=== PATIENT | male | born 1965 | race Caucasian/White ===

== ENCOUNTER → 2020-03-03 11:49 | Outpatient (BNVA) | payer SELFPAY | PROVIDERS: Family Provider Nurse Practitioner Family; PCP Nurse Practitioner Family; Visit Provider Registered Nurse | DX: E11.9 Type 2 diabetes mellitus without complications (principal) | CPT/HCPCS: 80053; 83036 ==

== ENCOUNTER → 2020-05-31 08:36 | Outpatient (BNVA) | payer SELFPAY | PROVIDERS: Family Provider Nurse Practitioner Family; PCP Nurse Practitioner Family; Visit Provider Registered Nurse | DX: E11.9 Type 2 diabetes mellitus without complications (principal) | CPT/HCPCS: 80061; 83036 ==

== ENCOUNTER → 2020-08-05 09:04 | Outpatient (BNVA) | payer SELFPAY | PROVIDERS: Family Provider Nurse Practitioner Family; PCP Nurse Practitioner Family; Visit Provider Registered Nurse | DX: L02.91 Cutaneous abscess, unspecified (principal); L05.91 Pilonidal cyst without abscess | CPT/HCPCS: 87070; 87077; 87186 ==

== ENCOUNTER 2020-08-09 08:01 | Outpatient (CLI) | payer SELFPAY | END 2020-08-09 08:02 | disposition home or self-care (01) | LOC: WOUND 08:06 | PROVIDERS: Family Provider Nurse Practitioner Family; PCP Nurse Practitioner Family; Visit Provider Nurse Practitioner Family | DX: I96 Gangrene, not elsewhere classified; L98.492 Non-pressure chronic ulcer of skin of other sites with fat layer exposed | CPT/HCPCS: G0463 ==

== ENCOUNTER 2020-08-13 12:45 | Outpatient (CLI) | payer SELFPAY | END 2020-08-13 12:46 | disposition home or self-care (01) | LOC: WOUND 12:46 | PROVIDERS: Family Provider Registered Nurse; PCP Registered Nurse; Visit Provider Surgery | DX: L05.91 Pilonidal cyst without abscess (principal) | CPT/HCPCS: 11042 ==

== ENCOUNTER 2020-08-19 13:43 | Outpatient (CLI) | payer OTHER, SELFPAY | END 2020-08-19 13:44 | disposition home or self-care (01) | LOC: WOUND 13:44 | PROVIDERS: Family Provider Registered Nurse; PCP Registered Nurse; Visit Provider Surgery | DX: L05.01 Pilonidal cyst with abscess (principal); Z20.828 Contact with and (suspected) exposure to other viral communicable diseases | CPT/HCPCS: 87635; G0463 ==

== ENCOUNTER 2020-08-24 10:34 | Day surgery (SDC) | payer SELFPAY ==
[2020-08-23 12:54] VITALS: BMI 28.0
[2020-08-24 10:47] VITALS: BP 119/77; PULSE 88; RESP 18; TEMP 36.4; O2SAT 98
[2020-08-24 10:58] LABS: Glucose Point of Care 128 mg/dL (70-110)
[2020-08-24] MEDS: sodium chloride 0.9% 1,000 ML 30 ML IV (11:01)
--- NOTE | 2020-08-24 11:03 | W.PM.OPSUD ---
Surgery/Procedure H&P Update DATE OF PROCEDURE: August 24, 2020 DATE H&P PERFORMED: 08/13/20 H&P UPDATE INFORMATION: I have reviewed H&P completed within last 30 days, I have examined patient prior to procedure and No changes to prior documentation PREOP DIAGNOSIS: Lower back and right gluteal wounds PRIMARY INDICATION FOR PROCEDURE: The same PLANNED PROCEDURE: Operation Date: 08/24/20 12:10 Proposed Procedures p Debridement of lower back and right thigh wound(Right) - Arnaldo Blanchard MD
--- NOTE | 2020-08-24 11:14 | ANES.PREANE2 ---
Pre-Anesthetic Assessment Pre-Anesthetic Assessment: Height/Weight: Height 1.75 m Weight 86.183 kg Temp Pulse Resp BP Pulse Ox 97.6 F 88 18 119/77 98 08/24/20 10:47 08/24/20 10:47 08/24/20 10:47 08/24/20 10:47 08/24/20 10:47 Preop Diagnosis: Lower back and right gluteal wounds Proposed Procedure: Operation Date: 08/24/20 12:10 Proposed Procedures p Debridement of lower back and right thigh wound(Right) - Arnaldo Blanchard MD Familial anesthetic complications: None Was Beta Vaibhav taken within 24 hours: N/A Last intake: Intake black coffee at 0600 Last Liquid Date 08/24/20 Last Liquid Time 06:00 Last Solid Date 08/23/20 Last Solid Time 19:00 Social: Social History: Tobacco and No alcohol Exam: Pre-Anes Outpt Exam: alert, oriented x 3, clear to auscultation bilaterally and regular rate & rhythm Airway: Cervical ROM: WNL MP: 3 Dentition: False Metabolic: Metabolic: DM Anesthetic Plan: ASA status: 2 Anesthesia: MAC Risk of > 500 ml blood loss (7ml/kg in children): No Meds/Allergies Current Medications: Current Medications Generic Name Dose Route Start Last Admin Trade Name Freq PRN Reason Stop Dose Admin Sodium Chloride 1,000 mls @ 30 ml s/hr 08/24/20 10:45 08/24/20 11:01 Sodium Chloride 0.9% IV 08/25/20 10:44 30 mls/hr .Q24H AGUS Administration PFSH Anesthesia PFSH: Medical History Type 2 diabetes mellitus Social History Smoking and tobacco status: current every day smoker Alcohol intake: never Adopted: No Caregiver/support person: No Lives independently: No Household members: spouse Current occupational status: employed Sexually active: Yes Current gender identity: Male Data Anesthesia Other Labs: Laboratory Results - last 48 hr 08/24/20 10:54 POC Glucose 128 Cardiac Studies: No Data to Display
[2020-08-24 12:13] LABS: Basophils % 0.7 %; Eosinophils # 0.2 10^3/uL (0.0-0.8); Eosinophils % 3.1 %; Hematocrit 39.3 % (42.0-52.0); Hemoglobin 12.9 g/dL (11.7-16.6); Lymphocytes # 1.4 10^3/uL (0.8-4.8); Lymphocytes % 23.6 %; Mean Corpuscular HGB Conc 32.8 g/dL (30.0-36.0); Mean Corpuscular Hemoglobin 31.8 pg (28.0-34.0); Mean Corpuscular Volume 96.8 fL (80-94); Mean Platelet Volume 10.2 fL (7.4-10.4); Monocytes # 0.4 10^3/uL (0.2-0.9); Monocytes % 6.8 %; Neutrophils # 3.96 10^3/uL (1.8-7.7); Neutrophils % 65.5 %; Nucleated Red Blood Cells % 0 %; Platelet Count 148 10^3/cmm (130-400); Red Blood Count 4.06 10^6/uL (4.1-5.3); Red Cell Distribution Width 12.9 % (12.1-15.1); White Blood Count 6.1 10^3/uL (4.0-10.0)
--- NOTE | 2020-08-24 13:09 | P.OP_ITS ---
Operative Report Date of procedure: August 24, 2020 Pre-op Diagnosis: Lower back and right gluteal wounds Post-op diagnosis: same Post-op Findings: Indurated edges of the lower back wound and cephalad tunneling of the right thigh wound Procedure Done: Sharp debridement of lower back and right thigh wounds. Implants: Pieces of Surgicel followed by packing with half-inch iodoform nugauze Specimens removed/disposition: Lower back wound tissues were sent for pathology and for cultures and sensitivities. Surgeon: Arnaldo Blanchard Financial Administrator: armored service technician Alondra Castillo/medical student Mita Anesthesia: MAC (MARIAM Viera) Estimated blood loss (mL): 10 Condition: stable Disposition: same day Brief History: This is a 54 years old gentleman known from wound care arnot with chronic wounds located on the lower back and right thigh wound. After thorough history physical examination and reviewing the chart I did intake counselor the patient for debridement in the OR. Patient agreed to proceed and informed consent per chart Procedure: After identifying the patient holding area, the lower back and right thigh wound locations were marked before the procedure by myself, patient was then taken to the operative suite, was placed in left lateral position and all pressure points were padded., IV antibiotics were given per protocol,IV propofol was infused by the anesthesia provider, prep and drape of the wound regions was done under the usual sterile technique. Time-out was done verifying the patient's name/date of /planned procedure and destination after the procedure, all were in agreement. Started by excising the unhealthy necrotic indurated tissues of the lower back wound. Incision was created at the skin level and went all the way down to the subcutaneous tissues and fascia layer, wound was excised including unhealthy ti ssues, followed by sharp curettage and debridement of the wound bed.Tissues were sent for cultures and sensitivities as well for pathology. Lower back wound measurement ; Pre Debridement measurements; 2.2 x 1 x 0.5 cm Post-debridement measurement; 3 x 2.5 x 0.7 cm Attention was now deviated towards the right thigh wound and predebridement measurements were 0.5 x 0.5 x 0.2 and post debridement measurements 3 x [address] x [address] to the subcutaneous layer, there was a tunnel appreciated cephalad was debrided. Copious irrigation of the wound was done with warm saline, followed by appropri ate hemostasis, packing of the wound was done with pieces of Surgicel followed by iodophor half-inch Nu Gauze impregnated and lidocaine 2%, followed by ABDs and pressure address Patient tolerated the procedure well, count of instruments, needles and sponges were completed at the end of the procedure. Patient was then taken to the recovery area in stable condition. I was present for the whole entire procedure
[2020-08-24] MEDS: lidocaine 2% INJ 20 mL INJECTION (13:12)
[2020-08-24 13:18] VITALS: BP 119/77; PULSE 88; RESP 18; TEMP 36.4; O2SAT 98
[2020-08-24 14:48] LABS: Anion Gap 15.2 (5-19); Blood Urea Nitrogen 8 mg/dL (6-20); Calcium 9.4 mg/dL (8.5-10.5); Carbon Dioxide 24 mmol/L (22-29); Chloride 106 mmol/L (98-107); Glomerular Filtration Rate 70.3 mL/min (90-130); Glucose 154 mg/dL (65-115); Osmolality Calculated 291 mOsm/kg (285-295); Potassium 5.2 mmol/L (3.5-5.1); Sodium 140 mmol/L (136-145)
[2020-08-24 14:49] LABS: Estmated Average Glucose 163; Hemoglobin A1C 7.3 % (4.0-6.0)
== END 2020-08-24 14:09 | disposition home or self-care (01) ==
PROVIDERS: PCP Registered Nurse; Visit Provider Surgery
PROC: (CPT 11042; principal; 2020-08-24 12:10)
DX: S31.000A Unspecified open wound of lower back and pelvis without penetration into retroperitoneum, initial encounter (principal); S71.101A Unspecified open wound, right thigh, initial encounter; X58.XXXA Exposure to other specified factors, initial encounter; F17.210 Nicotine dependence, cigarettes, uncomplicated
CPT/HCPCS: 11042; 11043; 12345; 36415; 36416; 80048; 82962; 83036; 85025; 87070; 87077; 87176; 87186; 87205; 88304; 96365; J0131; J0690; J2250; J2704; J3010; J7030

== ENCOUNTER 2020-08-27 13:14 | Outpatient (CLI) | payer SELFPAY | END 2020-08-27 13:15 | disposition home or self-care (01) | LOC: WOUND 13:14 | PROVIDERS: PCP Registered Nurse; Visit Provider Surgery | DX: B95.62 Methicillin resistant Staphylococcus aureus infection as the cause of diseases classified elsewhere (principal); L97.812 Non-pressure chronic ulcer of other part of right lower leg with fat layer exposed; L98.492 Non-pressure chronic ulcer of skin of other sites with fat layer exposed | CPT/HCPCS: 11042; 11043 ==

== ENCOUNTER 2020-08-31 15:39 | Outpatient (CLI) | payer SELFPAY ==
[2020-08-31 16:21] LABS: Alanine Aminotransferase 21 U/L (0-41); Albumin Level 5.1 g/dL (3.5-5.2); Alkaline Phosphatase 100 IU/L (40-130); Anion Gap 16.3 (5-19); Aspartate Amino Transferase 19 U/L (0-40); Blood Urea Nitrogen 18 mg/dL (6-20); Calcium 9.9 mg/dL (8.5-10.5); Carbon Dioxide 23 mmol/L (22-29); Chloride 100 mmol/L (98-107); Globulin 2.8 g/dL (1.3-4.6); Glomerular Filtration Rate 63.6 mL/min (90-130); Glucose 179 mg/dL (65-115); Osmolality Calculated 282 mOsm/kg (285-295); Potassium 6.3 mmol/L (3.5-5.1); Sodium 133 mmol/L (136-145); Total Bilirubin 0.6 mg/dL (0.15-1.2); Total Protein 7.9 g/dL (6.6-8.7)
--- NOTE | 2020-09-02 18:43 | PM.MISC ---
Miscellaneous Note Purpose of Documentation: phone call for critical labs Note: Labs reviewed from last clinic visit. Patient's potassium noted to be critical at 6.3. Denies any current symptoms. Instructed patient to stop Bactrim, which can be associated with hyperkalemia. Kidney function at baseline. Instructed to present to nearest urgent care or ER for repeat potassium check and EKG to exclude any rhythm abnormalities. Patient confirmed understanding.
== END 2020-08-31 15:40 | disposition home or self-care (01) ==
LOC: LAB 15:40
PROVIDERS: Student in an Organized Health Care Education/Training Program; PCP Registered Nurse; Visit Provider Physical Medicine & Rehabilitation
DX: E87.5 Hyperkalemia (principal)
CPT/HCPCS: 80053

== ENCOUNTER 2020-09-03 13:18 | Outpatient (CLI) | payer SELFPAY | END 2020-09-03 13:19 | disposition home or self-care (01) | LOC: WOUND 13:23 | PROVIDERS: PCP Registered Nurse; Visit Provider Surgery | DX: E11.622 Type 2 diabetes mellitus with other skin ulcer (principal); L98.492 Non-pressure chronic ulcer of skin of other sites with fat layer exposed; L97.812 Non-pressure chronic ulcer of other part of right lower leg with fat layer exposed | CPT/HCPCS: 11042 ==

== ENCOUNTER 2020-09-10 13:15 | Outpatient (CLI) | payer SELFPAY | END 2020-09-10 13:16 | disposition home or self-care (01) | LOC: WOUND 13:16 | PROVIDERS: PCP Registered Nurse; Visit Provider Surgery | DX: E11.622 Type 2 diabetes mellitus with other skin ulcer (principal); L98.412 Non-pressure chronic ulcer of buttock with fat layer exposed; L97.812 Non-pressure chronic ulcer of other part of right lower leg with fat layer exposed | CPT/HCPCS: 11042 ==

== ENCOUNTER 2020-09-17 12:58 | Outpatient (CLI) | payer SELFPAY | END 2020-09-17 12:59 | disposition home or self-care (01) | LOC: WOUND 13:03 | PROVIDERS: PCP Registered Nurse; Visit Provider Nurse Practitioner Family | DX: E11.622 Type 2 diabetes mellitus with other skin ulcer (principal); L98.492 Non-pressure chronic ulcer of skin of other sites with fat layer exposed; L97.812 Non-pressure chronic ulcer of other part of right lower leg with fat layer exposed | CPT/HCPCS: 11042 ==

== ENCOUNTER 2020-09-24 13:15 | Outpatient (CLI) | payer SELFPAY | END 2020-09-24 13:16 | disposition home or self-care (01) | LOC: WOUND 13:15 | PROVIDERS: PCP Registered Nurse; Visit Provider Surgery | DX: L98.492 Non-pressure chronic ulcer of skin of other sites with fat layer exposed (principal); L97.812 Non-pressure chronic ulcer of other part of right lower leg with fat layer exposed | CPT/HCPCS: 11042 ==

== ENCOUNTER 2020-10-01 13:15 | Outpatient (CLI) | payer SELFPAY | END 2020-10-01 13:16 | disposition home or self-care (01) | LOC: WOUND 13:15 | PROVIDERS: PCP Registered Nurse; Visit Provider Surgery | DX: E11.622 Type 2 diabetes mellitus with other skin ulcer (principal); L98.492 Non-pressure chronic ulcer of skin of other sites with fat layer exposed; I96 Gangrene, not elsewhere classified | CPT/HCPCS: 11042 ==

== ENCOUNTER 2020-10-06 14:07 | Outpatient (CLI) | payer SELFPAY | END 2020-10-06 14:08 | disposition home or self-care (01) | LOC: WOUND 14:07 | PROVIDERS: PCP Registered Nurse; Visit Provider Nurse Practitioner Family | DX: E11.622 Type 2 diabetes mellitus with other skin ulcer (principal); L98.492 Non-pressure chronic ulcer of skin of other sites with fat layer exposed | CPT/HCPCS: 11042 ==

== ENCOUNTER 2020-10-15 13:14 | Outpatient (CLI) | payer SELFPAY | END 2020-10-15 13:15 | disposition home or self-care (01) | LOC: WOUND 13:14 | PROVIDERS: PCP Registered Nurse; Visit Provider Surgery | DX: Z09 Encounter for follow-up examination after completed treatment for conditions other than malignant neoplasm (principal) ==

== ENCOUNTER → 2020-11-15 08:48 | Outpatient (BNVA) | payer SELFPAY | PROVIDERS: PCP Registered Nurse; Visit Provider Registered Nurse | DX: E11.9 Type 2 diabetes mellitus without complications (principal) | CPT/HCPCS: 80053; 80061; 83036 ==

== ENCOUNTER → 2021-02-18 09:07 | Outpatient (BNVA) | payer SELFPAY | PROVIDERS: PCP Registered Nurse; Visit Provider Registered Nurse | DX: E11.9 Type 2 diabetes mellitus without complications (principal) | CPT/HCPCS: 80053; 80061; 83036; 85025 ==

== ENCOUNTER → 2021-11-14 09:39 | Outpatient (BNVA) | payer SELFPAY | PROVIDERS: PCP Registered Nurse; Visit Provider Registered Nurse | DX: E11.9 Type 2 diabetes mellitus without complications (principal); E87.5 Hyperkalemia | CPT/HCPCS: 83036; 85025 ==

== ENCOUNTER → 2022-03-03 11:42 | Outpatient (BNVA) | payer SELFPAY | PROVIDERS: PCP Registered Nurse; Visit Provider Registered Nurse | DX: E11.9 Type 2 diabetes mellitus without complications (principal); E78.5 Hyperlipidemia, unspecified | CPT/HCPCS: 80053; 80061; 83036; 85025 ==

== ENCOUNTER → 2022-05-18 08:14 | Outpatient (BNVA) | payer SELFPAY | PROVIDERS: PCP Registered Nurse; Visit Provider Registered Nurse | DX: E11.9 Type 2 diabetes mellitus without complications (principal) | CPT/HCPCS: 80053; 83036 ==

== ENCOUNTER → 2022-08-17 08:22 | Outpatient (BNVA) | payer SELFPAY | PROVIDERS: PCP Registered Nurse; Visit Provider Registered Nurse | DX: E11.9 Type 2 diabetes mellitus without complications (principal); F17.210 Nicotine dependence, cigarettes, uncomplicated | CPT/HCPCS: 80053; 83036; 85025 ==

== ENCOUNTER → 2023-05-01 10:22 | Outpatient (BNVA) | payer SELFPAY | PROVIDERS: PCP Registered Nurse; Visit Provider Orthopaedic Surgery | DX: M54.9 Dorsalgia, unspecified (principal) | CPT/HCPCS: 72100 ==

== ENCOUNTER 2023-05-21 06:48 | Outpatient (CLI) | payer MEDICAID, SELFPAY ==
--- NOTE | 2023-05-21 07:15 | MR_ITS ---
WS: [id number] MRI LUMBAR SPINE NONCONTRAST HISTORY: M43.9 - Deforming dorsopathy, unspecified COMPARISON: Lumbar spine radiographs 05/01/2023. TECHNIQUE: Sagittal and axial multisequence imaging is submitted. Straightening of the normal lumbar lordosis with slight reversal at the L4 level. L4 severe compression fracture by 90% with retropulsion by 6 mm. Posterior vertebral body is retrolis thesed contacting and displacing the nerve roots in the thecal sac. There is a small component of mar row edema in the posterior L4 vertebral body. Additional marrow edema in the facets of L4. Edema with in the interspinous muscle at the L3-4 and L4-5 levels. No additional fracture or marrow edema. Conus terminates normally at L1-2 disc level. L1-L2: Mild annular disc bulging with facet arthritis. Mild foraminal narrowing. L2-L3: Moderate annular disc bulging encroaching upon the subarticular recesses. Small foraminal oste ophytes. There is mild central, bilateral subarticular recess and foraminal stenosis. Mild encroachme nt upon the traversing L3 nerve roots. L3-L4: Marked annular disc bulging with retrolisthesis of L4. Mild ligamentum flavum and facet arthri tis. Severe central, bilateral subarticular recess and foraminal stenosis. The stenosis becomes more significant at the level of the L4 vertebral body retrolisthesis. There is disc osteophyte causing si gnificant deformity and contact on the L3 and L4 nerve roots. L4-L5: Severe central, bilateral subarticular recess and foraminal stenosis. There is significant con tact on the L4 and L5 nerve roots. L5-S1: Mild annular disc bulging with a tiny central disc protrusion. There is mild contact on the S1 nerve roots. Mild bilateral subarticular recess and foraminal stenosis. Abnormal appearance of the LEFT kidney. There is mild dilatation of the LEFT renal pelvis possible re nal rotation or mass. LEFT kidney is incompletely imaged but needs to be further evaluated for possib le mass. MR/MR lumbar spine wo con* [id number] IMPRESSION: 1. Severe L4 compression fracture. Subacute most likely as there is incomplete marrow edema in portions of the vertebral bodies and facets. There is also int erspinous ligament edema. Ligamentous injury is likely due to mild widening and edema. 2. L4 compression fracture with retrolisthesis by 6 mm contacting the thecal s ac and displacing the nerve roots. 3. Severe central, bilateral subarticular recess and foraminal stenosis at the L3-4 and L4-5 levels. Stenosis is dominant due to the retrolisthesis of L4. 4. Mild central, bilateral subarticular recess and foraminal stenosis at L2-3 . Mild contact on the traversing L3 nerve roots. 5. Mild bilateral subarticular recess and foraminal stenosis at L5-S1. Mild co ntact on the traversing S1 nerve roots. 6. Abnormal LEFT kidney. A very small portion of the LEFT kidney is imaged but appears abnormal. Recommend additional evaluation of the abdomen and pelvis wi th IV and oral contrast to evaluate the LEFT kidney and the LEFT retroperitoneu m for possible mass.
== END 2023-05-21 06:49 | disposition home or self-care (01) ==
LOC: RAD 06:50
PROVIDERS: PCP Registered Nurse; Visit Provider Registered Nurse
DX: S32.048A Other fracture of fourth lumbar vertebra, initial encounter for closed fracture (principal); X58.XXXA Exposure to other specified factors, initial encounter; M48.07 Spinal stenosis, lumbosacral region; M43.16 Spondylolisthesis, lumbar region; M43.9 Deforming dorsopathy, unspecified
CPT/HCPCS: 72148

== ENCOUNTER → 2023-05-24 14:57 | Outpatient (BNVA) | payer MEDICAID, SELFPAY | PROVIDERS: PCP Registered Nurse; Visit Provider Orthopaedic Surgery | DX: Z01.818 Encounter for other preprocedural examination (principal); S32.040A Wedge compression fracture of fourth lumbar vertebra, initial encounter for closed fracture; X58.XXXA Exposure to other specified factors, initial encounter | CPT/HCPCS: 36415; 80053; 81003; 83036; 85025 ==

== ENCOUNTER → 2023-05-28 12:23 | Outpatient (BNVA) | payer MEDICAID, SELFPAY | PROVIDERS: PCP Registered Nurse; Visit Provider Family Medicine | DX: Z01.818 Encounter for other preprocedural examination (principal) | CPT/HCPCS: 80048 ==

== ENCOUNTER 2023-05-29 07:25 | Outpatient (CLI) | payer MEDICAID, SELFPAY ==
--- NOTE | 2023-05-29 08:00 | CTR_ITS ---
PROCEDURE INFORMATION: Exam: CT Abdomen And Pelvis With Contrast Exam date and time: 05/29/2023 8:40 AM Age: 57 years old Clinical indication: Abnormal findings; Abnormal radiologic finding of the abdomen; Radiologic exam and body structure: MR abdomen; Additional info: N28.89 - other specified disorders of kidney and ureter, recommended further eval from mri lumbar TECHNIQUE: Imaging protocol: Computed tomography of the abdomen and pelvis with contrast. Radiation optimization: All CT scans at this facility use at least one of these dose optimization techniques: automated exposure control; mA and/or kV adjustment per patient size (includes targeted exams where dose is matched to clinical indication); or iterative reconstruction. Contrast material: OMNI 350; Contrast volume: 95 ml; Contrast route: INTRAVENOUS (IV); REPORTING DATA: Count of CT and Cardiac NM exams in prior 12 months: This patient has received 0 known CTs and 0 known cardiac nuclear medicine studies in the 12 months prior to the current study. COMPARISON: 1. CR XR lumbar spine 2-3V* [id number] 05/01/2023 10:22 AM 2. MR lumbar spine wo con* [id number] 05/21/2023 7:45 AM RADIATION DOSE METRICS: Total DLP (mGy-cm): 326.46 FINDINGS: Liver: The liver is normal in size and contour. Gallbladder and bile ducts: Multiple calcified gallstones noted. No gallbladder wall thickening or pericholecystic fat stranding or fluid. Pancreas: The pancreas appears normal. Spleen: The spleen appears normal. Adrenal glands: The adrenals appear normal. Kidneys and ureters: Mass in the left kidney measuring 10 x 9 x 10 cm most likely consistent with malignancy. Mild prominence of the left-sided renal collecting system. No significant perinephric fat stranding. The right kidney appears unremarkable. Stomach and bowel: The stomach is unremarkable. The small bowel loops are not abnormally dilated. The large bowel loops are not abnormally dilated. Appendix: No signs of appendicitis. Intraperitoneal space: No ascites or significant fluid collection. Vasculature: The left renal vein appears patent. Lymph nodes: There are no enlarged lymph nodes. Urinary bladder: The bladder is distended and demonstrates no focal contour abnormality. Reproductive: Unremarkable as visualized. Bones/joints: Vertebra plana deformity at L4 with possible osseous destruction, similar to prior exam. Soft tissues: Unremarkable. CT/CT abdomen pelvis w con* [id number] IMPRESSION: 1. Mass in the left kidney measuring 10 x 9 x 10 cm most likely consistent with primary renal malignancy. 2. Vertebra plana deformity at L4 with possible osseous destruction, similar to prior exam. Findings could be related to osseous metastatic disease if no history of trauma. 3. Cholelithiasis without evidence of acute cholecystitis. COMMENTS: Consistent with the [employer]'s Incidental Findings Committee white paper (J Am Daniela Radiol 2018): Any incidental renal lesion less than 1 cm or classified as too small to characterize, or any incidental cystic renal lesion characterized as simple-appearing, is likely benign. No follow-up imaging is recommended for these lesions per consensus recommendations based on imaging criteria.
[2023-05-29] MEDS: iohexol 350 mg/mL 500 mL Btl (per mL) IV (08:45)
[2023-05-29] MEDS: iohexol 350 mg/mL 500 mL Btl (per mL) PO (08:45)
== END 2023-05-29 07:26 | disposition home or self-care (01) ==
LOC: RAD 07:28
PROVIDERS: PCP Registered Nurse; Visit Provider Registered Nurse
DX: N28.89 Other specified disorders of kidney and ureter (principal); M43.8X6 Other specified deforming dorsopathies, lumbar region; K80.20 Calculus of gallbladder without cholecystitis without obstruction; R93.5 Abnormal findings on diagnostic imaging of other abdominal regions, including retroperitoneum
CPT/HCPCS: 74177; Q9967

== ENCOUNTER → 2023-06-04 11:04 | Outpatient (BNVA) | payer MEDICAID, SELFPAY | PROVIDERS: PCP Registered Nurse; Visit Provider Registered Nurse | DX: E87.1 Hypo-osmolality and hyponatremia (principal); R60.9 Edema, unspecified | CPT/HCPCS: 80048 ==

== ENCOUNTER 2023-06-09 05:55 | Outpatient (CLI) | payer MEDICAID, SELFPAY ==
--- NOTE | 2023-06-09 | PETR_ITS ---
[facility] Final Radiology Report Call: [phone] assistance Online chat: [email or web address] Name: GARTH REESE Age: 57Years M Date: 05/29/2023 SSN: -- : 1965 Study: CT ABDOMEN/PELVIS W Requesting Physician: Neftaly Hernandez Images: 214 Provided Clinical History: N28.89 - Other specified disorders of kidney and ureter, recommended further eval from MRI Lumbar PROCEDURE INFORMATION: Exam: CT Abdomen And Pelvis With Contrast Exam date and time: 05/29/2023 8:40 AM Age: 57 years old Clinical indication: Abnormal findings; Abnormal radiologic finding of the abdomen; Radiologic exam and body structure: MR abdomen; Additional info: N28.89 - other specified disorders of kidney and ureter, recommended further eval from mri lumbar TECHNIQUE: Imaging protocol: Computed tomography of the abdomen and pelvis with contrast. Radiation optimization: All CT scans at this facility use at least one of these dose optimization techniques: automated exposure control; mA and/or kV adjustment per patient size (includes targeted exams where dose is matched to clinical indication); or iterative reconstruction. Contrast material: OMNI 350; Contrast volume: 95 ml; Contrast route: INTRAVENOUS (IV); REPORTING DATA: Count of CT and Cardiac NM exams in prior 12 months: This patient has received 0 known CTs and 0 known cardiac nuclear medicine studies in the 12 months prior to the current study. COMPARISON: 1. CR XR lumbar spine 2-3V* [id number] 05/01/2023 10:22 AM 2. MR lumbar spine wo con* [id number] 05/21/2023 7:45 AM RADIATION DOSE METRICS: Total DLP (mGy-cm): 326.46 FINDINGS: Liver: The liver is normal in size and contour. Gallbladder and bile ducts: Multiple calcified gallstones noted. No gallbladder wall thickening or pericholecystic fat stranding or fluid. Pancreas: The pancreas appears normal. Spleen: The spleen appears normal. Adrenal glands: The adrenals appear normal. Kidneys and ureters: Mass in the left kidney measuring 10 x 9 x 10 cm most likely consistent with malignancy. Mild prominence of the left-sided renal collecting system. No significant perinephric fat stranding. The right kidney appears unremarkable. Stomach and bowel: The stomach is unremarkable. The small bowel loops are not abnormally dilated. The large bowel loops are not abnormally dilated. Appendix: No signs of appendicitis. Intraperitoneal space: No ascites or significant fluid collection. Vasculature: The left renal vein appears patent. Lymph nodes: There are no enlarged lymph nodes. Urinary bladder: The bladder is distended and demonstrates no focal contour abnormality. Reproductive: Unremarkable as visualized. Bones/joints: Vertebra plana deformity at L4 with possible osseous destruction, similar to prior exam. Soft tissues: Unremarkable. IMPRESSION: 1. Mass in the left kidney measuring 10 x 9 x 10 cm most likely consistent with primary renal malignancy. 2. Vertebra plana deformity at L4 with possible osseous destruction, similar to prior exam. Findings could be related to osseous metastatic disease if no history of trauma. 3. Cholelithiasis without evidence of acute cholecystitis. COMMENTS: Consistent with the [place] [employer]'s Incidental Findings Committee white paper (J Am Daniela Radiol 2018): Any incidental renal lesion less than 1 cm or classified as too small to characterize, or any incidental cystic renal lesion characterized as simple- appearing, is likely benign. No follow-up imaging is recommended for these lesions per consensus recommendations based on imaging criteria. Thank you for allowing us to participate in the care of your patient. Dictated and Authenticated by: Nilson Justice MD 05/29/2023 11:31 AM Central Time ([place] & [place]) [facility]Henry
--- NOTE | 2023-06-09 | PETR_ITS ---
PROCEDURE INFORMATION: Exam: PET/CT Skull Base to Mid-thigh Exam date and time: 06/09/2023 1:12 PM Age: 57 years old Clinical indication: Condition or disease; Primary cancer: Malignant neoplasm of left kidney; Initial oncological staging assessment LABS AND CLINICAL REPORTS: Glucose: 127 mg/dl Treatment strategy for malignancy (PET staging): Initial Staging (PI) TECHNIQUE: Imaging protocol: Following at least four-hour fasting and following the injection of radiopharmaceutical, low dose CT images were obtained. Then, PET images were obtained. Attenuation corrected images were constructed using the CT scan. Fused images of PET and CT were reviewed. The standardized uptake values (SUV) reported below are maximum values within a region of interest, expressed in gm/ml. Exam includes orbital meatal line to mid-thigh. Radiopharmaceutical: 12.82 mCi F-18 FDG (Fluorodeoxyglucose), IV. Time of imaging post radiopharmaceutical administration: 1 hour Injection site: Left antecubital COMPARISON: CT abdomen pelvis w con* [id number] 05/29/2023 8:40 AM, MRI lumbar spine 05/21/2023 FINDINGS: Limitations: Motion artifact and streak artifact. Brain: Visualized brain has normal physiologic uptake. Pharynx: No abnormal uptake. Larynx: No abnormal uptake. Lungs, pleura and trachea: No abnormal uptake. A left lower lobe calcified granuloma is noted. Mild dependent streaky density in the right lower lung is with atelectasis. Heart: Normal physiologic uptake. Mediastinal space: No abnormal uptake. Liver: No abnormal uptake. Gallbladder and bile ducts: No abnormal uptake. Small stones in the gallbladder are noted. Pancreas: Elevated uptake in the pancreatic tail is noted without a well-defined lesion on the CT images, SUV max 4.5 on PET series 4, image 99 Spleen: No abnormal uptake. Adrenal glands: No abnormal uptake. Kidneys and ureters: Elevated uptake is identified in the periphery of a solid heterogeneous appearing mass arising from the left kidney measuring 9.8 x 11.3 cm in the axial plane on series 3, image 106, SUV max 5.0. Moderate hydronephrosis of the left kidney is noted. Stomach and bowel: There is a focus of elevated uptake in the mid sigmoid colon, SUV max 5.9 on PET series 4, image 131, without a definite correlating lesion on the CT images. Reproductive: There is marked prominence of the prostate gland without focal elevated uptake. Vasculature: No abnormal uptake. There are diffuse atherosclerotic changes. Lymph nodes: No abnormal uptake. No lymphadenopathy in the head, neck, chest, abdomen, pelvis, and extremities. Small non radiotracer avid calcified left hilar lymph nodes are present. Bones/joints: Elevated uptake is identified in a lucent lesion involving the posterior right glenoid measuring 1.3 cm in diameter on CT series 3, image 36, SUV max 4.7, and within the T4 vertebral body where there is a lucent lesion measuring 1.3 cm in diameter on series 3, image 49 with an SUV max 3.7. Elevated uptake is noted in a similar severe compression fracture of the L4 vertebral body, SUV max 4.6. Canal stenosis appears severe at the level of L4. Soft tissues: No abnormal uptake in the visualized head, neck, chest, abdomen, pelvis, and extremities. METRICS: Mediastinal blood pool: SUV max 2.4 PET/PET skulltothi SUBSEQ [id number] IMPRESSION: 1. A large left renal mass is noted with abnormal uptake in the periphery of the lesion. Assessment of renal lesions is limited by PET-CT, however the appearance on this exam and the comparison CT is highly concerning for malignancy. Left-sided hydronephrosis is also noted which may be indicative of partial obstruction of the intrarenal collecting system by the mass. Dedicated MRI with and without contrast with renal mass protocol may be useful for further characterization of the mass if this has not been performed. 2. Radiotracer avid lucent lesions are identified in the right glenoid and T4 vertebral body compatible with metastases. 3. Abnormal uptake and is severe T4 vertebral body compression fracture is noted which may be posttraumatic or related to pathologic fracture due to underlying metastasis. 4. Elevated uptake in the region of the pancreatic tail is noted, without a well-defined lesion on the current noncontrast CT images or the prior contrasted CT from 05/29/2023. This uptake may be physiologic in nature or related to mild inflammatory changes. Neoplastic involvement of the pancreatic tail is a less likely consideration. 5. A focal region of elevated uptake in the mid sigmoid colon is noted without a definite abnormality on the CT images. This may be physiologic in nature although underlying inflammatory changes or neoplastic involvement cannot be entirely excluded. Attention to this region is recommended on follow-up imaging. 6. Enlarged prostate gland. 7. Cholelithiasis. 8. Additional nonurgent findings as detailed above.
== END 2023-06-09 05:56 | disposition home or self-care (01) ==
LOC: RAD 06-11 05:55
PROVIDERS: PCP Registered Nurse; Visit Provider Registered Nurse
DX: C64.2 Malignant neoplasm of left kidney, except renal pelvis (principal)
CPT/HCPCS: 78815; A9552

== ENCOUNTER 2023-06-20 14:16 | Inpatient (IN) | payer MEDICAID, SELFPAY ==
[2023-06-19 08:23] VITALS: BMI 24.5
[2023-06-20] VITALS (19 sets, daily range): BP systolic 115–164; BP diastolic 75–92; PULSE 65–112; RESP 16–20; TEMP 36.1–36.8; O2SAT 92–100
--- NOTE | 2023-06-20 | XR_ITS ---
WS: [id number] XR lumbar spine 2-3V* [id number] REASON FOR EXAM: L2-sacrum, instrumented fusion Posterior decompression L2-S1. Pedicle screws at L2, L3, L5, and S1. Severe compression fracture of L4. Normal spinal alignment. Surgical appliances are intact and in proper position and alignment. IMPRESSION: Posterior lumbar fusion as above.
[2023-06-20] MEDS: sodium chloride 0.9% 1,000 ML 30 ML IV (08:59)
--- NOTE | 2023-06-20 09:21 | ECG_ITS ---
[facility] Test Date: 2023-06-20 Pat Name: Dudley Hutton Department: Room: Gender: Male [employer]: : 1965 Requested By: Patricia Oliveira Order Number: [id number] Rueda MD: Fermin Castro M.D. Measurements Intervals [place] Rate: 103 P: 62 AR: 168 QRS: -10 QRSD: 79 T: 29 QT: 318 QTc: 417 Interpretive Statements SINUS TACHYCARDIA ABNORMAL RHYTHM ECG No previous ECG available for comparison Electronically Signed On 06-20-2023 16:49:07 CDT by Fermin Castro M.D. [id number]
--- NOTE | 2023-06-20 09:24 | ANES.PREANE2 ---
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 Operation Date: 06/20/23 10:00 Proposed Procedures p L2-S1 fusion with pedicle subtraction osteotomy(PSO) at L4 and decompression of L3-4 L4-5: 62371, [id number] &,S32.040, M40.14(Not Applicable) - Marcos Marcus DO s L2-S1 fusion with pedicle subtraction osteotomy(PSO) at L4 and decompression of L3-4 L4-5.(Not Applicable) - Marcos Marcus DO Familial anesthetic complications: None Was Beta Vaibhav taken within 24 hours: N/A Was Clonidine taken within 24 hours: N/A Last intake: Intake Last Liquid Date 06/19/23 Last Liquid Time 23:55 Last Solid Date 06/19/23 Last Solid Time 18:00 Social Tobacco and No alcohol Exam alert, oriented x 3, clear to auscultation bilaterally and regular rate & rhythm Airway Mallampati: Class II Dentition: other (no teeth) CV/HEM Hypertension kidney cancer Metabolic Diabetes Mellitus chronic hyponatremia - no associated AMS Anesthetic Plan ASA status: 4 Anesthesia: General Risk of > 500 ml blood loss (7ml/kg in children): Yes, adequate IV access and fluids planned Medications/Allergies Home Medications Medication Instructions Recorded Confirmed Last Taken Type dapagliflozin 10 mg tablet 10 mg PO DAILY #90 tabs 08/17/22 06/19/23 Unknown Rx (Farxiga) metformin 1,000 mg tablet See Rx Instructions .Route 08/17/22 06/19/23 06/19/23 08:00 Rx .COMPLEX #180 tabs hydrocodone 5 mg-acetaminophen 325 1 tab PO TID PRN pain 20 days #60 06/04/23 06/19/23 06/20/23 03:00 Rx mg tablet tabs potassium chloride 10 mEq 10 meq PO DAILY 5 days #5 tabs 06/04/23 06/19/23 06/12/23 Rx tablet,extended release (Klor-Con) liraglutide 0.6 mg/0.1 mL (18 mg/3 1.2 mg (0.2 mL) SUBCUT DAILY #6 mL 06/11/23 06/19/23 06/18/23 Rx mL) subcutaneous pen injector (Victoza 2-Rodolfo) furosemide 20 mg tablet 20 mg PO DAILY 5 days #5 tabs 06/13/23 06/19/23 06/12/23 Rx Allergies Allergy/AdvReac Type Severity Reaction Status Date / Time No Known Allergies Allergy Verified 06/04/23 10:14 Current Medications Generic Name Dose Route Start Last Admin Trade Name Freq PRN Reason Stop Dose Admin Sodium Chloride 1,000 mls @ 30 mls/hr 06/20/23 08:15 06/20/23 08:59 Sodium Chloride 0.9% IV 06/21/23 08:14 30 mls/hr .Q24H AGUS Administration PFSH Anesthesia Medical History (Updated 06/12/23 @ 10:37 by Jagjit Lopez MD) Type 2 diabetes mellitus Social History Smoking and tobacco status: current some day smoker Alcohol intake: never Substance/Drug Use: never Adopted: No Caregiver/support person: No Lives independently: No Household members: spouse Current occupational status: employed Sexually active: Yes Do you think of yourself as: Straight/Heterosexual Current gender identity: Male Data Anesthesia Cardiac Studies: No Data to Display
[2023-06-20] MEDS: fentaNYL 50 mcg/mL INJ 2mL IVP ×2 (09:42→14:29)
--- NOTE | 2023-06-20 10:14 | W.PM.OPSUD ---
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
[2023-06-20 10:26] LABS: Anion Gap 13.8 (5-19); Blood Urea Nitrogen 14 mg/dL (6-20); Calcium 9.2 mg/dL (8.5-10.5); Carbon Dioxide 27 mmol/L (22-29); Chloride 102 mmol/L (98-107); Glomerular Filtration Rate 117.1 mL/min (90-130); Glucose 169 mg/dL (65-115); Osmolality Calculated 290 mOsm/kg (285-295); Potassium 4.8 mmol/L (3.5-5.1); Sodium 138 mmol/L (136-145)
[2023-06-20] MEDS: ceFAZolin 2,000 MG in sodium chloride 0.9% (plus) 50 ML 100 MG IV ×3 (10:41→23:23)
[2023-06-20] MEDS: lidocaine-epi 1% 20 mL INJ INJECTION (11:18)
[2023-06-20] MEDS: heparin, porcine 1,000 unit/mL INJ 10 mL 4000 UNIT INJECTION (12:20)
[2023-06-20] MEDS: vancomycin 1,000 MG SDV 1000 MG XX (13:28)
--- NOTE | 2023-06-20 13:57 | P.OP_ITS ---
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 L2-S1 posterior spine fusion 2. L2- S1 posterior instrumentation 3. L3/4 laminectomy with partial facetectomies 4. L4/5 Laminectomy with partial facetectomies 5. Biopsy of L4 vertebral body and Spinous process 6. use of computer navigation sterotactic for spine 7. bone marrow aspiration right iliac crest 8. use of allograft Surgeon: Marcos Marcus Surveyor Instrument Assistant: Luis Alvarado Surveyor Instrument Assistant: The credit control assistant, Luis Alvarado, PAC was needed for his expertise under the microscope. He was important and necessary throughout the procedure to complete in a safe and timely manner. He assisted with patient positioning prepping and draping tissue retraction suctioning of the operative field protection of the dural sac and tissue closure Estimated blood loss (mL): 400 Procedure: 1. L2-S1 posterior spine fusion 2. L2- S1 posterior instrumentation 3. L3/4 laminectomy with partial facetectomies 4. L4/5 Laminectomy with partial facetectomies 5. Biopsy of L4 vertebral body and Spinous process 6. use of computer navigation sterotactic for spine 7. bone marrow aspiration right iliac crest 8. use of allograft Patient was brought to the operative suite after undergoing anesthesia was placed in the prone position. All areas impingement well-padded. Patient was then prepped and draped in normal sterile fashion. Skin incision made from L2 down to S1. Subperiosteal dissection was made out to the transverse processes from L2-L5. And out to the sacral ala. This was done bilaterally. Attention was then brought to drawing the bone marrow aspirate from the right iliac crest. This was done using the bone marrow aspiration kit. The awl was inserted and then every millimeter the needle was pulled out bone marrow was aspirated 20 cc were used this was then mixed with the ostial amp bone graft that was used at the end of the case. She was brought to attaching the computer navigation. This was done by placing 2 pins in the right iliac crest. These pins will be later removed at the end of the case. The fiducial was attached to these 2 pins. The C-arm was then brought in and spun around the patient. The information from serum was then loaded in the computer for later use with computer navigation. She was brought to placing the screws. This was done by using the gearshift which was linked to the computer navigation followed by the pedicle feeler. Followed by placing the screw length to the computer navigation. Screws were placed at S1 bilaterally L5 bilaterally. L4 was skipped because of the level of the fracture/tumor. Screws were placed at L3 bilaterally and L2 bilaterally. Next attention was brought to doing the decompression at L4-5. This was done by using a high-speed bur to take down the lamina of L4. The curved curette and Kerrisons were then used to take down the lamina taken on the medial aspect of the facet joints bilaterally. And take down the ligamentum flavum. At this level there was significant scarring likely from the tumor. There was a small dural tear that occurred. A 4-0 Nurolon was used to repair the dura is a watertight seal. The L5 nerve roots were traced around the L5 pedicle and the L4 nerves were traced out the L4-5 foramen felt to be adequately decompressed. Was brought to the L3-4 level this again was done using the high-speed bur to take down the L3 lamina as well as takedown the medial aspect of the facets of L3-4. The Kerrison rongeur was used to take down the remaining lamina as well as take down the ligamentum flavum from L3-L4 bilaterally. The L3 nerve was traced out the L3-4 foramen and the L4 nerves were traced around the L4 pedicle. She was brought to getting the biopsy. The spinous process was already been taken prior to doing the laminectomies this was sent and then after the decompression was done the remaining vertebral body of L4 was identified. And a pituitary was used to bite out pieces of the vertebral body and these pieces as well as what appeared to be tumor was sent to pathology. Next attention was brought to placing the rods. The rods were attached from L2 -S1. the rods were locked distally and distracted in order to facilitate reducing the fracture. Rods were all locked into position with the setscrews. This was done bilaterally. Next tension was brought to decorticating the transverse processes of L2 L3-L4-L5 and sacral ala bilaterally. Then all centimeters bone graft was then packed into the gutters bilaterally. A piece of DuraGen was placed over the dural tear and DuraSeal was also used. There was no evidence of any leak after the stitches were placed DuraGen and DuraSeal were placed prophylactically. The drain was placed and wound was closed in layered fashion with 0 Vicryl closing the thoracolumbar fascia 2-0 Vicryl closing the skin and Monocryl closing the skin. Sterile dressings were applied patient was transferred to the PACU in stable condition.
--- NOTE | 2023-06-20 14:40 | ANE.PACU2 ---
Inpatient post-anesthesia follow up: Airway intact: Yes Vital signs: Temperature 97.0 F Pulse Rate 79 Respiratory Rate 16 Blood Pressure 146/84 Pulse Oximetry 92 Oxygen Delivery Me thod Nasal Cannula Oxygen Flow Rate 2 Fraction of Inspir ed Oxygen Hydration adequate: Yes Nausea and vomiting: No Pain level: 1 Mental status: Baseline
[2023-06-20] MEDS: HYDROcodone-acetaminophen 10-325 mg Tablet PO ×3 (15:19→23:22)
[2023-06-20] MEDS: lactated ringers 1,000 ML 90 ML IV ×2 (15:19→23:23)
[2023-06-20] MEDS: ketorolac 30 mg/mL INJ IVP (15:20)
[2023-06-20 16:53] LABS: Glucose Point of Care 199 mg/dL (70-110)
[2023-06-20] MEDS: metformin 500 mg Tablet 1000 MG PO (16:57)
[2023-06-20] MEDS: docusate sodium 100 mg Capsule PO (16:57)
--- NOTE | 2023-06-20 17:22 | PC.NURSE ---
Patient and instructed to remain laying flat at all times. Verbalized understanding.
[2023-06-20 20:53] LABS: Glucose Point of Care 282 mg/dL (70-110)
[2023-06-21] VITALS (8 sets, daily range): BP systolic 117–166; BP diastolic 65–89; PULSE 100–126; RESP 16–18; TEMP 36.4–37.5; O2SAT 90–98
[2023-06-21] MEDS: HYDROcodone-acetaminophen 10-325 mg Tablet PO (03:45)
[2023-06-21 05:32] LABS: Glucose Point of Care 164 mg/dL (70-110)
[2023-06-21 06:36] LABS: Glucose Point of Care 250 mg/dL (70-110)
--- NOTE | 2023-06-21 07:21 | P.PN_ITS ---
Subjective Subjective: POD 1 Resting comfortably. Patient is concerned about his high blood sugar. He denies chest pain, shortness of breath. Reports mild headache. Has not noticed any changes in his leg pain. Vitals/I&O/Wt Last Vital Signs Temp 98.6 F 06/21/23 04:57 Pulse 122 H 06/21/23 04:57 Resp 16 06/21/23 04:57 BP 145/79 06/21/23 04:57 Pulse Ox 90 06/21/23 04:57 O2 Del Method Room Air 06/20/23 20:00 O2 Flow Rate 2 06/20/23 18:07 06/20/23 06/21/23 06/21/23 22:59 06:59 14:59 Intake Total 486.5 / 1446.5 1776 / 3222.5 Output Total 80 / 1630 2050 / 3680 Balance 406.5 / -183.5 -274 / -457.5 Weight last 48 hrs Weight 166 lb Physical Exam Narrative: Patient presents alert and oriented x3 with a good general appearance normal mood and affect. Normal coordination normal stability. Mild tenderness around the incisional site with the incision appear to be clean and dry. Hemovac intact. No signs of erythema or drainage. No signs of infection. Patient denies any fevers or chills. 4/5 motor strength both lower extremities with negative straight leg raise bilaterally. Calves are supple no medial thigh tenderness. Pulses are 2+ at the dorsalis pedis and posterior tibial region. Good capillary refill throughout normal sensation light touch both lower extremities. Urinary Catheter Management: Dyson Latex: Cath Placed During This Visit: yes Reason for Continuing Indwelling Catheter: Required Immobilization for Trauma or Surgery or Anesthesia Urinary Catheter Date of Insertion: 06/20/23 Urinary Catheter Time of Insertion: 11:00 Data 06/20/23 09:28 A&P Assessment and plan (1) Compression fracture of L4 vertebra: At this point we will keep him flat due to the incidental durotomy. Hold ph ysical therapy this morning. Will plan to begin mobilizing tomorrow. Encourage incentive spirometer for pulmonary toilet. Placement insulin sliding scale. Order an H&H this morning. (2) Status post lumbar spinal fusion: (3) Incidental durotomy: Attestations Medical Necessity Statement*: Hold discharge until tomorrow. Coding Level of Care Code Acute Code for [facility] Fwd Diagnoses Compression fracture of L4 vertebra S32.040A Status post lumbar spinal fusion Z98.1 Incidental durotomy G97.41
[2023-06-21] MEDS: ondansetron 2 mg/ML SDV 2 mL 4 MG IVP ×3 (08:30→21:10)
[2023-06-21 09:22] LABS: Hematocrit 31.1 % (42.0-52.0); Hemoglobin 10.6 g/dL (11.7-16.6)
[2023-06-21] MEDS: insulin lispro 100 unit/1 mL SUBCUT ×3 (09:30→21:06)
[2023-06-21] MEDS: metformin 500 mg Tablet 1000 MG PO (09:31)
[2023-06-21] MEDS: potassium chloride ER 10 mEq Tablet PO (09:32)
[2023-06-21] MEDS: FUROsemide 20 mg Tablet PO (09:32)
[2023-06-21] MEDS: ceFAZolin 2,000 MG in sodium chloride 0.9% (plus) 50 ML 100 MG IV (09:33)
--- NOTE | 2023-06-21 10:21 | PC.CHAP ---
Pastoral Care Encounter/Spiritual Assessment Type of Contact [x] Declined career development engineer visit [] Patient/Family/Request visit [] Outpatient visit [] Follow-up visit [] Physician referral [] Code/Alert [] Routine visit [] Staff referral [] Actively dying [] Patient sleeping [] Family support [] [] Out of room [] Palliative care [] [] Receiving care in room [] Pre-surgical visit [] Trauma [] Long length of stay [] ICU visit [] Other: Relational/Emotional Strength [] Patient feels connected with others/family/visitors/staff [] Distress [] Loneliness/isolation [] Abandonment Spirituality of Patient [] Person of Delia [] Attends Confucianist of their Delia [] Believes in Prayer [] Reads Bible or Jehovah'S Witness materials [] There are Spiritual issues to be addressed Video Editor Interventions [] Prayer [] Active listening [] Non-anxious presence [] Spiritual/emotional support [] Crisis/trauma care [] Spiritual counseling [] Bereavement support [] Provided bereavement packet [] Provided Bible/devotional materials [] Provided toy/stuffed animal, coloring book to patient or family member [] Provided Communion [] Anointing/Supply [] Salvation [] Completed spiritual assessment [] Other: Impact on Illness or Injury [] Angry [] Fearful [] Anxious [] Often cries [] Exhaustion [] Unable to work [] Unable to attend congregational [] Unable to walk/stand [] Unable to read [] Unable to drive [] Unable to eat/drink [] Unable to sleep [] Unable to be with family [] Patient intubated [] Other: Summary Declined career development engineer visit Time spent with patient 5 mins
[2023-06-21 11:40] LABS: Glucose Point of Care 230 mg/dL (70-110)
--- NOTE | 2023-06-21 14:28 | P.CONIM_ITS ---
Providers/Reason For Consult Consulting Physician/Specialty*: Dr. Lea/internal medicine Reason for Consult*: Coffee-ground emesis Requesting Physician: Dr. 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 Patient has been doing well postoperatively but today started having multiple episodes of nausea and vomiting. Vomitus at start was containing of food particles but later became dark in color hence hospitalist service was consulted with concerns of hematemesis. H&H done today morning shows a hemoglobin of 10.9, hemoglobin few months ago was around 13. CMP done yesterday shows a stable creatinine and BUN. Denies any history of hematemesis or melena in the past. No history of EGD and colonoscopy in the past. Denies any alcohol use, former smoker. Denies any [id number] NSAID use at home. For now patient has been given IV Zofran. Not on IV fluids. Medical reconciliation done Review of Systems General: Reports: 10 or more systems reviewed and unremarkable except in HPI and below Const: Denies: fever(s), chills, body aches, change in appetite, change in weight, malaise, night sweats, diaphoresis, change in sleep pattern, daytime sleepiness or snoring Eyes: Denies: change in vision, blurry vision, photophobia, eye discomfort or eye discharge ENMT: Denies: throat pain, enlarged tonsils, hoarseness, mouth pain, oral sores, dry mouth, tinnitus, nasal congestion or post nasal drip Card: Denies: chest pain, palpitations, irregular heart rhythm, edema, swelling of feet/ankles, lightheadedness, syncope, pre-syncope, dyspnea on exertion, orthopnea, leg pain with exertion or acrocyanosis Resp: Denies: dyspnea, productive cough, non-productive cough, wheezing, stridor, pain on inspiration, change in phlegm color, hemoptysis or chest congestion GI: Denies: abdominal pain, nausea, vomiting, hematemesis, coffee ground emesis, dysphagia, heartburn, diarrhea, constipation, bloating, GI cramping, change in bowel habits, pain on defecation, hematochezia or melena : Denies: flank pain, difficulty urinating, dysuria, urinary frequency, urinary urgency, urinary hesitancy, urinary dribbling, difficulty starting urination, change in urine stream, nocturia or hematuria Musc: Denies: neck pain, back pain, extremity pain, joint pain, joint swelling, joint redness, joint stiffness or limited range of motion Neuro: Denies: headache(s), numbness in extremities, weakness in extremities, sensory changes, lack of coordination, difficulty walking, frequent falls, dizziness, vertigo, confusion, Slurred speech present, difficulty communicating thoughts or seizure-like activity Psych: Denies: anxiety, depression, mood swings, panic attacks, hopelessness or irritability Endo: Denies: polyuria, polydipsia, tired all the time, cold intolerance, excessive sweating, flushing or heat intolerance Luís/Lymph: Denies: easy bruising or easy bleeding All/Imm: Denies: tongue swelling, facial swelling or acute wheezing Medications/Allergies Home Medications Medication Instructions Recorded Confirmed Last Taken Type dapagliflozin 10 mg tablet 10 mg PO DAILY #90 tabs 08/17/22 06/19/23 Unknown Rx () metformin 1,000 mg tablet See Rx Instructions .Route 08/17/22 06/19/23 06/19/23 08:00 Rx .COMPLEX #180 tabs hydrocodone 5 mg-acetaminophen 325 1 tab PO TID PRN pain 20 days #60 06/04/23 06/19/23 06/20/23 03:00 Rx mg tablet tabs potassium chloride 10 mEq 10 meq PO DAILY 5 days #5 tabs 06/04/23 06/19/23 06/12/23 Rx tablet,extended release (Klor-Con) liraglutide 0.6 mg/0.1 mL (18 mg/3 1.2 mg (0.2 mL) SUBCUT DAILY #6 mL 06/11/23 06/19/23 06/18/23 Rx mL) subcutaneous pen injector (Victoza 2-Rodolfo) furosemide 20 mg tablet 20 mg PO DAILY 5 days #5 tabs 06/13/23 06/19/23 06/12/23 Rx Allergies Allergy/AdvReac Type Severity Reaction Status Date / Time No Known Allergies Allergy Verified 06/04/23 10:14 Current Medications Generic Name Dose Route Start Last Admin Trade Name Nina PRN Reason Stop Dose Admin Hydrocodone Bitart/Acetaminophen 1 - 2 tab 06/20/23 13:40 06/21/23 03:45 Hydrocodone-Acetaminophen 10-325 Mg Tablet PO 2 tab Q4H PRN Administration MODERATE TO SEVERE PAIN Docusate Sodium 100 mg 06/20/23 18:00 06/21/23 09:32 Docusate Sodium 100 Mg Capsule PO Not Given BID AGUS Furosemide 20 mg 06/21/23 09:00 06/21/23 09:32 Furosemide 20 Mg Tablet PO 20 mg DAILY AGUS Administration Lactated Ringer's 1,000 mls @ 90 mls/hr 06/20/23 13:45 06/21/23 10:35 Lactated Ringers IV Infused .Q11H7M AGUS Infusion Insulin Human Lispro 0 unit 06/21/23 08:00 06/21/23 12:18 Insulin Lispro 100 Unit/1 Ml SUBCUT 6 unit WM&BEDTIME AGUS Administration Protocol Ketorolac Tromethamine 30 mg 06/20/23 13:40 06/20/23 15:20 Ketorolac 30 Mg/Ml Inj IVP 30 mg Q6H PRN Administration BREAKTHROUGH PAIN Non-Formulary Medication 1.2 mg 06/21/23 09:00 06/21/23 10:35 Liraglutide [Victoza 2-Rodolfo] SUBCUT Not Given DAILY AGUS Ondansetron HCl 4 mg 06/20/23 13:40 06/21/23 08:30 Ondansetron 2 Mg/Ml Sdv 2 Ml IVP 4 mg Q6H PRN Administration NAUSEA AND VOMITING Potassium Chloride 10 meq 06/21/23 09:00 06/21/23 09:32 Potassium Chloride Er 10 Meq Tablet PO 10 meq DAILY AGUS Administration PFSH Acute PFSH: Medical History (Updated 06/21/23 @ 14:33 by Cisco Lea MD) Fracture of lumbar spine Lumbar foraminal stenosis Malignant neoplasm of left kidney Type 2 diabetes mellitus Social History Smoking and tobacco status: current some day smoker Alcohol intake: never Substance/Drug Use: never Adopted: No Caregiver/support person: No Lives independently: No Household members: spouse Current occupational status: employed Sexually active: Yes Do you think of yourself as: Straight/Heterosexual Current gender identity: Male Vitals/I&O/Wt Last Vital Signs Temp 98.7 F 06/21/23 11:54 Pulse 112 H 06/21/23 11:54 Resp 16 06/21/23 11:54 BP 166/87 06/21/23 11:54 Pulse Ox 94 06/21/23 11:54 O2 Del Method Room Air 06/21/23 08:00 O2 Flow Rate 2 06/20/23 18:07 06/20/23 06/21/23 06/21/23 22:59 06:59 14:59 Intake Total 486.5 / 1446.5 1776 / 3222.5 1170 / 1170 Output Total 80 / 1630 2050 / 3680 Balance 406.5 / -183.5 -274 / -457.5 1170 / 1170 Physical Exam Narrative: General: In mild distress because of epigastric pain, AOx3, nauseated HEENT: PERRLA, pupils bilaterally equal and reactive Chest: Normal vesicular breath sounds, no added sounds, equal good air entry bilaterally CVS: S1-S2 regular, no murmurs, no tachycardia, no gallops, no rubs Abdomen: Soft, nontender, no organomegaly, bowel sounds present Neuro: No focal deficits, no facial deformity, AO x3, power 5/5 in all limbs Urinary Catheter Management: Dyson Latex: Cath Placed During This Visit: yes Reason for Continuing Indwelling Catheter: Required Immobilization for Trauma or Surgery or Anesthesia Urinary Catheter Date of Insertion: 06/20/23 Urinary Catheter Time of Insertion: 11:00 Data 06/21/23 08:56 06/20/23 09:28 A&P Assessment and plan (1) Encounter for postoperative care: Postoperative day 1 for L3-L4 laminectomy with L2 S1 spinal fusion complicated by incidental durotomy. Physical therapy, pain management, perioperative antibiotics as per primary team (2) Hematemesis: Most likely Sindi-Romero in setting of excessive retching prior to hematemesis. Surgery consulted. Possible need of endoscopy NPO. Protonix IV twice daily after 80 mg stat. Will transfuse if hemoglobin falls below 8. Check hemoglobin hematocrit every 8 hourly for now. Type and screen for emergency transfusion. Check iron panel, vitamin B12, folate levels. (3) Status post lumbar spinal fusion: (4) Incidental durotomy: (5) Malignant neoplasm of left kidney: (6) Type 2 diabetes mellitus: Hold off on OHA's. Check A1c. Continue with insulin sliding scale. Qualifiers: Diabetes mellitus complication status: without complication Diabetes me llitus detention insulin use: without detention use Qualified Code(s): E11.9 - Type 2 diabetes mellitus without complications Plan Full code NPO. Protonix OPD prophylaxis SCDs for DVT prophylaxis Consult Attestations Medical Necessity Statement: Requires further hospitalization for postoperative care post laminectomy, hematemesis as patient needs endoscopy Diagnoses Encounter for postoperative care Z48.89 Hematemesis K92.0 Status post lumbar spinal fusion Z98.1 Incidental durotomy G97.41 Malignant neoplasm of left kidney C64.2 Type 2 diabetes mellitus E11.9 Diabetes mellitus complication status: without complication Diabetes mellitus remote computer terminal operator insulin use: without remote computer terminal operator use
--- NOTE | 2023-06-21 14:35 | P.CONIM_ITS ---
Providers/Reason For Consult Consulting Physician/Specialty*: Dr. 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 Postoperatively he developed nausea and vomiting which eventually became hematemesis of coffee-ground material. He does report that he has been getting heartburn prior to his procedure. Denies any hematochezia and/or melena. Denies any abdominal pain. Review of Systems General: Reports: 10 or more systems reviewed and unremarkable except in HPI and below Medications/Allergies Home Medications Medication Instructions Recorded Confirmed Last Taken Type dapagliflozin 10 mg tablet 10 mg PO DAILY #90 tabs 08/17/22 06/19/23 Unknown Rx (Farxiga) metformin 1,000 mg tablet See Rx Instructions .Route 08/17/22 06/19/23 06/19/23 08:00 Rx .COMPLEX #180 tabs hydrocodone 5 mg-acetaminophen 325 1 tab PO TID PRN pain 20 days #60 06/04/23 06/19/23 06/20/23 03:00 Rx mg tablet tabs potassium chloride 10 mEq 10 meq PO DAILY 5 days #5 tabs 06/04/23 06/19/23 06/12/23 Rx tablet,extended release (Klor-Con) liraglutide 0.6 mg/0.1 mL (18 mg/3 1.2 mg (0.2 mL) SUBCUT DAILY #6 mL 06/11/23 06/19/23 06/18/23 Rx mL) subcutaneous pen injector (Victoza 2-Rodolfo) furosemide 20 mg tablet 20 mg PO DAILY 5 days #5 tabs 06/13/23 06/19/23 06/12/23 Rx Allergies Allergy/AdvReac Type Severity Reaction Status Date / Time No Known Allergies Allergy Verified 06/04/23 10:14 Current Medications Generic Name Dose Route Start Last Admin Trade Name Freq PRN Reason Stop Dose Admin Hydrocodone Bitart/Acetaminophen 1 - 2 tab 06/20/23 13:40 06/21/23 03:45 Hydrocodone-Acetaminophen 10-325 Mg Tablet PO 2 tab Q4H PRN Administration MODERATE TO SEVERE PAIN Docusate Sodium 100 mg 06/20/23 18:00 06/21/23 09:32 Docusate Sodium 100 Mg Capsule PO Not Given BID AGUS Furosemide 20 mg 06/21/23 09:00 06/21/23 09:32 Furosemide 20 Mg Tablet PO 20 mg DAILY AGUS Administration Lactated Ringer's 1,000 mls @ 90 mls/hr 06/20/23 13:45 06/21/23 10:35 Lactated Ringers IV Infused .Q11H7M AGUS Infusion Insulin Human Lispro 0 unit 06/21/23 08:00 06/21/23 12:18 Insulin Lispro 100 Unit/1 Ml SUBCUT 6 unit WM&BEDTIME AGUS Administration Protocol Ketorolac Tromethamine 30 mg 06/20/23 13:40 06/20/23 15:20 Ketorolac 30 Mg/Ml Inj IVP 30 mg Q6H PRN Administration BREAKTHROUGH PAIN Non-Formulary Medication 1.2 mg 06/21/23 09:00 06/21/23 10:35 Liraglutide [Victoza 2-Rodolfo] SUBCUT Not Given DAILY AGUS Ondansetron HCl 4 mg 06/20/23 13:40 06/21/23 08:30 Ondansetron 2 Mg/Ml Sdv 2 Ml IVP 4 mg Q6H PRN Administration NAUSEA AND VOMITING Potassium Chloride 10 meq 06/21/23 09:00 06/21/23 09:32 Potassium Chloride Er 10 Meq Tablet PO 10 meq DAILY AGUS Administration PFSH Acute PFSH: Medical History Fracture of lumbar spine Lumbar foraminal stenosis Malignant neoplasm of left kidney Type 2 diabetes mellitus Social History Smoking and tobacco status: current some day smoker Alcohol intake: never Substance/Drug Use: never Adopted: No Caregiver/support person: No Lives independently: No Household members: spouse Current occupational status: employed Sexually active: Yes Do you think of yourself as: Straight/Heterosexual Current gender identity: Male Vitals/I&O/Wt Last Vital Signs Temp 98.7 F 06/21/23 11:54 Pulse 112 H 06/21/23 11:54 Resp 16 06/21/23 11:54 BP 166/87 06/21/23 11:54 Pulse Ox 94 06/21/23 11:54 O2 Del Method Room Air 06/21/23 08:00 O2 Flow Rate 2 06/20/23 18:07 06/20/23 06/21/23 06/21/23 22:59 06:59 14:59 Intake Total 486.5 / 1446.5 1776 / 3222.5 1170 / 1170 Output Total 80 / 1630 2050 / 3680 Balance 406.5 / -183.5 -274 / -457.5 1170 / 1170 Physical Exam Narrative: General : Patient is well developed , no acute distress, oriented x3 Head : Normal cephalic, a-traumatic. Ears : Pinnae and external canal are normal. Hearing is normal. Eyes : PERRLA, Sclera and injection are normal. No conjunctival discharge. Nose : Mucous membranes are without erythema. Throat : buccal mucosa is normal, gums are without significant recession or hy pertrophy. Lungs : Equal chest rise bilaterally, no use of accessory muscles, trachea is midline. Cor : Rate and rhythm are normal. Abdomen : Soft, ND, NT, no g/r/m Extremities : No edema, no cyanosis or clubbing, dorsalis pedis pulses are present bilaterally, non-tender to palpation of calves. Upper extremities are normal bilaterally. Urinary Catheter Management: Dyson Latex: Cath Placed During This Visit: yes Reason for Continuing Indwelling Catheter: Required Immobilization for Trauma or Surgery or Anesthesia Urinary Catheter Date of Insertion: 06/20/23 Urinary Catheter Time of Insertion: 11:00 Data 06/22/23 04:08 06/22/23 04:08 A&P Assessment and plan (1) Hematemesis: Plan EGD tomorrow The risks and benefits of the procedure, including bleeding, infection, intes tinal perforation requiring surgery, missed lesion were explained to the patient. The patient is understanding of the risks and wishes to proceed. Coding Level of Care Code 70340 Diagnoses Hematemesis K92.0
[2023-06-21] MEDS: pantoprazole 40 mg SDV 80 MG IVP (15:43)
[2023-06-21] MEDS: sodium chloride 0.9% 1,000 ML 50 ML IV (15:45)
--- NOTE | 2023-06-21 15:51 | CTR_ITS ---
PROCEDURE INFORMATION: Exam: CT Abdomen And Pelvis With Contrast Exam date and time: 06/21/2023 4:49 PM Age: 57 years old Clinical indication: Abdominal pain; Prior surgery; Surgery date: Post-operative (0-2 days); Surgery type: L spine; Additional info: S/s TECHNIQUE: Imaging protocol: Computed tomography of the abdomen and pelvis with contrast. Radiation optimization: All CT scans at this facility use at least one of these dose optimization techniques: automated exposure control; mA and/or kV adjustment per patient size (includes targeted exams where dose is matched to clinical indication); or iterative reconstruction. Contrast material: OMNI 350; Contrast volume: 100 ml; Contrast route: INTRAVENOUS (IV); REPORTING DATA: Count of CT and Cardiac NM exams in prior 12 months: This patient has received 3 known CTs and 0 known cardiac nuclear medicine studies in the 12 months prior to the current study. COMPARISON: [facility] SUBSEQ [id number] 06/09/2023 1:12 PM RADIATION DOSE METRICS: Total DLP (mGy-cm): 499.63 FINDINGS: Lungs: Mild atelectasis versus fibrosis noted at the lung bases. Mediastinal space: Mural thickening of the distal esophagus, consistent with nonspecific esophagitis. Liver: The liver is unremarkable in appearance. Gallbladder and bile ducts: Small calcified gallstones in the gallbladder. There are no secondary signs of cholecystitis. Pancreas: The pancreas is normal in appearance. No pancreatic duct dilatation. Spleen: Unremarkable. No splenomegaly. Adrenal glands: The adrenal glands appear within normal limits. Kidneys and ureters: Left kidney demonstrates heterogeneous solid mass in the lower pole measuring 9 x 10 x 10 cm. Right kidney is unremarkable. Stomach and bowel: The stomach is markedly distended with fluid and air. The appearance suggests gastric outlet obstruction versus gastroparesis. The small bowel is unremarkable as demonstrated. Excessive retained stool noted in the colon, suggesting constipation. Appendix: No evidence of appendicitis. Intraperitoneal space: No free air. No significant fluid collection. Vasculature: The aorta is atherosclerotic. No aortic aneurysm. Lymph nodes: No pathologically enlarged lymph nodes. Urinary bladder: There is a Dyson catheter in the urinary bladder. The empty urinary bladder is unremarkable. Reproductive: Unremarkable as visualized. Bones/joints: Postop change of the lumbar spine noted. Soft tissues: Unremarkable. CT/CT abdomen pelvis w con* [id number] IMPRESSION: 1. Left kidney demonstrates heterogeneous solid mass in the lower pole measuring 9 x 10 x 10 cm. This mass is highly suggestive of a primary renal neoplasm. This lesion is unchanged from PET/CT scan of 06/09/2023. 2. The stomach is markedly distended with fluid and air. The appearance suggests gastric outlet obstruction versus gastroparesis. 3. Small calcified gallstones in the gallbladder. There are no secondary signs of cholecystitis. 4. Mural thickening of the distal esophagus, consistent with nonspecific esophagitis.
[2023-06-21 16:08] LABS: Basophils % 0.2 %; Hematocrit 32.6 % (42.0-52.0); Hemoglobin 11.1 g/dL (11.7-16.6); Lymphocytes # 0.5 10^3/uL (0.8-4.8); Lymphocytes % 4.2 %; Mean Corpuscular Hemoglobin 32.7 pg (28.0-34.0); Mean Corpuscular Volume 96.2 fl (80-94); Mean Platelet Volume 8.7 fL (7.4-10.4); Monocytes # 0.8 10^3/uL (0.2-0.9); Monocytes % 7.1 %; Neutrophils # 9.87 10^3/uL (1.8-7.7); Neutrophils % 88.1 %; Nucleated Red Blood Cells % 0 %; Platelet Count 206 10^3/cmm (130-400); Red Blood Count 3.39 10^6/uL (4.1-5.3); Red Cell Distribution Width 15.3 % (12.1-15.1); White Blood Count 11.2 10^3/uL (4.0-10.0)
[2023-06-21 16:37] LABS: Thyroid Stimulating Hormone 0.51 uIU/mL (0.27-4.20)
[2023-06-21] MEDS: iohexol 350 mg/mL 500 mL Btl (per mL) IV (17:02)
[2023-06-21 17:09] LABS: Alanine Aminotransferase 10 U/L (0-41); Albumin Level 3.7 g/dL (3.5-5.2); Alkaline Phosphatase 93 U/L (40-130); Anion Gap 17.9 (5-19); Aspartate Amino Transferase 22 U/L (0-40); Blood Urea Nitrogen 17 mg/dL (6-20); Calcium 9.4 mg/dL (8.5-10.5); Carbon Dioxide 27 mmol/L (22-29); Chloride 93 mmol/L (98-107); Globulin 2.7 g/dL (1.3-4.6); Glomerular Filtration Rate 100.4 mL/min (90-130); Glucose 202 mg/dL (65-115); Iron 14 ug/dL (59-158); Osmolality Calculated 285 mOsm/kg (285-295); Potassium 3.9 mmol/L (3.5-5.1); Sodium 134 mmol/L (136-145); Total Bilirubin 0.6 mg/dL (0.15-1.2); Total Iron Binding Capacity 233 mcg/dl; Total Protein 6.4 g/dL (6.6-8.7); Unsaturated Iron Binding 219 ug/dL (112-347)
[2023-06-21 17:27] LABS: Glucose Point of Care 246 mg/dL (70-110)
[2023-06-21 17:32] LABS: Vitamin B12 490 pg/mL (232-1245)
[2023-06-21] MEDS: pantoprazole 40 mg SDV IVP (19:09)
[2023-06-21 20:52] LABS: Glucose Point of Care 315 mg/dL (70-110)
[2023-06-21 22:42] LABS: Hematocrit 32.5 % (42.0-52.0)
[2023-06-22] VITALS (12 sets, daily range): BP systolic 118–163; BP diastolic 65–86; PULSE 88–118; RESP 16–20; TEMP 36.4–37.6; O2SAT 90–100
[2023-06-22 04:59] LABS: Basophils % 0.2 %; Hematocrit 30.9 % (42.0-52.0); Hemoglobin 10.5 g/dL (11.7-16.6); Lymphocytes # 0.5 10^3/uL (0.8-4.8); Lymphocytes % 3.9 %; Mean Corpuscular Hemoglobin 32.6 pg (28.0-34.0); Monocytes # 0.8 10^3/uL (0.2-0.9); Monocytes % 6.9 %; Neutrophils # 10.48 10^3/uL (1.8-7.7); Neutrophils % 88.5 %; Nucleated Red Blood Cells % 0 %; Platelet Count 209 10^3/cmm (130-400); Red Blood Count 3.22 10^6/uL (4.1-5.3); Red Cell Distribution Width 15.6 % (12.1-15.1); White Blood Count 11.8 10^3/uL (4.0-10.0)
[2023-06-22 05:19] LABS: Alanine Aminotransferase 10 U/L (0-41); Albumin Level 3.7 g/dL (3.5-5.2); Alkaline Phosphatase 92 U/L (40-130); Anion Gap 18.4 (5-19); Aspartate Amino Transferase 17 U/L (0-40); Blood Urea Nitrogen 19 mg/dL (6-20); Calcium 9.6 mg/dL (8.5-10.5); Carbon Dioxide 28 mmol/L (22-29); Chloride 95 mmol/L (98-107); Globulin 2.9 g/dL (1.3-4.6); Glomerular Filtration Rate 87.6 mL/min (90-130); Glucose 285 mg/dL (65-115); Osmolality Calculated 297 mOsm/kg (285-295); Potassium 4.4 mmol/L (3.5-5.1); Sodium 137 mmol/L (136-145); Total Bilirubin 0.6 mg/dL (0.15-1.2); Total Protein 6.6 g/dL (6.6-8.7)
[2023-06-22 05:21] LABS: Chol HDL Ratio 1.81 mg/dL (1.0-5.00); Cholesterol 94 mg/dL (0-200); HDL Cholesterol 52 mg/dL (60-100); LDL Cholesterol Calculated 29 mg/dL (50-129); Triglycerides 67 mg/dL (0-150); VLDL Cholestrol Calculation 13 mg/dL (0-30)
[2023-06-22 05:36] LABS: Folate Level 6.3 ng/mL (4.5-32.2)
[2023-06-22 06:48] LABS: Glucose Point of Care 310 mg/dL (70-110)
--- NOTE | 2023-06-22 07:06 | PM.PN ---
Subjective Subjective: resting comfortably in bed. At this point patient is going to get a EGD today at 11. Will await results of this. Vitals/I&O/Wt Last Vital Signs Temp 99.1 F 06/22/23 03:44 Pulse 118 H 06/22/23 03:44 Resp 16 06/22/23 03:44 BP 156/86 06/22/23 03:44 Pulse Ox 90 06/22/23 03:44 O2 Del Method Room Air 06/22/23 03:44 O2 Flow Rate 2 06/20/23 18:07 06/21/23 06/22/23 06/22/23 22:59 06:59 14:59 Output Total 950 / 950 532 / 1482 Balance -950 / 220 -532 / -312 Physical Exam Narrative: Resting comfortably in bed drain only had 34 I will plan on going out today. Urinary Catheter Management: Dyson Latex: Cath Placed During This Visit: yes Reason for Continuing Indwelling Catheter: Required Immobilization for Trauma or Surgery or Anesthesia Urinary Catheter Date of Insertion: 06/20/23 Urinary Catheter Time of Insertion: 11:00 Data 06/22/23 04:08 06/22/23 04:08 A&P Assessment and plan (1) Status post lumbar spinal fusion: Patient is postop day #2 from an L2-S1 posterior spinal fusion for pathologic fracture at L4. Biopsies were sent during surgery awaiting pathology results. Awaiting results of EGD as well. Attestations Medical Necessity Statement*: Awaiting EGD. Coding Level of Care Code Acute Code for Chg Fwd Diagnoses Status post lumbar spinal fusion Z98.1
[2023-06-22] MEDS: pantoprazole 40 mg SDV IVP ×2 (09:33→20:10)
[2023-06-22] MEDS: insulin lispro 100 unit/1 mL SUBCUT ×4 (09:35→21:19)
[2023-06-22 11:19] LABS: Glucose Point of Care 217 mg/dL (70-110)
[2023-06-22] MEDS: sodium chloride 0.9% 1,000 ML 50 ML IV (11:26)
[2023-06-22] MEDS: sodium chloride 0.9% 1,000 ML 30 ML IV (13:00)
--- NOTE | 2023-06-22 13:35 | P.PN_ITS ---
Vitals/I&O/Wt Last Vital Signs Temp 99.7 F H 06/22/23 11:31 Pulse 115 H 06/22/23 11:31 Resp 18 06/22/23 11:31 BP 144/79 06/22/23 11:31 Pulse Ox 93 06/22/23 11:31 O2 Del Method Room Air 06/22/23 11:31 O2 Flow Rate 2 06/20/23 18:07 06/21/23 06/22/23 06/22/23 22:59 06:59 14:59 Intake Total 984.167 / 984.167 Output Total 950 / 950 532 / 1482 Balance -950 / 220 -532 / -312 984.167 / 984.167 Physical Exam 2 Urinary Catheter Management: Dyson Latex: Cath Placed During This Visit: yes Reason for Continuing Indwelling Catheter: Required Immobilization for Trauma or Surgery or Anesthesia Urinary Catheter Date of Insertion: 06/20/23 Urinary Catheter Time of Insertion: 11:00 Data 06/22/23 04:08 06/22/23 04:08 A&P Assessment and plan (1) Hematemesis: Plan EGD The risks and benefits of the procedure, including bleeding, infection, intestinal perforation requiring surgery, missed lesion were explained to the patient. The patient is understanding of the risks and wishes to proceed. Attestations Medical Necessity Statement*: Per primary Coding Level of Care Code Acute Code for g Fwd Diagnoses Hematemesis K92.0
--- NOTE | 2023-06-22 14:11 | ANES.PREANE2 ---
Pre-Anesthetic Assessment Height/Weight: Height 1.75 m Weight 75.296 kg Temp Pulse Resp BP Pulse Ox O2 Del Method O2 Flow Rate 99.7 F H 115 H 18 144/79 93 Room Air 2 06/22/23 11:31 06/22/23 11:31 06/22/23 11:31 06/22/23 11:31 06/22/23 11:31 06/22/23 11:31 06/20/23 18:07 Preop Diagnosis: L4 burst fracture lumbar stenosis due to retropulsion of bone Operation Date: 06/20/23 10:00 Proposed Procedures p L2-S1 fusion with pedicle subtraction osteotomy(PSO) at L4 and decompression of L3-4 L4-5: [id number], [id number],14560,12703,[id number],30088,98214 &,S32.040, M40.14(Not Applicable) - Marcos Marcus DO s L2-S1 fusion with pedicle subtraction osteotomy(PSO) at L4 and decompression of L3-4 L4-5.(Not Applicable) - Marcos Marcus DO Operation Date: 06/22/23 13:00 Proposed Procedures p EGD(Not Applicable) - Jabari Moffett DO Last intake: Intake Last Liquid Date 06/19/23 Last Liquid Time 23:55 Last Solid Date 06/19/23 Last Solid Time 18:00 Social Alcohol and Tobacco Exam alert, oriented x 3, clear to auscultation bilaterally and regular rate & rhythm Airway Submandibular: within normal limits Cervical ROM: within normal limits Mallampati: Class II Dentition: false History/ROS No significant history except as noted and No significant complaints Pulmonary Chronic Obstructive Pulmonary Disease CV/HEM Hypertension None reported Hepatic None reported GI Gastroesophageal Reflux Disease Metabolic Diabetes Mellitus [facility] [place] Lower Back Pain and Osteoarthritis/DJD Recent back surgery Anesthetic Plan ASA status: 3 Anesthesia: Anesthesia Evaluation and MAC Risk of > 500 ml blood loss (7ml/kg in children): No Medications/Allergies Home Medications Medication Instructions Recorded Confirmed Last Taken Type dapagliflozin 10 mg tablet 10 mg PO DAILY #90 tabs 08/17/22 06/19/23 Unknown Rx (Farxiga) metformin 1,000 mg tablet See Rx Instructions .Route 08/17/22 06/19/23 06/19/23 08:00 Rx .COMPLEX #180 tabs hydrocodone 5 mg-acetaminophen 325 1 tab PO TID PRN pain 20 days #60 06/04/23 06/19/23 06/20/23 03:00 Rx mg tablet tabs potassium chloride 10 mEq 10 meq PO DAILY 5 days #5 tabs 06/04/23 06/19/23 06/12/23 Rx tablet,extended release (Klor-Con) liraglutide 0.6 mg/0.1 mL (18 mg/3 1.2 mg (0.2 mL) SUBCUT DAILY #6 mL 06/11/23 06/19/23 06/18/23 Rx mL) subcutaneous pen injector (Victoza 2-Rodolof) furosemide 20 mg tablet 20 mg PO DAILY 5 days #5 tabs 06/13/23 06/19/23 06/12/23 Rx Allergies Allergy/AdvReac Type Severity Reaction Status Date / Time No Known Allergies Allergy Verified 06/04/23 10:14 Current Medications Generic Name Dose Route Start Last Admin Trade Name Freq PRN Reason Stop Dose Admin Hydrocodone Bitart/Acetaminophen 1 - 2 tab 06/20/23 13:40 06/21/23 03:45 Hydrocodone-Acetaminophen 10-325 Mg Tablet PO 2 tab Q4H PRN Administration MODERATE TO SEVERE PAIN Docusate Sodium 100 mg 06/20/23 18:00 06/22/23 09:36 Docusate Sodium 100 Mg Capsule PO Not Given BID AGUS Furosemide 20 mg 06/21/23 09:00 06/21/23 09:32 Furosemide 20 Mg Tablet PO 20 mg DAILY AGUS Administration Sodium Chloride 1,000 mls @ 50 mls/hr 06/21/23 14:30 06/22/23 11:26 Sodium Chloride 0.9% IV 50 mls/hr .Q20H AGUS Administration Insulin Human Lispro 0 unit 06/21/23 08:00 06/22/23 11:24 Insulin Lispro 100 Unit/1 Ml SUBCUT 6 unit WM&BEDTIME AGUS Administration Protocol Ketorolac Tromethamine 30 mg 06/20/23 13:40 06/20/23 15:20 Ketorolac 30 Mg/Ml Inj IVP 30 mg Q6H PRN Administration BREAKTHROUGH PAIN Non-Formulary Medication 1.2 mg 06/21/23 09:00 06/22/23 09:36 Liraglutide [Victoza 2-Rodolfo] SUBCUT Not Given DAILY AGUS Ondansetron HCl 4 mg 06/20/23 13:40 06/21/23 21:10 Ondansetron 2 Mg/Ml Sdv 2 Ml IVP 4 mg Q6H PRN Administration NAUSEA AND VOMITING Pantoprazole Sodium 40 mg 06/21/23 20:00 06/22/23 09:33 Pantoprazole 40 Mg Sdv IVP 40 mg Q12H AGUS Administration Potassium Chloride 10 meq 06/21/23 09:00 06/21/23 09:32 Potassium Chloride Er 10 Meq Tablet PO 10 meq DAILY AGUS Administration PFSH Anesthesia Medical History Fracture of lumbar spine Lumbar foraminal stenosis Malignant neoplasm of left kidney Type 2 diabetes mellitus Social History Smoking and tobacco status: current some day smoker Alcohol intake: never Substance/Drug Use: never Adopted: No Caregiver/support person: No Lives independently: No Household members: spouse Current occupational status: employed Sexually active: Yes Do you think of yourself as: Straight/Heterosexual Current gender identity: Male Data Anesthesia 06/22/23 04:08 06/22/23 04:08 Short CBC 06/21/23 06/21/23 06/21/23 Range/Units 08:56 15:55 22:18 WBC 11.2 H (4.0-10.0) 10^3/uL Hgb 10.6 L 11.1 L 11.0 L (11.7-16.6) g/dL Hct 31.1 L 32.6 L 32.5 L (42.0-52.0) % MCV 96.2 H (80-94) fl Plt Count 206 (130-400) 10^3/cmm Neut % (Auto) 88.1 % Neut # (Auto) 9.87 H (1.8-7.7) 10^3/uL 06/22/23 Range/Units 04:08 WBC 11.8 H (4.0-10.0) 10^3/uL Hgb 10.5 L (11.7-16.6) g/dL Hct 30.9 L (42.0-52.0) % MCV 96.0 H (80-94) fl Plt Count 209 (130-400) 10^3/cmm Neut % (Auto) 88.5 % Neut # (Auto) 10.48 H (1.8-7.7) 10^3/uL BMP 06/21/23 06/22/23 15:55 04:08 Sodium 134 L 137 Potassium 3.9 4.4 Chloride 93 L 95 L Carbon Dioxide 27 28 BUN 17 19 Creatinine 0.8 0.9 Glucose 202 H 285 H Calcium 9.4 9.6 Liver Function 06/21/23 06/22/23 Range/Units 15:55 04:08 Total Bilirubin 0.6 0.6 (0.15-1.2) mg/dL AST 22 17 (0-40) U/L ALT 10 10 (0-41) U/L Alkaline Phosphatase 93 92 (40-130) U/L Albumin 3.7 3.7 (3.5-5.2) g/dL Cardiac Studies: No Data to Display
--- NOTE | 2023-06-22 14:12 | P.PN_ITS ---
Subjective Subjective: No acute events overnight. Has remained hemodynamically stable and afebrile. No further episodes of hematemesis/coffee-ground emesis. Hemoglobin has remained stable around 10.5-11. Today morning n.p.o. for EGD. States he is hungry. Denies any new complaints. No dizziness. Vitals/I&O/Wt Last Vital Signs Temp 99.7 F H 06/22/23 11:31 Pulse 115 H 06/22/23 11:31 Resp 18 06/22/23 11:31 BP 144/79 06/22/23 11:31 Pulse Ox 93 06/22/23 11:31 O2 Del Method Room Air 06/22/23 11:31 O2 Flow Rate 2 06/20/23 18:07 06/21/23 06/22/23 06/22/23 22:59 06:59 14:59 Intake Total 984.167 / 984.167 Output Total 950 / 950 532 / 1482 Balance -950 / 220 -532 / -312 984.167 / 984.167 Physical Exam Narrative: General: In mild distress because of epigastric pain, AOx3, nauseated HEENT: PERRLA, pupils bilaterally equal and reactive Chest: Normal vesicular breath sounds, no added sounds, equal good air entry bilaterally CVS: S1-S2 regular, no murmurs, no tachycardia, no gallops, no rubs Abdomen: Soft, nontender, no organomegaly, bowel sounds present Neuro: No focal deficits, no facial deformity, AO x3, power 5/5 in all limbs Urinary Catheter Management: Dyson Latex: Cath Placed During This Visit: yes Reason for Continuing Indwelling Catheter: Required Immobilization for Trauma or Surgery or Anesthesia Urinary Catheter Date of Insertion: 06/20/23 Urinary Catheter Time of Insertion: 11:00 Data 06/22/23 04:08 06/22/23 04:08 CT Abd/Pel: Radiologist's impression: Radiology Impressions Abdomen/Pelvis CT 06/21/23 15:51 IMPRESSION: 1. Left kidney demonstrates heterogeneous solid mass in the lower pole measuring 9 x 10 x 10 cm. This mass is highly suggestive of a primary renal neoplasm. This lesion is unchanged from PET/CT scan of 06/09/2023. 2. The stomach is markedly distended with fluid and air. The appearance suggests gastric outlet obstruction versus gastroparesis. 3. Small calcified gallstones in the gallbladder. There are no secondary signs of cholecystitis. 4. Mural thickening of the distal esophagus, consistent with nonspecific esophagitis. Laboratory Results A&P Assessment and plan (1) Encounter for postoperative care: Postoperative day 2 for L3-L4 laminectomy with L2 S1 spinal fusion complicated by incidental durotomy. Physical therapy, pain management, perioperative antibiotics as per primary team (2) Hematemesis: Most likely Sindi-Romero in setting of excessive retching prior to hematemesis. CT abdomen pelvis done as per surgical recommendations yesterday shows a markedly distended stomach with fluid and air with possibility of gastric outlet obstruction versus gastroparesis. Plan for endoscopy today. Continue n.p.o. Will plan further as per endoscopy results. Protonix IV twice daily after 80 mg stat. Will transfuse if hemoglobin falls below 8. Check hemoglobin hematocrit every 8 hourly for now. Type and screen for emergency transfusion. Appreciate iron panel, vitamin B12, folate levels. Consistent with anemia of chronic disease. (3) Status post lumbar spinal fusion: (4) Incidental durotomy: (5) Malignant neoplasm of left kidney: (6) Type 2 diabetes mellitus: Hold off on OHA's. Check A1c. Continue with insulin sliding scale. Qualifiers: Diabetes mellitus assisted insulin use: without assisted use Diabetes mellitus complication status: without complication Qualified Code(s): E11.9 - Type 2 diabetes mellitus without complications Plan Full code NPO. Protonix OPD prophylaxis SCDs for DVT prophylaxis Attestations Medical Necessity Statement*: As per primary team and the patient was admitted for lumbar fusion complicated by episodes of hematemesis and coffee-ground emesis Diagnoses Encounter for postoperative care Z48.89 Hematemesis K92.0 Status post lumbar spinal fusion Z98.1 Incidental durotomy G97.41 Malignant neoplasm of left kidney C64.2 Type 2 diabetes mellitus E11.9 Diabetes mellitus assisted insulin use: without watermelon harvesting supervisor use Diabetes mellitus complication status: without complication
--- NOTE | 2023-06-22 16:30 | ANE.PACU2 ---
Inpatient post-anesthesia follow up: Airway intact: Yes Vital signs: Temperature 97.9 F Pulse Rate 87 Respiratory Rate 18 Blood Pressure 153/84 Pulse Oximetry 94 Oxygen Delivery Me thod Room Air Oxygen Flow Rate 2 Fraction of Inspir ed Oxygen Hydration adequate: Yes Nausea and vomiting: No Pain level: 1 Mental status: Baseline
[2023-06-22 16:50] LABS: Glucose Point of Care 204 mg/dL (70-110)
[2023-06-22] MEDS: metoclopramide 5 mg/mL SDV 2 mL IVP ×2 (17:00→21:45)
[2023-06-22] MEDS: sucralfate 1 gm/10 mL Oral Liq UDC PO ×2 (17:01→20:10)
[2023-06-22 20:47] LABS: Glucose Point of Care 185 mg/dL (70-110)
[2023-06-23 00:45] VITALS: BP 155/89; PULSE 99; RESP 17; TEMP 36.8; O2SAT 93
[2023-06-23] MEDS: metoclopramide 5 mg/mL SDV 2 mL IVP ×2 (03:18→10:23)
[2023-06-23 04:00] VITALS: BP 148/50; PULSE 107; RESP 16; TEMP 37; O2SAT 93
[2023-06-23] MEDS: sucralfate 1 gm/10 mL Oral Liq UDC PO ×2 (06:31→10:23)
[2023-06-23 06:45] LABS: Glucose Point of Care 211 mg/dL (70-110)
[2023-06-23 07:08] VITALS: BP 153/84; PULSE 87; RESP 18; TEMP 36.6; O2SAT 94
[2023-06-23] MEDS: insulin lispro 100 unit/1 mL SUBCUT ×2 (07:58→12:07)
[2023-06-23] MEDS: pantoprazole 40 mg SDV IVP (07:59)
[2023-06-23] MEDS: potassium chloride ER 10 mEq Tablet PO (07:59)
[2023-06-23] MEDS: FUROsemide 20 mg Tablet PO (07:59)
[2023-06-23] MEDS: docusate sodium 100 mg Capsule PO (07:59)
[2023-06-23] MEDS: HYDROcodone-acetaminophen 10-325 mg Tablet PO (08:51)
--- NOTE | 2023-06-23 09:37 | PM.PN ---
Subjective Subjective: Patient is doing well this morning no more emesis. At this point patient pain is controlled. He has not been up with physical therapy but hopefully get him up with physical therapy this morning and then see how he does and possibly discharge this afternoon if okay with other services. Vitals/I&O/Wt Last Vital Signs Temp 97.9 F 06/23/23 07:08 Pulse 87 06/23/23 07:08 Resp 18 06/23/23 07:08 BP 153/84 06/23/23 07:08 Pulse Ox 94 06/23/23 07:08 O2 Del Method Room Air 06/23/23 07:08 O2 Flow Rate 2 06/22/23 14:19 06/22/23 06/23/23 06/23/23 22:59 06:59 14:59 Intake Total 720 / 2154.167 360 / 360 Output Total 1325 / 1325 500 / 1825 Balance -605 / 829.167 -500 / 329.167 360 / 360 Physical Exam Narrative: 5 5 strength bilateral lower extremities. Urinary Catheter Management: Dyson Latex: Cath Placed During This Visit: yes Reason for Continuing Indwelling Catheter: Other Urinary Catheter Date of Insertion: 06/20/23 Urinary Catheter Time of Insertion: 11:00 Data 06/22/23 04:08 06/22/23 04:08 A&P Assessment and plan (1) Status post lumbar spinal fusion: At this point patient is okay to discharge from my standpoint. We will wait to hear from other services to determine if he can be discharged today I will put in discharge information so if he does discharge can go this afternoon. Attestations Medical Necessity Statement*: Pending surgical medical evaluation. Coding Level of Care Code Acute Code for Chg Fwd Diagnoses Status post lumbar spinal fusion Z98.1
--- NOTE | 2023-06-23 09:41 | PM.DCS ---
Discharge Providers Date of Admission: 06/20/23 14:16 Date of Discharge: June 23, 2023 Attending Provider at Admission: Marcos Marcus DO Attending Provider at Discharge: Marcos Marcus DO Primary Care Provider: Deb Hernandez Diagnoses at Discharge Discharge Diagnosis (1) Status post lumbar spinal fusion: Status: Acute Reason for Visit Reason for Visit: S32.040, M40.14 Physical Exam Urinary Catheter Management: Dyson Latex: Cath Placed During This Visit: yes Reason for Continuing Indwelling Catheter: Other Urinary Catheter Date of Insertion: 06/20/23 Urinary Catheter Time of Insertion: 11:00 Discharge Data Studies Completed and Pending Completed Studies During Hospitalization Category Date Time Status CT abdomen pelvis w con* [id number] Routine Cat Scan 06/21/23 15:51 Completed XR lumbar spine 2-3V* [id number] Routine Exams 06/20/23 Completed Pending at discharge Category Date Time Status Pathology: Surgical [PTH] Routine Pth 06/20/23 13:19 Received Pathology: Surgical [PTH] Routine Pth 06/22/23 14:27 Received Radiology Impressions Abdomen/Pelvis CT 06/21/23 15:51 IMPRESSION: 1. Left kidney demonstrates heterogeneous solid mass in the lower pole measuring 9 x 10 x 10 cm. This mass is highly suggestive of a primary renal neoplasm. This lesion is unchanged from PET/CT scan of 06/09/2023. 2. The stomach is markedly distended with fluid and air. The appearance suggests gastric outlet obstruction versus gastroparesis. 3. Small calcified gallstones in the gallbladder. There are no secondary signs of cholecystitis. 4. Mural thickening of the distal esophagus, consistent with nonspecific esophagitis. Laboratory Results WBC 11.8 10^3/uL (4.0-10.0) H 06/22/23 04:08 RBC 3.22 10^6/uL (4.1-5.3) L 06/22/23 04:08 Hgb 10.5 g/dL (11.7-16.6) L 06/22/23 04:08 Hct 30.9 % (42.0-52.0) L 06/22/23 04:08 MCV 96.0 fl (80-94) H 06/22/23 04:08 MCH 32.6 pg (28.0-34.0) 06/22/23 04:08 MCHC 34.0 g/dL (30.0-36.0) 06/22/23 04:08 RDW 15.6 % (12.1-15.1) H 06/22/23 04:08 Plt Count 209 10^3/cmm (130-400) 06/22/23 04:08 MPV 9.0 fL (7.4-10.4) 06/22/23 04:08 Neut % (Auto) 88.5 % 06/22/23 04:08 Lymph % (Auto) 3.9 % 06/22/23 04:08 [place] % (Auto) 6.9 % 06/22/23 04:08 Eos % (Auto) 0.0 % 06/22/23 04:08 Baso % (Auto) 0.2 % 06/22/23 04:08 Neut # (Auto) 10.48 10^3/uL (1.8-7.7) H 06/22/23 04:08 Lymph # (Auto) 0.5 10^3/uL (0.8-4.8) L 06/22/23 04:08 [place] # (Auto) 0.8 10^3/uL (0.2-0.9) 06/22/23 04:08 Eos # (Auto) 0.0 10^3/uL (0.0-0.8) 06/22/23 04:08 Baso # (Auto) 0.0 10^3/uL (0.0-0.1) 06/22/23 04:08 Nucleated RBC % (auto) 0 % 06/22/23 04:08 Nucleated RBCs # 0.0 /100WBC 06/22/23 04:08 Sodium 137 mmol/L (136-145) 06/22/23 04:08 Potassium 4.4 mmol/L (3.5-5.1) 06/22/23 04:08 Chloride 95 mmol/L (98-107) L 06/22/23 04:08 Carbon Dioxide 28 mmol/L (22-29) 06/22/23 04:08 Anion Gap 18.4 (5-19) 06/22/23 04:08 BUN 19 mg/dL (6-20) 06/22/23 04:08 Creatinine 0.9 mg/dL (0.7-1.2) 06/22/23 04:08 GFR Calculation 87.6 mL/min (90-130) L 06/22/23 04:08 Glucose 285 mg/dL (65-115) H 06/22/23 04:08 POC Glucose 211 mg/dL (70-110) H 06/23/23 06:38 Calculated Osmolality 297 mOsm/kg (285-295) H 06/22/23 04:08 Calcium 9.6 mg/dL (8.5-10.5) 06/22/23 04:08 Iron 14 ug/dL (59-158) L 06/21/23 15:55 TIBC 233 mcg/dl 06/21/23 15:55 % Saturation 6.0 % (20-50) L 06/21/23 15:55 Unsat Iron Binding 219 ug/dL (112-347) 06/21/23 15:55 Total Bilirubin 0.6 mg/dL (0.15-1.2) 06/22/23 04:08 AST 17 U/L (0-40) 06/22/23 04:08 ALT 10 U/L (0-41) 06/22/23 04:08 Alkaline Phosphatase 92 U/L (40-130) 06/22/23 04:08 Total Protein 6.6 g/dL (6.6-8.7) 06/22/23 04:08 Albumin 3.7 g/dL (3.5-5.2) 06/22/23 04:08 Globulin 2.9 g/dL (1.3-4.6) 06/22/23 04:08 Triglycerides 67 mg/dL (0-150) 06/22/23 04:08 Cholesterol 94 mg/dL (0-200) 06/22/23 04:08 LDL Cholesterol, Calc 29 mg/dL (50-129) L 06/22/23 04:08 Total VLDL Cholesterol 13 mg/dL (0-30) 06/22/23 04:08 HDL Cholesterol 52 mg/dL (60-100) L 06/22/23 04:08 Cholesterol/HDL Ratio 1.81 mg/dL (1.0-5.00) 06/22/23 04:08 Vitamin B12 490 pg/mL (232-1245) 06/21/23 15:55 Folate 6.3 ng/mL (4.5-32.2) 06/22/23 04:08 TSH 0.51 uIU/mL (0.27-4.20) 06/21/23 15:55 Blood Type O Positive 06/20/23 09:28 Rho(D) Type Positive 06/20/23 09:28 Antibody Screen Negative 06/20/23 09:28 Vitals Last Vital Signs Temp 97.9 F 06/23/23 07:08 Pulse 87 06/23/23 07:08 Resp 18 06/23/23 07:08 BP 153/84 06/23/23 07:08 Pulse Ox 94 06/23/23 07:08 O2 Del Method Room Air 06/23/23 07:08 O2 Flow Rate 2 06/22/23 14:19 Discharge Plan Discharge Patient Disposition: Home Condition: Stable Prescriptions: New hydrocodone-acetaminophen 5-325 mg tablet 1 - 2 tab PO .Q4-6H Qty: 40 0RF Continued metformin 1,000 mg tablet See Rx Instructions .ROUTE .COMPLEX Qty: 180 4RF Dose Instruction: Take 1 tablet by mouth twice daily for 90 days Rx Instructions: Take 1 tablet by mouth twice daily for 90 days Farxiga 10 mg tablet 10 mg PO DAILY Qty: 90 1RF potassium chloride [Klor-Con 10] 10 mEq tablet extended release 10 meq PO DAILY 5 Days Qty: 5 0RF hydrocodone-acetaminophen 5-325 mg tablet 1 tab PO TID PRN (Reason: pain) 20 Days Qty: 60 0RF Victoza 2-Rodolfo 0.6 mg/0.1 mL (18 mg/3 mL) pen injector 1.2 mg SUBCUT DAILY Qty: 6 0RF furosemide 20 mg tablet 20 mg PO DAILY 5 Days Qty: 5 0RF Discharge Orders: Discharge Order (Routine); Ordered 06/23/23 Ordered By: Marcos Marcus Discharge Diet: Advance as tolerated Discharge Activity: Limit activity as instructed Patient Instructions: GI Discharge Instructions, Opioid Safety Activity Restrictions/Additional Instructions: Thank you for [facility] for your care! The following is a list of instructions, from your provider, to follow upon your discharge to ensure you have the optimal recovery from your recent injury orsurgery. Follow-up care is a sapp part of your treatment and safety. Be sure to make and go to all appointments, and call your doctor if you are having problems. If you do not already have a follow-up appointment made, call Dr. Marcus office in the next 1-3 days to make follow up appointment for 1 weeks at [phone]. It is also a good idea to know your test results and keep a list of the medicines you take. Medications will be prescribed for you at your provider's discretion. These medications are to be used as instructed; if they are taken more often that prescribed they will not be refilled early and in most cases will not be refilled at all. > When a refill is needed,you should contact [facility] 2-3 business days before your prescription runs out. Medications will NOT be refilled by manager operations and procurement providers after hours! > Many pain medications contain Tylenol (Acetaminophen). Do not consume more than 4,000 mg of Tylenol per day in total with any combination ofmedications. > Pain medications can cause constipation. Please use an over the counter stool softener as directed, while taking pain medications. Consulty our local pharmacist with questions or recommendations on stool softeners. If constipation persists, contact our office or your primary care provider. > While under our care,you are not to receive pain medications or other controlled substances from any other provider unless our office is notified and approves. Any attempts to do so will result in refusal to prescribe any further pain medications and possible dismissal from our practice. ? Your wound and/or dressing should remain clean and dry for 2 days after surgery. On postoperative day 2 (48 hours after your surgery) the dressing (if present) should be removed and it is okay to shower and get the incision wet. Pad dry afterwards. No further dressing should be required from that point on. Do not put any creams or ointments on theincision > It is normal for there to be a small amount of discharge (bloody or blood tinged) present from a surgical wound for the first 1-3days. > The wound should be examined twice a day for signs of infection. Mild redness or bruising is to be expected but indications that an infection maybe starting would include; An increase in redness, swelling, or discharge, a foul odor present around the incision, and/or a fever greater than 101 ?F ? Showering is permitted, however we ask that you do not take a bath, sit in a whirlpool / Jacuzzi, or go swimming for 1 month. For only the first 2 days after surgery, lt wilt be necessary for you to cover your wound/dressing with plastic and tape to keep it dry. ? Walking is essential for the healing process after surgery. We would like you to slowly advance your walking. This should be done on relatively flat clear ground (inside or out) or can be done on a treadmill. Remember this goal does not have to happen all at once, slowly increase your distance and duration. This can be broken into more more than one walk per day as tolerated. Patients who walk as directed after surgery rarely require Physical Therapy. In the unlikely event this issue arises your provider will direct hospital staff to make the appropriate arrangements. ? No lifting over 5 pounds {a gallon of milk) or bending/twisting until further notice. Each of these activities places an unnecessary amount of stress onto the body and can impede the delicate healing process. > Instead of bending at the waist, keep your back straight and bend at the knees. > Instead of twisting your torso, keep your back straight and turn your entire body with your feet. ? You may sleep in any position which makes you comfortable. Many patients find comfort sleeping in a reclining chair. It is not abnormal to have difficulty sleeping for the first several weeks following your surgery. We recommend trying Benadry! or Tylenol PM as directed to help with your sleeping difficulties. Both medications are over the counter and available withoutprescription. ? NO SMOKING!!! Smoking dramatically increases the probability of developing postoperative wound infections. ? Common complaints after lumbar and/or thoracic spine surgery include, but are not limited to: numbness and/or tingling in the legs, pain around the incision and surrounding tissues, muscle spasms, or stiffness of the middle to low back. Contact our office if these symptoms persist or if an acute change occurs. ? No driving for the first 3-5days, and not while taking narcotics until seen at your follow-up appointment and cleared. There are no restrictions for riding on short trips, however if you take a longer trip, arrangements should be made to make regular stops to get out of the vehicle and stretch . ? Swelling is an unfortunate event that will take place with any surgery and is the primary source of your postoperative discomfort. While walking and regular approved activities helps control inflammation, there are additional steps you can take to minimizeswelling. > Place ice over the surgical site and surrounding tissue for twenty minutes, followed by applying a low/medium heat (heating pad) for an additional twenty minutes every 1-2 hours as needed for painrelief. > You may use of over the counter anti-inflammatory medications (Ibuprofen, Motrin, Aleve, Advil, etc) as directed on the package label. These types of medicines wm significantly reduce the amount of discomfort you experience after surgery from swelling. It should be noted that if you have and allergy to any of these medications, or a history of ulcers or kidney disease you should consult you primary care provider prior to starting these medications. Discharge Attestations Time Spent in Discharge Care*: less than 30 min Quality Metrics Clinical Quality Measures [ No reported AMI, CVA or VTE this stay] Coding Level of Care Code Acute Code for Chg Fwd Diagnoses Status post lumbar spinal fusion Z98.1
--- NOTE | 2023-06-23 10:08 | PM.PN ---
Subjective Subjective: No acute events overnight. Seen with multiple family at bedside. Plan for discharge for primary team. EGD yesterday which showed severe gastric esophagitis and ulcerative duodenitis along with liquid duodenal and gastric contents of around 1 L which were aspirated. Patient has not had any further episodes of nausea and vomiting. Hemodynamically has remained stable. Hemoglobin stable. Vitals/I&O/Wt Last Vital Signs Temp 97.9 F 06/23/23 07:08 Pulse 87 06/23/23 07:08 Resp 18 06/23/23 07:08 BP 153/84 06/23/23 07:08 Pulse Ox 94 06/23/23 07:08 O2 Del Method Room Air 06/23/23 07:08 O2 Flow Rate 2 06/22/23 14:19 06/22/23 06/23/23 06/23/23 22:59 06:59 14:59 Intake Total 720 / 2154.167 360 / 360 Output Total 1325 / 1325 500 / 1825 Balance -605 / 829.167 -500 / 329.167 360 / 360 Physical Exam Narrative: General: In mild distress because of epigastric pain, AOx3, nauseated HEENT: PERRLA, pupils bilaterally equal and reactive Chest: Normal vesicular breath sounds, no added sounds, equal good air entry bilaterally CVS: S1-S2 regular, no murmurs, no tachycardia, no gallops, no rubs Abdomen: Soft, nontender, no organomegaly, bowel sounds present Neuro: No focal deficits, no facial deformity, AO x3, power 5/5 in all limbs Urinary Catheter Management: Dyson Latex: Cath Placed During This Visit: yes Reason for Continuing Indwelling Catheter: Other Urinary Catheter Date of Insertion: 06/20/23 Urinary Catheter Time of Insertion: 11:00 Data 06/22/23 04:08 06/22/23 04:08 A&P Assessment and plan (1) Encounter for postoperative care: Postoperative day 2 for L3-L4 laminectomy with L2 S1 spinal fusion complicated by incidental durotomy. Physical therapy, pain management, perioperative antibiotics as per primary team (2) Hematemesis: Most likely Sindi-Romero in setting of excessive retching prior to hematemesis. CT abdomen pelvis done as per surgical recommendations yesterday shows a markedly distended stomach with fluid and air with possibility of gastric outlet obstruction versus gastroparesis. Plan for endoscopy today. Continue n.p.o. Will plan further as per endoscopy results. Protonix IV twice daily after 80 mg stat. Will transfuse if hemoglobin falls below 8. Check hemoglobin hematocrit every 8 hourly for now. Type and screen for emergency transfusion. Appreciate iron panel, vitamin B12, folate levels. Consistent with anemia of chronic disease. (3) Status post lumbar spinal fusion: (4) Incidental durotomy: (5) Malignant neoplasm of left kidney: (6) Type 2 diabetes mellitus: Hold off on OHA's. Check A1c. Continue with insulin sliding scale. Qualifiers: Diabetes mellitus complication status: without complication Diabetes mellitus radiation protection specialist insulin use: without radiation protection specialist use Qualified Code(s): E11.9 - Type 2 diabetes mellitus without complications Plan Full code NPO. Protonix OPD prophylaxis SCDs for DVT prophylaxis Plan for discharge per primary team. Hemoglobin stable. She will be discharged on Protonix 40 mg twice daily along with Carafate before meals and at bedtime for next 1 month. He should avoid [id number] NSAIDs including Aleve and naproxen. Should follow-up with primary care provider within next 1 week. Amlodipine 5 mg is added for high blood pressure. Should go home on full liquid diet for 2 to 3 days followed by mechanical soft diet to be advanced to regular diet within next 1 week to 10 days. EGD results discussed in detail with patient and patient family at bedside. Medical plan of discharge discussed in detail with patient and patient's spouse at bedside. All the recommendations were discussed in detail. He verbalized understanding. Attestations Medical Necessity Statement*: As per primary team. Diagnoses Encounter for postoperative care Z48.89 Hematemesis K92.0 Status post lumbar spinal fusion Z98.1 Incidental durotomy G97.41 Malignant neoplasm of left kidney C64.2 Type 2 diabetes mellitus E11.9 Diabetes mellitus complication status: without complication Diabetes mellitus radiation protection specialist insulin use: without radiation protection specialist use
[2023-06-23 10:27] VITALS: RESP 16
[2023-06-23] MEDS: morphine 4 mg/mL SDV 1 mL 2 MG IVP (10:27)
[2023-06-23 11:26] VITALS: BP 98/64; PULSE 119; RESP 16; TEMP 36.8; O2SAT 96
[2023-06-23 11:55] LABS: Glucose Point of Care 268 mg/dL (70-110)
--- NOTE | 2023-06-23 12:05 | PC.NURSE ---
Pt educated to continue on full liquid diet x 2 days then soft mechanical diet x 7days after that. Pt states he wont eat that,this nurse educated that the diet should be followed.
[2023-06-23 13:00] VITALS: BP 98/64; PULSE 119; RESP 16; TEMP 36.8; O2SAT 96
== END 2023-06-23 12:45 | disposition home or self-care (01) | DRG 453 ==
LOC: MEDSURG 14:16
PROVIDERS: Anesthesiology; Physician Assistant; Student in an Organized Health Care Education/Training Program; Surgery; Admitting Provider Orthopaedic Surgery; PCP Registered Nurse; Visit Provider Orthopaedic Surgery
PROC: 0SG007J Fusion of Lumbar Vertebral Joint with Autologous Tissue Substitute, Posterior Approach, Anterior Column, Open Approach (ICD-10-PCS; principal; 2023-06-20 09:30)
PROC: 0SG007J Fusion of Lumbar Vertebral Joint with Autologous Tissue Substitute, Posterior Approach, Anterior Column, Open Approach (ICD-10-PCS; CPT 63005; 2023-06-20 09:30)
PROC: 0DJ08ZZ Inspection of Upper Intestinal Tract, Via Natural or Artificial Opening Endoscopic (ICD-10-PCS; CPT 43235; principal; 2023-06-22 13:00)
DX: S32.041A Stable burst fracture of fourth lumbar vertebra, initial encounter for closed fracture (principal); K20.91 Esophagitis, unspecified with bleeding; C64.2 Malignant neoplasm of left kidney, except renal pelvis; G97.41 Accidental puncture or laceration of dura during a procedure; K92.0 Hematemesis; X58.XXXA Exposure to other specified factors, initial encounter; M48.061 Spinal stenosis, lumbar region without neurogenic claudication; K29.80 Duodenitis without bleeding; Y83.8 Other surgical procedures as the cause of abnormal reaction of the patient, or of later complication, without mention of misadventure at the time of the procedure; E11.9 Type 2 diabetes mellitus without complications; Z79.84 Long term (current) use of oral hypoglycemic drugs; Z79.85 Long-term (current) use of injectable non-insulin antidiabetic drugs; Z79.891 Long term (current) use of opiate analgesic; F17.200 Nicotine dependence, unspecified, uncomplicated
CPT/HCPCS: 36415; 36416; 43239; 51702; 72100; 74177; 76000; 80048; 80053; 80061; 82607; 82746; 82962; 83540; 83550; 84443; 85014; 85018; 85025; 86850; 86900; 88305; 88307; 88311; 88342; 93005; 96372; 97110; 97116; 97161; C1713; C9113; J0330; J0690; J1100; J1170; J1644; J1815; J1885; J2250; J2270; J2405; J2704; J2710; J2765; J3010; J3370; J3490; J7030; J7120; P9045; Q9967

== ENCOUNTER 2023-06-24 14:55 | Emergency (ER) | payer MEDICAID, SELFPAY ==
[2023-06-24 15:04] VITALS: BP 121/73; PULSE 110; RESP 15; O2SAT 97
--- NOTE | 2023-06-24 15:32 | W.ED.WOUNDLC ---
HPI - Wound/Laceration General: Chief Complaint: Wound/Laceration Stated Complaint: low back surgery bandge needing changed Time Seen by Provider: 06/24/23 15:20 Source: patient Mode of arrival: ambulatory Limitations: no limitations History of Present Illness: 57-year-old male with a lumbar fusion done last week he has a dressing he states he is and to bleeding into it and came in to have a dressing change. Denies any fever he has had some pain but no increase of pain. No weakness Associated symptoms: Denies fever(s) Review of Systems Const: Denies: fever(s) Card: Denies: chest pain GI: Denies: abdominal pain : Denies: difficulty urinating Musc: Reports: back pain Skin/Breast: Denies: rash Neuro: Denies: headache(s) PFSH ED PFSH: Medical History Fracture of lumbar spine Lumbar foraminal stenosis Malignant neoplasm of left kidney Type 2 diabetes mellitus Social History Smoking and tobacco status: current some day smoker Alcohol intake: never Substance/Drug Use: never Adopted: No Caregiver/support person: No Lives independently: No Household members: spouse Current occupational status: employed Sexually active: Yes Do you think of yourself as: Straight/Heterosexual Current gender identity: Male Physical Exam Const: COMMON NORMALS: no acute distress and patient oriented x3 HENMT: COMMON NORMALS: atraumatic HEAD & SCALP: atraumatic Chest: COMMONS NORMALS: normal inspection of the chest Resp: COMMON NORMALS: normal respiratory effort GI: INSPECTION: Yes normal to inspection Back/Pelvis: OTHER: Did remove his dressing his dressing does have some blood on it incisions clean dry and intact at this time no redness he has no active bleeding at this time Extremity: COMMON NORMALS: normal to inspection Neuro: COMMON NORMALS: patient oriented x3 Psych: COMMON NORMALS: mental status grossly normal Course Vital Signs: Vital signs: Vital Signs Pulse Rate 110 H 06/24/23 15:04 Respiratory Rate 15 06/24/23 15:04 Blood Pressure 121/73 06/24/23 15:04 Pulse Oximetry 97 06/24/23 15:04 Oxygen Delivery Me thod Room Air 06/24/23 15:04 MDM - Wound/Laceration Medical Decision Making Patient presents here for dressing change he has had some bleeding he has no active bleeding at this time his incisions well-appearing did change dressing he is to follow-up with a spine surgeon next week return if worsening he understands agrees to plan. Discharge Plan Discharge Patient Disposition: Home Clinical Impression: Change of dressing Condition: Stable Prescriptions: No Action metformin 1,000 mg tablet See Rx Instructions .ROUTE .COMPLEX Qty: 180 4RF Dose Instruction: Take 1 tablet by mouth twice daily for 90 days Rx Instructions: Take 1 tablet by mouth twice daily for 90 days Farxiga 10 mg tablet 10 mg PO DAILY Qty: 90 1RF potassium chloride [Klor-Con 10] 10 mEq tablet extended release 10 meq PO DAILY 5 Days Qty: 5 0RF Victoza 2-Rodolfo 0.6 mg/0.1 mL (18 mg/3 mL) pen injector 1.2 mg SUBCUT DAILY Qty: 6 0RF furosemide 20 mg tablet 20 mg PO DAILY 5 Days Qty: 5 0RF Hold Instructions: Resume on 06/30/23. hydrocodone-acetaminophen 5-325 mg tablet 1 tab PO TID PRN (Reason: pain) 20 Days Qty: 60 0RF hydrocodone-acetaminophen 5-325 mg tablet 1 - 2 tab PO .Q4-6H Qty: 40 0RF Protonix 40 mg tablet,delayed release (DR/EC) 40 mg PO BID Qty: 60 0RF Carafate 1 gram tablet 1 g PO TID Qty: 90 0RF amlodipine 5 mg tablet 5 mg PO DAILY Qty: 30 0RF Discharge Orders: Discharge ED (Routine); Ordered 06/24/23 Ordered By: Gabriela Phan Referrals: Marcos Marcus DO [Physician] - 1-3 days Deb Hernandez [Primary Care Provider] - Discharge Diet: Advance as tolerated Discharge Activity: Resume usual activity Patient Instructions: Acute Wound Care (ED) Coding Level of Care Code ED Dredge Master for Giacomo Myles
== END 2023-06-24 15:46 | disposition home or self-care (01) ==
PROVIDERS: Emergency Provider Emergency Medicine; PCP Registered Nurse
DX: Z48.01 Encounter for change or removal of surgical wound dressing (principal); Z79.84 Long term (current) use of oral hypoglycemic drugs; E11.9 Type 2 diabetes mellitus without complications; F17.210 Nicotine dependence, cigarettes, uncomplicated; Z85.528 Personal history of other malignant neoplasm of kidney
CPT/HCPCS: 99282

== ENCOUNTER → 2023-06-28 10:26 | Outpatient (BNVA) | payer MEDICAID, SELFPAY | PROVIDERS: PCP Registered Nurse; Visit Provider Orthopaedic Surgery | DX: Z98.1 Arthrodesis status (principal); Z47.89 Encounter for other orthopedic aftercare | CPT/HCPCS: 72100 ==

== ENCOUNTER 2023-07-04 11:07 | Oncology outpatient (recurring) (ONCR) | payer MEDICAID, SELFPAY | END 2023-07-12 23:59 | disposition home or self-care (01) | PROVIDERS: PCP Registered Nurse; Visit Provider Internal Medicine Medical Oncology | DX: Z53.9 Procedure and treatment not carried out, unspecified reason (principal) ==

== ENCOUNTER 2023-07-11 07:03 | Day surgery (SDC) | payer MEDICAID, SELFPAY ==
[2023-07-10 09:47] VITALS: BMI 24.5
--- NOTE | 2023-07-11 06:13 | P.HPUD_ITS ---
Surgery/Procedure H&P Update DATE OF PROCEDURE: July 11, 2023 DATE H&P PERFORMED: 05/24/23 H&P UPDATE INFORMATION: I have reviewed H&P completed within last 30 days, I have examined patient prior to procedure, No changes to prior documentation and [place] in [facility] [place] on [place] indicated PLANNED PROCEDURE: Operation Date: 07/11/23 08:25 Proposed Procedures p [id number] port placement C79.51(Not Applicable) - Nilson Tomlin MD
--- NOTE | 2023-07-11 06:13 | W.PM.OPSUD ---
Surgery/Procedure H&P Update DATE OF PROCEDURE: July 11, 2023 DATE H&P PERFORMED: 05/24/23 H&P UPDATE INFORMATION: I have reviewed H&P completed within last 30 days, I have examined patient prior to procedure, No changes to prior documentation and H&P is in [facility] [place] EMR on date indicated PLANNED PROCEDURE: Operation Date: 07/11/23 08:25 Proposed Procedures p [id number] port placement C79.51(Not Applicable) - Nilson Tomlin MD
[2023-07-11 07:14] VITALS: BP 127/79; PULSE 112; RESP 18; TEMP 37; O2SAT 98
[2023-07-11] MEDS: sodium chloride 0.9% 1,000 ML 30 ML IV (07:15)
[2023-07-11 08:06] LABS: Glucose Point of Care 239 mg/dL (70-110)
--- NOTE | 2023-07-11 08:22 | P.ANESASSM_ITS ---
Pre-Anesthetic Assessment Height/Weight: Height 1.75 m Weight 75.296 kg Temp Pulse Resp BP Pulse Ox O2 Del Method 98.6 F 112 H 18 127/79 98 Room Air 07/11/23 07:14 07/11/23 07:14 07/11/23 07:14 07/11/23 07:14 07/11/23 07:14 07/11/23 07:37 Operation Date: 07/11/23 08:25 Proposed Procedures p [id number] port placement C79.51(Not Applicable) - Nilson Tomlin MD Familial anesthetic complications: None Was Beta Vaibhav taken within 24 hours: N/A Was Clonidine taken within 24 hours: N/A Last intake: Intake Last Liquid Date 07/10/23 Last Liquid Time 22:30 Last Solid Date 07/10/23 Last Solid Time 17:30 Social Tobacco and No alcohol Exam alert, oriented x 3, clear to auscultation bilaterally and regular rate & rhythm Airway Mallampati: Class II Dentition: other (no teeth) CV/HEM Hypertension GI Gastroesophageal Reflux Disease Metabolic Diabetes Mellitus Anesthetic Plan ASA status: 2 Risk of > 500 ml blood loss (7ml/kg in children): No Medications/Allergies Home Medications Medication Instructions Recorded Confirmed Last Taken Type dapagliflozin propanediol 10 mg 10 mg PO DAILY #90 tabs 08/17/22 07/10/23 07/10/23 Rx tablet (Farxiga) metformin 1,000 mg tablet See Rx Instructions .Route 08/17/22 07/10/23 1 Day Ago Rx .COMPLEX #180 tabs ~07/09/23 liraglutide 0.6 mg/0.1 mL (18 mg/3 1.2 mg (0.2 mL) SUBCUT DAILY #6 mL 06/11/23 07/10/23 1 Day Ago Rx mL) subcutaneous pen injector ~07/09/23 (Victoza 2-Rodolfo) amlodipine 5 mg tablet 5 mg PO DAILY #30 tabs 06/23/23 07/10/23 07/10/23 Rx hydrocodone 5 mg-acetaminophen 325 1 tab PO TID PRN pain 20 days #60 06/23/23 07/11/23 07/11/23 05:50 Rx mg tablet tabs pantoprazole 40 mg tablet,delayed 40 mg PO BID #60 tabs 06/23/23 07/10/23 1 Day Ago Rx release (Protonix) ~07/09/23 sucralfate 1 gram tablet (Carafate) 1 g PO TID #90 tabs 06/23/23 07/11/23 07/10/23 Rx intraoperative neurophysiological #1 ea 06/28/23 07/10/23 Unknown Rx monitoring axitinib 5 mg tablet (Inlyta) 5 mg PO BID #60 tabs 07/04/23 07/10/23 07/10/23 Rx Allergies Allergy/AdvReac Type Severity Reaction Status Date / Time No Known Allergies Allergy Verified 07/11/23 07:12 [facility] Anesthesia Medical History Fracture of lumbar spine Lumbar foraminal stenosis Malignant neoplasm of left kidney Type 2 diabetes mellitus Social History Smoking and tobacco status: current some day smoker Alcohol intake: never Substance/Drug Use: never Adopted: No Caregiver/support person: No Lives independently: No Household members: spouse Current occupational status: employed Sexually active: Yes Do you think of yourself as: Straight/Heterosexual Current gender identity: Male Data Anesthesia Cardiac Studies: No Data to Display
[2023-07-11] MEDS: ceFAZolin 2,000 MG in sodium chloride 0.9% (plus) 50 ML 100 MG IV (09:25)
--- NOTE | 2023-07-11 09:34 | SC_ITS ---
WS: [id number] C-ARM RADIOGRAPHS CHEST; 2 IMAGES HISTORY: SURGERY COMPARISON: None available. Intraoperative imaging during RIGHT subclavian Mediport placement. IMPRESSION: Intraoperative imaging during Mediport placement.
[2023-07-11] MEDS: lidocaine-epi 1% 20 mL INJ 18 ML INJECTION (10:09)
[2023-07-11] MEDS: heparin, porcine 1,000 unit/mL INJ 10 mL 6000 UNIT IRRIGATION (10:10)
--- NOTE | 2023-07-11 10:21 | PM.OP ---
Operative Report Date of procedure: July 11, 2023 Pre-op diagnosis: Malignant neoplasm of the kidney Post-op diagnosis: Same Procedure done: Right internal jugular Port-A-Cath placement Implants: Part Port-A-Cath Surgeon: Nilson Tomlin MD Complications: None Findings: Normal vascular anatomy Brief History: Is a 57-year-old male who requires a Port-A-Cath for chemotherapy after being diagnosed of metastatic renal cell carcinoma. Procedure: Patient was brought into the OR, placed in the supine position, moderate anesthesia sedation was given. The right neck was prepped and draped in the usual sterile fashion. Timeout was conducted. Ultrasound was used to localize the right IJ, local anesthesia was infiltrated. The right IJ was cannulated under direct ultrasound guidance, needle tip was seen entering the vein and immediate return of blood was noted. Guidewire was advanced, guidewire position was verified by ultrasound and fluoroscopy. Local anesthesia was infiltrated in the right upper chest and in the area where the toenail will be made from the chest to the neck incision. 2 cm wound was made on the right upper chest, the wound was deep and to the subcutaneous tissue and a pocket was created for the port. Hemostasis was obtained. The port was then placed in the pocket and the catheter was tunneled from the chest to the neck 0.5 cm incision was made on the neck to be able to tunneled the catheter. I then advanced the sheath over the wire under direct fluoroscopic guidance. At the same time I measured the catheter to the correct lenght and cut it. The catheter was then flushed with weak heparin saline mixed. The wire and the introducer cannula were removed leaving just a peel-off sheath. The catheter was then advanced inside of the peel-away sheath and the peel-away sheath was removed leaving the catheter in place. Good blood return and flushing was noted from the catheter, the catheter was Locked with heparin. Fluoroscopy was done and show correct position of the catheter in the superior vena cava. The port was fixed to the pectoral fascia with #3-0 Vicryl. The wound was closed in layers using 3-0 Vicryl for the subcutaneous tissue and 4 Monocryl for the skin, the wound in the neck was closed with 4 Monocryl. Dermabond was applied. The patient tolerated well the procedure and was transferred to the postanesthesia care unit in stable condition.
[2023-07-11 10:25] VITALS: BP 122/60; PULSE 103; RESP 14; TEMP 36.8; O2SAT 99
[2023-07-11 10:30] VITALS: BP 133/81; PULSE 107; RESP 16; O2SAT 97
[2023-07-11 10:39] VITALS: BP 130/79; PULSE 105; RESP 18; TEMP 36.8; O2SAT 98
[2023-07-11 10:52] VITALS: BP 133/76; PULSE 103; RESP 18; O2SAT 98
[2023-07-11] MEDS: meloxicam 7.5 mg tablet PO (10:54)
--- NOTE | 2023-07-11 11:10 | ANE.PACU2 ---
Inpatient post-anesthesia follow up: Airway intact: Yes Vital signs: Temperature 98.2 F Pulse Rate 103 Respiratory Rate 18 Blood Pressure 133/76 Pulse Oximetry 98 Oxygen Delivery Me thod Room Air Oxygen Flow Rate Fraction of Inspir ed Oxygen Hydration adequate: Yes Nausea and vomiting: No Pain level: 1 Mental status: Baseline
== END 2023-07-11 11:09 | disposition home or self-care (01) ==
PROVIDERS: PCP Registered Nurse; Visit Provider Surgery
DX: C64.9 Malignant neoplasm of unspecified kidney, except renal pelvis (principal); I10 Essential (primary) hypertension; E11.9 Type 2 diabetes mellitus without complications
CPT/HCPCS: 36561; 36416; 71045; 76000; 77001; 82962; C1788; J0690; J1644; J2704; J3010; J7030

== ENCOUNTER → 2023-08-02 14:09 | Outpatient (BNVA) | payer MEDICAID, SELFPAY | PROVIDERS: PCP Registered Nurse; Visit Provider Orthopaedic Surgery | DX: Z98.1 Arthrodesis status (principal); Z47.89 Encounter for other orthopedic aftercare | CPT/HCPCS: 72100; 99024; 99213 ==

== ENCOUNTER 2023-08-09 08:17 | Oncology outpatient (recurring) (ONCR) | payer MEDICAID, SELFPAY ==
[2023-08-09 08:50] VITALS: BP 110/70; PULSE 118; RESP 16; TEMP 37.3; O2SAT 96
[2023-08-09 08:54] LABS: Basophils % 0.5 %; Eosinophils # 0.1 10^3/uL (0.0-0.8); Eosinophils % 1.6 %; Hematocrit 35.8 % (37-53); Lymphocytes # 1.3 10^3/uL (0.8-4.8); Lymphocytes % 20.7 %; Mean Corpuscular HGB Conc 34.1 g/dL (30-55); Mean Corpuscular Hemoglobin 32.3 pg (27-33); Mean Corpuscular Volume 94.7 fl (82-101); Mean Platelet Volume 8.6 fL (7.4-10.4); Monocytes # 0.5 10^3/uL (0.2-0.9); Monocytes % 7.5 %; Neutrophils # 4.32 10^3/uL (1.8-7.7); Neutrophils % 69.4 %; Nucleated Red Blood Cells % 0 %; Platelet Count 213 10^3/cmm (157-399); Red Blood Count 3.78 10^6/uL (3.85-5.65); Red Cell Distribution Width 13.2 % (12.1-15.1); White Blood Count 6.23 10^3/uL (3.29-11.43)
[2023-08-09 09:11] LABS: Alanine Aminotransferase 6 U/L (0-41); Albumin Level 4.4 g/dL (3.5-5.2); Alkaline Phosphatase 153 U/L (40-130); Anion Gap 16.1 (5-19); Aspartate Amino Transferase 9 U/L (0-40); Blood Urea Nitrogen 15 mg/dL (6-20); Calcium 9.2 mg/dL (8.5-10.5); Carbon Dioxide 26 mmol/L (22-29); Chloride 100 mmol/L (98-107); Globulin 2.8 g/dL (1.3-4.6); Glomerular Filtration Rate 100.4 mL/min (90-130); Glucose 131 mg/dL (65-115); Osmolality Calculated 287 mOsm/kg (285-295); Potassium 5.1 mmol/L (3.5-5.1); Sodium 137 mmol/L (136-145); Total Bilirubin 0.6 mg/dL (0.15-1.2); Total Protein 7.2 g/dL (6.6-8.7)
[2023-08-09] MEDS: sodium chloride 0.9% 250 ML 75 ML IV (11:22)
[2023-08-09] MEDS: pembrolizumab 200 MG in sodium chloride 0.9% 250 ML 516 MG IV (11:45)
[2023-08-09 12:32] VITALS: BP 130/86; PULSE 109
== END 2023-08-09 23:59 | disposition home or self-care (01) ==
PROVIDERS: Internal Medicine Medical Oncology; PCP Registered Nurse; Visit Provider Internal Medicine Medical Oncology
DX: C64.2 Malignant neoplasm of left kidney, except renal pelvis (principal); C79.51 Secondary malignant neoplasm of bone; Z71.89 Other specified counseling; Z79.899 Other long term (current) drug therapy; Z76.89 Persons encountering health services in other specified circumstances
CPT/HCPCS: 80053; 85025; 96413; 99215; J1642; J7050; J9271

== ENCOUNTER 2023-08-30 08:15 | Oncology outpatient (recurring) (ONCR) | payer MEDICAID, SELFPAY ==
[2023-08-16 10:30] VITALS: BP 132/78; PULSE 107; RESP 16; TEMP 37.1; O2SAT 91
[2023-08-16 10:43] LABS: Basophils # 0.1 10^3/uL (0.0-0.1); Basophils % 0.8 %; Eosinophils # 0.1 10^3/uL (0.0-0.8); Eosinophils % 1.7 %; Hematocrit 35.8 % (37-53); Lymphocytes # 1.3 10^3/uL (0.8-4.8); Mean Corpuscular HGB Conc 33.5 g/dL (30-55); Mean Corpuscular Hemoglobin 31.8 pg (27-33); Mean Platelet Volume 8.5 fL (7.4-10.4); Monocytes # 0.5 10^3/uL (0.2-0.9); Monocytes % 6.6 %; Neutrophils # 5.58 10^3/uL (1.8-7.7); Neutrophils % 73.6 %; Nucleated Red Blood Cells % 0 %; Platelet Count 201 10^3/cmm (157-399); Red Blood Count 3.77 10^6/uL (3.85-5.65); Red Cell Distribution Width 12.9 % (12.1-15.1); White Blood Count 7.58 10^3/uL (3.29-11.43)
[2023-08-16 10:57] LABS: Alanine Aminotransferase 6 U/L (0-41); Albumin Level 4.3 g/dL (3.5-5.2); Alkaline Phosphatase 144 U/L (40-130); Anion Gap 15.5 (5-19); Aspartate Amino Transferase 10 U/L (0-40); Blood Urea Nitrogen 15 mg/dL (6-20); Calcium 9.7 mg/dL (8.5-10.5); Carbon Dioxide 26 mmol/L (22-29); Chloride 97 mmol/L (98-107); Globulin 2.7 g/dL (1.3-4.6); Glomerular Filtration Rate 117.1 mL/min (90-130); Glucose 118 mg/dL (65-115); Osmolality Calculated 280 mOsm/kg (285-295); Potassium 4.5 mmol/L (3.5-5.1); Sodium 134 mmol/L (136-145); Total Bilirubin 0.3 mg/dL (0.15-1.2)
[2023-08-30 08:30] VITALS: BP 142/80; PULSE 87; RESP 18; TEMP 37.2; O2SAT 96
[2023-08-30 08:37] LABS: Basophils % 0.6 %; Eosinophils # 0.1 10^3/uL (0.0-0.8); Eosinophils % 1.4 %; Hematocrit 36.5 % (37-53); Lymphocytes # 1.1 10^3/uL (0.8-4.8); Lymphocytes % 17.3 %; Mean Corpuscular HGB Conc 32.9 g/dL (30-55); Mean Corpuscular Hemoglobin 31.5 pg (27-33); Mean Corpuscular Volume 95.8 fl (82-101); Mean Platelet Volume 8.6 fL (7.4-10.4); Monocytes # 0.5 10^3/uL (0.2-0.9); Monocytes % 7.7 %; Neutrophils # 4.53 10^3/uL (1.8-7.7); Neutrophils % 72.8 %; Nucleated Red Blood Cells % 0 %; Platelet Count 167 10^3/cmm (157-399); Red Blood Count 3.81 10^6/uL (3.85-5.65); Red Cell Distribution Width 12.5 % (12.1-15.1); White Blood Count 6.23 10^3/uL (3.29-11.43)
[2023-08-30 09:09] LABS: Alanine Aminotransferase 9 U/L (0-41); Albumin Level 4.1 g/dL (3.5-5.2); Alkaline Phosphatase 149 U/L (40-130); Anion Gap 15.7 (5-19); Aspartate Amino Transferase 10 U/L (0-40); Blood Urea Nitrogen 20 mg/dL (6-20); Calcium 9.6 mg/dL (8.5-10.5); Carbon Dioxide 25 mmol/L (22-29); Chloride 99 mmol/L (98-107); Globulin 2.7 g/dL (1.3-4.6); Glomerular Filtration Rate 117.1 mL/min (90-130); Glucose 244 mg/dL (65-115); Osmolality Calculated 291 mOsm/kg (285-295); Potassium 4.7 mmol/L (3.5-5.1); Sodium 135 mmol/L (136-145); Thyroid Stimulating Hormone 0.62 uIU/mL (0.27-4.20); Total Bilirubin 0.4 mg/dL (0.15-1.2); Total Protein 6.8 g/dL (6.6-8.7)
[2023-08-30] MEDS: pembrolizumab 200 MG in sodium chloride 0.9% 250 ML 516 MG IV (10:33)
[2023-08-30 11:22] VITALS: BP 100/64; PULSE 101; RESP 18; TEMP 36.7; O2SAT 96
== END 2023-09-11 23:59 | disposition home or self-care (01) ==
PROVIDERS: Nurse Practitioner Family; PCP Registered Nurse; Visit Provider Internal Medicine Medical Oncology
DX: C64.2 Malignant neoplasm of left kidney, except renal pelvis (principal); Z51.11 Encounter for antineoplastic chemotherapy; C79.51 Secondary malignant neoplasm of bone; Z98.1 Arthrodesis status; R53.83 Other fatigue
CPT/HCPCS: 36591; 80053; 84443; 85025; 96413; 99213; 99214; J1642; J7050; J9271

== ENCOUNTER → 2023-09-13 14:36 | Outpatient (BNVA) | payer MEDICAID, SELFPAY ==
--- NOTE | 2023-09-19 15:18 | PM.MISC ---
Miscellaneous Note Purpose of Documentation: Patient is now complaining of left leg pain and weakness his leg is giving out twice today. Note: Patient has new symptoms he has a tumor hardware looks like it was starting to pull out on last x-ray now he is complaining of left leg weakness and pain and giving out at this time I would like to get a stat MRI to evaluate his lumbar spine. I am concerned for collapse of his tumor and failure of hardware.
== END ==
PROVIDERS: PCP Registered Nurse; Visit Provider Orthopaedic Surgery
DX: Z98.1 Arthrodesis status (principal)
CPT/HCPCS: 12345; 72100; 99024

== ENCOUNTER 2023-09-20 08:00 | Oncology outpatient (recurring) (ONCR) | payer MEDICAID, SELFPAY ==
[2023-09-20 08:13] VITALS: BMI 23.3
[2023-09-20 08:14] VITALS: BP 144/83; PULSE 112; RESP 16; TEMP 36.8; O2SAT 99
[2023-09-20 08:34] LABS: Basophils % 0.6 %; Eosinophils # 0.2 10^3/uL (0.0-0.8); Eosinophils % 2.8 %; Hematocrit 38.2 % (37-53); Lymphocytes # 0.9 10^3/uL (0.8-4.8); Lymphocytes % 14.4 %; Mean Corpuscular HGB Conc 32.7 g/dL (30-55); Mean Corpuscular Hemoglobin 30.6 pg (27-33); Mean Corpuscular Volume 93.6 fl (82-101); Mean Platelet Volume 8.6 fL (7.4-10.4); Monocytes # 0.6 10^3/uL (0.2-0.9); Monocytes % 8.7 %; Neutrophils # 4.64 10^3/uL (1.8-7.7); Neutrophils % 73.2 %; Nucleated Red Blood Cells % 0 %; Platelet Count 190 10^3/cmm (157-399); Red Blood Count 4.08 10^6/uL (3.85-5.65); Red Cell Distribution Width 12.5 % (12.1-15.1); White Blood Count 6.34 10^3/uL (3.29-11.43)
[2023-09-20 08:59] LABS: Alanine Aminotransferase 10 U/L (0-41); Alkaline Phosphatase 169 U/L (40-130); Anion Gap 16.5 (5-19); Aspartate Amino Transferase 16 U/L (0-40); Blood Urea Nitrogen 12 mg/dL (6-20); Calcium 9.6 mg/dL (8.5-10.5); Carbon Dioxide 24 mmol/L (22-29); Chloride 99 mmol/L (98-107); Glomerular Filtration Rate 116.7 mL/min (90-130); Glucose 149 mg/dL (65-115); Lactate Dehydrogenase 154 U/L (135-225); Osmolality Calculated 283 mOsm/kg (285-295); Potassium 4.5 mmol/L (3.5-5.1); Sodium 135 mmol/L (136-145); Thyroid Stimulating Hormone 0.89 uIU/mL (0.27-4.20); Total Bilirubin 0.4 mg/dL (0.15-1.2)
[2023-09-20] MEDS: pembrolizumab 200 MG in sodium chloride 0.9% 250 ML 516 MG IV (11:12)
[2023-09-20 11:55] VITALS: BP 117/74; PULSE 105; TEMP 36.1; O2SAT 97
== END 2023-09-20 23:59 | disposition home or self-care (01) ==
PROVIDERS: PCP Registered Nurse; Visit Provider Internal Medicine Medical Oncology
DX: Z51.11 Encounter for antineoplastic chemotherapy (principal); C64.2 Malignant neoplasm of left kidney, except renal pelvis; Z53.9 Procedure and treatment not carried out, unspecified reason; C79.51 Secondary malignant neoplasm of bone; Z98.1 Arthrodesis status; R53.83 Other fatigue; Z79.899 Other long term (current) drug therapy
CPT/HCPCS: 80053; 83615; 84443; 85025; 96413; 99215; J1642; J7050; J9271

== ENCOUNTER 2023-09-21 13:02 | Outpatient (CLI) | payer MEDICAID, SELFPAY ==
--- NOTE | 2023-09-21 13:45 | MR_ITS ---
WS: [id number] MRI LUMBAR SPINE NONCONTRAST TECHNIQUE: Sagittal T1, T2 and STIR imaging. Axial T1 and T2 imaging. CLINICAL INFORMATION: lumbar pain COMPARISON: MRI 05/21/2023 FINDINGS: Stable severe compression fracture L4 vertebral body with vertebral plana centrally. Retropulsion of the posterior cortex with laminectomy defects at this level. Spinal canal has been decompressed with mild to moderate residual narrowing of the thecal sac. No new compression fractures. Pedicle screw fi xation L2-S1. Wide decompressive laminectomy L3-L4. L1-L2: No significant disc bulging. Spinal canal and foramen are patent. Mild facet arthropathy. L2-L3: Mild annular bulging. Slight effacement of the ventral thecal sac. Mild facet arthropathy. Mil d LEFT and no significant RIGHT foraminal narrowing. L3-L4: Chronic L4 compression fracture with retropulsion stable compared to previous. Mild to moderat e residual narrowing of the thecal sac. Some images degraded due to susceptibility artifact at this l evel. Mild RIGHT foraminal narrowing. LEFT foramen is patent. L4-L5: Mild annular bulging. Narrowing of the subarticular recess bilaterally. Severe bilateral mitchell inal narrowing unchanged. Moderate facet arthropathy. L5-S1: Mild annular bulging. Slight effacement of ventral thecal sac. Mild RIGHT and no significant L EFT foraminal narrowing. Visualized pelvic bony structures: Normal. Paravertebral soft tissues: Normal. Partially visualized heterogeneous mass lower pole LEFT kidney suspicious for neoplasm better visuali zed on the prior CT abdomen pelvis. Lesion in T4 vertebral body visualized on the aircraft systems repairer imaging demonstrates increased FDG activity on th e prior PET/CT consistent with metastatic disease. Signal abnormality extends into the LEFT greater t daigle RIGHT pedicles with mild compression of the superior endplate. No retropulsion. Signal abnormalit y appears progressed compared to 06/09/2023 PET/CT IMPRESSION: 1. Lesion in T4 vertebral body visualized on the aircraft systems repairer imaging demonstrates increased FDG activity o n the prior PET/CT consistent with metastatic disease. Signal abnormality extends into the LEFT great er than RIGHT pedicles with mild compression of the superior endplate. Signal abnormality appears pro gressed compared to 06/09/2023 PET/CT 2. Stable L4 compression fracture with new pedicle screw fixation L2-S1. Decompressive laminectomy d efects L3-4. 3. Mild to moderate residual narrowing of the thecal sac at L4 with L4 retropulsion although improve d from previous. 4. Mild RIGHT L3-4 and severe bilateral L4-5 foraminal narrowing. 5. Partially visualized heterogeneous mass lower pole LEFT kidney suspicious for renal cell neoplasm . This is better assessed on the prior CT abdomen pelvis.
== END 2023-09-21 13:03 | disposition home or self-care (01) ==
LOC: RAD 13:02
PROVIDERS: PCP Registered Nurse; Visit Provider Orthopaedic Surgery
DX: Z98.1 Arthrodesis status (principal); M54.50 Low back pain, unspecified; M89.9 Disorder of bone, unspecified; M48.061 Spinal stenosis, lumbar region without neurogenic claudication; N28.89 Other specified disorders of kidney and ureter
CPT/HCPCS: 72148

== ENCOUNTER → 2023-09-25 14:40 | Outpatient (BNVA) | payer MEDICAID, SELFPAY | PROVIDERS: PCP Registered Nurse; Visit Provider Orthopaedic Surgery | DX: Z98.1 Arthrodesis status (principal); Z47.89 Encounter for other orthopedic aftercare; Z79.891 Long term (current) use of opiate analgesic | CPT/HCPCS: 99214 ==

== ENCOUNTER 2023-10-11 08:15 | Oncology outpatient (recurring) (ONCR) | payer MEDICAID, SELFPAY ==
[2023-10-11 08:30] VITALS: BP 136/79; PULSE 64; RESP 16; TEMP 37.1; O2SAT 99
[2023-10-11 08:39] LABS: Basophils % 0.7 %; Eosinophils # 0.1 10^3/uL (0.0-0.8); Eosinophils % 2.3 %; Hematocrit 38.2 % (37-53); Lymphocytes % 17.8 %; Mean Corpuscular HGB Conc 32.7 g/dL (30-55); Mean Corpuscular Hemoglobin 29.7 pg (27-33); Mean Corpuscular Volume 90.7 fl (82-101); Mean Platelet Volume 8.9 fL (7.4-10.4); Monocytes # 0.4 10^3/uL (0.2-0.9); Monocytes % 6.7 %; Neutrophils # 4.01 10^3/uL (1.8-7.7); Neutrophils % 72.3 %; Nucleated Red Blood Cells % 0 %; Platelet Count 197 10^3/cmm (157-399); Red Blood Count 4.21 10^6/uL (3.85-5.65); Red Cell Distribution Width 12.8 % (12.1-15.1); White Blood Count 5.55 10^3/uL (3.29-11.43)
[2023-10-11 09:07] LABS: Alanine Aminotransferase 8 U/L (0-41); Alkaline Phosphatase 148 U/L (40-130); Anion Gap 14.6 (5-19); Aspartate Amino Transferase 10 U/L (0-40); Blood Urea Nitrogen 13 mg/dL (6-20); Calcium 9.4 mg/dL (8.5-10.5); Carbon Dioxide 25 mmol/L (22-29); Chloride 97 mmol/L (98-107); Globulin 3.2 g/dL (1.3-4.6); Glomerular Filtration Rate 116.7 mL/min (90-130); Glucose 174 mg/dL (65-115); Osmolality Calculated 278 mOsm/kg (285-295); Potassium 4.6 mmol/L (3.5-5.1); Sodium 132 mmol/L (136-145); Total Bilirubin 0.5 mg/dL (0.15-1.2); Total Protein 7.2 g/dL (6.6-8.7)
[2023-10-11 09:38] LABS: Estmated Average Glucose 157; Hemoglobin A1C 7.1 % (4.0-6.0)
[2023-10-11 09:58] LABS: Lactate Dehydrogenase 134 U/L (135-225)
[2023-10-11] MEDS: pembrolizumab 200 MG in sodium chloride 0.9% 250 ML 516 MG IV (10:25)
[2023-10-11 11:20] VITALS: BP 123/83; PULSE 92; RESP 18; TEMP 36.2; O2SAT 93
[2023-10-11] MEDS: denosumab 120 mg SDV SUBCUT (15:15)
== END 2023-10-11 23:59 | disposition home or self-care (01) ==
PROVIDERS: Internal Medicine; PCP Registered Nurse; Visit Provider Internal Medicine Medical Oncology
DX: Z51.11 Encounter for antineoplastic chemotherapy (principal); C64.2 Malignant neoplasm of left kidney, except renal pelvis; C79.51 Secondary malignant neoplasm of bone; Z98.1 Arthrodesis status; R53.83 Other fatigue; Z79.899 Other long term (current) drug therapy
CPT/HCPCS: 80053; 83036; 83615; 85025; 96372; 96413; 99214; J0897; J1642; J7050; J9271

== ENCOUNTER → 2023-10-12 08:20 | Outpatient (BNVA) | payer MEDICAID, SELFPAY | PROVIDERS: PCP Registered Nurse; Referring Provider Registered Nurse; Visit Provider Surgery | DX: Z12.11 Encounter for screening for malignant neoplasm of colon (principal); C64.2 Malignant neoplasm of left kidney, except renal pelvis | CPT/HCPCS: 99214 ==

== ENCOUNTER → 2023-10-24 09:50 | Outpatient (BNVA) | payer MEDICAID, SELFPAY | PROVIDERS: PCP Registered Nurse; Visit Provider Physician Assistant | DX: M84.58XA Pathological fracture in neoplastic disease, other specified site, initial encounter for fracture (principal); C79.51 Secondary malignant neoplasm of bone; Z98.1 Arthrodesis status | CPT/HCPCS: 99213 ==

== ENCOUNTER 2023-10-31 14:03 | Observation (INO) | payer MEDICAID, SELFPAY ==
[2023-10-31] VITALS (24 sets, daily range): BP systolic 112–146; BP diastolic 66–91; PULSE 77–115; RESP 14–18; TEMP 36.4–37.2; O2SAT 94–99; BMI 23.8
--- NOTE | 2023-10-31 | XR_ITS ---
WS: [id number] C-ARM RADIOGRAPHS LUMBAR SPINE; 4 IMAGES HISTORY: L1 to pelvis fusion, OR pic COMPARISON: None available. Intraoperative imaging during lumbosacral fusion. IMPRESSION: Intraoperative imaging during fusion.
[2023-10-31] MEDS: sodium chloride 0.9% 1,000 ML 30 ML IV (07:26)
[2023-10-31 07:35] LABS: Add Urine Microscopic? NO; Charge for UA Resulting for Rev
[2023-10-31 07:41] LABS: Specific Gravity, Urine 1.015 (1.005-1.030); Urine Appearance Clear (CLEAR); Urine Color Yellow (Yellow); pH Urine 6 (5-7)
[2023-10-31 07:42] LABS: Bilirubin Urine Neg (Negative); Blood Urine Neg (Negative); Glucose Urine UA Norm (Normal); Ketones Urine Negative (Negative); Leukocyte Esterase Urine Negative (Negative); Nitrate Urine Negative (Negative); Protein Urine Neg (Negative); Urobilinogen Urine Neg (Negative)
[2023-10-31 07:43] LABS: Glucose Point of Care 126 mg/dL (70-110)
--- NOTE | 2023-10-31 07:49 | P.ANESASSM_ITS ---
Pre-Anesthetic Assessment Height/Weight: Height 1.75 m Weight 73.028 kg Temp Pulse Resp BP Pulse Ox O2 Del Method 98.2 F 107 H 16 117/80 96 Room Air 10/31/23 06:57 10/31/23 06:57 10/31/23 06:57 10/31/23 06:57 10/31/23 06:57 10/31/23 07:29 Preop Diagnosis: Failed lumbar fusion Operation Date: 10/31/23 08:30 Proposed Procedures p Lumbar Fusion: L1 to pelvis fusion with Osteocool(Not Applicable) - Marcos Marcus, Familial anesthetic complications: none Was Beta Vaibhav taken within 24 hours: N/A Was Clonidine taken within 24 hours: N/A Last intake: Intake Last Liquid Date 10/30/23 Last Liquid Time 23:50 Last Solid Date 10/30/23 Last Solid Time 22:00 Social Tobacco and No alcohol 1 pack(s) per day 30 pack years Exam alert and oriented x 3 Airway Submandibular: within normal limits Mallampati: Class II Dentition: false History/ROS No significant history except as noted Pulmonary None reported CV/HEM Hypertension renal cancer Hepatic None reported GI None reported Metabolic Diabetes Mellitus [facility] [place] Lower Back Pain Neuropsych None reported Anesthetic Plan ASA status: 3 Anesthesia: Anesthesia Evaluation and General Risk of > 500 ml blood loss (7ml/kg in children): Yes, adequate IV access and fluids planned Medications/Allergies Home Medications Medication Instructions Recorded Confirmed Last Taken Type metformin 1,000 mg tablet See Rx Instructions .Route 08/17/22 10/31/23 10/30/23 Rx .COMPLEX #180 tabs intraoperative neurophysiological #1 ea 06/28/23 10/30/23 Unknown Rx monitoring lorazepam 1 mg tablet 0.5 - 1 mg (0.5 - 1 x 1 mg) PO Q8H 08/09/23 10/24/23 Unknown Rx PRN anxiety #90 tabs prochlorperazine maleate 10 mg 10 mg PO Q6H PRN nausea and 08/09/23 10/24/23 Unknown Rx tablet (Compazine) vomiting #120 tabs TLSO Brace #1 ea 09/25/23 10/30/23 Unknown Rx oxycodone 20 mg tablet 10 mg (1/2 x 20 mg) PO QID PRN 10/24/23 10/31/23 10/31/23 Rx pain 30 days #60 tabs liraglutide 0.6 mg/0.1 mL (18 mg/3 1.2 mg (0.2 mL) SUBCUT DAILY #6 mL 10/29/23 10/30/23 10/29/23 18:00 Rx mL) subcutaneous pen injector (Victoza 2-Rodolfo) axitinib 5 mg tablet 7 mg PO BID 10/31/23 10/31/23 10/31/23 History Allergies Allergy/AdvReac Type Severity Reaction Status Date / Time No Known Allergies Allergy Verified 10/30/23 13:22 Current Medications Generic Name Dose Route Start Last Admin Trade Name Freq PRN Reason Stop Dose Admin Sodium Chloride 1,000 mls @ 30 mls/hr 10/31/23 07:00 10/31/23 07:26 Sodium Chloride 0.9% IV 11/01/23 06:59 30 mls/hr .Q24H AGUS Administration PFSH Anesthesia Medical History Fracture of lumbar spine Malignant neoplasm of left kidney Lumbar foraminal stenosis Type 2 diabetes mellitus Surgical History Port-A-Cath in place History of back surgery (06/20/23) L3/4 and L4/5 laminectomies with L2-S1 posterior spine fusion and with biopsy of L4 vertebral body Social History Smoking and tobacco/nicotine status: current every day tobacco/nicotine user cigarettes Packs smoked per day: 0.5 Years cigarettes smoked: 30 Alcohol intake: never Substance/Drug Use: never Adopted: No Caregiver/support person: No Lives independently: No Household members: spouse Current occupational status: employed Sexually active: Yes Do you think of yourself as: Straight/Heterosexual Current gender identity: Male Data Anesthesia 10/31/23 07:48 Urine 10/31/23 Range/Units 07:17 Urine Color Yellow (Yellow) Urine Appearance Clear (CLEAR) Urine pH 6 (5-7) Ur Specific [place] 1.015 (1.005-1.030) Urine Protein Neg (Negative) Urine Glucose (UA) Norm (Normal) Urine Ketones Negative (Negative) Urine Nitrate Negative (Negative) Urine Bilirubin Neg (Negative) Ur Leukocyte Esterase Negative (Negative) Cardiac Studies: 2 No Data to Display
[2023-10-31 08:04] LABS: Basophils % 0.4 %; Eosinophils # 0.1 10^3/uL (0.0-0.8); Eosinophils % 1.1 %; Lymphocytes % 13.7 %; Mean Corpuscular HGB Conc 32.8 g/dL (30-55); Mean Corpuscular Hemoglobin 30.2 pg (27-33); Mean Corpuscular Volume 92.2 fl (82-101); Mean Platelet Volume 8.5 fL (7.4-10.4); Monocytes # 0.4 10^3/uL (0.2-0.9); Monocytes % 5.6 %; Neutrophils # 5.76 10^3/uL (1.8-7.7); Neutrophils % 79.1 %; Nucleated Red Blood Cells % 0 %; Platelet Count 155 10^3/cmm (157-399); Red Blood Count 4.34 10^6/uL (3.85-5.65); Red Cell Distribution Width 13.7 % (12.1-15.1); White Blood Count 7.29 10^3/uL (3.29-11.43)
--- NOTE | 2023-10-31 08:16 | W.PM.OPSUD ---
Surgery/Procedure H&P Update DATE OF PROCEDURE: October 31, 2023 DATE H&P PERFORMED: 10/16/23 H&P UPDATE INFORMATION: I have reviewed H&P completed within last 30 days, I have examined patient prior to procedure and No changes to prior documentation PREOP DIAGNOSIS: Failed lumbar fusion PLANNED PROCEDURE: Operation Date: 10/31/23 08:30 Proposed Procedures p Lumbar Fusion: L1 to pelvis fusion with Osteocool(Not Applicable) - Marcos Marcus DO
[2023-10-31] MEDS: HYDROmorphone 1 mg/mL INJ 1 mL 0.5 MG IVP (08:17)
[2023-10-31] MEDS: ceFAZolin 2,000 MG in sodium chloride 0.9% (plus) 50 ML 100 MG IV ×2 (08:55→16:19)
[2023-10-31] MEDS: thrombin 5,000 unit SDV 5000 UNIT XX (09:43)
[2023-10-31] MEDS: lidocaine-epi 2% 20 mL INJ INJECTION (09:43)
[2023-10-31] MEDS: vancomycin 1,000 MG SDV 1000 MG XX (09:44)
[2023-10-31] MEDS: heparin, porcine 1,000 unit/mL INJ 10 mL 6000 UNIT IRRIGATION (09:44)
--- NOTE | 2023-10-31 11:36 | P.OP_ITS ---
Operative Report Date of procedure: October 31, 2023 Pre-op diagnosis: L4 tumor Post-op diagnosis: same Procedure done: 1. L1- pelvis posterior spine fusion 2. L1-S1 instrumentation 3. Lumbopelvic fixation 4. Computer navigation stereotactic for spine 5. Use of allograft 6. Removal of deep hardware from spine Surgeon: Marcos Marcus DO Counterintelligence Analyst: Luis Alvarado Counterintelligence Analyst: The surgical processor, Luis Alvarado, NACHO was needed for his expertise under the microscope. He was important and necessary throughout the procedure to complete in a safe and timely manner. He assisted with patient positioning prepping and draping tissue retraction suctioning of the operative field prote ction of the dural sac and tissue closure Estimated blood loss (mL): 250 Procedure: 1. L1- pelvis posterior spine fusion 2. L1-S1 instrumentation 3. Lumbopelvic fixation 4. Computer navigation stereotactic for spine 5. Use of allograft 6. Removal of deep hardware from spine Patient is brought to the operative suite. After undergoing anesthesia patient was placed into the prone position all areas impingement well-padded. Neuromonitoring was used. Skin incision made using the previous skin incision and extending it proximally distally. Subperiosteal dissection was made out from the transverse processes of L1 over the screws and transverse processes of L2-3-4 and 5 out to the sacral ala. Then the sacrum was dissected more in order to facilitate placing the iliac screws. Next tension was brought to removing the screw caps and rods. This was done bilaterally. The S1 screws were also loose the screws were removed. As well as the area L2 screw on the left. Next tension was brought to placing the fiducial on the right iliac crest. This was done by placing 2 pins that were later removed at the end of the case. And then the fiducial was attached and then the C-arm was brought in and spun around the patient information from this was then loaded the computer in order to facilitate using the computer navigation for the spine. Next attention was brought to placing the iliac screws. This was done using the gearshift probe. Linked to the computer navigation this was done by going through the sacrum the ala across the SI joint and into the iliac crest. This was done bilaterally. These were 9.5 x 90 mm screws. Next attention was brought to placing the L2 screw on the left. This was done by redirecting the previous hole and then placing a 7.5 mm 40 mm screw at L2 on the left. And then L1 screws were placed bilaterally using the gearshift probe. This was done by using the gearshift probe followed by pedicle feeler followed by placement of the screw. Rods were then attached to the L2-S1 screws and linking to the iliac screw. Screw caps were placed from L2 all the way down to the iliac screw. Next wound was irrigated and the transverse processes were decorticated and bone graft was placed lateral gutters from L1 down to the sacral ala. And at the SI joint. Vancomycin powder was placed. And wound was closed in layered fashion over a drain with Vicryl and Monocryl suture. Sterile dressings were applied patient was transferred to the PACU in stable condition.
[2023-10-31] MEDS: fentaNYL 50 mcg/mL INJ 2mL IVP (11:50)
[2023-10-31] MEDS: oxyCODONE-APAP 10-325 mg Tablet PO ×3 (12:17→21:08)
[2023-10-31] MEDS: ketorolac 30 mg/mL INJ IVP (12:18)
[2023-10-31] MEDS: morphine 4 mg/mL SDV 1 mL 2 MG IVP (12:18)
[2023-10-31] MEDS: ondansetron 2 mg/ML SDV 2 mL 4 MG IVP (12:18)
[2023-10-31] MEDS: diazePAM 5 mg Tablet PO (12:54)
--- NOTE | 2023-10-31 13:27 | ANE.PACU2 ---
Inpatient post-anesthesia follow up: Airway intact: Yes Vital signs: Temperature 98.3 F Pulse Rate 104 Respiratory Rate 16 Blood Pressure 135/80 Pulse Oximetry 94 Oxygen Delivery Me thod Room Air Oxygen Flow Rate 2 Fraction of Inspir ed Oxygen Hydration adequate: Yes Nausea and vomiting: No Pain level: 3 Mental status: Baseline
[2023-10-31] MEDS: sodium chloride 0.9% 1,000 ML 100 ML IV (15:59)
[2023-10-31 16:53] LABS: Glucose Point of Care 230 mg/dL (70-110)
[2023-10-31] MEDS: metformin 500 mg Tablet 1000 MG PO (18:32)
[2023-10-31] MEDS: docusate sodium 100 mg Capsule PO (18:33)
[2023-10-31] MEDS: oxyCODONE 20 mg ER (12 HR) Tablet PO (18:33)
[2023-10-31] MEDS: lactated ringers 1,000 ML 90 ML IV (23:57)
[2023-11-01] VITALS (7 sets, daily range): BP systolic 126–134; BP diastolic 77–80; PULSE 89–110; RESP 16–19; TEMP 36.4–37.1; O2SAT 96–99; BMI 23.8
[2023-11-01] MEDS: ceFAZolin 2,000 MG in sodium chloride 0.9% (plus) 50 ML 100 MG IV ×2 (00:04→09:57)
--- NOTE | 2023-11-01 07:43 | P.PN_ITS ---
Subjective 2 Subjective: POD 1 Patient resting comfortably. Reports mild back pain. Denies any chest pain, shortness of breath, headaches. Vitals/I&O/Wt Last Vital Signs Temp 97.5 F L 11/01/23 07:32 Pulse 104 H 11/01/23 07:32 Resp 19 H 11/01/23 07:32 BP 134/80 11/01/23 07:32 Pulse Ox 99 11/01/23 07:32 O2 Del Method Room Air 11/01/23 07:32 O2 Flow Rate 2 10/31/23 12:10 10/31/23 11/01/23 11/01/23 22:59 06:59 14:59 Intake Total 530 / 1680 838.333 / 2518.333 Output Total 750 / 1150 1150 / 2300 Balance -220 / 530 -311.667 / 218.333 Weight last 48 hrs Weight 161 lb Weight 161 lb Weight 161 lb Physical Exam 2 Narrative: Patient presents alert and oriented x3 with a good general appearance normal mood and affect. Normal coordination normal stability. Mild tenderness around the incisional site with the incision appear to be clean and dry with Hemovac drain intact. No signs of erythema or drainage. No signs of infection. Patient denies any fevers or chills. 5/5 motor strength both lower extremities with negative straight leg raise bilaterally. Calves are supple no medial thigh tenderness. Pulses are 2+ at the dorsalis pedis and posterior tibial region. Good capillary refill throughout normal sensation light touch both lower extremities. Urinary Catheter Management: Dyson: Cath Placed During This Visit: yes, but has since been removed by the nurse Reason for Continuing Indwelling Catheter: Decision to DC Catheter Urinary Catheter Date of Insertion: 10/31/23 Urinary Catheter Time of Insertion: 09:08 Date Urinary Catheter Removed: 11/01/23 Time Urinary Catheter Discontinued: 06:15 Data 10/31/23 07:48 A&P Assessment and plan (1) Status post lumbar spinal fusion: Will discontinue Hemovac drain. Physical therapy to work with mobilization. Discharge home later today. Continue incentive spirometer for pulmonary toilet. High risk of bleeding so continue SCDs while in the hospital for DVT prophylaxis. Will see him back in the office in 2 weeks time for wound check. Continue walking program with no bending lifting or twisting. (2) Secondary cancer of bone: Attestations 2 Medical Necessity Statement*: Discharge home later today after the Hemovac drain is discontinued Coding Level of Care Code Acute Code for Chg Fwd Diagnoses Status post lumbar spinal fusion Z98.1 Secondary cancer of bone C79.51
[2023-11-01] MEDS: oxyCODONE 20 mg ER (12 HR) Tablet PO (09:55)
[2023-11-01] MEDS: docusate sodium 100 mg Capsule PO (09:56)
[2023-11-01] MEDS: metformin 500 mg Tablet 1000 MG PO (09:56)
--- NOTE | 2023-11-01 10:34 | PC.CHAP ---
Pastoral Care Encounter/Spiritual Assessment Type of Contact [] Declined production line technician visit [] Patient/Family/Request visit [] Outpatient visit [] Follow-up visit [] Physician referral [] Code/Alert [x] Routine visit [] Staff referral [] Actively dying [] Patient sleeping [] Family support [] [] Out of room [] Palliative care [] [x] Receiving care in room [] Pre-surgical visit [] Trauma [] Long length of stay [] ICU visit [] Other: Relational/Emotional Strength [x] Patient feels connected with others/family/visitors/staff [] Distress [] Loneliness/isolation [] Abandonment Spirituality of Patient [x] Person of Delia [] Attends Judaism of their Delia [x] Believes in Prayer [] Reads Bible or Spiritism materials [] There are Spiritual issues to be addressed Shank Stitcher Interventions [x] Prayer [x] Active listening [x] Non-anxious presence [x] Spiritual/emotional support [] Crisis/trauma care [x] Spiritual counseling [] Bereavement support [] Provided bereavement packet [] Provided Bible/devotional materials [] Provided toy/stuffed animal, coloring book to patient or family member [] Provided Communion [] Anointing/Morning Sun [] Salvation [x] Completed spiritual assessment [] Other: Impact on Illness or Injury [] Angry [] Fearful [] Anxious [] Often cries [] Exhaustion [] Unable to work [] Unable to attend quaker [] Unable to walk/stand [] Unable to read [] Unable to drive [] Unable to eat/drink [] Unable to sleep [] Unable to be with family [] Patient intubated [] Other: Summary back surgery in pain well go home for rehab has a good attitude Time spent with patient 10 mins
--- NOTE | 2023-11-01 11:17 | PC.NURSE ---
Hemovac drain removed. Output 40cc noted. Pt tolerated removal well.
[2023-11-01] MEDS: oxyCODONE-APAP 10-325 mg Tablet PO (12:16)
== END 2023-11-01 12:49 | disposition home or self-care (01) ==
LOC: MEDSURG 14:05
PROVIDERS: Admitting Provider Orthopaedic Surgery; PCP Registered Nurse; Visit Provider Orthopaedic Surgery
PROC: (CPT 20930; principal; 2023-10-31 08:30)
DX: C79.51 Secondary malignant neoplasm of bone (principal); I10 Essential (primary) hypertension; Z85.528 Personal history of other malignant neoplasm of kidney; E11.9 Type 2 diabetes mellitus without complications; Z79.84 Long term (current) use of oral hypoglycemic drugs; F17.210 Nicotine dependence, cigarettes, uncomplicated
CPT/HCPCS: 20930; 22612; 22614; 22842; 22848; 61783; 36416; 51702; 72100; 76000; 81003; 82962; 85025; 86850; 86900; 97116; 97163; C1713; G0378; J0330; J0690; J1100; J1170; J1644; J1885; J2270; J2371; J2405; J2704; J3010; J3370; J7030; J7120

== ENCOUNTER 2023-11-08 07:53 | Oncology outpatient (recurring) (ONCR) | payer MEDICAID, SELFPAY ==
[2023-11-08 08:15] VITALS: BP 136/79; PULSE 102; RESP 16; TEMP 37.2; O2SAT 95
[2023-11-08 08:32] LABS: Basophils % 0.5 %; Eosinophils # 0.2 10^3/uL (0.0-0.8); Eosinophils % 3.5 %; Hematocrit 34.2 % (37-53); Lymphocytes # 1.1 10^3/uL (0.8-4.8); Mean Corpuscular HGB Conc 32.5 g/dL (30-55); Mean Corpuscular Hemoglobin 29.7 pg (27-33); Mean Corpuscular Volume 91.4 fl (82-101); Monocytes # 0.5 10^3/uL (0.2-0.9); Monocytes % 7.3 %; Neutrophils # 4.78 10^3/uL (1.8-7.7); Neutrophils % 72.5 %; Nucleated Red Blood Cells % 0 %; Platelet Count 186 10^3/cmm (157-399); Red Blood Count 3.74 10^6/uL (3.85-5.65); White Blood Count 6.58 10^3/uL (3.29-11.43)
[2023-11-08 08:56] LABS: Alanine Aminotransferase 9 U/L (0-41); Albumin Level 3.8 g/dL (3.5-5.2); Alkaline Phosphatase 126 U/L (40-130); Anion Gap 15.6 (5-19); Aspartate Amino Transferase 12 U/L (0-40); Blood Urea Nitrogen 12 mg/dL (6-20); Calcium 8.6 mg/dL (8.5-10.5); Carbon Dioxide 24 mmol/L (22-29); Chloride 101 mmol/L (98-107); Globulin 2.6 g/dL (1.3-4.6); Glomerular Filtration Rate 116.7 mL/min (90-130); Glucose 184 mg/dL (65-115); Lactate Dehydrogenase 153 U/L (135-225); Osmolality Calculated 287 mOsm/kg (285-295); Potassium 4.6 mmol/L (3.5-5.1); Sodium 136 mmol/L (136-145); Thyroid Stimulating Hormone 1.54 uIU/mL (0.27-4.20); Total Bilirubin 0.2 mg/dL (0.15-1.2); Total Protein 6.4 g/dL (6.6-8.7)
[2023-11-08] MEDS: sodium chloride 0.9% 250 ML 75 ML IV (10:04)
[2023-11-08] MEDS: denosumab 120 mg SDV SUBCUT (10:16)
[2023-11-08] MEDS: pembrolizumab 200 MG in sodium chloride 0.9% 250 ML 516 MG IV (10:27)
[2023-11-08 11:34] VITALS: BP 100/65; PULSE 99; RESP 16; TEMP 36.8; O2SAT 97
== END 2023-11-11 23:59 | disposition home or self-care (01) ==
PROVIDERS: PCP Registered Nurse; Visit Provider Internal Medicine Medical Oncology
DX: C64.2 Malignant neoplasm of left kidney, except renal pelvis; Z98.1 Arthrodesis status; R53.83 Other fatigue; Z79.899 Other long term (current) drug therapy; Z51.11 Encounter for antineoplastic chemotherapy
CPT/HCPCS: 80053; 83615; 84443; 85025; 96372; 96413; 99214; J0897; J1642; J7050; J9271

== ENCOUNTER → 2023-11-14 08:50 | Outpatient (BNVA) | payer MEDICAID, SELFPAY | PROVIDERS: PCP Registered Nurse; Visit Provider Physician Assistant | DX: Z98.1 Arthrodesis status (principal) | CPT/HCPCS: 72100; 99024 ==

== ENCOUNTER 2023-11-26 15:38 | Outpatient (CLI) | payer MEDICAID, SELFPAY ==
[2023-11-26] MEDS: iohexol 350 mg/mL 500 mL Btl (per mL) PO (16:00)
[2023-11-26] MEDS: iohexol 350 mg/mL 500 mL Btl (per mL) IV (16:47)
--- NOTE | 2023-11-26 17:00 | CT_ITS ---
WS: [id number] CT CHEST, ABDOMEN AND PELVIS WITH CONTRAST HISTORY: kidney cancer; bone cancer TECHNIQUE: Contiguous 5 mm axial imaging performed through the chest, abdomen and pelvis with IV cont rast, oral contrast has been provided. Coronal and sagittal reformats chest. Coronal and sagittal ref ormats through the abdomen and pelvis. All CT scans at [facility] use at least one of these d ose optimization techniques: automated exposure control; mA and/or kV adjustment per patient size (in cludes targeted exams where dose is matched to clinical indication); or iterative reconstruction. CONTRAST: Omnipaque 350; 100 mL IV. DLP: 642.51 mGy.cm COMPARISON: MRI lumbar spine 09/21/[address] 06/21/[address]: Lungs are clear. No pulmonary mass or nodules. RIGHT central line with tip in the distal SV C. Normal size aorta and pulmonary artery. No mediastinal or hilar adenopathy. Heart size is normal. Sclerotic changes in the T4 vertebral body were recently described by MRI. There is mild loss of heig ht without retropulsion. No additional spine lesions or rib lesions identified. Abdomen CT: Normal liver and spleen. No metastatic disease or enlargement. Normal portal vein. Gallbl adder is contracted and contains stones. Mild pancreatic atrophy. Pancreas and central abdominal stru ctures are being partially obscured by artifact from spine hardware. It would be difficult to exclude a pancreatic tumor. Adrenal glands are negative. As visualized RIGHT kidney is negative. LEFT kidney: Abnormal LEFT kidney. Patient has a known previously described complex cystic and solid mass involving the mid to lower pole. Renal mass transversely measures 8.5 cm, 7.9 cm anterior revenue officer ior and 8.0 cm superior-inferior. Mass is measuring slightly smaller in size as compared to the prior study. Mild atherosclerosis aorta. No aneurysm. Mesenteric arteries are limited. No ascites. No adenopathy i dentified. Small nodes would be difficult to visualize due to the artifact and lack of fat. Stomach is markedly distended with oral contrast, air and fluid, slightly improved since the prior st ud. This may be due to gastroparesis or partial outlet obstruction. No small bowel obstruction. Ther e is mild diffuse constipation. Pelvic CT: No free fluid. Urinary bladder is well distended. Mild prostate gland enlargement. No eva opathy. Prior posterior fusion and decompression surgery extending from L2-S2. Severe compression fracture at L4. IMPRESSION: 1. Patient has a known neoplasm LEFT kidney centered in the mid to lower kidney. Renal neoplasm paul ures 8.5 x 7.9 x 8.0 cm today. Renal mass has slightly decreased in size since the prior study. 2. No retroperitoneal or mesenteric lymph nodes are identified. Portions of the mesentery and retrop eritoneum are obscured by artifact from the hardware and also lack of fat limits evaluation for small lymph nodes. 3. No ascites. 4. No pulmonary mass or nodule. No adenopathy. 5. Stable sclerotic changes in the T4 vertebral body described on 09/21/2023 suspicious for metastat ic disease. 6. Extensive posterior lumbar fusion and decompression surgery. Surgery extends from L2-S2. Severe L 4 compression fracture.
== END 2023-11-26 15:39 | disposition home or self-care (01) ==
LOC: RAD 15:39
PROVIDERS: PCP Registered Nurse; Visit Provider Internal Medicine Medical Oncology
DX: C64.2 Malignant neoplasm of left kidney, except renal pelvis (principal); C79.51 Secondary malignant neoplasm of bone; Z98.1 Arthrodesis status
CPT/HCPCS: 71260; 74177; Q9967

== ENCOUNTER 2023-11-28 09:51 | Oncology outpatient (recurring) (ONCR) | payer MEDICAID, SELFPAY ==
[2023-11-28 10:05] VITALS: BP 159/96; PULSE 71; RESP 16; TEMP 36.6
[2023-11-28 10:13] LABS: Basophils % 0.7 %; Eosinophils # 0.3 10^3/uL (0.0-0.8); Eosinophils % 4.6 %; Hematocrit 41.6 % (37-53); Lymphocytes # 1.5 10^3/uL (0.8-4.8); Lymphocytes % 23.7 %; Mean Corpuscular HGB Conc 32.5 g/dL (30-55); Mean Corpuscular Hemoglobin 29.4 pg (27-33); Mean Corpuscular Volume 90.6 fl (82-101); Mean Platelet Volume 9.1 fL (7.4-10.4); Monocytes # 0.5 10^3/uL (0.2-0.9); Monocytes % 7.8 %; Neutrophils # 3.88 10^3/uL (1.8-7.7); Nucleated Red Blood Cells % 0 %; Platelet Count 160 10^3/cmm (157-399); Red Blood Count 4.59 10^6/uL (3.85-5.65); Red Cell Distribution Width 14.7 % (12.1-15.1); White Blood Count 6.15 10^3/uL (3.29-11.43)
[2023-11-28 10:50] LABS: Alanine Aminotransferase 15 U/L (0-41); Albumin Level 4.3 g/dL (3.5-5.2); Alkaline Phosphatase 147 U/L (40-130); Anion Gap 15.7 (5-19); Aspartate Amino Transferase 12 U/L (0-40); Blood Urea Nitrogen 16 mg/dL (6-20); Calcium 9.5 mg/dL (8.5-10.5); Carbon Dioxide 23 mmol/L (22-29); Chloride 101 mmol/L (98-107); Glomerular Filtration Rate 116.7 mL/min (90-130); Glucose 117 mg/dL (65-115); Lactate Dehydrogenase 140 U/L (135-225); Osmolality Calculated 282 mOsm/kg (285-295); Potassium 4.7 mmol/L (3.5-5.1); Sodium 135 mmol/L (136-145); Thyroid Stimulating Hormone 0.82 uIU/mL (0.27-4.20); Total Bilirubin 0.5 mg/dL (0.15-1.2); Total Protein 7.3 g/dL (6.6-8.7)
[2023-11-28] MEDS: pembrolizumab 200 MG in sodium chloride 0.9% 250 ML 516 MG IV (11:58)
[2023-11-28 12:49] VITALS: BP 130/87; PULSE 107; O2SAT 92
== END 2023-11-28 23:59 | disposition home or self-care (01) ==
LOC: ONCMED 09:52
PROVIDERS: PCP Registered Nurse; Visit Provider Internal Medicine Medical Oncology
DX: Z51.12 Encounter for antineoplastic immunotherapy (principal); C64.2 Malignant neoplasm of left kidney, except renal pelvis
CPT/HCPCS: 80053; 83615; 84443; 85025; 96413; J1642; J7050; J9271

== ENCOUNTER → 2023-12-11 10:24 | Outpatient (BNVA) | payer MEDICAID, SELFPAY | PROVIDERS: PCP Registered Nurse; Visit Provider Orthopaedic Surgery | DX: Z98.1 Arthrodesis status (principal); Z47.89 Encounter for other orthopedic aftercare | CPT/HCPCS: 72100; 99024; 99213 ==

== ENCOUNTER 2023-12-19 09:50 | Oncology outpatient (recurring) (ONCR) | payer MEDICAID, SELFPAY ==
[2023-12-19 10:11] LABS: Basophils % 0.8 %; Eosinophils # 0.2 10^3/uL (0.0-0.8); Eosinophils % 3.4 %; Lymphocytes # 1.2 10^3/uL (0.8-4.8); Lymphocytes % 22.9 %; Mean Corpuscular HGB Conc 33.6 g/dL (30-55); Mean Corpuscular Hemoglobin 30.5 pg (27-33); Mean Corpuscular Volume 90.7 fl (82-101); Monocytes # 0.4 10^3/uL (0.2-0.9); Monocytes % 7.1 %; Neutrophils # 3.49 10^3/uL (1.8-7.7); Neutrophils % 65.6 %; Nucleated Red Blood Cells % 0 %; Platelet Count 163 10^3/cmm (157-399); Red Cell Distribution Width 14.8 % (12.1-15.1); White Blood Count 5.32 10^3/uL (3.29-11.43)
[2023-12-19 10:46] LABS: Alanine Aminotransferase 37 U/L (0-41); Albumin Level 4.1 g/dL (3.5-5.2); Alkaline Phosphatase 116 U/L (40-130); Anion Gap 13.9 (5-19); Aspartate Amino Transferase 23 U/L (0-40); Blood Urea Nitrogen 16 mg/dL (6-20); Calcium 9.3 mg/dL (8.5-10.5); Carbon Dioxide 25 mmol/L (22-29); Chloride 99 mmol/L (98-107); Globulin 2.9 g/dL (1.3-4.6); Glomerular Filtration Rate 116.7 mL/min (90-130); Glucose 146 mg/dL (65-115); Lactate Dehydrogenase 172 U/L (135-225); Osmolality Calculated 280 mOsm/kg (285-295); Potassium 4.9 mmol/L (3.5-5.1); Sodium 133 mmol/L (136-145); Thyroid Stimulating Hormone 0.56 uIU/mL (0.27-4.20); Total Bilirubin 0.4 mg/dL (0.15-1.2)
[2023-12-19] MEDS: denosumab 120 mg SDV SUBCUT (12:08)
[2023-12-19] MEDS: sodium chloride 0.9% 250 ML 75 ML IV (12:08)
[2023-12-19] MEDS: pembrolizumab 200 MG in sodium chloride 0.9% 250 ML 516 MG IV (12:17)
[2023-12-19 13:07] VITALS: BP 122/77; PULSE 66; RESP 18; TEMP -13.1; TEMP 8.4; O2SAT 98
== END 2023-12-19 23:59 | disposition home or self-care (01) ==
PROVIDERS: Internal Medicine; PCP Registered Nurse; Visit Provider Internal Medicine Medical Oncology
DX: Z51.12 Encounter for antineoplastic immunotherapy (principal); C64.2 Malignant neoplasm of left kidney, except renal pelvis; Z79.69 Long term (current) use of other immunomodulators and immunosuppressants; Z79.899 Other long term (current) drug therapy
CPT/HCPCS: 80053; 83615; 84443; 85025; 96372; 96413; 99214; A4222; J0897; J1642; J7050; J9271

== ENCOUNTER 2024-01-09 10:05 | Oncology outpatient (recurring) (ONCR) | payer MEDICAID, SELFPAY ==
[2024-01-09 10:26] LABS: Basophils % 0.7 %; Eosinophils # 0.2 10^3/uL (0.0-0.8); Eosinophils % 2.6 %; Hematocrit 41.5 % (37-53); Lymphocytes # 1.3 10^3/uL (0.8-4.8); Lymphocytes % 20.6 %; Mean Corpuscular HGB Conc 32.8 g/dL (30-55); Mean Corpuscular Hemoglobin 30.3 pg (27-33); Mean Corpuscular Volume 92.4 fl (82-101); Mean Platelet Volume 8.6 fL (7.4-10.4); Monocytes # 0.5 10^3/uL (0.2-0.9); Monocytes % 7.6 %; Neutrophils # 4.15 10^3/uL (1.8-7.7); Neutrophils % 68.3 %; Nucleated Red Blood Cells % 0 %; Platelet Count 136 10^3/cmm (157-399); Red Blood Count 4.49 10^6/uL (3.85-5.65); Red Cell Distribution Width 14.6 % (12.1-15.1); White Blood Count 6.07 10^3/uL (3.29-11.43)
[2024-01-09 10:46] LABS: Alanine Aminotransferase 38 U/L (0-41); Alkaline Phosphatase 121 U/L (40-130); Anion Gap 13.5 (5-19); Aspartate Amino Transferase 28 U/L (0-40); Blood Urea Nitrogen 16 mg/dL (6-20); Calcium 9.1 mg/dL (8.5-10.5); Carbon Dioxide 22 mmol/L (22-29); Chloride 106 mmol/L (98-107); Globulin 2.7 g/dL (1.3-4.6); Glomerular Filtration Rate 116.7 mL/min (90-130); Glucose 164 mg/dL (65-115); Osmolality Calculated 289 mOsm/kg (285-295); Potassium 4.5 mmol/L (3.5-5.1); Sodium 137 mmol/L (136-145); Total Bilirubin 0.4 mg/dL (0.15-1.2); Total Protein 6.7 g/dL (6.6-8.7)
[2024-01-09] MEDS: pembrolizumab 200 MG in sodium chloride 0.9% 250 ML 516 MG IV (12:20)
== END 2024-01-09 23:59 | disposition home or self-care (01) ==
PROVIDERS: Nurse Practitioner Family; PCP Registered Nurse; Visit Provider Internal Medicine Medical Oncology
DX: Z51.12 Encounter for antineoplastic immunotherapy (principal); C64.2 Malignant neoplasm of left kidney, except renal pelvis
CPT/HCPCS: 80053; 85025; 96413; J1642; J7050; J9271

== ENCOUNTER → 2024-01-22 14:40 | Outpatient (BNVA) | payer MEDICAID, SELFPAY | PROVIDERS: PCP Registered Nurse; Visit Provider Orthopaedic Surgery | DX: Z98.1 Arthrodesis status (principal) | CPT/HCPCS: 72100; 99024 ==

== ENCOUNTER 2024-01-31 06:05 | Day surgery (SDC) | payer MEDICAID, SELFPAY ==
[2024-01-31 06:19] VITALS: BP 132/89; PULSE 110; RESP 18; TEMP 36.7; O2SAT 98
[2024-01-31 06:23] VITALS: BMI 25.8
[2024-01-31] MEDS: sodium chloride 0.9% 1,000 ML 30 ML IV (06:31)
--- NOTE | 2024-01-31 06:33 | P.HP_ITS ---
Same Day Surgery H&P Indication for Procedure/HPI DATE OF PROCEDURE: January 31, 2024 CHIEF COMPLAINT/INDICATIONFOR SURGICAL PROCEDURE: need for screening colonoscopy PREOP DIAGNOSIS: need for screening colonoscopy PLANNED PROCEDURE: Operation Date: 01/31/24 07:15 Proposed Procedures p [id number] colon G0121 screen colon a risk Z12.11(Not Applicable) - Nilson Tomlin MD Medications/Allergies* Allergies/Adverse Reactions Allergy/AdvReac Type Severity Reaction Status Date / Time No Known Allergies Allergy Verified 01/23/24 10:38 Current Medications: Generic Name Dose Route Start Last Admin Trade Name Freq PRN Reason Stop Dose Admin Sodium Chloride 1,000 mls @ 30 mls/hr 01/31/24 06:15 01/31/24 06:31 Sodium Chloride 0.9% IV 30 mls/hr .Q24H AGUS Administration Pertinent History/Comorbid Conditions* Medical History (Updated 11/02/23 @ 00:00 by SeeFutureArely Happy Daysjim) Fracture of lumbar spine Malignant neoplasm of left kidney Lumbar foraminal stenosis Type 2 diabetes mellitus Surgical History (Updated 11/02/23 @ 00:00 by OBMedicaljim) Port-A-Cath in place History of back surgery (06/20/23) L3/4 and L4/5 laminectomies with L2-S1 posterior spine fusion and with biopsy of L4 vertebral body Social History Smoking and tobacco/nicotine status: current every day tobacco/nicotine user cigarettes Packs smoked per day: 0.5 Years cigarettes smoked: 30 Alcohol intake: never Substance/Drug Use: never Adopted: No Caregiver/support person: No Lives independently: No Household members: spouse Current occupational status: employed Sexually active: Yes Do you think of yourself as: Straight/Heterosexual Current gender identity: Male Pertinent Exam Findings alert, oriented x 3 and clear to auscultation bilaterally Recommendations Surgery/Procedure today Coding Level of Care Code Acute Code for Chg Fwd
[2024-01-31 06:36] LABS: Glucose Point of Care 193 mg/dL (70-110)
--- NOTE | 2024-01-31 06:49 | P.ANESASSM_ITS ---
Pre-Anesthetic Assessment Height/Weight: Height 1.75 m Weight 79.379 kg Temp Pulse Resp BP Pulse Ox O2 Del Method 98.0 F 110 H 18 132/89 98 Room Air 01/31/24 06:19 01/31/24 06:19 01/31/24 06:19 01/31/24 06:19 01/31/24 06:19 01/31/24 06:19 Preop Diagnosis: need for screening colonoscopy Operation Date: 01/31/24 07:15 Proposed Procedures p 10454 colon G0121 screen colon a risk Z12.11(Not Applicable) - Nilson Tomlin MD Familial anesthetic complications: None Was Beta Vaibhav taken within 24 hours: N/A Was Clonidine taken within 24 hours: N/A Last intake: Intake Last Liquid Date 01/30/24 Last Liquid Time 23:30 Last Solid Date 01/30/24 Last Solid Time 08:30 Social Tobacco and No alcohol 1 pack(s) per day Exam alert, oriented x 3, clear to auscultation bilaterally and regular rate & rhythm Airway Submandibular: within normal limits Cervical ROM: within normal limits Mallampati: Class III Dentition: false Comments: Comments: Large tongue History/ROS No significant history except as noted and No significant complaints Pulmonary Chronic Obstructive Pulmonary Disease CV/HEM Arrythmia and Coronary Artery Disease Left kidney cancer Hepatic None reported GI None reported Metabolic Diabetes Mellitus Musc/skel Lower Back Pain and Osteoarthritis/DJD Neuropsych Neuropathy Anesthetic Plan ASA status: 3 Anesthesia: Anesthesia Evaluation, General and MAC Risk of > 500 ml blood loss (7ml/kg in children): No Medications/Allergies Home Medications Medication Instructions Recorded Confirmed Last Taken Type intraoperative neurophysiological #1 ea 06/28/23 01/29/24 Unknown Rx monitoring lorazepam 1 mg tablet 0.5 - 1 mg (0.5 - 1 x 1 mg) PO Q8H 08/09/23 01/29/24 Unknown Rx PRN anxiety #90 tabs TLSO Brace #1 ea 09/25/23 01/29/24 Unknown Rx oxycodone 20 mg tablet 10 mg (1/2 x 20 mg) PO QID PRN 12/06/23 01/31/24 2 Weeks Ago Rx pain 7 days #60 tabs ~01/17/24 axitinib 5 mg tablet (Inlyta) 10 mg (2 x 5 mg) PO BID #120 tabs 12/19/23 01/29/24 01/30/24 Rx liraglutide 0.6 mg/0.1 mL (18 mg/3 1.2 mg (0.2 mL) SUBCUT DAILY #6 mL 01/02/24 01/29/24 01/23/24 Rx mL) subcutaneous pen injector (Victoza 2-Rodolfo) metformin 1,000 mg tablet See Rx Instructions .Route 01/02/24 01/29/24 01/30/24 08:00 Rx .COMPLEX #180 tabs blood-glucose meter,continuous #1 ea 01/23/24 01/29/24 Unknown Rx (Dexcom G6 Medical Registrar) blood-glucose sensor (Dexcom G6 #3 ea 01/23/24 01/29/24 Unknown Rx Sensor device) Allergies Allergy/AdvReac Type Severity Reaction Status Date / Time No Known Allergies Allergy Verified 01/23/24 10:38 Current Medications Generic Name Dose Route Start Last Admin Trade Name Freq PRN Reason Stop Dose Admin Sodium Chloride 1,000 mls @ 30 mls/hr 01/31/24 06:15 01/31/24 06:31 Sodium Chloride 0.9% IV 30 mls/hr .Q24H AGUS Administration PFSH Anesthesia Medical History Fracture of lumbar spine Malignant neoplasm of left kidney Lumbar foraminal stenosis Type 2 diabetes mellitus Surgical History Port-A-Cath in place History of back surgery (06/20/23) L3/4 and L4/5 laminectomies with L2-S1 posterior spine fusion and with biopsy of L4 vertebral body Social History Smoking and tobacco/nicotine status: current every day tobacco/nicotine user cigarettes Packs smoked per day: 0.5 Years cigarettes smoked: 30 Alcohol intake: never Substance/Drug Use: never Adopted: No Caregiver/support person: No Lives independently: No Household members: spouse Current occupational status: employed Sexually active: Yes Do you think of yourself as: Straight/Heterosexual Current gender identity: Male Data Anesthesia Cardiac Studies: No Data to Display
[2024-01-31 07:53] VITALS: BP 98/63; PULSE 92; RESP 18; TEMP 36.1; O2SAT 99
[2024-01-31 08:00] VITALS: BP 112/72; PULSE 95; RESP 18; O2SAT 95
[2024-01-31 08:12] VITALS: BP 108/74; PULSE 99; RESP 18; O2SAT 98
--- NOTE | 2024-01-31 08:25 | ANE.PACU2 ---
Inpatient post-anesthesia follow up: Airway intact: Yes Vital signs: Temperature 97 F Pulse Rate 99 Respiratory Rate 18 Blood Pressure 108/74 Pulse Oximetry 98 Oxygen Delivery Me thod Room Air Oxygen Flow Rate Fraction of Inspir ed Oxygen Hydration adequate: Yes Nausea and vomiting: No Pain level: 1 Mental status: Baseline
== END 2024-01-31 08:25 | disposition home or self-care (01) ==
PROVIDERS: PCP Registered Nurse; Visit Provider Surgery
PROC: 0DJD8ZZ Inspection of Lower Intestinal Tract, Via Natural or Artificial Opening Endoscopic (ICD-10-PCS; CPT 45378; principal; 2024-01-31 07:15)
DX: Z12.11 Encounter for screening for malignant neoplasm of colon (principal); D12.5 Benign neoplasm of sigmoid colon; D12.8 Benign neoplasm of rectum; F17.210 Nicotine dependence, cigarettes, uncomplicated; Z98.1 Arthrodesis status; J44.9 Chronic obstructive pulmonary disease, unspecified; I25.10 Atherosclerotic heart disease of native coronary artery without angina pectoris; Z85.528 Personal history of other malignant neoplasm of kidney; E11.40 Type 2 diabetes mellitus with diabetic neuropathy, unspecified
CPT/HCPCS: 36416; 45385; 82962; 88305; J2704; J7030

== ENCOUNTER 2024-02-04 08:08 | Oncology outpatient (recurring) (ONCR) | payer MEDICAID, SELFPAY ==
[2024-02-04 08:38] LABS: Basophils % 0.7 %; Eosinophils # 0.2 10^3/uL (0.0-0.8); Eosinophils % 3.5 %; Hematocrit 42.9 % (37-53); Lymphocytes # 1.2 10^3/uL (0.8-4.8); Lymphocytes % 19.8 %; Mean Corpuscular HGB Conc 33.6 g/dL (30-55); Mean Corpuscular Hemoglobin 30.6 pg (27-33); Mean Corpuscular Volume 91.3 fl (82-101); Mean Platelet Volume 8.8 fL (7.4-10.4); Monocytes # 0.5 10^3/uL (0.2-0.9); Monocytes % 8.4 %; Neutrophils # 4.03 10^3/uL (1.8-7.7); Neutrophils % 67.4 %; Nucleated Red Blood Cells % 0 %; Platelet Count 151 10^3/cmm (157-399); White Blood Count 5.97 10^3/uL (3.29-11.43)
[2024-02-04 09:09] LABS: Alanine Aminotransferase 19 U/L (0-41); Albumin Level 4.1 g/dL (3.5-5.2); Alkaline Phosphatase 117 U/L (40-130); Anion Gap 14.4 (5-19); Aspartate Amino Transferase 21 U/L (0-40); Blood Urea Nitrogen 11 mg/dL (6-20); Calcium 9.1 mg/dL (8.5-10.5); Carbon Dioxide 24 mmol/L (22-29); Chloride 99 mmol/L (98-107); Creatinine Clr Calc Pharmacy 108.9603; Globulin 3.1 g/dL (1.3-4.6); Glucose 174 mg/dL (65-115); Osmolality Calculated 280 mOsm/kg (285-295); Potassium 4.4 mmol/L (3.5-5.1); Sodium 133 mmol/L (136-145); Total Bilirubin 0.4 mg/dL (0.15-1.2); Total Protein 7.2 g/dL (6.6-8.7)
[2024-02-04] MEDS: pembrolizumab 200 MG in sodium chloride 0.9% 250 ML 516 MG IV (11:25)
[2024-02-04] MEDS: denosumab 120 mg SDV SUBCUT (11:31)
[2024-02-04 12:09] VITALS: BP 132/80; PULSE 113; O2SAT 97
== END 2024-02-04 23:59 | disposition home or self-care (01) ==
PROVIDERS: Nurse Practitioner Family; PCP Registered Nurse; Visit Provider Internal Medicine Medical Oncology
DX: C64.2 Malignant neoplasm of left kidney, except renal pelvis (principal); Z79.899 Other long term (current) drug therapy
CPT/HCPCS: 80053; 84443; 85025; 96372; 96413; 99213; A4222; J0897; J1642; J7050; J9271

== ENCOUNTER → 2024-02-13 12:48 | Outpatient (BNVA) | payer MEDICAID, SELFPAY | PROVIDERS: PCP Registered Nurse; Visit Provider Surgery | DX: Z09 Encounter for follow-up examination after completed treatment for conditions other than malignant neoplasm (principal) | CPT/HCPCS: 99213 ==

== ENCOUNTER 2024-02-25 11:46 | Oncology outpatient (recurring) (ONCR) | payer MEDICAID, SELFPAY ==
[2024-02-25 12:36] LABS: Basophils % 0.5 %; Eosinophils # 0.1 10^3/uL (0.0-0.8); Eosinophils % 1.8 %; Hematocrit 40.9 % (37-53); Lymphocytes # 1.3 10^3/uL (0.8-4.8); Lymphocytes % 22.5 %; Mean Corpuscular HGB Conc 34.5 g/dL (30-55); Mean Corpuscular Hemoglobin 31.5 pg (27-33); Mean Corpuscular Volume 91.3 fl (82-101); Monocytes # 0.4 10^3/uL (0.2-0.9); Monocytes % 6.7 %; Neutrophils # 4.06 10^3/uL (1.8-7.7); Neutrophils % 68.3 %; Nucleated Red Blood Cells % 0 %; Platelet Count 142 10^3/cmm (157-399); Red Blood Count 4.48 10^6/uL (3.85-5.65); Red Cell Distribution Width 13.6 % (12.1-15.1); White Blood Count 5.95 10^3/uL (3.29-11.43)
[2024-02-25 13:06] LABS: Alanine Aminotransferase 28 U/L (0-41); Albumin Level 4.1 g/dL (3.5-5.2); Alkaline Phosphatase 108 U/L (40-130); Anion Gap 16.2 (5-19); Aspartate Amino Transferase 21 U/L (0-40); Blood Urea Nitrogen 18 mg/dL (6-20); Calcium 9.3 mg/dL (8.5-10.5); Carbon Dioxide 24 mmol/L (22-29); Chloride 99 mmol/L (98-107); Globulin 2.7 g/dL (1.3-4.6); Glucose 117 mg/dL (65-115); Osmolality Calculated 283 mOsm/kg (285-295); Potassium 4.2 mmol/L (3.5-5.1); Sodium 135 mmol/L (136-145); Total Bilirubin 0.6 mg/dL (0.15-1.2); Total Protein 6.8 g/dL (6.6-8.7)
[2024-02-25] MEDS: pembrolizumab 200 MG in sodium chloride 0.9% 250 ML 516 MG IV (14:08)
[2024-02-25 14:59] VITALS: BP 123/72; PULSE 112; RESP 16; O2SAT 98
== END 2024-02-25 23:59 | disposition home or self-care (01) ==
LOC: ONCMED 11:47
PROVIDERS: Nurse Practitioner Family; PCP Registered Nurse; Visit Provider Internal Medicine Medical Oncology
DX: Z51.12 Encounter for antineoplastic immunotherapy (principal); C64.2 Malignant neoplasm of left kidney, except renal pelvis; Z79.899 Other long term (current) drug therapy
CPT/HCPCS: 80053; 84443; 85025; 96413; J7050; J9271

== ENCOUNTER 2024-04-10 12:30 | Oncology outpatient (recurring) (ONCR) | payer MEDICAID, SELFPAY ==
[2024-03-20 09:03] LABS: Basophils % 0.8 %; Eosinophils # 0.1 10^3/uL (0.0-0.8); Eosinophils % 2.7 %; Hematocrit 40.9 % (37-53); Lymphocytes # 1.1 10^3/uL (0.8-4.8); Lymphocytes % 21.9 %; Mean Corpuscular HGB Conc 34.2 g/dL (30-55); Mean Corpuscular Volume 93.4 fl (82-101); Mean Platelet Volume 8.9 fL (7.4-10.4); Monocytes # 0.4 10^3/uL (0.2-0.9); Neutrophils # 3.44 10^3/uL (1.8-7.7); Neutrophils % 67.4 %; Nucleated Red Blood Cells % 0 %; Platelet Count 141 10^3/cmm (157-399); Red Blood Count 4.38 10^6/uL (3.85-5.65); Red Cell Distribution Width 13.3 % (12.1-15.1); White Blood Count 5.11 10^3/uL (3.29-11.43)
[2024-03-20 09:34] LABS: Alanine Aminotransferase 31 U/L (0-41); Alkaline Phosphatase 96 U/L (40-130); Anion Gap 13.4 (5-19); Aspartate Amino Transferase 21 U/L (0-40); Blood Urea Nitrogen 13 mg/dL (6-20); Carbon Dioxide 22 mmol/L (22-29); Chloride 101 mmol/L (98-107); Globulin 2.8 g/dL (1.3-4.6); Glucose 186 mg/dL (65-115); Osmolality Calculated 279 mOsm/kg (285-295); Potassium 4.4 mmol/L (3.5-5.1); Sodium 132 mmol/L (136-145); Thyroid Stimulating Hormone 0.85 uIU/mL (0.27-4.20); Total Bilirubin 0.4 mg/dL (0.15-1.2); Total Protein 6.8 g/dL (6.6-8.7)
[2024-03-20] MEDS: pembrolizumab 200 MG in sodium chloride 0.9% 250 ML 516 MG IV (11:34)
[2024-03-20] MEDS: denosumab 120 mg SDV SUBCUT (11:47)
[2024-03-20 12:11] VITALS: BP 122/73; PULSE 97; RESP 16; TEMP 36.3; O2SAT 97
[2024-04-10] MEDS: pembrolizumab 200 MG in sodium chloride 0.9% 250 ML 516 MG IV (13:41)
[2024-04-10 15:40] VITALS: BP 109/73; PULSE 113; RESP 16; TEMP 36.6; O2SAT 96
== END 2024-04-10 23:59 | disposition home or self-care (01) ==
PROVIDERS: Nurse Practitioner Family; PCP Registered Nurse; Visit Provider Internal Medicine Medical Oncology
DX: Z53.9 Procedure and treatment not carried out, unspecified reason (principal); Z51.12 Encounter for antineoplastic immunotherapy; C64.2 Malignant neoplasm of left kidney, except renal pelvis
CPT/HCPCS: 80053; 84443; 85025; 96365; 96372; 96413; 99213; A4222; J0897; J7050; J9271

== ENCOUNTER → 2024-04-15 08:14 | Outpatient (BNVA) | payer SELFPAY | PROVIDERS: PCP Registered Nurse; Visit Provider Orthopaedic Surgery | DX: Z98.1 Arthrodesis status (principal) | CPT/HCPCS: 72100 ==

== ENCOUNTER 2024-04-29 10:30 | Outpatient (RCR) | payer MEDICAID, SELFPAY | END 2024-05-11 23:59 | disposition home or self-care (01) | LOC: SPT 10:30 | PROVIDERS: Visit Provider Orthopaedic Surgery | DX: M54.9 Dorsalgia, unspecified (principal); G89.29 Other chronic pain | CPT/HCPCS: 97110; 97161; 97530 ==

== ENCOUNTER 2024-05-01 08:25 | Oncology outpatient (recurring) (ONCR) | payer MEDICAID, SELFPAY ==
[2024-05-01] MEDS: denosumab 120 mg SDV SUBCUT (10:22)
[2024-05-01] MEDS: pembrolizumab 200 MG in sodium chloride 0.9% 250 ML 516 MG IV (10:23)
[2024-05-01 11:04] VITALS: BP 131/84; PULSE 98; RESP 18; TEMP 36.7; O2SAT 96
== END 2024-05-01 23:59 | disposition home or self-care (01) ==
PROVIDERS: Visit Provider Internal Medicine Medical Oncology
DX: Z51.12 Encounter for antineoplastic immunotherapy (principal); C64.2 Malignant neoplasm of left kidney, except renal pelvis; C79.51 Secondary malignant neoplasm of bone; Z79.69 Long term (current) use of other immunomodulators and immunosuppressants; Z79.899 Other long term (current) drug therapy; Z53.9 Procedure and treatment not carried out, unspecified reason
CPT/HCPCS: 96401; 96413; 99213; J0897; J7050; J9271

== ENCOUNTER → 2024-05-08 15:52 | Outpatient (BNVA) | payer MEDICAID, SELFPAY | PROVIDERS: PCP Registered Nurse; Visit Provider Orthopaedic Surgery | DX: Z98.1 Arthrodesis status (principal) | CPT/HCPCS: 72100; 99213 ==

== ENCOUNTER 2024-05-12 06:00 | Outpatient (RCR) | payer SELFPAY | END 2024-06-11 23:59 | disposition home or self-care (01) | LOC: SPT 06:00 | PROVIDERS: PCP Registered Nurse; Visit Provider Orthopaedic Surgery | DX: M54.9 Dorsalgia, unspecified (principal); G89.29 Other chronic pain | CPT/HCPCS: 97110 ==

== ENCOUNTER 2024-05-22 08:20 | Oncology outpatient (recurring) (ONCR) | payer SELFPAY ==
[2024-05-22] MEDS: pembrolizumab 200 MG in sodium chloride 0.9% 250 ML 516 MG IV (10:54)
[2024-05-22 11:32] VITALS: BP 127/79; PULSE 87; O2SAT 92
== END 2024-05-22 23:59 | disposition home or self-care (01) ==
PROVIDERS: PCP Registered Nurse; Visit Provider Internal Medicine Medical Oncology
DX: Z51.12 Encounter for antineoplastic immunotherapy (principal); C64.2 Malignant neoplasm of left kidney, except renal pelvis; C79.51 Secondary malignant neoplasm of bone; Z79.69 Long term (current) use of other immunomodulators and immunosuppressants; Z79.899 Other long term (current) drug therapy
CPT/HCPCS: 96413; 99214; J7050; J9271

== ENCOUNTER → 2024-05-28 09:51 | Outpatient (BNVA) | payer SELFPAY | PROVIDERS: PCP Registered Nurse; Visit Provider Registered Nurse | DX: E11.9 Type 2 diabetes mellitus without complications (principal) | CPT/HCPCS: 80053; 83036 ==

== ENCOUNTER 2024-05-29 10:10 | Oncology outpatient (recurring) (ONCR) | payer SELFPAY ==
[2024-05-29 10:13] VITALS: BP 136/77; PULSE 106; RESP 18; TEMP 36.4
[2024-05-29] MEDS: denosumab 120 mg SDV SUBCUT (10:18)
== END 2024-06-11 23:59 | disposition home or self-care (01) ==
PROVIDERS: PCP Registered Nurse; Visit Provider Internal Medicine Medical Oncology
DX: C64.2 Malignant neoplasm of left kidney, except renal pelvis; Z79.899 Other long term (current) drug therapy; Z53.9 Procedure and treatment not carried out, unspecified reason
CPT/HCPCS: 96372; J0897

== ENCOUNTER 2024-06-12 08:27 | Outpatient (RCR) | payer SELFPAY | END 2024-06-17 23:59 | disposition home or self-care (01) | LOC: SPT 08:27 | PROVIDERS: PCP Registered Nurse; Visit Provider Orthopaedic Surgery | DX: M54.9 Dorsalgia, unspecified (principal); G89.29 Other chronic pain | CPT/HCPCS: 97110 ==

== ENCOUNTER 2024-06-12 10:08 | Oncology outpatient (recurring) (ONCR) | payer SELFPAY ==
[2024-06-12] MEDS: pembrolizumab 200 MG in sodium chloride 0.9% 250 ML 516 MG IV (11:07)
[2024-06-12 11:55] VITALS: BP 114/65; PULSE 91; RESP 16; O2SAT 97
== END 2024-06-12 23:59 | disposition home or self-care (01) ==
PROVIDERS: PCP Registered Nurse; Visit Provider Internal Medicine Medical Oncology
DX: Z51.12 Encounter for antineoplastic immunotherapy (principal); C64.2 Malignant neoplasm of left kidney, except renal pelvis; C79.51 Secondary malignant neoplasm of bone; Z79.69 Long term (current) use of other immunomodulators and immunosuppressants; Z79.899 Other long term (current) drug therapy; Z53.9 Procedure and treatment not carried out, unspecified reason
CPT/HCPCS: 96413; 99214; A4222; J7050; J9271

== ENCOUNTER → 2024-06-20 11:28 | Outpatient (BNVA) | payer SELFPAY | PROVIDERS: PCP Registered Nurse; Visit Provider Registered Nurse | DX: E11.9 Type 2 diabetes mellitus without complications (principal) | CPT/HCPCS: 80053 ==

== ENCOUNTER 2024-07-03 08:15 | Oncology outpatient (recurring) (ONCR) | payer SELFPAY ==
[2024-06-26 08:51] VITALS: BP 168/89; PULSE 102; RESP 18; TEMP 36.6; O2SAT 96
[2024-06-26] MEDS: denosumab 120 mg SDV SUBCUT (08:54)
[2024-07-03 08:34] VITALS: BP 182/102; PULSE 83; RESP 18; TEMP 35.7; O2SAT 96
--- NOTE | 2024-07-03 08:36 | PC.NURSE ---
patient states he took his blood pressure medication this morning will continue to monitor.
[2024-07-03 08:49] VITALS: BP 172/94
[2024-07-03] MEDS: pembrolizumab 200 MG in sodium chloride 0.9% 250 ML 516 MG IV (09:04)
[2024-07-03 09:43] VITALS: BP 157/87; PULSE 74; RESP 18; TEMP 36.2; O2SAT 97
== END 2024-07-12 23:55 | disposition home or self-care (01) ==
PROVIDERS: PCP Registered Nurse; Visit Provider Internal Medicine Medical Oncology
DX: Z53.9 Procedure and treatment not carried out, unspecified reason (principal); C64.2 Malignant neoplasm of left kidney, except renal pelvis; Z51.12 Encounter for antineoplastic immunotherapy
CPT/HCPCS: 96372; 96413; J0897; J7050; J9271

== ENCOUNTER 2024-07-28 11:13 | Oncology outpatient (recurring) (ONCR) | payer SELFPAY ==
[2024-07-28] MEDS: pembrolizumab 200 MG in sodium chloride 0.9% 250 ML 516 MG IV (12:07)
[2024-07-28] MEDS: denosumab 120 mg SDV SUBCUT (12:14)
[2024-07-28 12:43] VITALS: BP 116/74; PULSE 100; RESP 16; TEMP 36.4; O2SAT 96
== END 2024-07-28 23:59 | disposition home or self-care (01) ==
PROVIDERS: PCP Registered Nurse; Visit Provider Internal Medicine Medical Oncology
DX: Z51.12 Encounter for antineoplastic immunotherapy; Z79.899 Other long term (current) drug therapy; C64.2 Malignant neoplasm of left kidney, except renal pelvis
CPT/HCPCS: 96402; 96413; J0897; J7050; J9271

== ENCOUNTER → 2024-08-05 07:53 | Outpatient (BNVA) | payer SELFPAY | PROVIDERS: PCP Registered Nurse; Visit Provider Orthopaedic Surgery | DX: Z98.1 Arthrodesis status (principal) | CPT/HCPCS: 72100 ==

== ENCOUNTER 2024-08-18 13:33 | Oncology outpatient (recurring) (ONCR) | payer MEDICAID, SELFPAY ==
[2024-08-18 13:51] VITALS: BP 127/81; PULSE 98; TEMP 36.7; O2SAT 97
[2024-08-18] MEDS: pembrolizumab 200 MG in sodium chloride 0.9% 250 ML 516 MG IV (14:14)
[2024-08-18 14:47] VITALS: BP 131/73; PULSE 100; RESP 16; TEMP 36.8; O2SAT 95
== END 2024-08-18 23:59 | disposition home or self-care (01) ==
PROVIDERS: PCP Registered Nurse; Visit Provider Internal Medicine Hematology & Oncology
DX: Z51.12 Encounter for antineoplastic immunotherapy; C64.2 Malignant neoplasm of left kidney, except renal pelvis; Z79.899 Other long term (current) drug therapy
CPT/HCPCS: 96413; A4222; J7050; J9271

== ENCOUNTER 2024-08-26 11:36 | Oncology outpatient (recurring) (ONCR) | payer MEDICAID, SELFPAY ==
[2024-08-26] MEDS: denosumab 120 mg SDV SUBCUT (14:25)
== END 2024-09-11 23:59 | disposition home or self-care (01) ==
PROVIDERS: PCP Registered Nurse; Visit Provider Internal Medicine Hematology & Oncology
DX: C64.2 Malignant neoplasm of left kidney, except renal pelvis; C79.51 Secondary malignant neoplasm of bone; Z79.899 Other long term (current) drug therapy; Z95.828 Presence of other vascular implants and grafts
CPT/HCPCS: 96372; 99214; J0897

== ENCOUNTER 2024-10-07 11:14 | Oncology outpatient (recurring) (ONCR) | payer SELFPAY ==
[2024-10-07 11:52] LABS: Basophils % 0.6 %; Eosinophils # 0.3 10^3/uL (0.0-0.8); Eosinophils % 5.5 %; Hematocrit 39.7 % (37-53); Lymphocytes # 1.2 10^3/uL (0.8-4.8); Mean Corpuscular HGB Conc 34.3 g/dL (30-55); Mean Corpuscular Hemoglobin 32.1 pg (27-33); Mean Corpuscular Volume 93.6 fl (82-101); Mean Platelet Volume 9.1 fL (7.4-10.4); Monocytes # 0.4 10^3/uL (0.2-0.9); Monocytes % 7.8 %; Neutrophils # 3.02 10^3/uL (1.8-7.7); Neutrophils % 61.9 %; Nucleated Red Blood Cells % 0 %; Platelet Count 149 10^3/cmm (157-399); Red Blood Count 4.24 10^6/uL (3.85-5.65); Red Cell Distribution Width 12.5 % (12.1-15.1); White Blood Count 4.88 10^3/uL (3.29-11.43)
[2024-10-07 12:09] LABS: Alanine Aminotransferase 17 U/L (0-41); Albumin Level 4.3 g/dL (3.5-5.2); Alkaline Phosphatase 122 U/L (40-130); Anion Gap 15.6 (5-19); Aspartate Amino Transferase 17 U/L (0-40); Blood Urea Nitrogen 15 mg/dL (6-20); Calcium 9.9 mg/dL (8.5-10.5); Carbon Dioxide 26 mmol/L (22-29); Chloride 97 mmol/L (98-107); Creatinine Clr Calc Pharmacy 71.9499; Free T4 Free Thyroxine 1.29 ng/dL (0.82-1.77); Globulin 2.7 g/dL (1.3-4.6); Glomerular Filtration Rate 62.4 mL/min (90-130); Glucose 316 mg/dL (65-115); Osmolality Calculated 291 mOsm/kg (285-295); Potassium 4.6 mmol/L (3.5-5.1); Sodium 134 mmol/L (136-145); Thyroid Stimulating Hormone 0.63 uIU/mL (0.27-4.20); Total Bilirubin 0.6 mg/dL (0.15-1.2)
[2024-10-07] MEDS: pembrolizumab 200 MG in sodium chloride 0.9% 250 ML 516 MG IV (14:26)
[2024-10-07 14:58] VITALS: BP 126/76; PULSE 106; RESP 16; TEMP 36.1; O2SAT 99
[2024-10-07] MEDS: denosumab 120 mg SDV SUBCUT (15:02)
--- NOTE | 2024-10-08 13:19 | N.ONRAD NP_ITS ---
Radiation Oncology New Patient Visit Patient: Dudley Hutton MR#: [id number] : 1965 Age: 59 Sex: Male Dictated by: Dr. Caitlyn Lin Date of Service: 10/07/2024 Referring Physician(s) : Neil Diagnosis: Stage IV kidney cancer Radiotherapy to date: Summary > No prior radiation therapy. Chief Complaint / History of Present Illness: Patient is a 58-year-old gentleman who initially presented in May 2023 with back pain that had been present for quite some time. He was found at that time to have a severe compression fracture of the L4 vertebral body. Mid May he had an MRI of the spine and this showed the L4 compression fracture with severe central and bilateral subarticular recess and foraminal stenosis at the level of L3-L5. He also was noted to have a huge mass in the left kidney the CT scan a week later did show a 10 x 9 x 10 cm mass consistent with a renal primary. On June 20, 2023 he underwent a laminectomy and partial facetectomies, L2-S1 posterior spine fusion and biopsy of the vertebral body. 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 He had additional surgery in October 2023 because some of the apparatus had come loose from the area where he had the surgery. He was never referred for postop radiation. He recently was seen at [facility] in a nephrectomy was offered. He did have this done on September 05. He is seen today in consultation for radiation to the area of his surgery as well as the mid thoracic region. Subjectively continues to have excruciating and severe pain in the lumbar area. He will continue on with his immune therapy. Current Medications: Farxiga Allergies: No Known Allergies Medical History: No history of collagen vascular disease. No previous radiation therapy. Fracture of lumbar spine Malignant neoplasm of left kidney Lumbar foraminal stenosis Type 2 diabetes mellitus Surgical History: History of left nephrectomy 09/05/24 Port-A-Cath in place History of back surgery (06/20/23) L3/4 and L4/5 laminectomies with L2-S1 posterior spine fusion and with biopsy of L4 vertebral body History of back surgery October 2023 due to loosening of the apparatus that was placed in June. Family History: Social History: Smoking and tobacco/nicotine status: never used tobacco/nicotine Quit status (tobacco/nicotine): considering quitting Alcohol intake: never Substance/Drug Use: never Adopted: No Caregiver/support person: No Lives independently: No Household members: spouse Current occupational status: employed Sexually active: Yes Do you think of yourself as: Straight/Heterosexual Current gender identity: Male Current Complaints / Review of Systems: . Vital Signs: BMI - 26.434 kg/m2 (high), Height - 69 in, Weight - 179 lbs, Temperature - 98.7 f, Pulse - 108 /min (high), Respiration - 17 /min, O2 Sat - 97 %, Pain - 1, Fatigue - 0 and BP - 138/ 72 mm(hg). Physical Exam: General Patient is in no apparent distress. He is sitting comfortably in his chair. HEENT: Normocephalic atraumatic. Pupils are equal, sclera clear, extraocular muscles intact Pulmonary: Respiratory rate is regular nonlabored Cardiovascular: Regular rate and rhythm Abdomen: Patient is fairly thin with minimal adipose tissue Extremities: Without obvious upper extremity edema Neurological: Alert and orient x 3. Gait and speech within normal limits Psych: Affect is appropriate for current situation, he is somewhat irritated and not having been sent for the radiation initially. Performance Status: 90 Pathology: Renal cell carcinoma, large cell Lab: Imaging: See HPI Impression: Stage IV renal cell carcinoma Plan: I reviewed with him the surgery that he had. We talked about the additional surgery had as the apparatus came loose. We talked about most cases will receive postop radiation after the surgery has been debulked because the cancer is still there and has not been removed. I suspect that his pain is mostly caused by the continued growth of the malignancy. He did have a mild response to the immune therapy from the primary lesion. At this point he will be getting immunotherapy every 3 weeks. I reviewed with him the goal of proceeding with radiation. He verbalized understanding of this. Will get him back next week to undergo simulation and meet with him again to discuss the risks and side effects of the radiation as well as the simulation process. Signed by: 10/08/2024 1:17:44 PM <<Signature on File>> Time spent with patient: 25 CPT Code: CPT Code:
== END 2024-10-11 23:59 | disposition home or self-care (01) ==
PROVIDERS: Nurse Practitioner; PCP Registered Nurse; Visit Provider Internal Medicine Medical Oncology
DX: Z51.12 Encounter for antineoplastic immunotherapy (principal); C64.2 Malignant neoplasm of left kidney, except renal pelvis; C79.51 Secondary malignant neoplasm of bone; Z79.899 Other long term (current) drug therapy
CPT/HCPCS: 36591; 80053; 84439; 84443; 85025; 96372; 96413; A4222; J0897; J7050; J9271

== ENCOUNTER → 2024-10-30 07:07 | Outpatient (BNVA) | payer SELFPAY | PROVIDERS: PCP Registered Nurse; Visit Provider Orthopaedic Surgery | DX: Z98.1 Arthrodesis status (principal) | CPT/HCPCS: 72100 ==

== ENCOUNTER 2024-11-06 09:30 | Oncology outpatient (recurring) (ONCR) | payer SELFPAY ==
--- NOTE | 2024-10-15 13:33 | ONCRAD EPV_ITS ---
Radiation Oncology Established Patient Visit Patient: Brennen Buckner [id number] : 1965> Age: 59> Sex: Male> Dictated by: Dr. Caitlyn Lin Date of Service: 10/15/2024 Referring Physician(s) : Diagnosis: C64.9 - Malignant neoplasm of unspecified kidney, except renal pelvis, Diagnosed 10/14/2024 (Active) C79.51 - Secondary malignant neoplasm of bone, Diagnosed 10/14/2024 (Active) Radiotherapy to Date: Current History: Patient returns today to undergo simulation. I met with him earlier to discuss postop radiation to the spinal area where he did had his spine stabilized and debulked but never treated. This was about a year and a half ago. He then had additional surgery about a year ago because the device had become loose. At that time he still was not referred for postop treatment. He continues to have pain in that lumbar area. He does have some tenderness across his ribs on the left side today but he thinks that is from laying across a piece of lumber when he was fixing a plugged sink. Current Medications: Allergies: Current Complaints / Review of Systems: . Vital Signs: Performed on 10/15/2024 9:22 AM BMI - 26.286 kg/m2 (high), Height - 69 in, Weight - 178 lbs, Temperature - 98.7 f, Pulse - 88 /min, Respiration - 18 /min, O2 Sat - 99 %, Pain - 5, Fatigue - 0 and BP - 163/ 110 mm(hg)(high). Physical Exam: General: Alert and oriented x 3. No acute distress. HEENT: Normocephalic, atraumatic. Extraocular Movements Intact: Pupils Equal, Round, Reactive to Light .LUNGS: Respiratory rate is regular nonlabored. ABDOMEN: Abdomen is flat with minimal adipose tissue EXTREMITIES: No peripheral edema is identified. NEUROLOGIC: Alert and orient x 3. Gait and speech within normal limits. Performance Status: 100 Lab: None pending. Pathology: Primary, c64.9 - malignant neoplasm of unspecified kidney, except renal pelvis, Diagnosed 10/14/2024 (active) and Primary, c79.51 - secondary malignant neoplasm of bone, Diagnosed 10/14/2024 (active) . Imaging: See HPI Impression: Stage IV renal cancer Plan: At this point we discussed the simulation process. We reviewed the daily treatment regiment. We reviewed the risks and side effects both acute and long-term. He had no additional questions. He will undergo simulation today and will begin his treatment shortly thereafter with a plan for 2-week course in between his immune therapy Signed by: 10/15/2024 1:32:23 PM <<Signature on File>> Time spent with patient:20 CPT Code: CPT Code:
--- NOTE | 2024-10-21 13:45 | ONCRAD TMN_ITS ---
Radiation Oncology Weekly Treatment Management Patient: Brennen Boston MR#: [id number] : 1965> Attending Physician: Dr. Caitlyn Lin Date of Service: 10/21/2024 Fractions: 2 out of 10 Referring Physician(s) : Diagnosis: C64.9 - Malignant neoplasm of unspecified kidney, except renal pelvis, Diagnosed 10/14/2024 (Active) C79.51 - Secondary malignant neoplasm of bone, Diagnosed 10/14/2024 (Active) Radiotherapy to date: Course: L/S spine, Treatment Site: SPINE 30Gy, Ref. ID: [id number], Energy: 6X, Dose/Fx (cGy): 300, #Fx: 2 / 10, Dose Correction (cGy): 0, Total Dose Delivered (cGy): 600, Start Date: 10/20/2024, Elapsed Days: 1 Reason for visit: The patient is being seen today as part of their regularly scheduled weekly on treatment visits to assess for acute toxicities from radiotherapy. Review of Systems: Patient has noticed no ill effects Vital Signs: Performed on 10/21/2024 1:13 PM BMI - 25.961 kg/m2 (high), Height - 69 in, Weight - 175.8 lbs, Temperature - 96.7 f, Pulse - 106 /min (high), Respiration - 18 /min, O2 Sat - 94 % (low), Pain - 4, Fatigue - 0 and BP - 140/ 88 mm(hg). Physical Exam: No changes on exam Imaging: Radiation therapy imaging related to accurate target localization (i.e. KV, MV and CBCT) was reviewed. Appropriate changes, if any, were made to ensure treatment accuracy. Plan: Continue with treatments as planned Signed by: Dr. Caitlyn Lin 10/21/2024 1:44:08 PM
--- NOTE | 2024-10-28 13:28 | ONCRAD TMN_ITS ---
Radiation Oncology Weekly Treatment Management Patient: Dudley Hutton MR#: [id number] : 1965 Attending Physician: Dr. Caitlyn Lin Date of Service: 10/28/2024 Fractions: 7 out of 10 Referring Physician(s) : Diagnosis: C64.9 - Malignant neoplasm of unspecified kidney, except renal pelvis, Diagnosed 10/14/2024 (Active) C79.51 - Secondary malignant neoplasm of bone, Diagnosed 10/14/2024 (Active) Radiotherapy to date: Course: L/S spine, Treatment Site: SPINE 30Gy, Ref. ID: [id number], Energy: 6X, Dose/Fx (cGy): 300, #Fx: 7 / 10, Dose Correction (cGy): 0, Total Dose Delivered (cGy): 2,100, Start Date: 10/20/2024, Elapsed Days: 8 Reason for visit: The patient is being seen today as part of their regularly scheduled weekly on treatment visits to assess for acute toxicities from radiotherapy. Review of Systems: Today he says that his pain is at about a 2. He is having some frequent stools and loose stools. He is using Imodium as needed Vital Signs: Performed on 10/28/2024 1:01 PM BMI - 26.463 kg/m2 (high), Height - 69 in, Weight - 179.2 lbs, Temperature - 97.1 f, Pulse - 109 /min (high), Respiration - 17 /min, O2 Sat - 97 %, Pain - 0, Fatigue - 0 and BP - 150/ 89 mm(hg)(high/). Physical Exam: No change on exam imaging: Radiation therapy imaging related to accurate target localization (i.e. KV, MV and CBCT) was reviewed. Appropriate changes, if any, were made to ensure treatment accuracy. Plan: Will continue with treatments as planned Signed by: Dr. Caitlyn Lin 10/28/2024 1:26:41 PM
--- NOTE | 2024-11-03 09:04 | N.ONRD TS_ITS ---
Radiation Oncology Treatment Summary Patient: Brennen>Darvin MR#: [id number] : 1965> Age: 59> Sex: Male Dictated by: Dr. Caitlyn Lin Date of Service: 10/31/2024 Referring Physician(s) : Diagnosis: C64.9 - Malignant neoplasm of unspecified kidney, except renal pelvis, Diagnosed 10/14/2024 (Active) C79.51 - Secondary malignant neoplasm of bone, Diagnosed 10/14/2024 (Active) Radiotherapy to Date: Course: L/S spine, Treatment Site: SPINE 30Gy, Ref. ID: [id number], Energy: 6X, Dose/Fx (cGy): 300, #Fx: 10 / 10, Dose Correction (cGy): 0, Total Dose Delivered (cGy): 3,000, Start Date: 10/20/2024, End Date: 10/31/2024, Elapsed Days: 11 Clinical Summary: The patient tolerated RT well. Essentially had no ill effects from the treatment. He did notice some mild improvement in his pain. Plan: End of treatment today. Continue on the above medication until the skin reaction resolves. Follow up in one month. Signed by: Dr. Caitlyn Lin>11/03/2024 9:02:54 AM <<Signature on File>>
[2024-11-06 09:49] LABS: Basophils % 0.9 %; Eosinophils # 0.2 10^3/uL (0.0-0.8); Eosinophils % 7.7 %; Hematocrit 40.4 % (37-53); Lymphocytes # 0.2 10^3/uL (0.8-4.8); Lymphocytes % 9.5 %; Mean Corpuscular HGB Conc 34.7 g/dL (30-55); Mean Corpuscular Hemoglobin 32.2 pg (27-33); Mean Corpuscular Volume 92.9 fl (82-101); Mean Platelet Volume 9.4 fL (7.4-10.4); Monocytes # 0.5 10^3/uL (0.2-0.9); Monocytes % 20.9 %; Neutrophils # 1.34 10^3/uL (1.8-7.7); Nucleated Red Blood Cells % 0 %; Platelet Count 78 10^3/cmm (157-399); Red Blood Count 4.35 10^6/uL (3.85-5.65); Red Cell Distribution Width 12.6 % (12.1-15.1)
[2024-11-06 10:20] LABS: Alanine Aminotransferase 18 U/L (0-41); Albumin Level 4.2 g/dL (3.5-5.2); Alkaline Phosphatase 105 U/L (40-130); Anion Gap 15.8 (5-19); Aspartate Amino Transferase 18 U/L (0-40); Blood Urea Nitrogen 12 mg/dL (6-20); Calcium 8.8 mg/dL (8.5-10.5); Carbon Dioxide 17 mmol/L (22-29); Chloride 107 mmol/L (98-107); Globulin 2.9 g/dL (1.3-4.6); Glucose 141 mg/dL (65-115); Osmolality Calculated 284 mOsm/kg (285-295); Potassium 3.8 mmol/L (3.5-5.1); Sodium 136 mmol/L (136-145); Thyroid Stimulating Hormone 0.01 uIU/mL (0.27-4.20); Total Bilirubin 0.7 mg/dL (0.15-1.2); Total Protein 7.1 g/dL (6.6-8.7)
[2024-11-06] MEDS: pembrolizumab 200 MG in sodium chloride 0.9% 250 ML 516 MG IV (12:56)
[2024-11-06] MEDS: denosumab 120 mg SDV SUBCUT (12:57)
[2024-11-06 13:48] VITALS: BP 151/90; PULSE 86; RESP 15; TEMP 36.1; O2SAT 98
== END 2024-11-06 23:59 | disposition home or self-care (01) ==
PROVIDERS: Internal Medicine Medical Oncology; PCP Registered Nurse; Visit Provider Radiology Radiation Oncology
DX: Z53.9 Procedure and treatment not carried out, unspecified reason; Z51.12 Encounter for antineoplastic immunotherapy; Z51.0 Encounter for antineoplastic radiation therapy; C64.2 Malignant neoplasm of left kidney, except renal pelvis; Z79.899 Other long term (current) drug therapy
CPT/HCPCS: 77295; 77300; 77332; 77334; 77336; 77387; 77412; 80053; 84443; 85025; 96372; 96413; J0897; J7050; J9271

== ENCOUNTER 2024-11-10 07:57 | Oncology outpatient (recurring) (ONCR) | payer SELFPAY ==
[2024-11-10 08:46] LABS: Basophils % 1.3 %; Eosinophils # 0.2 10^3/uL (0.0-0.8); Eosinophils % 7.9 %; Hematocrit 41.3 % (37-53); Lymphocytes # 0.3 10^3/uL (0.8-4.8); Lymphocytes % 12.3 %; Mean Corpuscular HGB Conc 34.6 g/dL (30-55); Mean Corpuscular Hemoglobin 31.6 pg (27-33); Mean Corpuscular Volume 91.4 fl (82-101); Mean Platelet Volume 9.7 fL (7.4-10.4); Monocytes # 0.5 10^3/uL (0.2-0.9); Monocytes % 22.8 %; Neutrophils # 1.26 10^3/uL (1.8-7.7); Neutrophils % 55.3 %; Nucleated Red Blood Cells % 0 %; Platelet Count 88 10^3/cmm (157-399); Red Blood Count 4.52 10^6/uL (3.85-5.65); Red Cell Distribution Width 12.7 % (12.1-15.1); White Blood Count 2.28 10^3/uL (3.29-11.43)
[2024-11-10 09:04] LABS: Alanine Aminotransferase 21 U/L (0-41); Albumin Level 4.1 g/dL (3.5-5.2); Alkaline Phosphatase 106 U/L (40-130); Anion Gap 15.1 (5-19); Aspartate Amino Transferase 20 U/L (0-40); Blood Urea Nitrogen 15 mg/dL (6-20); Calcium 9.4 mg/dL (8.5-10.5); Carbon Dioxide 24 mmol/L (22-29); Chloride 104 mmol/L (98-107); Creatinine Clr Calc Pharmacy 84.6665; Globulin 2.8 g/dL (1.3-4.6); Glucose 137 mg/dL (65-115); Lactate Dehydrogenase 170 U/L (135-225); Osmolality Calculated 291 mOsm/kg (285-295); Potassium 4.1 mmol/L (3.5-5.1); Sodium 139 mmol/L (136-145); Total Bilirubin 0.8 mg/dL (0.15-1.2); Total Protein 6.9 g/dL (6.6-8.7)
== END 2024-11-11 23:59 | disposition home or self-care (01) ==
LOC: ONCMED 07:57
PROVIDERS: Nurse Practitioner Family; PCP Registered Nurse; Visit Provider Radiology Radiation Oncology
DX: Z51.0 Encounter for antineoplastic radiation therapy (principal); C64.2 Malignant neoplasm of left kidney, except renal pelvis; C79.51 Secondary malignant neoplasm of bone
CPT/HCPCS: 36415; 80053; 83615; 85025

== ENCOUNTER → 2024-11-28 11:18 | Outpatient (BNVA) | payer SELFPAY | PROVIDERS: PCP Registered Nurse; Visit Provider Nurse Practitioner Family | DX: M62.81 Muscle weakness (generalized) (principal); Z79.899 Other long term (current) drug therapy | CPT/HCPCS: 81000; 82550; 83735 ==

== ENCOUNTER 2024-12-04 08:00 | Oncology outpatient (recurring) (ONCR) | payer SELFPAY ==
[2024-11-13 12:48] LABS: Basophils % 0.6 %; Eosinophils # 0.2 10^3/uL (0.0-0.8); Eosinophils % 5.1 %; Hematocrit 39.6 % (37-53); Lymphocytes # 0.3 10^3/uL (0.8-4.8); Mean Corpuscular HGB Conc 34.1 g/dL (30-55); Mean Corpuscular Hemoglobin 31.8 pg (27-33); Mean Corpuscular Volume 93.2 fl (82-101); Mean Platelet Volume 9.2 fL (7.4-10.4); Monocytes # 0.3 10^3/uL (0.2-0.9); Monocytes % 10.2 %; Neutrophils # 2.37 10^3/uL (1.8-7.7); Neutrophils % 75.8 %; Nucleated Red Blood Cells % 0 %; Platelet Count 89 10^3/cmm (157-399); Red Blood Count 4.25 10^6/uL (3.85-5.65); Red Cell Distribution Width 12.8 % (12.1-15.1); White Blood Count 3.13 10^3/uL (3.29-11.43)
[2024-11-13 13:06] LABS: Alanine Aminotransferase 24 U/L (0-41); Albumin Level 3.9 g/dL (3.5-5.2); Alkaline Phosphatase 106 U/L (40-130); Anion Gap 12.2 (5-19); Aspartate Amino Transferase 21 U/L (0-40); Blood Urea Nitrogen 9 mg/dL (6-20); Calcium 9.3 mg/dL (8.5-10.5); Carbon Dioxide 27 mmol/L (22-29); Chloride 103 mmol/L (98-107); Creatinine Clr Calc Pharmacy 95.0037; Globulin 2.9 g/dL (1.3-4.6); Glucose 256 mg/dL (65-115); Lactate Dehydrogenase 164 U/L (135-225); Osmolality Calculated 293 mOsm/kg (285-295); Potassium 4.2 mmol/L (3.5-5.1); Sodium 138 mmol/L (136-145); Total Bilirubin 0.7 mg/dL (0.15-1.2); Total Protein 6.8 g/dL (6.6-8.7)
[2024-11-20 09:33] LABS: Eosinophils # 0.2 10^3/uL (0.0-0.8); Eosinophils % 4.3 %; Hematocrit 45.2 % (37-53); Lymphocytes # 0.4 10^3/uL (0.8-4.8); Lymphocytes % 9.7 %; Mean Corpuscular HGB Conc 33.8 g/dL (30-55); Mean Corpuscular Hemoglobin 31.4 pg (27-33); Mean Corpuscular Volume 92.8 fl (82-101); Mean Platelet Volume 9.4 fL (7.4-10.4); Monocytes # 0.3 10^3/uL (0.2-0.9); Neutrophils # 3.18 10^3/uL (1.8-7.7); Neutrophils % 76.8 %; Nucleated Red Blood Cells % 0 %; Platelet Count 113 10^3/cmm (157-399); Red Blood Count 4.87 10^6/uL (3.85-5.65); Red Cell Distribution Width 12.9 % (12.1-15.1); White Blood Count 4.14 10^3/uL (3.29-11.43)
[2024-11-20 09:48] LABS: Alanine Aminotransferase 33 U/L (0-41); Albumin Level 4.4 g/dL (3.5-5.2); Alkaline Phosphatase 103 U/L (40-130); Anion Gap 16.6 (5-19); Aspartate Amino Transferase 24 U/L (0-40); Blood Urea Nitrogen 19 mg/dL (6-20); Calcium 9.1 mg/dL (8.5-10.5); Carbon Dioxide 22 mmol/L (22-29); Chloride 102 mmol/L (98-107); Creatinine Clr Calc Pharmacy 76.7796; Globulin 2.9 g/dL (1.3-4.6); Glucose 124 mg/dL (65-115); Lactate Dehydrogenase 161 U/L (135-225); Osmolality Calculated 286 mOsm/kg (285-295); Potassium 4.6 mmol/L (3.5-5.1); Sodium 136 mmol/L (136-145); Total Bilirubin 0.8 mg/dL (0.15-1.2); Total Protein 7.3 g/dL (6.6-8.7)
[2024-11-27 07:43] LABS: Basophils % 0.4 %; Eosinophils # 0.1 10^3/uL (0.0-0.8); Eosinophils % 1.8 %; Lymphocytes # 0.3 10^3/uL (0.8-4.8); Lymphocytes % 6.4 %; Mean Corpuscular HGB Conc 34.6 g/dL (30-55); Mean Corpuscular Hemoglobin 31.5 pg (27-33); Mean Corpuscular Volume 90.9 fl (82-101); Mean Platelet Volume 9.4 fL (7.4-10.4); Monocytes # 0.3 10^3/uL (0.2-0.9); Monocytes % 6.8 %; Neutrophils # 4.22 10^3/uL (1.8-7.7); Neutrophils % 84.4 %; Nucleated Red Blood Cells % 0 %; Platelet Count 116 10^3/cmm (157-399); Red Blood Count 4.29 10^6/uL (3.85-5.65); Red Cell Distribution Width 13.2 % (12.1-15.1)
[2024-11-27 07:57] LABS: Alanine Aminotransferase 25 U/L (0-41); Alkaline Phosphatase 91 U/L (40-130); Aspartate Amino Transferase 20 U/L (0-40); Blood Urea Nitrogen 14 mg/dL (6-20); Calcium 8.8 mg/dL (8.5-10.5); Carbon Dioxide 19 mmol/L (22-29); Chloride 103 mmol/L (98-107); Creatinine Clr Calc Pharmacy 84.6665; Globulin 2.8 g/dL (1.3-4.6); Glucose 127 mg/dL (65-115); Lactate Dehydrogenase 165 U/L (135-225); Osmolality Calculated 280 mOsm/kg (285-295); Sodium 134 mmol/L (136-145); Total Bilirubin 0.8 mg/dL (0.15-1.2); Total Protein 6.8 g/dL (6.6-8.7)
[2024-11-27] MEDS: pembrolizumab 200 MG in sodium chloride 0.9% 250 ML 516 MG IV (09:12)
[2024-11-27 09:49] VITALS: BP 122/64; PULSE 78; RESP 18; TEMP 36.6; O2SAT 96
[2024-11-27 13:03] LABS: Thyroid Stimulating Hormone 0.01 uIU/mL (0.27-4.20)
[2024-12-04 08:32] LABS: Basophils % 0.4 %; Eosinophils # 0.1 10^3/uL (0.0-0.8); Eosinophils % 4.5 %; Hematocrit 41.5 % (37-53); Lymphocytes # 0.3 10^3/uL (0.8-4.8); Lymphocytes % 11.9 %; Mean Corpuscular HGB Conc 33.5 g/dL (30-55); Mean Corpuscular Hemoglobin 31.4 pg (27-33); Mean Corpuscular Volume 93.9 fl (82-101); Mean Platelet Volume 9.3 fL (7.4-10.4); Monocytes # 0.4 10^3/uL (0.2-0.9); Monocytes % 13.4 %; Neutrophils # 1.87 10^3/uL (1.8-7.7); Neutrophils % 69.4 %; Nucleated Red Blood Cells % 0 %; Platelet Count 103 10^3/cmm (157-399); Red Blood Count 4.42 10^6/uL (3.85-5.65); Red Cell Distribution Width 13.3 % (12.1-15.1); White Blood Count 2.69 10^3/uL (3.29-11.43)
[2024-12-04 08:49] LABS: Estmated Average Glucose 177; Hemoglobin A1C 7.8 % (4.0-6.0)
[2024-12-04 09:01] LABS: Alanine Aminotransferase 27 U/L (0-41); Albumin Level 4.1 g/dL (3.5-5.2); Alkaline Phosphatase 102 U/L (40-130); Aspartate Amino Transferase 25 U/L (0-40); Blood Urea Nitrogen 11 mg/dL (6-20); Calcium 9.1 mg/dL (8.5-10.5); Carbon Dioxide 25 mmol/L (22-29); Chloride 104 mmol/L (98-107); Creatinine Clr Calc Pharmacy 76.9695; Free T4 Free Thyroxine 1.53 ng/dL (0.82-1.77); Globulin 2.8 g/dL (1.3-4.6); Glucose 166 mg/dL (65-115); Osmolality Calculated 293 mOsm/kg (285-295); Sodium 140 mmol/L (136-145); T3 Free 4.2 PG/ML (2.0-4.4); Thyroid Stimulating Hormone 0.01 uIU/mL (0.27-4.20); Total Bilirubin 0.7 mg/dL (0.15-1.2); Total Protein 6.9 g/dL (6.6-8.7)
[2024-12-04] MEDS: denosumab 120 mg SDV SUBCUT (09:02)
[2024-12-04 09:03] LABS: Anion Gap 15.2 (5-19); Potassium 4.2 mmol/L (3.5-5.1)
== END 2024-12-12 23:59 | disposition home or self-care (01) ==
PROVIDERS: Internal Medicine; Nurse Practitioner Family; PCP Registered Nurse; Visit Provider Radiology Radiation Oncology
DX: Z53.9 Procedure and treatment not carried out, unspecified reason (principal); C64.2 Malignant neoplasm of left kidney, except renal pelvis; M62.81 Muscle weakness (generalized); E11.9 Type 2 diabetes mellitus without complications; R79.89 Other specified abnormal findings of blood chemistry; Z79.899 Other long term (current) drug therapy
CPT/HCPCS: 36415; 80053; 83036; 83615; 84439; 84443; 84481; 85025; 96372; 96413; A4222; J0897; J7050; J9271

== ENCOUNTER 2024-12-18 12:12 | Emergency (ER) | payer OTHER, MEDICAID, SELFPAY ==
[2024-12-18] VITALS (10 sets, daily range): BP systolic 180–199; BP diastolic 112–124; PULSE 84–94; RESP 13–18; TEMP 36.4; O2SAT 94–99; BMI 25.5
--- NOTE | 2024-12-18 12:19 | XR_ITS ---
WS: [id number] Portable AP upright chest, 12/18/2024 Clinical Data: cp Comparison: Portable chest, 03/15/2018 Findings: No nodules, masses or effusions are seen. The heart is normal. The pulmonary vascularity is not increased. No pneumonia or pneumothorax is seen. The aortic arch and descending thoracic aorta show tortuosity. There is an infusion catheter entering the right internal jugular vein and ending at the caval atrial junction. There is osteoarthritis of the inferior right glenoid rim. There is a large amount of air in the colon. XR/XR chest 1V portable [id number] Impression: Atherosclerosis.
--- NOTE | 2024-12-18 12:19 | ECG_ITS ---
[facility]24[facility]18 Pat Name: Dudley Hutton Department: Room: Gender: Male Talent Assistant: : 1965 Requested By: Gabriela Phan Order Number: [id number] Mohit MD: Juan A Sinclair M.D. Measurements Intervals Accident Rate: 89 P: 64 NH: 156 QRS: -1 QRSD: 98 T: 41 QT: 337 QTc: 412 Interpretive Statements SINUS RHYTHM Compared to ECG 06/20/2023 09:46:07 Sinus tachycardia no longer present Electronically Signed On 12-18-2024 21:49:55 [employer]OWERHOUSE [employer] by Juan A Sinclair M.D. [email or web address]
--- NOTE | 2024-12-18 13:01 | ED_ITS ---
HPI - Chest Pain 2 General: Chief Complaint: Chest Pain Stated Complaint: SOB CP and uncontrolled hypertension Time Seen by Provider: 12/18/24 12:51 Source: patient Mode of arrival: ambulatory Limitations: no limitations History of Present Illness: 59-year-old male sent here from the [facility] for hypertension he states he is on chemo is getting chemo infusions for kidney cancer states that his blood pressures in the 200s over there he does not have known hypertension and is not on any meds he states he has had some burning in his chest denies any severe chest pain rates that pain a 1 out of 10 denies any shortness of breath or fever. Associated symptoms: Deny abdominal pain, dyspnea, fever(s), nausea or vomiting Related Data Home Medications ?Medication ?Instructions ?Recorded ?Confirmed dapagliflozin propanediol 5 mg 5 mg PO DAILY 12/18/24 12/18/24 tablet (Farxiga) insulin glargine 100 unit/mL (3 10 unit SUBCUT BEDTIME 12/18/24 12/18/24 mL) subcutaneous pen (Lantus Solostar U-100 Insulin) Previous Rx's ?Medication ?Instructions ?Recorded intraoperative neurophysiological #1 ea 06/28/23 monitoring TLSO Brace #1 ea 09/25/23 blood-glucose meter,continuous #1 ea 01/23/24 (Dexcom G6 Twisting Press Operator) blood-glucose sensor (Dexcom G6 #3 ea 01/23/24 Sensor device) hydrocodone 5 mg-acetaminophen 325 1 tab PO TID PRN pa in 30 days #90 11/17/24 mg tablet tabs axitinib 5 mg tablet (Inlyta) 10 mg (2 x 5 mg) PO BID #120 tabs 11/20/24 amlodipine 10 mg tablet (Norvasc) 10 mg PO DAILY #30 t abs 12/18/24 Allergies Allergy/AdvReac Type Severity Reaction Status Date / Time No Known Allergies Allergy Verified 12/18/24 08:30 Review of Systems 2 Const: Denies: fever(s), chills, body aches or change in appetite ENMT: Denies: throat pain or dental pain Card: Denies: chest pain Resp: Denies: dyspnea GI: Denies: abdominal pain, nausea, vomiting or diarrhea : Denies: dysuria Musc: Denies: neck pain or back pain Skin/Breast: Denies: rash Neuro: Denies: headache(s) PFSH ED 2 PFSH: Medical History Fracture of lumbar spine Malignant neoplasm of left kidney Lumbar foraminal stenosis Type 2 diabetes mellitus Surgical History History of left nephrectomy 09/05/24 Port-A-Cath in place History of back surgery (06/20/23) L3/4 and L4/5 laminectomies with L2-S1 posterior spine fusion and with biopsy of L4 vertebral body Social History Smoking and tobacco/nicotine status: former use of tobacco/nicotine Quit status (tobacco/nicotine): considering quitting Alcohol intake: never Substance/Drug Use: never Adopted: No Caregiver/support person: No Lives independently: No Household members: spouse Current occupational status: employed Sexually active: Yes Do you think of yourself as: Straight/Heterosexual Current gender identity: Male Physical Exam 2 Const: COMMON NORMALS: no acute distress, patient oriented x3 and healthy appearing HENMT: COMMON NORMALS: normocephalic and atraumatic HEAD & SCALP: n ormocephalic and atraumatic Neck/C-Spine: COMMON NORMALS: full ROM and supple Chest: COMMONS NORMALS: normal inspection of the chest Resp: COMMON NORMALS: normal respiratory effort Cardio: COMMON NORMALS: regular rate, regular rhythm and No murmurs present (Cardio) RATE: regular rate RHYTHM: regular rhythm Extremity: COMMON NORMALS: normal to inspection and full ROM Neuro: COMMON NORMALS: patient oriented x3, moves all extremities and no focal motor deficits Psych: COMMON NORMALS: mental status grossly normal, Normal thought process present and cooperative THOUGHT PROCESS: Normal thought process present Skin: COMMON NORMALS: no rashes or lesions noted and no wounds GENERAL SKIN EXAM: no rashes or lesions noted Course 2 Vital Signs: Vital signs: Vital Signs Temperature 97.6 F 12/18/24 12:15 Pulse Rate 89 12/18/24 15:50 Respiratory Rate 17 12/18/24 15:50 Blood Pressure 181/117 12/18/24 15:50 Pulse Oximetry 97 12/18/24 15:50 Oxygen Delivery Me thod Room Air 12/18/24 15:50 MDM - Chest Pain Medical Decision Making Patient presents here with hypertension from infusion center he had some slight pain no severe pain here troponins are negative we will start him on Norvasc he is to follow with PCP and return if worsening. Medical Records I reviewed the patient's medical records. Lab Data I reviewed the patient's lab results. 12/18/24 12:55 12/18/24 12:55 Radiology Impressions Chest X-Ray 12/18/24 12:19 Impression: Atherosclerosis. Laboratory Results WBC 3.26 10^3/uL (3.29-11.43) L 12/18/24 12:55 RBC 4.34 10^6/uL (3.85-5.65) 12/18/24 12:55 Hgb 13.60 g/dL (11.27-16.99) 12/18/24 12:55 Hct 39.8 % (37-53) 12/18/24 12:55 MCV 91.7 fl (82-101) 12/18/24 12:55 MCH 31.3 pg (27-33) 12/18/24 12:55 MCHC 34.2 g/dL (30-55) 12/18/24 12:55 RDW 14.2 % (12.1-15.1) 12/18/24 12:55 Plt Count 91 10^3/cmm (157-399) L 12/18/24 12:55 MPV 8.9 fL (7.4-10.4) 12/18/24 12:55 Neut % (Auto) 76.7 % 12/18/24 12:55 Lymph % (Auto) 9.8 % 12/18/24 12:55 [place] % (Auto) 10.4 % 12/18/24 12:55 Eos % (Auto) 2.8 % 12/18/24 12:55 Baso % (Auto) 0.3 % 12/18/24 12:55 Neut # (Auto) 2.50 10^3/uL (1.8-7.7) 12/18/24 12:55 Lymph # (Auto) 0.3 10^3/uL (0.8-4.8) L 12/18/24 12:55 [place] # (Auto) 0.3 10^3/uL (0.2-0.9) 12/18/24 12:55 Eos # (Auto) 0.1 10^3/uL (0.0-0.8) 12/18/24 12:55 Baso # (Auto) 0.0 10^3/uL (0.0-0.1) 12/18/24 12:55 Nucleated RBC % (auto) 0 % 12/18/24 12:55 Nucleated RBCs # 0.0 /100WBC 12/18/24 12:55 Sodium 139 mmol/L (136-145) 12/18/24 12:55 Potassium 3.3 mmol/L (3.5-5.1) L 12/18/24 12:55 Chloride 103 mmol/L (98-107) 12/18/24 12:55 Carbon Dioxide 22 mmol/L (22-29) 12/18/24 12:55 Anion Gap 17.3 (5-19) 12/18/24 12:55 BUN 9 mg/dL (6-20) 12/18/24 12:55 Creatinine 0.9 mg/dL (0.7-1.2) 12/18/24 12:55 GFR Calculation 87.0 mL/min (90-130) L 12/18/24 12:55 Glucose 123 mg/dL (65-115) H 12/18/24 12:55 Calculated Osmolality 288 mOsm/kg (285-295) 12/18/24 12:55 Calcium 8.8 mg/dL (8.5-10.5) 12/18/24 12:55 Total Bilirubin 1.4 mg/dL (0.15-1.2) H 12/18/24 12:55 AST 24 U/L (0-40) 12/18/24 12:55 ALT 26 U/L (0-41) 12/18/24 12:55 Alkaline Phosphatase 83 U/L (40-130) 12/18/24 12:55 Troponin T Baseline 7 ng/L (0-15) 12/18/24 12:55 Troponin T 120 Minute 7.93 ng/L (0-15) 12/18/24 15:10 Delta Troponin T 0.93 ABS# (0-10) 12/18/24 15:10 Total Protein 7.0 g/dL (6.6-8.7) 12/18/24 12:55 Albumin 4.1 g/dL (3.5-5.2) 12/18/24 12:55 Globulin 2.9 g/dL (1.3-4.6) 12/18/24 12:55 Lipase 25 U/L (13-60) 12/18/24 12:55 All radiology interpretation(s) finalized by discharge Discharge Plan Discharge Patient Disposition: Home Clinical Impression: Hypertension Condition: Stable Prescriptions: New amlodipine [Norvasc] 10 mg tablet 10 mg PO DAILY Qty: 30 0RF No Action (DME) TLSO Brace See Rx Instructions .Route .MEDSUPPLY Qty: 1 0RF Rx Instructions: As directed (DME) Dexcom G6 Sensor Device See Rx Instructions .MEDSUPPLY Qty: 3 12RF Rx Instructions: Change every 10 days; Use as directed to check blood sugar (DME) Dexcom G6 Twisting Press Operator Misc See Rx Instructions .MEDSUPPLY Qty: 1 0RF Rx Instructions: Use as directed for checking blood sugar (DME) intraoperative neurophysiological monitoring See Rx Instructions .Route .MEDSUPPLY Qty: 1 0RF Rx Instructions: As directed hydrocodone-acetaminophen 5-325 mg tablet 1 tab PO TID PRN (Reason: pain) 30 Days Qty: 90 0RF Inlyta 5 mg tablet 10 mg PO BID Qty: 120 3RF insulin glargine [Lantus Solostar U-100 Insulin] 100 unit/mL (3 mL) insulin pen 10 unit SUBCUT BEDTIME dapagliflozin propanediol [Farxiga] 5 mg tablet 5 mg PO DAILY Discharge Orders: Discharge ED (Routine); Ordered 12/18/24 Ordered By: Gabriela Phan Referrals: Neftaly Hernandez, FILING OR REGISTRY CLERK [Primary Care Provider] - Discharge Diet: Advance as tolerated Discharge Activity: Resume usual activity Patient Instructions: Hypertension (ED) Print Language: Cymraes Coding Level of Care Code ED Early Childhood Services Coordinator for Giacomo Myles
[2024-12-18 13:05] LABS: Basophils % 0.3 %; Eosinophils # 0.1 10^3/uL (0.0-0.8); Eosinophils % 2.8 %; Hematocrit 39.8 % (37-53); Lymphocytes # 0.3 10^3/uL (0.8-4.8); Lymphocytes % 9.8 %; Mean Corpuscular HGB Conc 34.2 g/dL (30-55); Mean Corpuscular Hemoglobin 31.3 pg (27-33); Mean Corpuscular Volume 91.7 fl (82-101); Mean Platelet Volume 8.9 fL (7.4-10.4); Monocytes # 0.3 10^3/uL (0.2-0.9); Monocytes % 10.4 %; Neutrophils % 76.7 %; Nucleated Red Blood Cells % 0 %; Platelet Count 91 10^3/cmm (157-399); Red Blood Count 4.34 10^6/uL (3.85-5.65); Red Cell Distribution Width 14.2 % (12.1-15.1); White Blood Count 3.26 10^3/uL (3.29-11.43)
[2024-12-18] MEDS: labetalol 5 mg/mL SDV 20mL 10 MG IVP ×2 (13:24→14:31)
[2024-12-18 13:26] LABS: Alanine Aminotransferase 26 U/L (0-41); Albumin Level 4.1 g/dL (3.5-5.2); Alkaline Phosphatase 83 U/L (40-130); Anion Gap 17.3 (5-19); Aspartate Amino Transferase 24 U/L (0-40); Blood Urea Nitrogen 9 mg/dL (6-20); Calcium 8.8 mg/dL (8.5-10.5); Carbon Dioxide 22 mmol/L (22-29); Chloride 103 mmol/L (98-107); Creatinine Clr Calc Pharmacy 94.5385; Globulin 2.9 g/dL (1.3-4.6); Glucose 123 mg/dL (65-115); Lipase 25 U/L (13-60); Osmolality Calculated 288 mOsm/kg (285-295); Potassium 3.3 mmol/L (3.5-5.1); Sodium 139 mmol/L (136-145); Total Bilirubin 1.4 mg/dL (0.15-1.2)
[2024-12-18 13:29] LABS: Troponin(5th) Baseline 7 ng/L (0-15)
--- NOTE | 2024-12-18 14:19 | ECG_ITS ---
[facility] Test Date: 2024-12-18 Pat Name: Dudley Hutton Department: Room: Gender: Male [employer]: : 1965 Requested By: Gabriela Phan Order Number: [id number] Mohit MD: Juan A Sinclair M.D. Measurements Intervals [place] Rate: 88 P: 63 NM: 175 QRS: -6 QRSD: 97 T: 35 QT: 358 QTc: 434 Interpretive Statements SINUS RHYTHM Compared to ECG 12/18/2024 12:12:04 No significant changes Electronically Signed On 12-18-2024 22:14:52 DIRECTOR OF RESEARCH AND DEVELOPMENT by Juan A Sinclair M.D. [email or web address]
--- NOTE | 2024-12-18 14:26 | PC.NURSE ---
PT CAME TO ER WITH PORT ACCESSED FROM [facility]. FLUSHES AND IS PATENT.
[2024-12-18] MEDS: hyDRALAzine 20 mg/mL INJ 1 mL 10 MG IVP (15:26)
[2024-12-18] MEDS: morphine 4 mg/mL SDV 1 mL IVP (15:26)
[2024-12-18 15:49] LABS: Troponin 5 2HR 7.93 ng/L (0-15); Troponin 5 2HR Delta 0.93 ABS# (0-10)
--- NOTE | 2024-12-18 16:42 | PC.NURSE ---
PROVIDER AWARE OF ELEVATED BP. PT SENT IN A BP MEDICATION TO PHARMACY. PT VERBALIZED HE DIDNT WANT TO STAY.
== END 2024-12-18 16:36 | disposition home or self-care (01) ==
PROVIDERS: Emergency Provider Emergency Medicine; PCP Registered Nurse
DX: I10 Essential (primary) hypertension (principal); Z79.4 Long term (current) use of insulin; Z87.891 Personal history of nicotine dependence; E11.9 Type 2 diabetes mellitus without complications; C64.2 Malignant neoplasm of left kidney, except renal pelvis
CPT/HCPCS: 36415; 71045; 80053; 83690; 84484; 85025; 93005; 96374; 96375; 96376; 99285; J0360; J2270; J3490

== ENCOUNTER 2025-01-08 08:45 | Oncology outpatient (recurring) (ONCR) | payer OTHER, MEDICAID, SELFPAY ==
[2024-12-18 08:22] LABS: Basophils % 0.5 %; Eosinophils # 0.1 10^3/uL (0.0-0.8); Eosinophils % 2.7 %; Hematocrit 39.3 % (37-53); Lymphocytes # 0.3 10^3/uL (0.8-4.8); Lymphocytes % 8.5 %; Mean Corpuscular HGB Conc 34.6 g/dL (30-55); Mean Corpuscular Hemoglobin 31.4 pg (27-33); Mean Corpuscular Volume 90.8 fl (82-101); Mean Platelet Volume 9.3 fL (7.4-10.4); Monocytes # 0.4 10^3/uL (0.2-0.9); Monocytes % 10.9 %; Neutrophils # 2.91 10^3/uL (1.8-7.7); Neutrophils % 77.1 %; Nucleated Red Blood Cells % 0 %; Platelet Count 108 10^3/cmm (157-399); Red Blood Count 4.33 10^6/uL (3.85-5.65); Red Cell Distribution Width 14.5 % (12.1-15.1); White Blood Count 3.77 10^3/uL (3.29-11.43)
[2024-12-18 08:58] LABS: Alanine Aminotransferase 26 U/L (0-41); Albumin Level 4.2 g/dL (3.5-5.2); Alkaline Phosphatase 77 U/L (40-130); Anion Gap 13.7 (5-19); Aspartate Amino Transferase 26 U/L (0-40); Blood Urea Nitrogen 8 mg/dL (6-20); Calcium 9.3 mg/dL (8.5-10.5); Carbon Dioxide 25 mmol/L (22-29); Chloride 107 mmol/L (98-107); Creatinine Clr Calc Pharmacy 94.5385; Globulin 2.8 g/dL (1.3-4.6); Glucose 136 mg/dL (65-115); Osmolality Calculated 294 mOsm/kg (285-295); Potassium 3.7 mmol/L (3.5-5.1); Sodium 142 mmol/L (136-145); Thyroid Stimulating Hormone 0.02 uIU/mL (0.27-4.20); Total Bilirubin 1.5 mg/dL (0.15-1.2)
[2024-12-18] MEDS: pembrolizumab 200 MG in sodium chloride 0.9% 250 ML 516 MG IV (09:58)
[2024-12-18 10:31] VITALS: BP 197/127; PULSE 92; RESP 17; TEMP 37.1; O2SAT 94
[2024-12-18 11:58] VITALS: BP 198/118
--- NOTE | 2024-12-18 12:29 | PC.NURSE ---
Patient was resting comfortably and completed infusion at 10:28. Vitals were taken and assessed at completion of infusion for judgement of discharge. Blood pressure was excessively high at 197/127. Patient remained accessed to his power port and Dr. Son was immediately notified and gave verbal instructions to hold patient for an hour under observation and to reassess. After an hour, patient was reassessed with no drop in blood pressure at 198/118 manually. Patient had been asleep/resting comfortably the entirety of the required hour. Dr. Son was notified where he recommended the patient to be taken to the emergency department for uncontrolled blood pressure. Patient did admit to feeling like hell this week and having heartburn and chest pain and denied being on any blood pressure medication or having a enrichment teacher.
[2025-01-05] MEDS: iohexol 350 mg/mL 500 mL Btl (per mL) PO (09:41)
[2025-01-05] MEDS: iohexol 350 mg/mL 500 mL Btl (per mL) IV (09:41)
--- NOTE | 2025-01-05 13:30 | CTR_ITS ---
PROCEDURE INFORMATION: Exam: CT Chest With Contrast; Diagnostic Exam date and time: 01/05/2025 9:33 AM Age: 59 years old Clinical indication: Condition or disease; Cancer; Kidney, left; Other: Malignant neoplasm of left kidney; Prior surgery; Surgery date: 6+ months; Surgery type: Port, back, left kidney TECHNIQUE: Imaging protocol: Diagnostic computed tomography of the chest with contrast. Sagittal and coronal reformatted images were also reviewed. Radiation optimization: All CT scans at this facility use at least one of these dose optimization techniques: automated exposure control; mA and/or kV adjustment per patient size (includes targeted exams where dose is matched to clinical indication); or iterative reconstruction. Contrast material: OMNI 350; Contrast volume: 100 ml; Contrast route: INTRAVENOUS (IV); COMPARISON: CT chest abdpel w/*[id number] 11/26/2023 4:43 PM RADIATION DOSE METRICS: Total DLP (mGy-cm): 779.1 FINDINGS: Tubes, catheters and devices: The right internal jugular Port-A-Cath is stable in position with the tip at the cavoatrial junction. Trachea: Tracheobronchial structures are patent. Lungs: Lungs are clear bilaterally. No noncalcified pulmonary parenchymal nodules or masses. There is linear scarring in the left lingula and left lower lobe. Calcified granuloma in the left lower lobe. Pleural spaces: No pneumothorax. No pleural effusion. Heart: No cardiomegaly. No pericardial effusion. Esophagus: The esophagus is unremarkable. Mediastinal space: No mediastinal hematoma. No pneumomediastinum. Lymph nodes: Calcified lymph nodes in the left hilum. Vasculature: No evidence for aortic aneurysm or aortic dissection. Incidental note of a separate origin of the left vertebral artery from the aortic arch. Pulmonary arteries are unremarkable. Pulmonary veins are unremarkable. Bones/joints: Mild degenerative changes in the visualized spine. Stable mixed lytic and sclerotic lesion in the posterior T4 vertebral body/left T4 pedicle with associated mild loss of height of T4. No retropulsed bone. Stable sclerotic lesion in the posterior right glenoid. No additional suspicious bony lesions. Soft tissues: No acute abnormality in the extrathoracic soft tissues. PROCEDURE INFORMATION: Exam: CT Abdomen And Pelvis With Contrast Exam date and time: 01/05/2025 9:33 AM Age: 59 years old Clinical indication: Condition or disease; Cancer; Kidney, left; Other: Malignant neoplasm of left kidney; Prior surgery; Surgery date: 6+ months; Surgery type: Port, back, left kidney TECHNIQUE: Imaging protocol: Computed tomography of the abdomen and pelvis with contrast. Sagittal and coronal reformatted images were also reviewed. The patient was administered oral contrast. Radiation optimization: All CT scans at this facility use at least one of these dose optimization techniques: automated exposure control; mA and/or kV adjustment per patient size (includes targeted exams where dose is matched to clinical indication); or iterative reconstruction. Contrast material: OMNI 350; Contrast volume: 100 ml; Contrast route: INTRAVENOUS (IV); COMPARISON: CT chest abdpel w/*[id number] 11/26/2023 4:43 PM RADIATION DOSE METRICS: Total DLP (mGy-cm): 779.1 FINDINGS: Liver: The liver is unremarkable. Gallbladder and biliary ducts: Few small stones in the gallbladder. Findings are stable. No gallbladder wall thickening. No biliary ductal dilatation. Pancreas: The pancreas is unremarkable. No pancreatic ductal dilatation. Spleen: Stable calcified granuloma in the spleen. Adrenal glands: The right and left adrenal glands are unremarkable. Kidneys and ureters: Stable subcentimeter hypodense focus in the right kidney that is too small to characterize, however likely represents a small cyst. Patient has had an interval left nephrectomy. The right ureter is unremarkable. Stomach and bowel: No acute abnormality in the stomach, small bowel, or colon. Appendix: Appendix not definitely visualized. No inflammatory changes in the pericecal region however. Intraperitoneal space: No free intraperitoneal air. No ascites. No loculated fluid collections to suggest an abscess. Vasculature: Stable mild atherosclerotic calcifications in the visualized arteries. No evidence for aortic aneurysm or aortic dissection. Hepatic veins, portal veins, splenic vein, and SMV are patent. Lymph nodes: No lymphadenopathy. Urinary bladder: The bladder is unremarkable. Reproductive: The right testis and visualized left testis are unremarkable. Stable moderate enlargement of the prostate gland. Stable nonspecific parenchymal calcifications in the prostate gland. Bones/joints: Straightening of the lumbar spine. Stable vertebra plana at L4. Stable changes consistent with previous spinal fusion at L1 through the sacrum and bilateral sacroiliac joints. Transpedicular screws excluded at L4. No evidence for loosening of the surgical hardware. No lytic or sclerotic bony lesions. Soft tissues: No acute abnormality in the extra-abdominal soft tissues. CT/CT chest abdpel w/*[id number] IMPRESSION: 1. No acute cardiopulmonary process. 2. Stable mixed lytic and sclerotic lesion in the posterior T4 vertebral body/left T4 pedicle with associated mild loss of height of T4. No retropulsed bone. 3. Stable sclerotic lesion in the posterior right glenoid. 4. Incidental/nonacute findings are listed in the report. IMPRESSION: 1. Patient has had an interval left nephrectomy. 2. No acute abnormality in the abdomen or pelvis. 3. Stable cholelithiasis. 4. Stable vertebra plana at L4. 5. No evidence for metastatic disease in the abdomen or pelvis. 6. Incidental/nonacute findings are listed in the report.
--- NOTE | 2025-01-06 08:00 | NM_ITS ---
WS: [id number] NUCLEAR MEDICINE BONE SCAN Radiopharmaceutical: 25.1 Tc-99m MDP mCi IV Injection site: Antecubital Postinjection imaging delay: 1 hr CLINICAL INFORMATION: high risk medication COMPARISON: CT 01/05/2025 FINDINGS: Bone lesions: There are no osseous lesions suspicious for metastatic disease. Treated bony lesions seen on CT do not demonstrate radiotracer uptake. Soft tissue contours: Normal. Kidneys: Prior LEFT nephrectomy Other findings: Degenerative type uptake both knees. Degenerative type uptake LEFT sternoclavicular joint.. NM/NM bone scan whole body* [id number] IMPRESSION: No evidence of osseous metastatic disease.
[2025-01-08 09:28] LABS: Basophils % 0.8 %; Eosinophils # 0.1 10^3/uL (0.0-0.8); Eosinophils % 4.2 %; Lymphocytes # 0.3 10^3/uL (0.8-4.8); Lymphocytes % 13.1 %; Mean Corpuscular HGB Conc 35.3 g/dL (30-55); Mean Corpuscular Hemoglobin 32.5 pg (27-33); Mean Corpuscular Volume 92.1 fl (82-101); Mean Platelet Volume 9.1 fL (7.4-10.4); Monocytes # 0.3 10^3/uL (0.2-0.9); Monocytes % 11.2 %; Neutrophils # 1.83 10^3/uL (1.8-7.7); Neutrophils % 70.3 %; Nucleated Red Blood Cells % 0 %; Platelet Count 93 10^3/cmm (157-399); Red Blood Count 3.91 10^6/uL (3.85-5.65); Red Cell Distribution Width 14.6 % (12.1-15.1)
[2025-01-08 09:47] LABS: Alanine Aminotransferase 19 U/L (0-41); Albumin Level 4.3 g/dL (3.5-5.2); Alkaline Phosphatase 72 U/L (40-130); Anion Gap 12.2 (5-19); Aspartate Amino Transferase 18 U/L (0-40); Blood Urea Nitrogen 6 mg/dL (6-20); Calcium 8.3 mg/dL (8.5-10.5); Carbon Dioxide 25 mmol/L (22-29); Chloride 107 mmol/L (98-107); Creatinine Clr Calc Pharmacy 94.1466; Globulin 2.2 g/dL (1.3-4.6); Glucose 111 mg/dL (65-115); Lactate Dehydrogenase 175 U/L (135-225); Osmolality Calculated 290 mOsm/kg (285-295); Potassium 3.2 mmol/L (3.5-5.1); Sodium 141 mmol/L (136-145); Total Protein 6.5 g/dL (6.6-8.7)
[2025-01-08] MEDS: pembrolizumab 200 MG in sodium chloride 0.9% 250 ML 516 MG IV (11:34)
== END 2025-01-09 23:59 | disposition home or self-care (01) ==
PROVIDERS: Nurse Practitioner Family; PCP Registered Nurse; Visit Provider Internal Medicine
DX: Z53.9 Procedure and treatment not carried out, unspecified reason; Z51.12 Encounter for antineoplastic immunotherapy; C64.2 Malignant neoplasm of left kidney, except renal pelvis; Z79.899 Other long term (current) drug therapy
CPT/HCPCS: 71260; 74177; 78306; 80053; 83615; 84443; 85025; 96413; A4222; A9561; J7050; J9271

== ENCOUNTER 2025-01-17 09:20 | Emergency (ER) | payer SELFPAY ==
[2025-01-17 09:42] VITALS: BP 167/99; PULSE 108; RESP 20; TEMP 36.4; O2SAT 99; BMI 25.2
--- NOTE | 2025-01-17 10:48 | XRR_ITS ---
PROCEDURE INFORMATION: Exam: XR Left Foot Exam date and time: 01/17/2025 10:51 AM Age: 59 years old Clinical indication: Other: Diabetic foot wound TECHNIQUE: Imaging protocol: Radiologic exam of the left foot. Views: 3 or more views. COMPARISON: VT bone scan whole body* [id number] 01/06/2025 9:22 AM FINDINGS: Bones/joints: No acute fracture. No dislocation. Soft tissues: Normal. XR/XR foot LT min 3V* [id number] IMPRESSION: No acute fracture or dislocation. No significant radiographically apparent soft tissue swelling.
--- NOTE | 2025-01-17 11:32 | ED_ITS ---
HPI - Wound/Laceration 2 General: Chief Complaint: Wound/Laceration Stated Complaint: left foot wound Time Seen by Provider: 01/17/25 10:47 History of Present Illness: 59-year-old male presents emergency room with complaints of wound on his left great toe. He has been seeing Dr. Leonard for this at podiatry clinic there is some loose skin and began to peel it off this morning and now the foot is bleeding. He was seen earlier in the week by Dr. Leonard and given clotrimazole betamethasone when he was applying twice daily. He has desquamation superficial skin on both feet no open wounds at this time. Denies fever sweats or chills Associated symptoms: Denies chills or fever(s) Related Data Home Medications ?Medication ?Instructions ?Recorded ?Confirmed insulin glargine 100 unit/mL (3 10 unit SUBCUT BEDTIME 12/18/24 01/17/25 mL) subcutaneous pen (Lantus Solostar U-100 Insulin) hydrocodone 5 mg-acetaminophen 325 1 tab PO TID PRN Pa in 01/17/25 01/17/25 mg tablet Previous Rx's ?Medication ?Instructions ?Recorded intraoperative neurophysiological #1 ea 06/28/23 monitoring TLSO Brace #1 ea 09/25/23 blood-glucose meter,continuous #1 ea 01/23/24 (Dexcom G6 Garment Supervisor) blood-glucose sensor (Dexcom G6 #3 ea 01/23/24 Sensor device) axitinib 5 mg tablet (Inlyta) 10 mg (2 x 5 mg) PO BID #120 tabs 11/20/24 amlodipine 10 mg tablet (Norvasc) 10 mg PO DAILY #30 t abs 12/18/24 dapagliflozin propanediol 5 mg 5 mg PO DAILY #30 tabs 12/22/24 tablet (Farxiga) losartan 25 mg tablet 25 mg PO DAILY 30 days #30 t abs 12/30/24 potassium chloride 10 mEq 10 meq PO BID #60 caps 01/08 capsule,extended release Diabetic Shoes #1 ea 01/13/25 clotrimazole-betamethasone 1 1 applic topical BID 4 we eks #45 01/13/25 %-0.05 % topical cream grams mupirocin 2 % topical ointment 1 applic topical BID #1 5 grams 01/17/25 (Centany) Allergies Allergy/AdvReac Type Severity Reaction Status Date / Time No Known Allergies Allergy Verified 01/17/25 09:50 Review of Systems 2 Const: Denies: fever(s) or chills Card: Denies: chest pain Resp: Denies: dyspnea GI: Denies: abdominal pain : Denies: dysuria, urinary frequency or urinary urgency Musc: Denies: neck pain or back pain Skin/Breast: Denies: rash PFSH ED 2 PFSH: Medical History Fracture of lumbar spine Malignant neoplasm of left kidney Lumbar foraminal stenosis Type 2 diabetes mellitus Surgical History History of left nephrectomy 09/05/24 Port-A-Cath in place History of back surgery (06/20/23) L3/4 and L4/5 laminectomies with L2-S1 posterior spine fusion and with biopsy of L4 vertebral body Social History Smoking and tobacco/nicotine status: former use of tobacco/nicotine Quit status (tobacco/nicotine): considering quitting Alcohol intake: never Substance/Drug Use: never Adopted: No Caregiver/support person: No Lives independently: No Household members: spouse Current occupational status: employed Sexually active: Yes Do you think of yourself as: Straight/Heterosexual Current gender identity: Male Physical Exam 2 Const: COMMON NORMALS: no acute distress GENERAL APPEARANCE: cooperative and comfortable ORIENTATION/CONSCIOUSNESS: Yes awake, Yes oriented to person, Yes oriented to place and Yes oriented to time HENMT: COMMON NORMALS: normocephalic, atraumatic and hearing grossly normal bilaterally HEAD & SCALP: normocephalic and atraumatic Resp: COMMON NORMALS: normal respiratory effort, No retractions, No use of accessory muscles and clear to auscultation bilaterally AUSCULTATION: clear to auscultation bilaterally Cardio: COMMON NORMALS: regular rate, regular rhythm and No murmurs present (Cardio) RATE: regular rate RHYTHM: regular rhythm GI: COMMON NORMALS: Soft to palpation and No hepatosplenomegaly present A USCULTATION: Yes normoactive bowel sounds PALPATION: Yes Soft to palpation, No Tenderness to palpation present (GI), No Guarding due to palpation present (GI) and Yes No hepatosplenomegaly present Extremity: COMMON NORMALS: normal to inspection, capillary refill normal, no clubbing, cyanosis or edema, no calf tenderness and no pedal edema OTHER: Examination of the left foot there is a skin tear where he had been pulling off skin no active bleeding bits of dried blood about the toes. No open draining wounds mildly tender at the base of the first MTP joint. No swelling no effusion Neuro: SENSORIUM/ORIENTATION: Yes oriented to person, Yes oriented to place and Yes oriented to time Skin: COMMON NORMALS: no rashes or lesions noted GENERAL SKIN EXAM: no rashes or lesions noted Course 2 Vital Signs: Vital signs: Vital Signs Temperature 97.6 F 01/17/25 09:42 Pulse Rate 108 H 01/17/25 09:42 Respiratory Rate 20 H 01/17/25 09:42 Blood Pressure 167/99 01/17/25 09:42 Pulse Oximetry 99 01/17/25 09:42 Oxygen Delivery Me thod Room Air 01/17/25 09:42 MDM - Wound/Laceration Medical Decision Making Patient basically has a skin tear where he was peeling off some of the callus and got through the full-thickness skin there is no sign of infection no active bleeding he does have a lot of desquamation from the issues he was following with Dr. Leonard. Will have him hold off on the clotrimazole betamethasone apply topical antibiotic ointment wound where the created the skin tear encourage him to avoid peeling skin off follow-up with Dr. Leonard next week for further treatment options or adjustments. Medical Records I reviewed the patient's medical records. Lab Data I reviewed the patient's lab results. 01/17/25 11:36 01/17/25 11:36 Radiology Impressions Foot X-Ray 01/17/25 10:48 IMPRESSION: No acute fracture or dislocation. No significant radiographically apparent soft tissue swelling. Laboratory Results WBC 3.56 10^3/uL (3.29-11.43) 01/17/25 11:36 RBC 4.03 10^6/uL (3.85-5.65) 01/17/25 11:36 Hgb 12.80 g/dL (11.27-16.99) 01/17/25 11:36 Hct 38.1 % (37-53) 01/17/25 11:36 MCV 94.5 fl (82-101) 01/17/25 11:36 MCH 31.8 pg (27-33) 01/17/25 11:36 MCHC 33.6 g/dL (30-55) 01/17/25 11:36 RDW 15.1 % (12.1-15.1) 01/17/25 11:36 Plt Count 61 10^3/cmm (157-399) L 01/17/25 11:36 MPV 10.0 fL (7.4-10.4) 01/17/25 11:36 Neut % (Auto) 77.3 % 01/17/25 11:36 Lymph % (Auto) 9.8 % 01/17/25 11:36 Weld % (Auto) 7.3 % 01/17/25 11:36 Eos % (Auto) 4.5 % 01/17/25 11:36 Baso % (Auto) 0.8 % 01/17/25 11:36 Neut # (Auto) 2.75 10^3/uL (1.8-7.7) 01/17/25 11:36 Lymph # (Auto) 0.4 10^3/uL (0.8-4.8) L 01/17/25 11:36 Weld # (Auto) 0.3 10^3/uL (0.2-0.9) 01/17/25 11:36 Eos # (Auto) 0.2 10^3/uL (0.0-0.8) 01/17/25 11:36 Baso # (Auto) 0.0 10^3/uL (0.0-0.1) 01/17/25 11:36 Nucleated RBC % (auto) 0 % 01/17/25 11:36 Nucleated RBCs # 0.0 /100WBC 01/17/25 11:36 Sodium 137 mmol/L (136-145) 01/17/25 11:36 Potassium 3.8 mmol/L (3.5-5.1) 01/17/25 11:36 Chloride 102 mmol/L (98-107) 01/17/25 11:36 Carbon Dioxide 23 mmol/L (22-29) 01/17/25 11:36 Anion Gap 15.8 (5-19) 01/17/25 11:36 BUN 12 mg/dL (6-20) 01/17/25 11:36 Creatinine 1.0 mg/dL (0.7-1.2) 01/17/25 11:36 GFR Calculation 77.0 mL/min (90-130) L 01/17/25 11:36 Glucose 102 mg/dL (65-115) 01/17/25 11:36 Calculated Osmolality 284 mOsm/kg (285-295) L 01/17/25 11:36 Calcium 9.7 mg/dL (8.5-10.5) 01/17/25 11:36 Total Bilirubin 2.0 mg/dL (0.15-1.2) H 01/17/25 11:36 AST 22 U/L (0-40) 01/17/25 11:36 ALT 18 U/L (0-41) 01/17/25 11:36 Alkaline Phosphatase 72 U/L (40-130) 01/17/25 11:36 C-Reactive Protein 3.0 mg/L (0.0-4.9) 01/17/25 11:36 Total Protein 7.2 g/dL (6.6-8.7) 01/17/25 11:36 Albumin 4.3 g/dL (3.5-5.2) 01/17/25 11:36 Globulin 2.9 g/dL (1.3-4.6) 01/17/25 11:36 All radiology interpretation(s) finalized by discharge Discharge Plan Discharge Patient Disposition: Home Clinical Impression: Skin tear Condition: Stable Prescriptions: New mupirocin [Centany] 2 % ointment 1 applic topical BID Qty: 15 0RF No Action (DME) TLSO Brace See Rx Instructions .Route .MEDSUPPLY Qty: 1 0RF Rx Instructions: As directed losartan 25 mg tablet 25 mg PO DAILY 30 Days Qty: 30 2RF (DME) Dexcom G6 Sensor Device See Rx Instructions .MEDSUPPLY Qty: 3 12RF Rx Instructions: Change every 10 days; Use as directed to check blood sugar (DME) Dexcom G6 Garment Supervisor Misc See Rx Instructions .MEDSUPPLY Qty: 1 0RF Rx Instructions: Use as directed for checking blood sugar potassium chloride 10 mEq capsule, extended release 10 meq PO BID MDD Hypokalemia Qty: 60 0RF (DME) Diabetic Shoes See Rx Instructions .Route .MEDSUPPLY Qty: 1 0RF Rx Instructions: as directed by [employer] clotrimazole-betamethasone 1-0.05 % cream 1 applic topical BID 28 Days Qty: 45 0RF (DME) intraoperative neurophysiological monitoring See Rx Instructions .Route .MEDSUPPLY Qty: 1 0RF Rx Instructions: As directed Inlyta 5 mg tablet 10 mg PO BID Qty: 120 3RF dapagliflozin propanediol [Farxiga] 5 mg tablet 5 mg PO DAILY Qty: 30 0RF insulin glargine [Lantus Solostar U-100 Insulin] 100 unit/mL (3 mL) insulin pen 10 unit SUBCUT BEDTIME amlodipine [Norvasc] 10 mg tablet 10 mg PO DAILY Qty: 30 0RF hydrocodone-acetaminophen 5-325 mg tablet 1 tab PO TID PRN (Reason: Pain) Discharge Orders: Discharge ED (Routine); Ordered 01/17/25 Ordered By: Andre Monge Referrals: Neftaly Hernandez, RUBBER CALENDER HELPER [Primary Care Provider] - Discharge Diet: Usual diet Discharge Activity: Resume usual activity Patient Instructions: Opioid Safety, Pain Management Activity Restrictions/Additional Instructions: Thank you for choosing [facility] for your healthcare needs today. It is very important that you follow up as instructed or that you return to the Emergency Department should you have concerns or if your condition changes or worsens in any way. You are seen today with concern about an open wound on your foot. Recommend avoid peeling the skin as that can open up full-thickness skin tears. For now stop the clotrimazole betamethasone the doctor if list should given you use the topical antibiotic ointment you were given over the open wound from the skin tear. Follow-up with Dr. Leonard as soon as you are able of this coming week. Print Language: Albanian Coding Level of Care Code ED Wool Presser for Giacomo Myles
[2025-01-17 11:42] LABS: Basophils % 0.8 %; Eosinophils # 0.2 10^3/uL (0.0-0.8); Eosinophils % 4.5 %; Hematocrit 38.1 % (37-53); Lymphocytes # 0.4 10^3/uL (0.8-4.8); Lymphocytes % 9.8 %; Mean Corpuscular HGB Conc 33.6 g/dL (30-55); Mean Corpuscular Hemoglobin 31.8 pg (27-33); Mean Corpuscular Volume 94.5 fl (82-101); Monocytes # 0.3 10^3/uL (0.2-0.9); Monocytes % 7.3 %; Neutrophils # 2.75 10^3/uL (1.8-7.7); Neutrophils % 77.3 %; Nucleated Red Blood Cells % 0 %; Platelet Count 61 10^3/cmm (157-399); Red Blood Count 4.03 10^6/uL (3.85-5.65); Red Cell Distribution Width 15.1 % (12.1-15.1); White Blood Count 3.56 10^3/uL (3.29-11.43)
[2025-01-17 12:00] LABS: Alanine Aminotransferase 18 U/L (0-41); Albumin Level 4.3 g/dL (3.5-5.2); Alkaline Phosphatase 72 U/L (40-130); Anion Gap 15.8 (5-19); Aspartate Amino Transferase 22 U/L (0-40); Blood Urea Nitrogen 12 mg/dL (6-20); Calcium 9.7 mg/dL (8.5-10.5); Carbon Dioxide 23 mmol/L (22-29); Chloride 102 mmol/L (98-107); Creatinine Clr Calc Pharmacy 84.6665; Globulin 2.9 g/dL (1.3-4.6); Glucose 102 mg/dL (65-115); Osmolality Calculated 284 mOsm/kg (285-295); Potassium 3.8 mmol/L (3.5-5.1); Sodium 137 mmol/L (136-145); Total Protein 7.2 g/dL (6.6-8.7)
== END 2025-01-17 12:38 | disposition home or self-care (01) ==
PROVIDERS: Emergency Provider Family Medicine; PCP Registered Nurse
DX: S90.415A Abrasion, left lesser toe(s), initial encounter (principal); X58.XXXA Exposure to other specified factors, initial encounter; Z79.4 Long term (current) use of insulin; Z87.891 Personal history of nicotine dependence; E11.9 Type 2 diabetes mellitus without complications; Z85.528 Personal history of other malignant neoplasm of kidney
CPT/HCPCS: 36415; 73630; 80053; 85025; 86140; 99283

== ENCOUNTER 2025-01-29 08:31 | Oncology outpatient (recurring) (ONCR) | payer OTHER, MEDICAID, SELFPAY ==
[2025-01-29 09:28] LABS: Basophils % 0.6 %; Eosinophils # 0.1 10^3/uL (0.0-0.8); Eosinophils % 3.1 %; Hematocrit 37.8 % (37-53); Lymphocytes # 0.4 10^3/uL (0.8-4.8); Lymphocytes % 10.1 %; Mean Corpuscular HGB Conc 33.3 g/dL (30-55); Mean Corpuscular Hemoglobin 32.1 pg (27-33); Mean Corpuscular Volume 96.4 fl (82-101); Mean Platelet Volume 10.3 fL (7.4-10.4); Monocytes # 0.3 10^3/uL (0.2-0.9); Monocytes % 9.5 %; Neutrophils # 2.74 10^3/uL (1.8-7.7); Neutrophils % 76.7 %; Nucleated Red Blood Cells % 0 %; Platelet Count 89 10^3/cmm (157-399); Red Blood Count 3.92 10^6/uL (3.85-5.65); White Blood Count 3.57 10^3/uL (3.29-11.43)
[2025-01-29 09:49] LABS: Alanine Aminotransferase 17 U/L (0-41); Albumin Level 4.4 g/dL (3.5-5.2); Alkaline Phosphatase 77 U/L (40-130); Aspartate Amino Transferase 20 U/L (0-40); Blood Urea Nitrogen 13 mg/dL (6-20); Carbon Dioxide 21 mmol/L (22-29); Chloride 111 mmol/L (98-107); Globulin 2.5 g/dL (1.3-4.6); Glucose 119 mg/dL (65-115); Osmolality Calculated 297 mOsm/kg (285-295); Sodium 143 mmol/L (136-145); Total Bilirubin 1.2 mg/dL (0.15-1.2); Total Protein 6.9 g/dL (6.6-8.7)
[2025-01-29 09:51] LABS: Anion Gap 14.7 (5-19); Lactate Dehydrogenase 259 U/L (135-225); Potassium 3.7 mmol/L (3.5-5.1)
[2025-01-29 10:12] LABS: Free T4 Free Thyroxine 0.95 ng/dL (0.82-1.77)
[2025-01-29] MEDS: pembrolizumab 200 MG in sodium chloride 0.9% 250 ML 516 MG IV (11:29)
[2025-01-29 12:05] VITALS: BP 165/102; PULSE 93; RESP 18; TEMP 36.6; O2SAT 99
== END 2025-02-09 23:59 | disposition home or self-care (01) ==
PROVIDERS: Nurse Practitioner Family; PCP Registered Nurse; Visit Provider Internal Medicine
DX: Z51.12 Encounter for antineoplastic immunotherapy (principal); C64.2 Malignant neoplasm of left kidney, except renal pelvis; Z79.899 Other long term (current) drug therapy
CPT/HCPCS: 80053; 83615; 84439; 85025; 96413; J7050; J9271

== ENCOUNTER 2025-02-19 08:11 | Oncology outpatient (recurring) (ONCR) | payer OTHER, SELFPAY ==
[2025-02-19 08:50] LABS: Basophils % 0.6 %; Eosinophils # 0.3 10^3/uL (0.0-0.8); Hematocrit 38.6 % (37-53); Lymphocytes # 0.3 10^3/uL (0.8-4.8); Lymphocytes % 8.7 %; Mean Corpuscular HGB Conc 33.4 g/dL (30-55); Mean Corpuscular Hemoglobin 32.3 pg (27-33); Mean Corpuscular Volume 96.7 fl (82-101); Mean Platelet Volume 8.9 fL (7.4-10.4); Monocytes # 0.2 10^3/uL (0.2-0.9); Monocytes % 6.4 %; Neutrophils # 2.76 10^3/uL (1.8-7.7); Nucleated Red Blood Cells % 0 %; Platelet Count 78 10^3/cmm (157-399); Red Blood Count 3.99 10^6/uL (3.85-5.65); Red Cell Distribution Width 14.6 % (12.1-15.1); White Blood Count 3.58 10^3/uL (3.29-11.43)
[2025-02-19 09:03] LABS: Erythrocyte Sedimentation Rate 11 mm/hr (0-10)
[2025-02-19 09:08] LABS: Alanine Aminotransferase 20 U/L (0-41); Albumin Level 4.4 g/dL (3.5-5.2); Alkaline Phosphatase 84 U/L (40-130); Anion Gap 15.6 (5-19); Aspartate Amino Transferase 21 U/L (0-40); Blood Urea Nitrogen 11 mg/dL (6-20); Calcium 8.9 mg/dL (8.5-10.5); Carbon Dioxide 23 mmol/L (22-29); Chloride 105 mmol/L (98-107); Creatinine Clr Calc Pharmacy 84.2482; Globulin 2.9 g/dL (1.3-4.6); Glucose 120 mg/dL (65-115); Lactate Dehydrogenase 215 U/L (135-225); Osmolality Calculated 291 mOsm/kg (285-295); Potassium 3.6 mmol/L (3.5-5.1); Sodium 140 mmol/L (136-145); Total Bilirubin 1.2 mg/dL (0.15-1.2); Total Protein 7.3 g/dL (6.6-8.7)
[2025-02-19] MEDS: pembrolizumab 200 MG in sodium chloride 0.9% 250 ML 516 MG IV (10:53)
[2025-02-19 11:35] VITALS: BP 142/89; PULSE 94; RESP 16; TEMP 36.2; O2SAT 96
== END 2025-03-11 23:59 | disposition home or self-care (01) ==
PROVIDERS: PCP Registered Nurse; Visit Provider Internal Medicine
DX: Z51.12 Encounter for antineoplastic immunotherapy (principal); C64.2 Malignant neoplasm of left kidney, except renal pelvis; Z79.899 Other long term (current) drug therapy
CPT/HCPCS: 80053; 83615; 85025; 85651; 86140; 96413; A4222; J7050; J9271

== ENCOUNTER → 2025-03-31 10:26 | Outpatient (BNVA) | payer OTHER, SELFPAY | PROVIDERS: PCP Registered Nurse; Visit Provider Podiatrist Foot & Ankle Surgery | DX: G62.9 Polyneuropathy, unspecified (principal); M79.671 Pain in right foot; M79.672 Pain in left foot; E11.42 Type 2 diabetes mellitus with diabetic polyneuropathy; M19.071 Primary osteoarthritis, right ankle and foot; M19.072 Primary osteoarthritis, left ankle and foot; I73.9 Peripheral vascular disease, unspecified; L85.3 Xerosis cutis; L60.3 Nail dystrophy; B35.3 Tinea pedis | CPT/HCPCS: 73630 ==

== ENCOUNTER 2025-04-02 14:30 | Oncology outpatient (recurring) (ONCR) | payer OTHER, SELFPAY ==
[2025-03-12 10:40] LABS: Basophils % 0.6 %; Eosinophils # 0.2 10^3/uL (0.0-0.8); Eosinophils % 7.1 %; Hematocrit 37.2 % (37-53); Lymphocytes # 0.3 10^3/uL (0.8-4.8); Mean Corpuscular HGB Conc 33.6 g/dL (30-55); Mean Corpuscular Hemoglobin 33.1 pg (27-33); Mean Corpuscular Volume 98.4 fl (82-101); Mean Platelet Volume 9.5 fL (7.4-10.4); Monocytes # 0.2 10^3/uL (0.2-0.9); Monocytes % 7.1 %; Neutrophils # 2.29 10^3/uL (1.8-7.7); Neutrophils % 73.9 %; Nucleated Red Blood Cells % 0 %; Platelet Count 79 10^3/cmm (157-399); Red Blood Count 3.78 10^6/uL (3.85-5.65); Red Cell Distribution Width 14.3 % (12.1-15.1)
[2025-03-12 10:57] LABS: Alanine Aminotransferase 21 U/L (0-41); Albumin Level 4.3 g/dL (3.5-5.2); Alkaline Phosphatase 74 U/L (40-130); Anion Gap 16.8 (5-19); Aspartate Amino Transferase 25 U/L (0-40); Blood Urea Nitrogen 14 mg/dL (6-20); Calcium 8.7 mg/dL (8.5-10.5); Carbon Dioxide 21 mmol/L (22-29); Chloride 105 mmol/L (98-107); Creatinine Clr Calc Pharmacy 83.8955; Globulin 2.6 g/dL (1.3-4.6); Glucose 161 mg/dL (65-115); Osmolality Calculated 292 mOsm/kg (285-295); Potassium 3.8 mmol/L (3.5-5.1); Sodium 139 mmol/L (136-145); Total Protein 6.9 g/dL (6.6-8.7)
[2025-03-12] MEDS: pembrolizumab 200 MG in sodium chloride 0.9% 250 ML 516 MG IV (11:52)
[2025-03-12 12:34] VITALS: BP 149/99; PULSE 88; TEMP 36.8
[2025-04-02 15:02] LABS: Basophils % 0.6 %; Eosinophils # 0.2 10^3/uL (0.0-0.8); Eosinophils % 4.4 %; Hematocrit 38.6 % (37-53); Lymphocytes # 0.4 10^3/uL (0.8-4.8); Lymphocytes % 11.9 %; Mean Corpuscular HGB Conc 33.9 g/dL (30-55); Mean Corpuscular Hemoglobin 32.8 pg (27-33); Mean Corpuscular Volume 96.7 fl (82-101); Mean Platelet Volume 10.4 fL (7.4-10.4); Monocytes # 0.3 10^3/uL (0.2-0.9); Monocytes % 7.6 %; Neutrophils # 2.59 10^3/uL (1.8-7.7); Neutrophils % 75.2 %; Nucleated Red Blood Cells % 0 %; Platelet Count 79 10^3/cmm (157-399); Red Blood Count 3.99 10^6/uL (3.85-5.65); White Blood Count 3.44 10^3/uL (3.29-11.43)
[2025-04-02 15:19] LABS: Alanine Aminotransferase 17 U/L (0-41); Albumin Level 4.2 g/dL (3.5-5.2); Alkaline Phosphatase 71 U/L (40-130); Anion Gap 14.4 (5-19); Aspartate Amino Transferase 19 U/L (0-40); Blood Urea Nitrogen 19 mg/dL (6-20); Calcium 8.7 mg/dL (8.5-10.5); Carbon Dioxide 22 mmol/L (22-29); Chloride 105 mmol/L (98-107); Creatinine Clr Calc Pharmacy 76.0188; Globulin 2.8 g/dL (1.3-4.6); Glucose 181 mg/dL (65-115); Lactate Dehydrogenase 206 U/L (135-225); Magnesium 1.6 mg/dL (1.7-2.3); Osmolality Calculated 293 mOsm/kg (285-295); Potassium 3.4 mmol/L (3.5-5.1); Sodium 138 mmol/L (136-145); Total Bilirubin 0.9 mg/dL (0.15-1.2)
[2025-04-02] MEDS: pembrolizumab 200 MG in sodium chloride 0.9% 250 ML 516 MG IV (16:03)
[2025-04-02 16:35] VITALS: BP 147/100; PULSE 102; RESP 16; TEMP 523.8; TEMP 975; O2SAT 96
--- NOTE | 2025-04-02 16:46 | PC.NURSE ---
Pt's BP 147/100 upon discharge. Chanel Cerna SUPERVISOR BOILER REPAIR notified. Informed pt to cont. to monitor at home and follow up with PCP arnie. Pt voiced understanding/lc
== END 2025-04-11 23:59 | disposition home or self-care (01) ==
PROVIDERS: Nurse Practitioner Family; PCP Registered Nurse; Visit Provider Internal Medicine
DX: Z53.9 Procedure and treatment not carried out, unspecified reason (principal); Z51.12 Encounter for antineoplastic immunotherapy; C64.2 Malignant neoplasm of left kidney, except renal pelvis
CPT/HCPCS: 36415; 80053; 83615; 83735; 85025; 96413; A4222; J7050; J9271

== ENCOUNTER → 2025-04-14 09:52 | Outpatient (BNVA) | payer OTHER, SELFPAY | PROVIDERS: PCP Registered Nurse; Visit Provider Registered Nurse | DX: E11.9 Type 2 diabetes mellitus without complications (principal); I10 Essential (primary) hypertension | CPT/HCPCS: 83036 ==

== ENCOUNTER 2025-04-23 13:18 | Oncology outpatient (recurring) (ONCR) | payer OTHER, SELFPAY ==
[2025-04-23 11:24] LABS: Basophils % 0.9 %; Eosinophils # 0.2 10^3/uL (0.0-0.8); Eosinophils % 4.4 %; Hematocrit 41.4 % (37-53); Lymphocytes # 0.5 10^3/uL (0.8-4.8); Lymphocytes % 11.8 %; Mean Corpuscular HGB Conc 32.4 g/dL (30-55); Mean Corpuscular Hemoglobin 32.4 pg (27-33); Mean Corpuscular Volume 100.2 fl (82-101); Mean Platelet Volume 9.6 fL (7.4-10.4); Monocytes # 0.3 10^3/uL (0.2-0.9); Monocytes % 7.4 %; Neutrophils # 3.46 10^3/uL (1.8-7.7); Neutrophils % 75.5 %; Nucleated Red Blood Cells % 0 %; Platelet Count 140 10^3/cmm (157-399); Red Blood Count 4.13 10^6/uL (3.85-5.65); Red Cell Distribution Width 13.6 % (12.1-15.1); White Blood Count 4.58 10^3/uL (3.29-11.43)
[2025-04-23 11:35] LABS: Alanine Aminotransferase 16 U/L (0-41); Albumin Level 4.4 g/dL (3.5-5.2); Alkaline Phosphatase 84 U/L (40-130); Aspartate Amino Transferase 17 U/L (0-40); Blood Urea Nitrogen 12 mg/dL (6-20); Calcium 8.6 mg/dL (8.5-10.5); Carbon Dioxide 17 mmol/L (22-29); Chloride 107 mmol/L (98-107); Glucose 122 mg/dL (65-115); Osmolality Calculated 289 mOsm/kg (285-295); Sodium 139 mmol/L (136-145); Total Bilirubin 0.5 mg/dL (0.15-1.2); Total Protein 7.4 g/dL (6.6-8.7)
[2025-04-23 12:21] LABS: Free T4 Free Thyroxine 1.19 ng/dL (0.82-1.77); Magnesium 1.8 mg/dL (1.7-2.3); T3 Free 2.5 PG/ML (2.0-4.4)
[2025-04-23] MEDS: pembrolizumab 200 MG in sodium chloride 0.9% 250 ML 516 MG IV (12:36)
--- NOTE | 2025-04-23 13:30 | USR_ITS ---
PROCEDURE INFORMATION: Exam: US Duplex Bilateral Lower Extremity Arteries Exam date and time: 04/23/2025 1:56 PM Age: 59 years old Clinical indication: Condition or disease; Other: Pad TECHNIQUE: Imaging protocol: Real-time ultrasound scan of the arteries of the bilateral lower extremities with 2-D humphrey scale, color Doppler flow and spectral waveform analysis. Images documented and saved. COMPARISON: [place] [id number] ORTH 03/31/2025 10:35 AM FINDINGS: Right common femoral artery: No occlusion or significant stenosis. Normal waveform. Right superficial femoral artery: No occlusion or significant stenosis. Normal waveform. Right popliteal artery: No occlusion or significant stenosis. Normal waveform. Right calf/foot arteries: No occlusion or significant stenosis in the visualized arteries. Normal waveforms. Dorsalis pedis artery is patent. Left common femoral artery: No occlusion or significant stenosis. Normal waveform. Left superficial femoral artery: No occlusion or significant stenosis. Normal waveform. Left popliteal artery: No occlusion or significant stenosis. Normal waveform. Left calf/foot arteries: No occlusion or significant stenosis in the visualized arteries. Normal waveforms. Dorsalis pedis artery is patent. US/[place] [id number] IMPRESSION: No stenosis or occlusion.
== END 2025-05-11 23:59 | disposition home or self-care (01) ==
PROVIDERS: Nurse Practitioner Family; PCP Registered Nurse; Visit Provider Podiatrist Foot & Ankle Surgery
DX: Z53.9 Procedure and treatment not carried out, unspecified reason
CPT/HCPCS: 80053; 83735; 84439; 84481; 85025; 93925; 96413; A4222; J7050; J9271

== ENCOUNTER → 2025-04-30 07:58 | Outpatient (BNVA) | payer OTHER, SELFPAY | PROVIDERS: PCP Registered Nurse; Visit Provider Orthopaedic Surgery | DX: Z98.1 Arthrodesis status (principal); M54.9 Dorsalgia, unspecified | CPT/HCPCS: 72110 ==

== ENCOUNTER 2025-06-02 09:32 | Outpatient (RCR) | payer OTHER, SELFPAY | END 2025-06-11 23:59 | disposition home or self-care (01) | LOC: SPT 09:32 | PROVIDERS: Visit Provider Orthopaedic Surgery | DX: M54.9 Dorsalgia, unspecified (principal); G89.29 Other chronic pain | CPT/HCPCS: 97110; 97140; 97161 ==

== ENCOUNTER 2025-06-11 10:02 | Oncology outpatient (recurring) (ONCR) | payer OTHER, SELFPAY ==
[2025-05-21 07:54] LABS: Hematocrit 40.8 % (37-53); Hemoglobin 13.10 g/dL (11.27-16.99); Mean Corpuscular HGB Conc 32.1 g/dL (30-55); Mean Corpuscular Hemoglobin 31.7 pg (27-33); Mean Corpuscular Volume 98.8 fl (82-101); Nucleated Red Blood Cells % 0 %; Platelet Count 160 10^3/cmm (157-399); Red Blood Count 4.13 10^6/uL (3.85-5.65); White Blood Count 4.70 10^3/uL (3.29-11.43)
[2025-05-21 08:07] LABS: Alanine Aminotransferase 11 U/L (0-41); Albumin Level 4.1 g/dL (3.5-5.2); Alkaline Phosphatase 84 U/L (40-130); Anion Gap 16.1 (5-19); Aspartate Amino Transferase 15 U/L (0-40); Blood Urea Nitrogen 14 mg/dL (6-20); Calcium 9.0 mg/dL (8.5-10.5); Carbon Dioxide 20 mmol/L (22-29); Chloride 105 mmol/L (98-107); Globulin 2.9 g/dL (1.3-4.6); Glucose 137 mg/dL (65-115); Osmolality Calculated 287 mOsm/kg (285-295); Potassium 4.1 mmol/L (3.5-5.1); Sodium 137 mmol/L (136-145); Total Protein 7.0 g/dL (6.6-8.7)
[2025-05-21] MEDS: pembrolizumab 200 MG in sodium chloride 0.9% 250 ML 516 MG IV (10:01)
[2025-06-11 10:23] LABS: Hematocrit 41.6 % (37-53); Hemoglobin 13.50 g/dL (11.27-16.99); Mean Corpuscular HGB Conc 32.5 g/dL (30-55); Mean Corpuscular Hemoglobin 32.1 pg (27-33); Mean Corpuscular Volume 98.8 fl (82-101); Nucleated Red Blood Cells % 0 %; Platelet Count 154 10^3/cmm (157-399); Red Blood Count 4.21 10^6/uL (3.85-5.65); White Blood Count 5.60 10^3/uL (3.29-11.43)
[2025-06-11 10:52] LABS: Alanine Aminotransferase 19 U/L (0-41); Albumin Level 4.5 g/dL (3.5-5.2); Alkaline Phosphatase 74 U/L (40-130); Anion Gap 18.2 (5-19); Aspartate Amino Transferase 21 U/L (0-40); Blood Urea Nitrogen 14 mg/dL (6-20); Calcium 9.1 mg/dL (8.5-10.5); Carbon Dioxide 15 mmol/L (22-29); Chloride 107 mmol/L (98-107); Creatinine Clr Calc Pharmacy 69.5098; Globulin 3.0 g/dL (1.3-4.6); Glucose 84 mg/dL (65-115); Osmolality Calculated 282 mOsm/kg (285-295); Potassium 4.2 mmol/L (3.5-5.1); Sodium 136 mmol/L (136-145); Thyroid Stimulating Hormone 6.17 uIU/mL (0.27-4.20); Total Protein 7.5 g/dL (6.6-8.7)
[2025-06-11] MEDS: pembrolizumab 200 MG in sodium chloride 0.9% 250 ML 516 MG IV (11:54)
[2025-06-11 13:21] LABS: Free T4 Free Thyroxine 1.26 ng/dL (0.82-1.77)
== END 2025-06-11 23:59 | disposition home or self-care (01) ==
PROVIDERS: Internal Medicine; Nurse Practitioner Family; Visit Provider Podiatrist Foot & Ankle Surgery
DX: Z53.9 Procedure and treatment not carried out, unspecified reason; Z51.12 Encounter for antineoplastic immunotherapy; C64.2 Malignant neoplasm of left kidney, except renal pelvis; Z79.899 Other long term (current) drug therapy; R79.89 Other specified abnormal findings of blood chemistry
CPT/HCPCS: 80053; 83615; 84439; 84443; 84481; 85025; 96413; A4222; J7050; J9271

== ENCOUNTER 2025-06-12 06:00 | Outpatient (RCR) | payer OTHER, SELFPAY | END 2025-07-12 23:59 | disposition home or self-care (01) | LOC: SPT 06:00 | PROVIDERS: Visit Provider Orthopaedic Surgery | DX: M54.9 Dorsalgia, unspecified (principal); G89.29 Other chronic pain | CPT/HCPCS: 97110; 97140 ==

== ENCOUNTER 2025-07-02 08:34 | Oncology outpatient (recurring) (ONCR) | payer OTHER, SELFPAY ==
[2025-07-02 08:58] LABS: Hematocrit 36.8 % (37-53); Hemoglobin 12.30 g/dL (11.27-16.99); Mean Corpuscular HGB Conc 33.4 g/dL (30-55); Mean Corpuscular Hemoglobin 32.8 pg (27-33); Mean Corpuscular Volume 98.1 fl (82-101); Nucleated Red Blood Cells % 0 %; Platelet Count 156 10^3/cmm (157-399); Red Blood Count 3.75 10^6/uL (3.85-5.65); White Blood Count 5.83 10^3/uL (3.29-11.43)
[2025-07-02 09:24] LABS: Alanine Aminotransferase 16 U/L (0-41); Albumin Level 4.2 g/dL (3.5-5.2); Alkaline Phosphatase 70 U/L (40-130); Anion Gap 15.9 (5-19); Aspartate Amino Transferase 14 U/L (0-40); Blood Urea Nitrogen 15 mg/dL (6-20); Calcium 8.5 mg/dL (8.5-10.5); Carbon Dioxide 17 mmol/L (22-29); Chloride 109 mmol/L (98-107); Creatinine Clr Calc Pharmacy 82.1566; Globulin 2.5 g/dL (1.3-4.6); Glucose 170 mg/dL (65-115); Osmolality Calculated 291 mOsm/kg (285-295); Potassium 3.9 mmol/L (3.5-5.1); Sodium 138 mmol/L (136-145); Thyroid Stimulating Hormone 5.54 uIU/mL (0.27-4.20); Total Protein 6.7 g/dL (6.6-8.7)
[2025-07-02] MEDS: pembrolizumab 200 MG in sodium chloride 0.9% 250 ML 516 MG IV (11:37)
[2025-07-02 12:10] VITALS: BP 121/78; PULSE 94; RESP 17; TEMP 36.6; O2SAT 97
== END 2025-07-12 23:59 | disposition home or self-care (01) ==
PROVIDERS: Nurse Practitioner Family; Visit Provider Podiatrist Foot & Ankle Surgery
DX: Z51.12 Encounter for antineoplastic immunotherapy (principal); C64.2 Malignant neoplasm of left kidney, except renal pelvis; Z79.899 Other long term (current) drug therapy
CPT/HCPCS: 80053; 84443; 85025; 96413; A4222; J7050; J9271

== ENCOUNTER 2025-07-18 19:46 | Emergency (ER) | payer OTHER, SELFPAY ==
--- OUTSIDE RECORDS SUMMARY | 2025-07-15 10:46 | XMS_ITS | Encounter Summary ---
Author Organization [employer] Address [address] [place] [address] Care Team Providers Care Video Producer Name Role Phone Dhruv Grace, DEMI, Krzysztof Smith Primary Care Pro vider Encounter Details Date Type Department Care Team (Latest Contact Info) Description 07/15/2025 10:46 AM CDT - 07/15/2025 11:59 PM CDT Hospital Encounter [facility] [place] [address] [place] [phone] Neftaly Hernandez, DEMI [address] [place] [phone] Arrived Discharge Disposition: Home or Self Care Social History Tobacco Use Types Packs/Day Years Used Date Smoking Tobacco: Some Days Cigarettes Alcohol Use Standard Drinks/Week Comments No 0 (1 standard drink = 0.6 oz pur e alcohol) Feeling Safe Answer Date Recorded Are you in a relationship wi th someone who hurts you emotionally and/or physically? 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 10/31/2023 LORazepam (ATIVAN) 0.5 mg tablet 1 mg every 8 hours as needed. 08/09/2023 acetaminophen (TYLENOL) 500 mg tablet Take 500 mg by mouth every 6 hours as needed. liraglutide (Victoza 2-Rodolfo) 0.6 mg/0.1 mL (18 mg/3 mL) Inject 1.2 mg by subcutaneous injection daily. metFORMIN (GLUCOPHAGE) 1,000 mg tablet Take 1,000 mg by mouth 2 times daily with meals. 09/02/2020 documented as of this encounter Plan of Treatment Not on file documented as of this encounter Procedures Procedure Name Priority Date/Time Associated Diagnosis Comments XR THORACIC SPINE 3 VW Routine 07/15/2025 11:00 AM CDT Pleurisy Pain in thoracic spine documented in this encounter Results * XR THORACIC SPINE 3 VW (07/15/2025 11:00 AM CDT) Anatomical Region Laterality Modality Spine Computed Radiogr aphy 07/15/2025 11:0 4 AM CDT Impressions 07/15/2025 1:47 PM CDT IMPRESSION: No acute thoracic spine findings. Narrative 07/15/2025 1:47 PM CDT Exam: XR THORACIC SPINE 3 VW Date/Time of Exam: 07/15/2025 11:00 AM Reason For Exam: See Diagnosis. Diagnosis: Pleurisy; Pain in thoracic spine. Findings: A right IJ chest port is present with catheter tip in the mid SVC. The cardiomediastinal silhouette is normal in size and contour. Right hemidiaphragm is elevated. The thoracic alignment is normal. The vertebral body heights and disc spaces are preserved without acute fracture. Surgical changes are partially imaged in the lumbar spine. Procedure Note Nitish Leonard MD - 07/15/2025 Exam: XR THORACIC SPINE 3 VW Date/Time of Exam: 07/15/2025 11:00 AM Reason For Exam: See Diagnosis. Diagnosis: Pleurisy; Pain in thoracic spine. Findings: A right IJ chest port is present with catheter tip in the mid SVC. The cardiomediastinal silhouette is normal in size and contour. Right hemidiaphragm is elevated. The thoracic alignment is normal. The vertebral body heights and disc spaces are preserved without acute fracture. Surgical changes are partially imaged in the lumbar spine. IMPRESSION: No acute thoracic spine findings. Neftaly Hernandez PACKAGE COLLECTOR DIAGNOSTIC IMAGING ORDERABL ES Final Result documented in this encounter Visit Diagnoses Diagnosis Pleurisy Pleurisy without mention of effusion or current tuberculosis Pain in thoracic spine documented in this encounter Care Teams Video Producer Relationship Specialty Start Date End Date Dhruv Grace, DEMI Talavera [address] [place] [address] PCP - General 01/19/21 documented as of this encounter
--- OUTSIDE RECORDS SUMMARY | 2025-07-15 10:47 | XMS_ITS | Encounter Summary ---
Author Organization [employer] Address 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 Narrative 07/15/2025 1:46 PM CDT Exam: XR CHEST PA AND LATERAL 2 VW Date/Time of Exam: 07/15/2025 11:00 AM Reason For Exam: See Diagnosis. Diagnosis: Pleurisy; Pain in thoracic spine. Findings: A right IJ chest port is present with catheter tip terminating in the lower SVC. The cardiomediastinal silhouette is normal in size and contour. Calcified granulomatous changes are present. The right hemidiaphragm is elevated. No confluent airspace disease, pleural effusion, or pneumothorax. Degenerative changes are present in the thoracic spine and right glenohumeral joint. Procedure Note Nitish Leonard MD - 07/15/2025 Exam: XR CHEST PA AND LATERAL 2 VW Date/Time of Exam: 07/15/2025 11:00 AM Reason For Exam: See Diagnosis. Diagnosis: Pleurisy; Pain in thoracic spine. Findings: A right IJ chest port is present with catheter tip terminating in the lower SVC. The cardiomediastinal silhouette is normal in size and contour. Calcified granulomatous changes are present. The right hemidiaphragm is elevated. No confluent airspace disease, pleural effusion, or pneumothorax. Degenerative changes are present in the thoracic spine and right glenohumeral joint. IMPRESSION: No acute cardiopulmonary findings. Neftaly RICKETTSP DIAGNOSTIC IMAGING ORDERABL ES Final Result documented in this encounter Visit Diagnoses Diagnosis Pleurisy Pleurisy without mention of effusion or current tuberculosis Pain in thoracic spine documented in this encounter Care Teams Community Health Nurse Relationship Specialty Start Date End Date Dhruv Grace, DEMI Talavera [address] [place] [address] PCP - General 01/19/21 documented as of this encounter
[2025-07-18 19:49] VITALS: BP 196/114; PULSE 102; RESP 18; TEMP 36.6; O2SAT 99; BMI 23.4
--- NOTE | 2025-07-18 19:52 | ECG_ITS ---
[facility]25[facility]18 Pat Name: Dudley Hutton Department: Room: Gender: Male Seo Professional: : 1965 Requested By: Brayden Correa Order Number: [id number] Mohit MD: NASREEN GOSS Measurements Intervals [place] Rate: 101 P: 63 LA: 160 QRS: 5 QRSD: 89 T: 66 QT: 313 QTc: 407 Interpretive Statements SINUS TACHYCARDIA ABNORMAL RHYTHM ECG Compared to ECG 12/18/2024 14:09:08 Sinus rhythm no longer present Electronically Signed On 07-20-2025 10:49:29 CDT by NASREEN GOSS [email or web address]
--- OUTSIDE RECORDS SUMMARY | 2025-07-18 19:53 | XMS_ITS | Encounter Summary ---
Author Organization [facility] Address [address] [place] [address] Care Team Providers Care Sole Molding Machine Operator Name Role Phone Dhruv Grace, DEMI, Krzysztof Smith Primary Care Pro vider Encounter Details Date Type Department Care Team (Late st Contact Info) Description 04/14/2019 Lab Requisition [facility] General Laboratory Services [place] [address] [place] [address] Miles Veliz, DO NO ADDRESS ON FILE Social History Tobacco Use Types Packs/Day Years Used Date Smoking Tobacco: Some Days Cigarettes Alcohol Use Standard Drinks/Week Comments No 0 (1 standard drink = 0.6 oz pur e alcohol) Sex and Gender Information Value Date Recorded Sex Assigned at Not on file 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 AVG GLUCOSE, A1C 137 mg/dL 04/14/2019 11:59 PM CDT [facility] Blood 04/14/2019 9:00 PM CDT 04/14/2019 10:49 PM CDT [facility] - 04/14/2019 11:59 PM CDT HGB A1C INTERPRETATION NORMAL: <5.7% PRE-DIABETES: 5.7 - 6.4% DIABETES: 6.5% OR GREATER us Miles Veliz DO CHEMISTRY ORDERABLES Final Resu lt [facility] CLIA # [id number] [address] [place] [id number] * (ABNORMAL) CBC WITH DIFFERENTIAL (04/14/2019 9:00 PM CDT) WBC 6.7 4.2 - 9.1 K/uL 04/14/2019 11:35 PM [facility] RBC 4.16(L) 4.63 - 6.08 M/uL 04/14/2019 11:35 PM [facility] HEMOGLOBIN 13.2(L) 13.7 - 17.5 g/dL 04/14/2019 11:35 PM [facility] HEMATOCRIT 39.6(L) 40.1 - 51.0 % 04/14/2019 11:35 PM [facility] MCV 95.2(H) 79.0 - 92.2 fL 04/14/2019 11:35 PM [facility] MCH 31.7 25.7 - 32.2 pg 04/14/2019 11:35 PM [facility] MCHC 33.3 32.3 - 36.5 g/dL 04/14/2019 11:35 PM [facility] RDW 12.9 11.0 - 14.5 % 04/14/2019 11:35 PM [facility] RDW-STDEV 43.0 36.9 - 56.9 fL 04/14/2019 11:35 PM [facility] PLATELETS 152 130 - 400 K/uL 04/14/2019 11:35 PM [facility] MPV 9.9(L) 10.0 - 14.8 fL 04/14/2019 11:35 PM CDT [facility] NEUTROPHILS 57 34 - 68 % 04/14/2019 11:35 PM CDT [facility] LYMPHOCYTES 31 22 - 53 % 04/14/2019 11:35 PM CDT [facility] MONOCYTES 8 5 - 12 % 04/14/2019 11:35 PM CDT [facility] EOSINOPHILS 3 1 - 7 % 04/14/2019 11:35 PM CDT [facility] BASOPHILS 1 0 - 1 % 04/14/2019 11:35 PM CDT [facility] IMMATURE GRANULOCYTES 0 % 04/14/2019 11:35 PM CDT [facility] NEUTROPHIL ABSOLUTE 3.80 1.78 - 5.38 K/uL 04/14/2019 11:35 PM CDT [facility] LYMPHOCYTE ABSOLUTE 2.09 1.20 - 3.40 K/uL 04/14/2019 11:35 PM T [facility] MONOCYTE ABSOLUTE 0.53 0.30 - 0.82 K/uL 04/14/2019 11:35 PM CDT [facility] EOSINOPHIL ABSOLUTE 0.21 0.04 - 0.54 K/uL 04/14/2019 11:35 PM [facility] BASOPHILS ABSOLUTE 0.04 0.01 - 0.08 K/uL 04/14/2019 11:35 PM CDT [facility] IMMATURE GRANULOCYTES ABSOLUTE 0.01 K/uL 04/14/2019 11:35 PM [facility] Blood 04/14/2019 9:00 PM CDT 04/14/2019 10:49 PM CDT us Miles Veliz DO HEMATOLOGY ORDERABLES Final Res ult [facility] [id number] [address] [place] [address] [address] [place] [address] documented in this encounter Visit Diagnoses Not on filedocumented in this encounter Care Teams Sole Molding Machine Operator Relationship Specialty Start Date End Date Dhruv Grace, DEMI Talavera [address] [place] [address] PCP - General NURSE PRACTITIONER 10/27/16 documented as of this encounter
--- OUTSIDE RECORDS SUMMARY | 2025-07-18 19:53 | XMS_ITS | Clinical Summary ---
Author Organization [facility] pital Address [address] beds at the [facility] [address] [place] [address] Phone Care Team Providers Care Brand Development Manager Name Role Phone DEMI Bartlett Sr., Krzysztof Smith Primary Care Pro vider Allergies No known active allergies Medications metFORMIN (GLUCOPHAGE) 1,000 mg tablet Take 1,000 mg by mouth 2 times daily with meals. 0 Active acetaminophen (TYLENOL) 500 mg tablet Take 500 mg by mouth every 6 hours as needed. Active liraglutide (Victoza 2-Rodolfo) 0.6 mg/0.1 mL (18 mg/3 mL) Inject 1.2 mg by subcutaneous injection daily. Active axitinib 1 mg tablet 7 mg. 3 Active LORazepam (ATIVAN) 0.5 mg tablet 1 mg every 8 hours as needed. 3 Active Active Problems Problem Noted Date Diagnosed Date Spasm of lumbar paraspinous muscle 04/07/2023 Pyriformis syndrome, right 04/07/2023 Finger infection 10/27/2016 Encounters Date Type Department Care Team Description 07/15/2025 10:47 AM CDT - 07/15/2025 11:59 PM CDT Hospital Encounter [facility] [address] [facility] [address] [place] [phone] Neftaly Hernandez FNP Arrived Discharge Disposition: Home or Self Care 07/15/2025 10:46 AM CDT - 07/15/2025 11:59 PM CDT [facility] [address] [facility] [address] [place] [phone] Neftaly Hernandez FNP Arrived Discharge Disposition: Home or Self Care 07/15/2025 Orders Only [facility] Admitting [address] [place] [address] Neftaly Hernandez FNP Pleurisy (Primary Dx); Pain in thoracic spine 06/23/2025 External Device Data STL ABSTRACTION Provider, Abstract 05/27/2025 External Device Data STL ABSTRACTION Provider, Abstract 05/27/2025 External Device Data STL ABSTRACTION Provider, Abstract 05/27/2025 External Device Data STL ABSTRACTION Provider, Abstract 05/26/2025 External Device Data STL ABSTRACTION Provider, Abstract from Last 3 Months Immunizations Immunization Administration Dates Next Due (BookFresh)(12 YR UP) COVID-19 VACCINE - EMERGENCY USE AUTHORIZATION, MRNA, [id number](PF) 30 MCG/0.3 ML IM SUSP 02/10/2021,01/18/2021 Social History Tobacco Use Types Packs/Day Years Used Date Smoking Tobacco: Some Days Cigarettes Tobacco Cessation:Ready to Q uit: Not Asked; Counseling Given: Not Answered Alcohol Use Standard Drinks/Week Comments No 0 (1 standard drink = 0.6 oz pur e alcohol) Feeling Safe Answer Date Recorded Are you in a relationship wi th someone who hurts you emotionally and/or physically? 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 [employer] Gender Identity Not on file Sexual Orientation Not on file Last Filed Vital Signs Vital Sign Reading Time Taken Comments Blood Pressure 153/86 04/07/2023 7:52 PM CDT Pulse 104 04/29/2018 5:42 AM CDT Temperature 37 C (98.6 F) 04/07/2023 7:52 PM CDT Respiratory Rate 14 04/07/2023 7:52 PM CDT Oxygen Saturation 98% 04/07/2023 7:52 PM CDT Inhaled Oxygen Concentration - - Weight 72.6 kg (160 lb) 04/07/2023 6:51 PM CDT Height 175.3 cm (5' 9 ) 04/07/2023 6:51 PM CDT Body Mass Index 23.63 04/07/2023 6:51 PM CDT Plan of Treatment Health Maintenance Due Date Last Done Comments DIABETES ANNUAL FOOT EXAM 1985 DIABETES ANNUAL RETINAL EXAM 1985 DIABETES MICROALBUMIN ANNUAL SCREEN 1985 DTAP/TDAP/TD VACCINES (1 - Tdap) 1986 HEPATITIS B VACCINES (1 of 3 - 19+ 3-dose series) 1986 Preventative Visit-Managed Medicaid 1986 COLORECTAL SCREENING 2012 Colorectal Cancer Screening 2012 FIT-DNA Q 3 years 2012 FIT/FOBT Q 1 year 2012 Flex Sig/CT Colonography Q 5 years 2012 ZOSTER VACCINE (1 of 2) 2017 LDL CHOLESTEROL ANNUAL 09/08/2020 09/08/2019 DIABETES HBA1C Q 6 MONTHS 03/07/20252023, 09/08/2019, 09/08/2019, Additional history exists INFLUENZA VACCINE (#1) 2025 COVID-19 Vaccine ( - 2024-2 6 season) 2025 02/10/2021, 01/18/2021 Procedures Procedure Name Priority Date/Time Associated Diagnosis Comments XR CHEST PA AND LATERAL 2 VW Routine 07/15/2025 11:00 AM CDT Pleurisy Pain in thoracic spine XR THORACIC SPINE 3 VW Routine 07/15/2025 11:00 AM CDT Pleurisy Pain in thoracic spine LIPID PANEL Routine 09/08/2019 9:45 PM CDT HEMOGLOBIN A1C Routine 09/08/2019 9:45 PM CDT from Last 3 Months or Most Recently Relevant to Health Maintenance Results * XR THORACIC SPINE 3 VW [...] No acute thoracic spine findings. Neftaly Hernandez COUNTER INTELLIGENCE TECHNICIAN DIAGNOSTIC IMAGING ORDERABL ES Final Result * XR CHEST PA AND LATERAL 2 [...] joint. IMPRESSION: No acute cardiopulmonary findings. Neftaly Hernandez COUNTER INTELLIGENCE TECHNICIAN DIAGNOSTIC IMAGING ORDERABL ES Final Result * (ABNORMAL) HEMOGLOBIN A1C (09/08/2019 9:45 PM CDT) HEMOGLOBIN A1C 7.1(H) <=5.6 % 09/09/2019 3:09 AM CDT [facility] EST. AVG GLUCOSE, A1C 157 mg/dL 09/09/2019 3:09 AM CDT [facility] Blood Collection / Unknown 09/08/2019 9:45 PM CDT 09/09/2019 2:11 AM CDT Narrative [facility] - 09/09/2019 3:09 AM CDT HGB A1C INTERPRETATION NORMAL: <5.7% PRE-DIABETES: 5.7 - 6.4% DIABETES: 6.5% OR GREATER Miles Veliz DO CHEMISTRY ORDERABLES Final Resu lt [facility] CLIA # [id number] [address] [place] [address] [facility] CLIA # [id number] [address] [place] [id number] * LIPID PANEL (09/08/2019 9:45 PM CDT) CHOLESTEROL 130 <200 mg/dL 09/09/2019 3:03 AM CDT [facility] TRIGLYCERIDE 111 <150 mg/dL 09/09/2019 3:03 AM CDT [facility] HDL 42 40 - 59 mg/dL 09/09/2019 3:03 AM CDT [facility] LDL CALCULATED 66 <100 mg/dL 09/09/2019 3:03 AM T [facility] NON-HDL CHOLESTEROL 88 <130 mg/dL 09/09/2019 3:03 AM T [facility] Blood Collection / Unknown 09/08/2019 9:45 PM CDT 09/09/2019 2:11 AM CDT [facility] - 09/09/2019 3:03 AM CDT TOTAL CHOLESTEROL mg/dL Desirable<200 Borderline [id number] High>=240 TRIGLYCERIDES mg/dL Normal<150 Borderline [id number] Very high>=500 HDL CHOLESTEROL mg/dL Low<40 [id number] Desirable>=60 NON HDL CHOLESTEROL mg/dL Optimal<130 Near [id number] Borderline [id number] Very High>=190 Calculated LDL mg/dL Optimal<100 Near [id number] Borderline [id number] Very High>=190 ATPIII Guidelines Reference Ranges for Lipid Panels (NCEP/AMA) us Miles Veliz DO CHEMISTRY ORDERABLES Final Resu lt Performing Organization Address City/State/[facility] Co de Phone Number [id number] [address] [place] [address] [facility] CLIA # [id number] [address] [place] [id number] from Last 3 Months or Most Recently Relevant to Health Maintenance Insurance MEDICAID [place] Care Teams Brand Development Manager Relationship Specialty Start Date End Date Dhruv Grace, DEMI Talavera [address] [place] [address] PCP - General 01/19/21
--- OUTSIDE RECORDS SUMMARY | 2025-07-18 19:53 | XMS_ITS | Clinical Summary ---
Author Organization [facility] Address [address] [facility] [address] [place] [address] Phone Care Team Providers Care Oil Pipeline Operator Name Role Phone DEMI Bartlett Sr., Krzysztof Smith Primary Care Pro vider Allergies No known active allergies Medications ibuprofen (MOTRIN) 400 mg tablet Take 400 mg by mouth every 6 hours as needed for Pain, Mild. Active metFORMIN (GLUCOPHAGE) 1,000 mg tablet Take 1,000 mg by mouth 2 times daily with meals. 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 Gender Identity Not on file Sexual Orientation Not on file Last Filed Vital Signs Vital Sign Reading Time Taken Comments Blood Pressure 124/77 09/02/2020 9:00 PM CDT Pulse 104 04/29/2018 5:42 AM CDT Temperature 37 C (98.6 F) 09/02/2020 7:04 PM CDT Respiratory Rate 18 09/02/2020 8:13 PM CDT Oxygen Saturation 98% 09/02/2020 9:00 PM CDT Inhaled Oxygen Concentration - - Weight 82.6 kg (182 lb) 09/02/2020 7:04 PM CDT Height 175.3 cm (5' 9 ) 09/02/2020 7:04 PM CDT Body Mass Index 26.88 09/02/2020 7:04 PM CDT Plan of Treatment Health Maintenance Due Date Last Done Comments DIABETES ANNUAL FOOT EXAM 1985 DIABETES ANNUAL RETINAL EXAM 1985 DIABETES MICROALBUMIN ANNUAL SCREEN 1985 DTAP/TDAP/TD VACCINES (1 - Tdap) 1986 HEPATITIS B VACCINES (1 of 3 - 19+ 3-dose series) 1986 COLORECTAL SCREENING 2012 Colorectal Cancer Screening 2012 FIT-DNA Q 3 years 2012 FIT/FOBT Q 1 year 2012 Flex Sig/CT Colonography Q 5 years 2012 ZOSTER VACCINE (1 of 2) 2017 DIABETES HBA1C Q 6 MONTHS 03/09/2020 09/08/2019, 01/2019 LDL CHOLESTEROL ANNUAL 09/08/2020 09/08/2019 COVID-19 Vaccine ( season) 07/13/202411/2020, 01/18/2021 INFLUENZA VACCINE (#1) 2025 Procedures Procedure Name Priority Date/Time Associated Diagnosis Comments LIPID PANEL Routine 09/08/2019 9:45 PM CDT HEMOGLOBIN A1C Routine 09/08/2019 9:45 PM CDT from Last 3 Months or Most Recently Relevant to Health Maintenance Results * (ABNORMAL) HEMOGLOBIN A1C (09/08/2019 9:45 PM CDT) HEMOGLOBIN A1C 7.1(H) <=5.6 % 09/09/2019 3:09 AM CDT [facility] EST. AVG GLUCOSE, A1C 157 mg/dL 09/09/2019 3:09 AM CDT [facility] Blood Collection / Unknown 09/08/2019 9:45 PM CDT 09/09/2019 2:[address] [facility] - 09/09/2019 3:09 AM CDT HGB A1C INTERPRETATION NORMAL: <5.7% PRE-DIABETES: 5.7 - 6.4% DIABETES: 6.5% OR GREATER us Miles Veliz DO CHEMISTRY ORDERABLES Final Resu lt Performing Organization Address City/[facility]/ZIP Co de Phone Number [facility] CLIA # [id number] [address] [place] [phone] * LIPID PANEL (09/08/2019 9:45 PM CDT) CHOLESTEROL 130 <200 mg/dL 09/09/2019 3:03 AM CDT [facility] TRIGLYCERIDE 111 <150 mg/dL 09/09/2019 3:03 AM CDT [facility] HDL 42 40 - 59 mg/dL 09/09/2019 3:03 AM CDT [facility] LDL CALCULATED 66 <100 mg/dL 09/09/2019 3:03 AM T [facility] NON-HDL CHOLESTEROL 88 <130 mg/dL 09/09/2019 3:03 AM T [facility] Blood Collection / Unknown 09/08/2019 9:45 PM CDT 09/09/2019 2:[address] [facility] - 09/09/2019 3:03 AM CDT TOTAL CHOLESTEROL mg/dL Desirable <200 Borderline high 200-239 High >=240 TRIGLYCERIDES mg/dL Normal <150 Borderline high 150-199 High 200-499 Very high >=500 HDL CHOLESTEROL mg/dL Low <40 Normal 40-59 Desirable >=60 NON HDL CHOLESTEROL mg/dL Optimal <130 Near Optimal 130-159 Borderline High 160-189 Very High >=190 Calculated LDL mg/dL Optimal <100 Near Optimal 100-129 Borderline High 130-159 High 160-189 Very High >=190 ATPIII Guidelines Reference Ranges for Lipid Panels (NCEP/AMA) us Miles Veliz DO CHEMISTRY ORDERABLES Final Resu lt Performing Organization Address City/[facility]/ZIP Co de Phone Number [facility] CLIA # [id number] [address] [place] [address] [address] [place] [address] from Last 3 Months or Most Recently Relevant to Health Maintenance Insurance [employer] [phone] [place] [address] Care Teams Oil Pipeline Operator Relationship Specialty Start Date End Date Dhruv Grace, DEMI Talavera [facility] [address] [place] [address] PCP - General NURSE PRACTITIONER 10/27/16
--- OUTSIDE RECORDS SUMMARY | 2025-07-18 19:53 | XMS_ITS | Clinical Summary ---
Author Organization [facility] Address [address] [place] [address] Care Team Providers Care Mat Machine Tender Name Role Phone DavidNeftaly NACHO Primary Care Provider [phone] Franki Hough MD Unavailable [phone] Yossi Vicente MD Unavailable [phone] Allergies No known active allergies Medications metFORMIN (GLUCOPHAGE) 1,000 mg tablet Take 1 tablet (1,000 mg total) by mouth 2 (two) times a day with meals 2 Active Byetta 5 mcg/dose (250 mcg/mL) 1.2 mL injection Inject 0.02 mL (5 mcg total) under the skin 2 (two) times a day before breakfast and lunch 4 Active lisinopriL (PRINIVIL,ZESTR IL) 20 mg tablet Take 1 tablet (20 mg total) by mouth daily 4 Active aXITinib (INLYTA) 5 mg tablet Take 2 tablets (10 mg) by mouth every 12 (twelve) hours. Take at evenly spaced intervals. Take with or without food. Take with a full glass of water. Active acetaminophen (TYLENOL) 500 mg tablet Take 2 tablets (1,000 mg total) by mouth daily Active ibuprofen (ADVIL,MOTRIN) 600 mg tablet Take 1 tablet (600 mg total) by mouth daily Active oxyCODONE (ROXICODONE) 5 mg immediate release tabletIndicatio ns:Pain Take 1 tablet (5 mg total) by mouth every 6 (six) hours as needed for pain 12 tablet 4 Active Active Problems Problem Noted Date Diagnosed Date History of kidney cancer 01/01/2025 Hyponatremia 09/06/2024 Hyperkalemia 09/06/2024 ALLIE (acute kidney injury) 09/06/2024 Renal mass 09/05/2024 Type 2 diabetes mellitus, wi thout long-term current use of insulin 09/05/2024 HTN (hypertension) 09/05/2024 Sinus tachycardia 09/05/2024 Abnormal EKG 09/05/2024 Left renal mass 08/25/2024 Malignant neoplasm of left kidney 07/08/2024 Cancer Staging:Clinical stage from 07/08/2024:Stage IV(cT2a, cN0, cM1) - Signed by Yossi Vicente MD on 07/08/2024 Surgical History Surgery Date Site/Laterality Comments BACK SURGERY 06/20/2023 BACK SURGERY 10/31/2023 Medical History Medical History Date Comments Diabetes mellitus (HCC) Hypertension Cancer of kidney (HCC) Family History Medical History Relation Name Comments Colon cancer Father Breast cancer Mother Relation Name Status Comments Father Mother Social History Tobacco Use Types Packs/Day Years Used Date Smoking Tobacco: Every Day Cigarettes 1 38.7 Started: 1984 Smokeless Tobacco: Never Tobacco Cessation:Ready to Q uit: No [facility] Utilities Answer Date Recorded In the past 12 months has th e electric, gas, oil, or water [place] threatened to shut off services in your home? No 09/08/2024 Social Connection and Isolation Panel Answer Date Recorded In a typical week, how many times do you talk on the phone with family, friends, or neighbors? More than three times a week 09/08/2024 How often do you get togethe r with friends or relatives? Twice a week 09/08/2024 How often do you attend up health system or judaism services? More than 4 times per year 09/08/2024 Do you belong to any clubs o r organizations such as latter-day groups, unions, fraternal or athletic groups, or school groups? No 09/08/2024 How often do you attend meet ings of the clubs or organizations you belong to? Never 09/08/2024 Are you , , di vorced, , never , or living with a partner? 09/08/2024 AUDIT-C Answer Date Recorded Q1: How often do you have a drink containing alcohol? Never 09/04/2024 Q2: How many drinks containi ng alcohol do you have on a typical day when you are drinking? Patient does not drink Q3: How often do you have si x or more drinks on one occasion? Never 09/04/2024 Overall Financial Resource Strain (CARDIA) Answe r Date Recorded How hard is it for you to pa y for the very basics like food, housing, medical care, and heating? Not hard at all 09/08/2024 Hunger Vital Sign Answer Date Recorded Within the past 12 months, y ou worried that your food would run out before you got the money to buy more. Never true 09/08/20 24 Within the past 12 months, t he food you bought just didn't last and you didn't have money to get more. Never true 09/08/2024 PRAPARE - Transportation Answer Date Re corded In the past 12 months, has l ack of transportation kept you from medical appointments or from getting medications? No 08/13 In the past 12 months, has l ack of transportation kept you from meetings, work, or from getting things needed for daily living? No 09/08/2024 Housing Stability Vital Sign Answer [place] e Recorded In the last 12 months, was t here a time when you were not able to pay the mortgage or rent on time? No 09/08/2024 In the past 12 months, how m any times have you moved where you were living? 0 09/08/2024 At any time in the past 12 m [facility], were you homeless or living in a chcf (including now)? No 09/08/2024 Personal Safety Answer Date Recorded Have you ever been in or are you currently in a harmful physical or emotional relationship or is someone making you feel afraid or unsafe? Denies 09/05/2024 Sex and Gender Information Value Date Recorded Sex Assigned at Not on file Legal Sex Male 3:15 PM CDT Gender Identity Not on file Sexual Orientation Not on file Obstetrics History Last Filed Vital Signs Vital Sign Reading Time Taken Comments Blood Pressure 140/82 09/11/2024 7:55 AM CDT Pulse 81 09/11/2024 7:55 AM CDT Temperature 37.4 C (99.3 F) 09/11/2024 7:55 AM CDT Respiratory Rate 16 09/11/2024 7:55 AM CDT Oxygen Saturation 99% 09/11/2024 7:55 AM CDT Inhaled Oxygen Concentration - - Weight 78.9 kg (174 lb) 09/05/2024 11:30 PM CDT Height 175.3 cm (5' 9 ) 09/05/2024 11:30 PM CDT Body Mass Index 25.7 09/05/2024 11:30 PM CDT Plan of Treatment Health Maintenance Due Date Last Done Comments Albumin Creatinine Ratio, Urine 1967 Colon Cancer Screening-Colonoscopy 1967 Depression Screening 1967 Hepatitis C Screening 1967 Prostate Cancer Screening-PSA 1967 Dilated Eye Exam 1967 Foot Exam 1967 DTaP/Tdap/Td Vaccine (1 - Tdap) 1978 Hepatitis B Screening 1985 Regular Well Visit/Exam 18-64 1985 Pneumococcal vaccine <65 (1 of 2 - PCV) 1986 Zoster Vaccine (1 of 2) 1986 Lung Cancer Screening 2017 Lipid Panel 09/08/2020 09/08/2019 Covid-19 Vaccine (3 - Pfizer risk series) 03/10/2021 02/10/2021, 01/18/2021 Hemoglobin A1C 03/07/2025 09/06/2024 Influenza Vaccine (#1) 2025 eGFR 09/11/2025 09/11/2024, 08/14, 09/09/2024, Additional history exists Procedures Procedure Name Priority Date/Time Associated Diagnosis Comments EGFR Routine 09/11/2024 12:37 AM CDT HEMOGLOBIN A1C Routine 09/06/2024 5:38 AM CDT from Last 3 Months or Most Recently Relevant to Health Maintenance Results * eGFR (09/11/2024 12:37 AM CDT) eGFR 77 >=60 mL/min/1. 73 m2 Comment: Interpretive Data Reference Interval Normal >/= 90 mL/min/1.73m2 Mildly decreased* 60 - 89 mL/min/1.73m2 Mildly to moderately decreased 45 - 59 mL/min/1.73m2 Moderately to severely decreased 30 - 44 mL/min/1.73m2 Severely decreased 15 - 29 mL/min/1.73m2 Kidney Failure < 15 mL/min/1.73m2 *Relative to young adult level Estimated glomerular filtration rate is determined by the 2020 CKD-EPI equation recommended by the National Kidney Foundation (A Unifying Approach to GFR Estimation: Recommendations of the NKF-ASK Task Force on Reassessing the Inclusion of Race in Diagnosing Kidney Disease, JASN 202). The CKD-EPI equation should not be used for patients with unstable renal function and has not been validated in children and those over 70. Current interpretive data was last reviewed 2021. Blood 09/11/2024 12:3 7 AM CDT 09/11/2024 1:31 AM CDT us Pablo Sandra DO LAB BLOOD ORDERABLES Final Res ult Performing Organization Address City/[facility]/ZIP Co de Phone Number [facility] [address] [place] [address] * (ABNORMAL) Hemoglobin A1c (09/06/2024 5:38 AM CDT) Hgb A1C 7.1(H) 4.0 - 5.6 % Estimated Average Glucose 157 mg/dL [facility] Comment: The ADA recommends reporting an estimated Average Glucose (eAG) with all Hemoglobin A1c results using the equation derived from a study of 507 normal and diabetic adults. Minority populations were underrepresented and children were not included. (Diabetes Care 31:5936-1940, 2008). The eAG is not equivalent to a fasting glucose. Blood 09/06/2024 5:38 AM CDT 09/06/2024 6:02 AM CDT us Gal Guillen MD LAB BLOOD ORDERABLES Final Re sult [facility] [address] [place] [address] from Last 3 Months or Most Recently Relevant to Health Maintenance Insurance [place] Advance Directives For more information, please contact: [phone] * Full Code (Latest Code Status on File) Date Activated Date Inactivated Comments 09/05/2024 1:29 PM 09/11/2024 3:20 PM Care Teams Mat Machine Tender Relationship Specialty Start Date End Date Neftaly Hernandez NP [address] [facility] [address] [place] [address] PCP - General Nurse Practitioner 06/16/24 Franki Hough MD [address] [place] [address] Referring Physician Medical Oncology 06/16/24 Yossi Vicente MD [address] [place] [address] MEDICAL ONCOLOGY, [facility] [address] [place] [address] Medical Oncology 06/17/24
--- OUTSIDE RECORDS SUMMARY | 2025-07-18 19:53 | XMS_ITS | Encounter Summary ---
Author Organization [facility] Address 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 Neftaly Hernandez ESTATE PLANNING PARALEGAL DIAGNOSTIC IMAGING ORDERABL ES Final Result * XR THORACIC SPINE 3 VW (07/15/2025 [...] IMPRESSION: No acute thoracic spine findings. Neftaly SIMMS DIAGNOSTIC IMAGING ORDERABL ES Final Result documented in this encounter Visit Diagnoses Diagnosis Pleurisy- Primary Pleurisy without mention of effusion or current tuberculosis Pain in thoracic spine Pleurisy Pleurisy without mention of effusion or current tuberculosis Pain in thoracic spine Pleurisy Pleurisy without mention of effusion or current tuberculosis Pain in thoracic spine documented in this encounter Care Teams Keeler Polygraph Operator Relationship Specialty Start Date End Date Dhruv Grace, DEMI Talavera [address] [place] [address] PCP - General 01/19/21 documented as of this encounter
--- OUTSIDE RECORDS SUMMARY | 2025-07-18 19:53 | XMS_ITS | Encounter Summary ---
Author Organization [facility] Address [address] [place] [address] Care Team Providers Care Strip Cleaner Name Role Phone Dhruv Grace, DEMI, Krzysztof Smith Primary Care Pro vider Encounter Details Date Type Department Care Team (Late st Contact Info) Description 10/23/2016 Lab Requisition [facility] [place] [address] [place] [address] Miles Veliz, DO NO ADDRESS ON FILE Social History Tobacco Use Types Packs/Day Years Used Date Smoking Tobacco: Some Days Cigarettes Alcohol Use Standard Drinks/Week Comments No 0 (1 standard drink = 0.6 oz pur e alcohol) Sex and Gender Information Value Date Recorded Sex Assigned at Not on file Legal Sex Male 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 Gender Identity Not on file Sexual Orientation Not on file documented as of this encounter Plan of Treatment Not on file documented as of this encounter Procedures Procedure Name Priority Date/Time Associated Diagnosis Comments WOUND CULTURE WITH GRAM STAIN Routine 10/23/2016 8:03 PM PATCHING MACHINE OPERATOR documented in this encounter Results * (ABNORMAL) WOUND (AEROBIC) CULTURE WITH GRAM STAIN (10/23/2016 8:03 PM PATCHING MACHINE OPERATOR) CULTURE 3 to 4+ or numerous Streptococcus group B(A) LUZ MCG/ML 10/27/2016 10:14 AM PATCHING MACHINE OPERATOR [facility] [employer] [facility] Comment: Beta Streptococcus groups A, B, C, and G are predictably susceptible to ampicillin, penicillin, and cefazolin, but may be resistant to erythromycin and/or clindamycin. Susceptibility not routinely performed CULTURE 3 to 4+ or numerous Staphylococcus aureus(A) LUZ MCG/ML 10/27/2016 10:14 AM PATCHING MACHINE OPERATOR [facility] GRAM STAIN 1+ (Rare or Occasional) WBC 10/27/2016 10:14 AM PATCHING MACHINE OPERATOR [facility] GRAM STAIN 3+ (Moderate) Gram positive cocci 10/27/2016 10:14 AM PATCHING MACHINE OPERATOR [facility] Wound (Finger Little, left) 10/23/2016 8:03 PM PATCHING MACHINE OPERATOR 10/23/2016 9:25 PM PATCHING MACHINE OPERATOR Narrative Organism Antibiotic Method Susceptibility Staphylococcus aureus CLINDAMYCIN LUZ MCG/ML 0.25: Susceptible Staphylococcus aureus ERYTHROMYCIN LUZ MCG/ML 0.5: Susceptible Staphylococcus aureus OXACILLIN (Nafcillin) LUZ MCG/ML 0.5: Susceptible Staphylococcus aureus TRIMETHOPRIM/ SULFAMETHOXAZOLE M IC MCG/ML <=10.0: Susceptible Staphylococcus aureus VANCOMYCIN LUZ MCG/ML <=0.5: Susceptible Staphylococcus aureus DOXYCYCLINE LUZ MCG/ML <=0.5: Susceptible Miles Veliz DO MICROBIOLOGY - GENERAL ORDERABL ES Final Result [facility] CLIA# [id number] [address] [place] [address] documented in this encounter Visit Diagnoses Not on filedocumented in this encounter Care Teams Strip Cleaner Relationship Specialty Start Date End Date Dhruv Grace, DEMI [address] [place] [address] PCP - General NURSE PRACTITIONER 10/27/16 documented as of this encounter
--- OUTSIDE RECORDS SUMMARY | 2025-07-18 19:53 | XMS_ITS | Encounter Summary ---
Author Organization [facility] Address [address] [place] [address] Care Team Providers Care Top Screw Name Role Phone Dhruv Grace, DEMI, Krzysztof Smith Primary Care Pro vider Encounter Details Date Type Department Care Team (Late st Contact Info) Description 09/08/2019 Lab Requisition [facility] Services [place] [address] [place] [address] Miles Veliz, DO NO ADDRESS ON FILE Social History Tobacco Use Types Packs/Day Years Used Date Smoking Tobacco: Some Days Cigarettes Alcohol Use Standard Drinks/Week Comments No 0 (1 standard drink = 0.6 oz pur e alcohol) Sex and Gender Information Value Date Recorded Sex Assigned at Not on file 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 Gender Identity Not on file Sexual Orientation Not on file documented as of this encounter Plan of Treatment Not on file documented as of this encounter Procedures Procedure Name Priority Date/Time Associated Diagnosis Comments CBC WITH DIFFERENTIAL Routine 09/08/2019 9:45 PM CDT MAGNESIUM LEVEL Routine 09/08/2019 9:45 PM CDT HEMOGLOBIN A1C Routine 09/08/2019 9:45 PM CDT LIPID PANEL Routine 09/08/2019 9:45 PM CDT COMPREHENSIVE METABOLIC PANEL Routine 09/08/2019 9:45 PM CDT documented in this encounter Results * (ABNORMAL) HEMOGLOBIN A1C (09/08/2019 9:45 PM CDT) HEMOGLOBIN A1C 7.1(H) <=5.6 % 09/09/2019 3:09 AM CDT [facility] EST. AVG GLUCOSE, A1C 157 mg/dL 09/09/2019 3:09 AM CDT [facility] Blood Collection / Unknown 09/08/2019 9:45 PM CDT 09/09/2019 2:11 AM CDT Narrative [facility] - 09/09/2019 3:09 AM CDT HGB A1C INTERPRETATION NORMAL: <5.7% PRE-DIABETES: 5.7 - 6.4% DIABETES: 6.5% OR GREATER us Miles Veliz DO CHEMISTRY ORDERABLES Final Resu lt Performing Organization Address City/[facility]/ZIP Co de Phone Number [facility] CLIA # [id number] [address] [place] [id number] * MAGNESIUM LEVEL (09/08/2019 9:45 PM CDT) MAGNESIUM 2.1 1.6 - 2.6 mg/dL 09/09/2019 3:03 AM CDT [facility] Blood Collection / Unknown 09/08/2019 9:45 PM CDT 09/09/2019 2:11 AM CDT us Miles Veliz DO CHEMISTRY ORDERABLES Final Resu lt [facility] CLIA # [id number] [address] [place] [id number] * LIPID PANEL (09/08/2019 9:45 PM CDT) CHOLESTEROL 130 <200 mg/dL 09/09/2019 3:03 AM CDT [facility] TRIGLYCERIDE 111 <150 mg/dL 09/09/2019 3:03 AM CDT [facility] HDL 42 40 - 59 mg/dL 09/09/2019 3:03 AM CDT [facility] LDL CALCULATED 66 <100 mg/dL 09/09/2019 3:03 AM [facility] NON-HDL CHOLESTEROL 88 <130 mg/dL 09/09/2019 3:03 AM [facility] Blood Collection / Unknown 09/08/2019 9:45 PM CDT 09/09/2019 2:11 AM CDT [facility] - 09/09/2019 3:03 AM CDT TOTAL CHOLESTEROL [...] Guidelines Reference Ranges for Lipid Panels (NCEP/AMA) Miles Veliz DO CHEMISTRY ORDERABLES Final Resu lt [facility] CLIA # [id number] [address] [place] [id number] * (ABNORMAL) COMPREHENSIVE METABOLIC PANEL (09/08/2019 9:45 PM CDT) SODIUM 142 136 - 145 mmol/L 09/09/2019 3:03 AM [facility] POTASSIUM 5.2(H) 3.5 - 5.1 mmol/L 09/09/2019 3:03 AM [facility] CHLORIDE 105 98 - 107 mmol/L 09/09/2019 3:03 AM [facility] CO2 24 22 - 29 mmol/L 09/09/2019 3:03 AM [facility] CALCIUM 9.6 8.6 - 10.0 mg/dL 09/09/2019 3:03 AM [facility] BUN 21(H) 6 - 20 mg/dL 09/09/2019 3:03 AM [facility] CREATININE 1.05 0.67 - 1.17 mg/dL 09/09/2019 3:03 AM [facility] GLUCOSE 138(H) 74 - 99 mg/dL 09/09/2019 3:03 AM [facility] TOTAL PROTEIN 7.2 6.6 - 8.7 g/dL 09/09/2019 3:03 AM [facility] ALBUMIN 4.6 3.5 - 5.2 g/dL 09/09/2019 3:03 AM [facility] BILIRUBIN TOTAL 0.3 <=1.2 mg/dL 09/09/2019 3:03 AM [facility] ALKALINE PHOSPHATASE 110 40 - 129 U/L 09/09/2019 3:03 AM [facility] AST 17 10 - 50 U/L 09/09/2019 3:03 AM [facility] ALT 17 10 - 50 U/L 09/09/2019 3:03 AM [facility] GFR >60 >=60 mL/min/1.7 3 sq meter 09/09/2019 3:03 AM [facility] Comment: eGFR has not been validated for use in the elderly (> 70 years of age), women, patients with serious co-morbid conditions, or persons with extremes of body size or muscle mass and should also be interpreted with caution in patients with acute kidney failure, dialysis dependent patients, patients reporting exceptional dietary intake (e.g. vegetarian diet, high protein diets, creatine supplementation), and patients with severe liver disease. Based on National Kidney Disease Education Program If patient is , please refer to the GFR result. GFR, >60 >=60 mL/min/1.7 3 sq meter 09/09/2019 3:03 AM [facility] ANION GAP 13 12 - 20 mmol/L 09/09/2019 3:03 AM [facility] Blood Collection / Unknown 09/08/2019 9:45 PM CDT 09/09/2019 2:11 AM CDT us Miles Veliz DO CHEMISTRY ORDERABLES Final Resu lt [facility] CLIA # [id number] [address] [place] [address] * (ABNORMAL) CBC WITH DIFFERENTIAL (09/08/2019 9:45 PM CDT) WBC 6.8 4.2 - 9.1 K/uL 09/09/2019 1:44 AM [facility] RBC 4.17(L) 4.63 - 6.08 M/uL 09/09/2019 1:44 AM [facility] HEMOGLOBIN 13.5(L) 13.7 - 17.5 g/dL 09/09/2019 1:44 AM [facility] HEMATOCRIT 40.4 40.1 - 51.0 % 09/09/2019 1:44 AM [facility] MCV 96.9(H) 79.0 - 92.2 fL 09/09/2019 1:44 AM [facility] MCH 32.4(H) 25.7 - 32.2 pg 09/09/2019 1:44 AM [facility] MCHC 33.4 32.3 - 36.5 g/dL 09/09/2019 1:44 AM [facility] RDW 12.9 11.0 - 14.5 % 09/09/2019 1:44 AM [facility] RDW-STDEV 44.1 36.9 - 56.9 fL 09/09/2019 1:44 AM [facility] PLATELETS 172 130 - 400 K/uL 09/09/2019 1:44 AM [facility] MPV 9.8(L) 10.0 - 14.8 fL 09/09/2019 1:44 AM [facility] NEUTROPHILS 56 34 - 68 % 09/09/2019 1:44 AM [facility] LYMPHOCYTES 32 22 - 53 % 09/09/2019 1:44 AM [facility] MONOCYTES 9 5 - 12 % 09/09/2019 1:44 AM [facility] EOSINOPHILS 2 1 - 7 % 09/09/2019 1:44 AM CDT [facility] BASOPHILS 0 0 - 1 % 09/09/2019 1:44 AM CDT [facility] IMMATURE GRANULOCYTES 0 % 09/09/2019 1:44 AM T [facility] NEUTROPHIL ABSOLUTE 3.81 1.78 - 5.38 K/uL 09/09/2019 1:44 AM CDT [facility] LYMPHOCYTE ABSOLUTE 2.21 1.20 - 3.40 K/uL 09/09/2019 1:44 AM CDT [facility] MONOCYTE ABSOLUTE 0.62 0.30 - 0.82 K/uL 09/09/2019 1:44 AM CDT [facility] EOSINOPHIL ABSOLUTE 0.16 0.04 - 0.54 K/uL 09/09/2019 1:44 AM T [facility] BASOPHILS ABSOLUTE 0.02 0.01 - 0.08 K/uL 09/09/2019 1:44 AM T [facility] IMMATURE GRANULOCYTES ABSOLUTE 0.02 K/uL 09/09/2019 1:44 AM T [facility] Blood Collection / Unknown 09/08/2019 9:45 PM CDT 09/09/2019 1:25 AM CDT Miles Veliz DO HEMATOLOGY ORDERABLES Final Res ult [facility] CLIA # [id number] [address] [place] [address] [address] [place] [address] documented in this encounter Visit Diagnoses Not on filedocumented in this encounter Care Teams Top Screw Relationship Specialty Start Date End Date Dhruv Grace, DEMI [address] [place] [address] PCP - General NURSE PRACTITIONER 10/27/16 documented as of this encounter
--- NOTE | 2025-07-18 20:36 | XRR_ITS ---
PROCEDURE INFORMATION: Exam: XR Chest Exam date and time: 07/18/2025 9:08 PM Age: 59 years old Clinical indication: Pain; Chest pressure; Prior surgery; Surgery date: 6+ months; Surgery type: Port-a-cath; Additional info: Cp TECHNIQUE: Imaging protocol: Radiologic exam of the chest. Views: 1 view. COMPARISON: CR XR chest 1V portable [id number] 12/18/2024 12:35 PM FINDINGS: Lungs: Mild atelectasis in the right lung base. The left lung is clear. No consolidation. Pleural spaces: Unremarkable. No pleural effusion. No pneumothorax. Heart/Mediastinum: Unremarkable. No cardiomegaly. Diaphragm: Chronic elevation of the right diaphragm. Bones/joints: Unremarkable. Gastrointestinal tract: Gas distended colon with interposition beneath the right diaphragm. Other findings: Stable right Infusaport. XR/XR chest 1V portable [id number] IMPRESSION: 1. No acute pulmonary findings. 2. Gaseous distension of the colon is most likely ileus.
[2025-07-18 21:09] LABS: Hematocrit 37.3 % (37-53); Hemoglobin 12.30 g/dL (11.27-16.99); Mean Corpuscular HGB Conc 33.0 g/dL (30-55); Mean Corpuscular Hemoglobin 32.5 pg (27-33); Mean Corpuscular Volume 98.7 fl (82-101); Nucleated Red Blood Cells % 0 %; Platelet Count 139 10^3/cmm (157-399); Red Blood Count 3.78 10^6/uL (3.85-5.65); White Blood Count 5.63 10^3/uL (3.29-11.43)
[2025-07-18 21:27] LABS: Troponin(5th) Baseline 10 ng/L (0-15)
[2025-07-18 21:35] LABS: Alanine Aminotransferase 19 U/L (0-41); Albumin Level 4.4 g/dL (3.5-5.2); Alkaline Phosphatase 74 U/L (40-130); Anion Gap 17.4 (5-19); Aspartate Amino Transferase 15 U/L (0-40); Blood Urea Nitrogen 19 mg/dL (6-20); Calcium 9.4 mg/dL (8.5-10.5); Carbon Dioxide 18 mmol/L (22-29); Chloride 105 mmol/L (98-107); Globulin 2.4 g/dL (1.3-4.6); Glucose 157 mg/dL (65-115); Osmolality Calculated 288 mOsm/kg (285-295); Potassium 4.4 mmol/L (3.5-5.1); Sodium 136 mmol/L (136-145); Total Protein 6.8 g/dL (6.6-8.7)
[2025-07-18 21:37] VITALS: BP 158/98; PULSE 92; RESP 16; O2SAT 95
[2025-07-18 21:39] LABS: Creatinine Clr Calc Pharmacy 63.1974
--- NOTE | 2025-07-18 21:50 | CTR_ITS ---
PROCEDURE INFORMATION: Exam: CTA Chest With Contrast CTA Abdomen and Pelvis With Contrast Exam date and time: 07/18/2025 10:24 PM Age: 59 years old Clinical indication: Pain and injury or trauma; Numbness; Lower extremity; Blunt trauma; Pelvic area; Abdominal pain; Generalized; Prior surgery; Surgery date: 6+ months; Surgery type: Port a cath. Left nephrectomy. Lumbar/pelvic fusion; Patient sustained a fall while moving to sit in a chair. C/O chest pain that radiates into back. C/O diffuse abd pain with distention. C/O bilateral lower ext parasthesia. History of renal cancer. ; Additional info: Chest abd pain, bloating, paresthesia abd and inferiorly TECHNIQUE: Imaging protocol: Computed tomographic angiography of the chest with contrast. Exam focused on the arteries. Computed tomographic angiography of the abdomen and pelvis with contrast. Exam focused on the arteries. 3D rendering (Not supervised by radiologist): MIP and/or 3D reconstructed images were created by the technologist. Radiation optimization: All CT scans at this facility use at least one of these dose optimization techniques: automated exposure control; mA and/or kV adjustment per patient size (includes targeted exams where dose is matched to clinical indication); or iterative reconstruction. Contrast material: OMNI 350; Contrast volume: 100 ml; Contrast route: INTRAVENOUS (IV); COMPARISON: CT abdomen pelvis w con* [id number] 06/21/2023 4:[address] chest abdpel w/*[id number] 01/05/2025 9:33 AM RADIATION DOSE METRICS: Total DLP (mGy-cm): 1260.57 FINDINGS: VASCULATURE: Pulmonary arteries: Normal. No pulmonary emboli. Aorta: Mild calcified plaque in the abdominal aorta. No thoracic or abdominal aortic aneurysm or dissection. Celiac trunk and mesenteric arteries: No occlusion or significant stenosis. Renal arteries: No occlusion or significant stenosis. Right iliac arteries: No occlusion or significant stenosis. Left iliac arteries: No occlusion or significant stenosis. CHEST: Lungs: Mild dependent atelectasis in both lungs. Changes of emphysema in the lung apices. No consolidation. Pleural spaces: Unremarkable. No pneumothorax. No pleural effusion. Heart: Unremarkable. No cardiomegaly. No pericardial effusion. Diaphragm: Elevation of the right diaphragm. ABDOMEN AND PELVIS: Liver: No mass. Gallbladder and biliary ducts: Small calcified stones in the dependent gallbladder. No wall thickening. The bile ducts are normal. Pancreas: Unremarkable. No mass. No ductal dilation. Spleen: Calcified granulomas in the spleen. Adrenal glands: Unremarkable. No mass. Kidneys and ureters: Left nephrectomy. Mild right hydronephrosis and columning of the right ureter. No ureteral calculus. Stomach and bowel: Interposed colon beneath the right and left diaphragm. Radiopaque medication capsule in the proximal duodenum. Severe distension of the ascending and transverse colon with small fluid levels. The descending and sigmoid colon are normal in caliber. The stomach and small bowel are unremarkable. No obstruction. Appendix: No evidence of appendicitis. Intraperitoneal space: Unremarkable. No free air. No significant fluid collection. Urinary bladder: Severely distended urinary bladder measuring 18.5 cm in length. No wall thickening. Reproductive: Prostatomegaly with previous TURP. Lymph nodes: Calcified left hilar lymph nodes. No lymphadenopathy. Bones/joints: Mixed lytic and sclerotic lesion in the T4 vertebral body with extension into the left pedicle and transverse process. Mild T4 pathologic compression fracture. Mild thoracic curvature. Posterior mechanical fusion of L1-S1 with fixation screws transversing the sacroiliac joints. L3-L5 decompressive laminectomies. This hardware spares the L4 vertebral body. Severe chronic compression deformity of L4 with retropulsion. No acute fracture. Soft tissues: Mild body wall edema. CT/[facility] [id number] IMPRESSION: 1. No evidence aneurysm or dissection. 2. No evidence of pulmonary embolus. 3. No acute pulmonary findings. 4. Severe distension of the ascending and transverse colon, consistent with chronic ileus. 5. Stable metastatic lesion in the T4 vertebral body and left posterior elements, with a mild pathologic fracture. 6. Stable severe chronic pathologic L4 compression fracture. 7. Left nephrectomy. 8. Severe distension of the urinary bladder. This could represent a neurogenic bladder or bladder outlet obstruction. 9. Mild right hydronephrosis, likely due to the distended urinary bladder. COMMENTS: The presence of pulmonary emphysema on CT is an independent risk factor for lung cancer. In the absence of a history or active diagnosis of lung cancer, it is recommended that this patient with emphysema be evaluated for enrollment in a low dose CT lung cancer screening program.
[2025-07-18] MEDS: ondansetron 2 mg/ML SDV 2 mL 4 MG IVP (22:00)
[2025-07-18] MEDS: morphine 4 mg/mL SDV 1 mL IVP (22:00)
[2025-07-18 22:03] VITALS: BP 158/95; PULSE 93; RESP 16; O2SAT 97
[2025-07-18] MEDS: iohexol 350 mg/mL 500 mL Btl (per mL) IV (22:26)
--- NOTE | 2025-07-18 22:52 | ED_ITS ---
HPI - Chest Pain 2 General: Chief Complaint: Chest Pain Stated Complaint: Fell and can't walk Both legs, Hurting chest, back Time Seen by Provider: 07/18/25 21:08 History of Present Illness: Patient is a 59-year-old male who presents to the ED with chest pain and new onset bilateral lower extremity weakness. The patient reports chest pain that began approximately two weeks ago, described as pain from his right anterior chest radiating around to his spine. The pain is exacerbated by coughing and deep breathing. The pain has been intermittent, with some days being more painful than others. The patient saw his primary care physician at [facility] on Sunday, where chest and spine X-rays were reportedly normal. On Sunday afternoon, the patient began to notice bilateral leg weakness. Today at approximately 6:00 PM, the patient reports his legs 'gave out' while he was outside smoking, causing him to fall onto a concrete porch. He states he is currently unable to lift his legs or bear weight. He describes his legs as feeling 'tingly' and painful, with numbness extending from his feet up to approximately mid-thigh bilaterally. The patient denies numbness in his hands or genital region. He reports both upper and lower back pain that preceded the fall. The patient also reports occasional shortness of breath and intermittent coughing with clear sputum. He denies fever or vomiting but reports diarrhea for which he takes [id number] medication. He also notes abdominal bloating. Related Data Home Medications ?Medication ?Instructions ?Recorded ?Confirmed insulin glargine 100 unit/mL (3 10 unit SUBCUT BEDTIME 12/18/24 07/15/25 mL) subcutaneous pen (Lantus Solostar U-100 Insulin) magnesium 250 mg tablet 250 mg PO DAILY 04/14/2502/03 Previous Rx's ?Medication ?Instructions ?Recorded intraoperative neurophysiological #1 ea 06/28/23 monitoring TLSO Brace #1 ea 09/25/23 blood-glucose sensor (Dexcom G6 #3 ea 01/23/24 Sensor device) blood-glucose,chemical laboratory tester,cont #1 ea 01/23/24 (Dexcom G6 Factory Maintenance Manager) Diabetic Shoes #1 ea 01/13/25 clobetasol 0.05 % topical cream 1 applic topical BID # 45 grams 01/26/25 clotrimazole-betamethasone 1 1 applic topical BID 4 we eks #45 03/17/25 %-0.05 % topical cream grams dapagliflozin propanediol 5 mg See Rx Instructions .Ro jr 05/05/25 tablet (Farxiga) .COMPLEX #90 tabs axitinib 5 mg tablet (Inlyta) 10 mg (2 x 5 mg) PO BID #120 tabs 05/21/25 potassium chloride 20 mEq 20 meq PO BID #60 tabs 05/21 tablet,extended release (K-Tab) amlodipine 10 mg tablet See Rx Instructions .Route 0 07/14/25 .COMPLEX #30 tabs hydrocodone 5 mg-acetaminophen 325 1 tab PO TID PRN Pa in 30 days #90 07/14/25 mg tablet tabs losartan 100 mg tablet See Rx Instructions .Route 0 07/14/25 .COMPLEX #30 tabs Allergies Allergy/AdvReac Type Severity Reaction Status Date / Time No Known Allergies Allergy Verified 07/15/25 09:44 PFSH ED 2 PFSH: Medical History Fracture of lumbar spine Malignant neoplasm of left kidney Lumbar foraminal stenosis Type 2 diabetes mellitus Surgical History History of left nephrectomy 09/05/24 Port-A-Cath in place History of back surgery (06/20/23) L3/4 and L4/5 laminectomies with L2-S1 posterior spine fusion and with biopsy of L4 vertebral body Social History Smoking and tobacco/nicotine status: light tobacco/nicotine user cigarettes Packs smoked per day: 1 Years cigarettes smoked: 30 Quit status (tobacco/nicotine): has quit using Year quit tobacco: 2023 Alcohol intake: never Substance/Drug Use: never Adopted: No Caregiver/support person: No Lives independently: No Household members: spouse Current occupational status: employed Sexually active: Yes Do you think of yourself as: Straight/Heterosexual Current gender identity: Male Physical Exam 2 Const: GENERAL APPEARANCE: cooperative and frail appearing (For age) HENMT: COMMON NORMALS: normocephalic and atraumatic HEAD & SCALP: n ormocephalic and atraumatic Eye: COMMON NORMALS: Equal, round and reactive pupils present PUPIL: Yes Equal, round and reactive pupils present Neck/C-Spine: GENERAL: Yes trachea midline Chest: CHEST: Yes Symmetrical chest wall rise Resp: COMMON NORMALS: normal respiratory effort and clear to auscultation bilaterally EFFORT & INSPECTION: Yes symmetric chest movement A USCULTATION: clear to auscultation bilaterally Cardio: COMMON NORMALS: regular rate and regular rhythm RATE: regular rate RHYTHM: regular rhythm GI: INSPECTION: Yes abdominal distension PALPATION: Yes Firmness to palpation present (GI), Yes Tenderness to palpation present (GI) (Diffuse) and Yes Guarding due to palpation present (GI) PERCUSSION: tympanic to percussion Extremity: NARRATIVE EXTREMITY EXAM: Decreased pulses distally bilaterally. Legs are cool. Color normal. Subjective decrease sensation bilaterally to lower extremities diffusely. Neuro: OTHER: See above. Cannot elicit patellar or plantar reflexes well. Psych: COMMON NORMALS: mental status grossly normal and speech normal S PEECH: Yes normal speech Course 2 Vital Signs: Vital signs: Vital Signs Temperature 97.9 F 07/18/25 19:49 Pulse Rate 98 07/19/25 01:00 Respiratory Rate 16 07/19/25 01:00 Blood Pressure 144/82 07/19/25 01:00 Pulse Oximetry 95 07/19/25 01:00 Oxygen Delivery Me thod Room Air 07/18/25 19:49 MDM - Chest Pain Medical Decision Making Back pain, bilateral paresthesia, incontinence, severe bladder distention, ileus, and areflexia in a 59-year-old patient with a history of metastatic renal cell carcinoma. CTA of the chest abdomen pelvis was completed, because legs were cool, had paresthesias, and decreased pulses. Pulses were dopplerable bilaterally however. CTA reveals no aneurysm, dissection, thrombus. Creatinine is 1.3 bicarb is 18. Laboratory otherwise relatively unremarkable. 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 He has a severe chronic pathologic L4 compression fracture for example. He will require MRI tonight because of his symptoms as a differential diagnosis includes cauda equina syndrome. We do not have MRI capability here this weekend. We have no neurosurgery services or spine surgery services available. He will be transferred by ambulance to the ER at [facility] where such capability exists. I spoke with my counterpart in the emergency department there who agrees to take and transfer. He is stable for transfer. Lab Data 07/18/25 21:03 07/18/25 21:03 Radiology Impressions Chest X-Ray 07/18/25 20:36 IMPRESSION: 1. No acute pulmonary findings. 2. Gaseous distension of the colon is most likely ileus. Chest/Abdomen/Pelvis CTA 07/18/25 21:50 IMPRESSION: 1. No evidence aneurysm or dissection. 2. No evidence of pulmonary embolus. 3. No acute pulmonary findings. 4. Severe distension of the ascending and transverse colon, consistent with chronic ileus. 5. Stable metastatic lesion in the T4 vertebral body and left posterior elements, with a mild pathologic fracture. 6. Stable severe chronic pathologic L4 compression fracture. 7. Left nephrectomy. 8. Severe distension of the urinary bladder. This could represent a neurogenic bladder or bladder outlet obstruction. 9. Mild right hydronephrosis, likely due to the distended urinary bladder. COMMENTS: The presence of pulmonary emphysema on CT is an independent risk factor for lung cancer. In the absence of a history or active diagnosis of lung cancer, it is recommended that this patient with emphysema be evaluated for enrollment in a low dose CT lung cancer screening program. Laboratory Results WBC 5.63 10^3/uL (3.29-11.43) 07/18/25 21:03 RBC 3.78 10^6/uL (3.85-5.65) L 07/18/25 21:03 Hgb 12.30 g/dL (11.27-16.99) 07/18/25 21:03 Hct 37.3 % (37-53) 07/18/25 21:03 MCV 98.7 fl (82-101) 07/18/25 21:03 MCH 32.5 pg (27-33) 07/18/25 21:03 MCHC 33.0 g/dL (30-55) 07/18/25 21:03 RDW 15.1 % (12.1-15.1) 07/18/25 21:03 Plt Count 139 10^3/cmm (157-399) L 07/18/25 21:03 MPV 8.9 fL (7.4-10.4) 07/18/25 21:03 Neut % (Auto) 74.5 % 07/18/25 21:03 Lymph % (Auto) 7.8 % 07/18/25 21:03 [place] % (Auto) 4.8 % 07/18/25 21:03 Eos % (Auto) 11.7 % 07/18/25 21:03 Baso % (Auto) 0.7 % 07/18/25 21:03 Neut # (Auto) 4.19 10^3/uL (1.8-7.7) 07/18/25 21:03 Lymph # (Auto) 0.4 10^3/uL (0.8-4.8) L 07/18/25 21:03 [place] # (Auto) 0.3 10^3/uL (0.2-0.9) 07/18/25 21:03 Eos # (Auto) 0.7 10^3/uL (0.0-0.8) 07/18/25 21:03 Baso # (Auto) 0.0 10^3/uL (0.0-0.1) 07/18/25 21:03 Nucleated RBC % (auto) 0 % 07/18/25 21:03 Nucleated RBCs # 0.0 /100WBC 07/18/25 21:03 Sodium 136 mmol/L (136-145) 07/18/25 21:03 Potassium 4.4 mmol/L (3.5-5.1) 07/18/25 21:03 Chloride 105 mmol/L (98-107) 07/18/25 21:03 Carbon Dioxide 18 mmol/L (22-29) L 07/18/25 21:03 Anion Gap 17.4 (5-19) 07/18/25 21:03 BUN 19 mg/dL (6-20) 07/18/25 21:03 Creatinine 1.3 mg/dL (0.7-1.2) H 07/18/25 21:03 GFR Calculation 56.9 mL/min (90-130) L 07/18/25 21:03 Glucose 157 mg/dL (65-115) H 07/18/25 21:03 Calculated Osmolality 288 mOsm/kg (285-295) 07/18/25 21:03 Calcium 9.4 mg/dL (8.5-10.5) 07/18/25 21:03 Total Bilirubin 0.5 mg/dL (0.15-1.2) 07/18/25 21:03 AST 15 U/L (0-40) 07/18/25 21:03 ALT 19 U/L (0-41) 07/18/25 21:03 Alkaline Phosphatase 74 U/L (40-130) 07/18/25 21:03 Creatine Kinase 98 U/L (39-308) 07/18/25 21:03 Troponin T Baseline 10 ng/L (0-15) 07/18/25 21:03 Troponin T 120 Minute 9.51 ng/L (0-15) 07/18/25 23:17 Delta Troponin T -0.49 ABS# (0-10) L 07/18/25 23:17 Total Protein 6.8 g/dL (6.6-8.7) 07/18/25 21:03 Albumin 4.4 g/dL (3.5-5.2) 07/18/25 21:03 Globulin 2.4 g/dL (1.3-4.6) 07/18/25 21:03 Urine Color Yellow (Yellow) 07/19/25 00:20 Urine Appearance Clear (CLEAR) 07/19/25 00:20 Urine pH 5.5 (5-7) 07/19/25 00:20 Ur Specific [place] 1.016 (1.005-1.030) 07/19/25 00:20 Urine Protein Trace (Negative) A 07/19/25 00:20 Urine Glucose (UA) 3+ (Normal) H 07/19/25 00:20 Urine Ketones Negative (Negative) 07/19/25 00:20 Urine Blood Negative (Negative) 07/19/25 00:20 Urine Nitrate Negative (Negative) 07/19/25 00:20 Urine Bilirubin Negative (Negative) 07/19/25 00:20 Urine Urobilinogen 0.2 mg/dL (Negative) 07/19/25 00:20 Ur Leukocyte Esterase Negative (Negative) 07/19/25 00:20 Urine RBC 0-2 /hpf (0-2) 07/19/25 00:20 Urine WBC 0-5 /hpf (0-5) 07/19/25 00:20 Ur Squamous Epith Cells 0-5 /hpf (0-5) 07/19/25 00:20 Amorphous Sediment Not Reportable 07/19/25 00:20 Urine Bacteria None seen /hpf (NONE) 07/19/25 00:20 Hyaline Casts 0.40 /lpf 07/19/25 00:20 All radiology interpretation(s) finalized by discharge Discharge Plan Discharge Patient Disposition: Xfer Short-Term Hosp Clinical Impression: Back pain, Metastatic renal cell carcinoma, Neurogenic bladder, Areflexia Condition: Stable Referrals: Neftaly Hernandez FNP [Primary Care Provider, Family Practice] Print Language: Greenlandic Coding Level of Care Code ED Optometric Tech for Giacomo Mlyes
[2025-07-18 23:00] VITALS: BP 127/79; PULSE 86; RESP 16; O2SAT 97
[2025-07-18 23:30] VITALS: BP 133/84; PULSE 89; RESP 16; O2SAT 98
[2025-07-18 23:38] LABS: Troponin 5 2HR 9.51 ng/L (0-15)
[2025-07-19 00:03] LABS: Troponin 5 2HR Delta -0.49 ABS# (0-10)
[2025-07-19 00:07] VITALS: BP 141/91; PULSE 90; RESP 16; O2SAT 97
[2025-07-19 00:28] LABS: Glucose Urine UA 3+ (Normal); Nitrate Urine Negative (Negative); Specific Gravity, Urine 1.016 (1.005-1.030)
[2025-07-19 00:30] VITALS: BP 144/82; PULSE 101; RESP 16; O2SAT 99
[2025-07-19] MEDS: morphine 4 mg/mL SDV 1 mL IVP (00:34)
[2025-07-19 00:44] LABS: Add Urine Microscopic? YES
[2025-07-19 01:00] VITALS: BP 144/82; PULSE 98; RESP 16; O2SAT 95
[2025-07-22 16:00] LABS: Epstein Barr Virus DNA PCR Not Detected log IU/mL (Not Detected); Epstein Barr Virus DNA QN PCR Not Detected (Not Detected)
== END 2025-07-19 01:01 | disposition short-term general hospital (02) ==
PROVIDERS: Emergency Provider Emergency Medicine; PCP Registered Nurse
DX: M54.9 Dorsalgia, unspecified (principal); C79.49 Secondary malignant neoplasm of other parts of nervous system; N31.9 Neuromuscular dysfunction of bladder, unspecified; R29.2 Abnormal reflex; F17.210 Nicotine dependence, cigarettes, uncomplicated; E11.9 Type 2 diabetes mellitus without complications; C79.02 Secondary malignant neoplasm of left kidney and renal pelvis
CPT/HCPCS: 36415; 51702; 71045; 71275; 74174; 80053; 81001; 82550; 84484; 85025; 87798; 93005; 96374; 96375; 96376; 99285; J1100; J2270; J2405

== ENCOUNTER 2025-08-27 08:00 | Oncology outpatient (recurring) (ONCR) | payer OTHER, SELFPAY ==
[2025-08-20 11:27] LABS: Hematocrit 27.8 % (37-53); Hemoglobin 8.60 g/dL (11.27-16.99); Mean Corpuscular HGB Conc 30.9 g/dL (30-55); Mean Corpuscular Hemoglobin 30.6 pg (27-33); Mean Corpuscular Volume 98.9 fl (82-101); Nucleated Red Blood Cells % 0 %; Platelet Count 103 10^3/cmm (157-399); Red Blood Count 2.81 10^6/uL (3.85-5.65); White Blood Count 4.26 10^3/uL (3.29-11.43)
[2025-08-20 11:55] LABS: Alanine Aminotransferase 11 U/L (0-41); Albumin Level 3.6 g/dL (3.5-5.2); Alkaline Phosphatase 166 U/L (40-130); Anion Gap 16.2 (5-19); Aspartate Amino Transferase 15 U/L (0-40); Blood Urea Nitrogen 23 mg/dL (6-20); Calcium 8.7 mg/dL (8.5-10.5); Carbon Dioxide 23 mmol/L (22-29); Chloride 102 mmol/L (98-107); Creatinine Clr Calc Pharmacy 57.8387; Globulin 2.7 g/dL (1.3-4.6); Glucose 163 mg/dL (65-115); Osmolality Calculated 289 mOsm/kg (285-295); Potassium 5.2 mmol/L (3.5-5.1); Sodium 136 mmol/L (136-145); Thyroid Stimulating Hormone 8.37 uIU/mL (0.27-4.20); Total Protein 6.3 g/dL (6.6-8.7)
[2025-08-27 07:54] LABS: Hematocrit 28.0 % (37-53); Hemoglobin 8.90 g/dL (11.27-16.99); Mean Corpuscular HGB Conc 31.8 g/dL (30-55); Mean Corpuscular Hemoglobin 31.1 pg (27-33); Mean Corpuscular Volume 97.9 fl (82-101); Nucleated Red Blood Cells % 0 %; Platelet Count 174 10^3/cmm (157-399); Red Blood Count 2.86 10^6/uL (3.85-5.65); White Blood Count 3.85 10^3/uL (3.29-11.43)
[2025-08-27 08:13] LABS: Alanine Aminotransferase 10 U/L (0-41); Albumin Level 3.8 g/dL (3.5-5.2); Alkaline Phosphatase 170 U/L (40-130); Anion Gap 17.9 (5-19); Aspartate Amino Transferase 13 U/L (0-40); Blood Urea Nitrogen 19 mg/dL (6-20); Calcium 8.4 mg/dL (8.5-10.5); Carbon Dioxide 19 mmol/L (22-29); Chloride 104 mmol/L (98-107); Creatinine Clr Calc Pharmacy 72.2984; Ferritin 374 ng/mL (30-400); Globulin 2.9 g/dL (1.3-4.6); Glucose 114 mg/dL (65-115); Iron 54 ug/dL (59-158); Osmolality Calculated 285 mOsm/kg (285-295); Potassium 4.9 mmol/L (3.5-5.1); Sodium 136 mmol/L (136-145); Total Iron Binding Capacity 247 mcg/dl; Total Protein 6.7 g/dL (6.6-8.7); Unsaturated Iron Binding 193 ug/dL (112-347)
[2025-08-27 08:29] LABS: Vitamin B12 378 pg/mL (232-1245)
[2025-08-27] MEDS: pembrolizumab 200 MG in sodium chloride 0.9% 250 ML 516 MG IV (10:04)
[2025-08-27 10:48] VITALS: BP 103/63; PULSE 106; RESP 16; TEMP 35.9; O2SAT 96
--- NOTE | 2025-09-01 09:40 | ONCRAD EPV_ITS ---
Radiation Oncology Established Patient Visit Patient: Brennen Buckner [id number] : 1965> Age: 59> Sex: Male> Account #: Dictated by: oJrje Lebron DO/BAYRON/MIRTA Date of Service: 08/27/2025 Referring Physician(s) : Dr. Son Diagnosis: C64.9 - Malignant neoplasm of unspecified kidney, except renal pelvis, Diagnosed 10/14/2024 (Active) C79.51 - Secondary malignant neoplasm of bone, Diagnosed 10/14/2024 (Active) UPPER THORACIC RCC EPIDURAL TUMOR T2-T5, DECOMPRESSION LAMI T4, WOUNG HEALING ISSUES, WOUNDVAC > 100CC/DAY,KEYTRUDA TODAY, INLYTA HELD SINCE 07/18/2025, 1.5 CM OPEN WOUND WITH > 20CM INCISION OTHERWISE HEALED, BL NUMBNESS FROM KNEE DISTALLY SINCE BEFORE SURGERY, - B/B SYMPTOMS, EMBOLIZATION OF T4 LEFT SEGMENTAL VESSEL USING CONTOUR PARTICLES, PRIOR PALLIATIVE XRT TO L1-SACRUM COMPLETED 10/31/2024 STAGE: IV ICD-10: C79.51, C72.0, C64.9 Radiotherapy to Date: Course: L/S spine, Treatment Site: SPINE 30Gy, Ref. ID: [id number], Energy: 6X, Dose/Fx (cGy): 300, #Fx: , Dose Correction (cGy): 0, Total Dose Delivered (cGy): 3,000, Start Date: 10/20/2024, End Date: 10/31/2024, Elapsed Days: 11 Current History: This is a pleasant 59-year-old male with noted history above. He maintains a wound VAC that produced 100 cc over the last 24 hours. He states he has not had but 275 cc in a week prior. He denies any signs of infections surgical incision is otherwise well-healed. Current Medications: Last Reconciled 08/27/25 by Delmar Schwartz amlodipine TAKE ONE TABLET BY MOUTH DAILY for 30 days axitinib (Inlyta) 10 mg (2 x 5 mg) PO BID blood-glucose sensor (Dexcom G6 Sensor device) Change every 10 days; Use as directed to check blood sugar blood-glucose,cemetery warden,cont (Dexcom G6 Absorption Operator) Use as directed for checking blood sugar clobetasol 0.05% 1 applic topical BID clotrimazole-betamethasone 1-0.05 % 1 applic topical BID 4 weeks dapagliflozin propanediol (Farxiga) TAKE ONE TABLET BY MOUTH DAILY for 90 DAYS [Diabetic Shoes as directed by [facility] [place]] hydrocodone-acetaminophen 5-325 mg 1 tab PO TID PRN 30 days insulin glargine (Basaglar KwikPen U-100 Insulin) 18 units SUBCUT DAILY insulin glargine (Lantus Solostar U-100 Insulin) 10 units SUBCUT BEDTIME insulin lispro SUBCUT [intraoperative neurophysiological monitoring As directed] losartan TAKE ONE TABLET BY MOUTH DAILY magnesium 250 mg PO DAILY potassium chloride ER (K-Tab) 20 mEq PO BID [TLSO Brace As directed] Allergies: No Known Allergies Current Complaints / Review of Systems: As noted above. 12 point ROS otherwise noncontributory Vital Signs: Performed on 08/27/2025 8:50 AM BMI - 26.582 kg/m2 (high), Height - 69 in, Weight - 180 lbs, Temperature - 97 f, Pulse - 120 /min (high), Respiration - 18 /min, O2 Sat - 99 %, Pain - 5, Fatigue - 0 and BP - 119/ 71 mm(hg). Physical Exam: General: Alert and oriented x 3. No acute distress. HEENT: Normocephalic, atraumatic. Extraocular Movements Intact: Pupils Equal, Round, Reactive to Light and Accommodation: Sclerae anicteric. Oral cavity is clear without lesions, masses or ulcers. NECK: Supple without supraclavicular or jugular lymphadenopathy. LUNGS: Clear to auscultation bilaterally without rales, rhonchi or wheeze. HEART: Regular rate and rhythm, normal S1 and S2 without murmur, gallop or rub. MUSCULOSKELETAL: No tenderness or percussion pain over the axial skeleton except in the T4 area., ABDOMEN: Soft, nontender, nondistended without masses or organomegaly. Bowell sounds are present. EXTREMITIES: Patient using rollator very well. Gait is somewhat abnormal. NEUROLOGIC: Cranial nerves II ???XII are grossly intact. Normal sensation, strength 5/5 in all extremities, normal gait, no ataxia. Performance Status: KPS 90 Lab: None pending. Pathology: Primary, c64.9 - malignant neoplasm of unspecified kidney, except renal pelvis, Diagnosed 10/14/2024 (active) and Primary, c79.51 - secondary malignant neoplasm of bone, Diagnosed 10/14/2024 (active) . Imaging: See HPI Impression: C64.9 - Malignant neoplasm of unspecified kidney, except renal pelvis, Diagnosed 10/14/2024 (Active) C79.51 - Secondary malignant neoplasm of bone, Diagnosed 10/14/2024 (Active) UPPER THORACIC RCC EPIDURAL TUMOR T2-T5, DECOMPRESSION LAMI T4, WOUNG HEALING ISSUES, WOUNDVAC > 100CC/DAY IN PLACE, KEYTRUDA TODAY, INLYTA HELD SINCE 07/18/2025, 1.5 CM OPEN WOUND WITH > 20CM INCISION OTHERWISE HEALED, BL NUMBNESS FROM KNEE DISTALLY SINCE BEFORE SURGERY, - B/B SYMPTOMS, EMBOLIZATION OF T4 LEFT SEGMENTAL VESSEL USING CONTOUR PARTICLES, PRIOR PALLIATIVE XRT TO L1-SACRUM COMPLETED 10/31/2024 STAGE: IV ICD-10: C79.51, C72.0, C64.9 PLAN: Options were discussed with the patient and [id number]. All questions answered to their satisfaction Patient will need to have wound VAC removed and wound healed prior to treatment. Plan palliative XRT of 3000cGy/10fx, to just above T2 to the just below T5 for the epidural extension that was not surgically manipulated. Signed by: 09/01/2025 9:40:06 AM <<Signature on File>> Time spent with patient: CPT Code: CPT Code:
== END 2025-09-11 23:59 | disposition home or self-care (01) ==
PROVIDERS: Internal Medicine; PCP Registered Nurse; Visit Provider Nurse Practitioner Family
DX: Z51.12 Encounter for antineoplastic immunotherapy; C64.2 Malignant neoplasm of left kidney, except renal pelvis; Z79.899 Other long term (current) drug therapy; Z53.9 Procedure and treatment not carried out, unspecified reason
CPT/HCPCS: 36591; 80053; 82607; 82728; 82746; 83540; 83550; 83615; 84443; 85025; 96413; A4222; J7050; J9271

== ENCOUNTER 2025-09-17 08:03 | Oncology outpatient (recurring) (ONCR) | payer OTHER, SELFPAY ==
[2025-09-17 08:24] LABS: Hematocrit 28.1 % (37-53); Hemoglobin 9.00 g/dL (11.27-16.99); Mean Corpuscular HGB Conc 32.0 g/dL (30-55); Mean Corpuscular Hemoglobin 31.9 pg (27-33); Mean Corpuscular Volume 99.6 fl (82-101); Nucleated Red Blood Cells % 0 %; Platelet Count 145 10^3/cmm (157-399); Red Blood Count 2.82 10^6/uL (3.85-5.65); White Blood Count 5.15 10^3/uL (3.29-11.43)
[2025-09-17 08:51] LABS: Alanine Aminotransferase 16 U/L (0-41); Albumin Level 4.4 g/dL (3.5-5.2); Alkaline Phosphatase 171 U/L (40-130); Anion Gap 16.5 (5-19); Aspartate Amino Transferase 19 U/L (0-40); Blood Urea Nitrogen 24 mg/dL (6-20); Calcium 9.1 mg/dL (8.5-10.5); Carbon Dioxide 17 mmol/L (22-29); Chloride 107 mmol/L (98-107); Globulin 2.3 g/dL (1.3-4.6); Glucose 198 mg/dL (65-115); Osmolality Calculated 292 mOsm/kg (285-295); Potassium 4.5 mmol/L (3.5-5.1); Sodium 136 mmol/L (136-145); Thyroid Stimulating Hormone 2.85 uIU/mL (0.27-4.20); Total Protein 6.7 g/dL (6.6-8.7)
== END 2025-10-11 23:59 | disposition home or self-care (01) ==
PROVIDERS: PCP Registered Nurse; Visit Provider Nurse Practitioner Family
DX: C64.2 Malignant neoplasm of left kidney, except renal pelvis (principal)
CPT/HCPCS: 80053; 84443; 85025

== ENCOUNTER → 2025-10-12 10:33 | Outpatient (BNVA) | payer OTHER, SELFPAY | PROVIDERS: PCP Registered Nurse; Visit Provider Registered Nurse | DX: E11.9 Type 2 diabetes mellitus without complications (principal) | CPT/HCPCS: 80061; 83036 ==

== ENCOUNTER 2025-11-11 08:30 | Oncology outpatient (recurring) (ONCR) | payer OTHER, SELFPAY ==
[2025-10-14 08:53] LABS: Hematocrit 25.7 % (37-53); Hemoglobin 8.20 g/dL (11.27-16.99); Mean Corpuscular HGB Conc 31.9 g/dL (30-55); Mean Corpuscular Hemoglobin 31.5 pg (27-33); Mean Corpuscular Volume 98.8 fl (82-101); Nucleated Red Blood Cells % 0 %; Platelet Count 115 10^3/cmm (157-399); Red Blood Count 2.60 10^6/uL (3.85-5.65); White Blood Count 10.37 10^3/uL (3.29-11.43)
[2025-10-14 09:21] LABS: Alanine Aminotransferase 15 U/L (0-41); Albumin Level 3.7 g/dL (3.5-5.2); Alkaline Phosphatase 104 U/L (40-130); Anion Gap 15.9 (5-19); Aspartate Amino Transferase 13 U/L (0-40); Blood Urea Nitrogen 33 mg/dL (6-20); Calcium 8.3 mg/dL (8.5-10.5); Carbon Dioxide 19 mmol/L (22-29); Chloride 109 mmol/L (98-107); Ferritin 157 ng/mL (30-400); Globulin 2.1 g/dL (1.3-4.6); Glucose 101 mg/dL (65-115); Iron 73 ug/dL (59-158); Osmolality Calculated 297 mOsm/kg (285-295); Potassium 3.9 mmol/L (3.5-5.1); Sodium 140 mmol/L (136-145); Total Iron Binding Capacity 227 mcg/dl; Total Protein 5.8 g/dL (6.6-8.7); Unsaturated Iron Binding 154 ug/dL (112-347)
[2025-10-14 09:35] LABS: Vitamin B12 356 pg/mL (232-1245)
[2025-10-14 10:24] VITALS: BP 170/79; PULSE 97; RESP 17; TEMP 36.6; O2SAT 98
[2025-10-14 12:35] VITALS: BP 167/76; PULSE 87; RESP 17; TEMP 36.6; O2SAT 97
[2025-10-15 10:14] VITALS: BP 175/87; PULSE 80
[2025-10-16 08:00] VITALS: BP 187/91; PULSE 91; RESP 17; TEMP 37.2; O2SAT 99
[2025-10-16 09:51] VITALS: BP 166/79; PULSE 93; RESP 17; TEMP 36.8; O2SAT 97
[2025-10-21 09:02] LABS: Hematocrit 24.4 % (37-53); Hemoglobin 7.80 g/dL (11.27-16.99); Mean Corpuscular HGB Conc 32.0 g/dL (30-55); Mean Corpuscular Hemoglobin 31.7 pg (27-33); Mean Corpuscular Volume 99.2 fl (82-101); Nucleated Red Blood Cells % 0 %; Platelet Count 97 10^3/cmm (157-399); Red Blood Count 2.46 10^6/uL (3.85-5.65); White Blood Count 6.45 10^3/uL (3.29-11.43)
[2025-10-21 09:10] LABS: Alanine Aminotransferase 41 U/L (0-41); Albumin Level 3.9 g/dL (3.5-5.2); Alkaline Phosphatase 138 U/L (40-130); Anion Gap 18.1 (5-19); Aspartate Amino Transferase 24 U/L (0-40); Blood Urea Nitrogen 29 mg/dL (6-20); Calcium 9.2 mg/dL (8.5-10.5); Carbon Dioxide 21 mmol/L (22-29); Chloride 104 mmol/L (98-107); Ferritin 155 ng/mL (30-400); Globulin 2.1 g/dL (1.3-4.6); Glucose 133 mg/dL (65-115); Iron 54 ug/dL (59-158); Osmolality Calculated 296 mOsm/kg (285-295); Potassium 4.1 mmol/L (3.5-5.1); Sodium 139 mmol/L (136-145); Total Iron Binding Capacity 233 mcg/dl; Total Protein 6.0 g/dL (6.6-8.7); Unsaturated Iron Binding 179 ug/dL (112-347)
[2025-10-21 09:25] LABS: Vitamin B12 373 pg/mL (232-1245)
[2025-10-21] MEDS: pembrolizumab 200 MG in sodium chloride 0.9% 250 ML 600 MG IV (11:18)
[2025-10-21 12:01] VITALS: BP 171/91; PULSE 89
--- NOTE | 2025-10-27 09:30 | ONCRAD TMN_ITS ---
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 ID: [id number], Energy: 6X, Dose/Fx (cGy): 300, #Fx: 2 / 10, Dose Correction (cGy): 0, Total Dose Delivered (cGy): 600, Start Date: 10/26/2025, Elapsed Days: 1 Reason for visit: The patient is being seen today as part of their regularly scheduled weekly on treatment visits to assess for acute toxicities from radiotherapy. Review of Systems: Wound healing is complete. There is mild erythema there no use of creams at this point. Platelet count down to 97,000 with total protein low as well as iron. Vital Signs: Performed on 10/27/2025 9:04 AM BMI - 27.172 kg/m2 (high), Height - 69 in, Weight - 184 lbs, Temperature - 97.2 f, Pulse - 108 /min (high), Respiration - 18 /min, O2 Sat - 97 %, Pain - 5, Fatigue - 0 and BP - 180/ 90 mm(hg)(high/). Physical Exam: AAOx3. Erythema along the incision line. Skin is well-healed with no evidence of breakdown at this point. Imaging: Radiation therapy imaging related to accurate target localization (i.e. KV, MV and CBCT) was reviewed. Appropriate changes, if any, were made to ensure treatment accuracy. Plan: Continue XRT Start utilizing creams to the area liberally after treatment each day. Signed by: Saleem Lebron 10/27/2025 9:28:46 AM
--- NOTE | 2025-11-03 09:05 | ONCRAD TMN_ITS ---
Radiation Oncology Weekly Treatment Management Patient: Dudley Hutton MR#: [id number] : 1965 Attending Physician: Saleem Lebron Date of Service: 11/03/2025 Referring Physician(s) : Dr. 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 ID: [id number], Energy: 6X, Dose/Fx (cGy): 300, #Fx: 7 / 10, Dose Correction (cGy): 0, Total Dose Delivered (cGy): 2,100, Start Date: 10/26/2025, Elapsed Days: 8 Reason for visit: The patient is being seen today as part of their regularly scheduled weekly on treatment visits to assess for acute toxicities from radiotherapy. Review of Systems: States he is feeling some better each and every day. Pain is 5 on a 10 point scale. His blood pressure remains elevated and he has appointment with Dr. Hargrove at 11:00 today to change his meds back to his original ones. Vital Signs: Performed on 11/03/2025 7:48 AM BMI - 26.611 kg/m2 (high), Height - 69 in, Weight - 180.2 lbs, Temperature - 97.2 f, Pulse - 118 /min (high), Respiration - 18 /min, O2 Sat - 95 % (low), Pain - 5, Fatigue - 0 and BP - 185/ 92 mm(hg)(high). Physical Exam: AAOx3. Skin is intact. Imaging: Radiation therapy imaging related to accurate target localization (i.e. KV, MV and CBCT) was reviewed. Appropriate changes, if any, were made to ensure treatment accuracy. Plan: Continue XRT PCP appointment at 11:[address] Hargrove regarding BP and changing meds Signed by: Saleem Lebron 11/03/2025 9:03:32 AM
--- NOTE | 2025-11-10 09:19 | N.ONRD TS_ITS ---
Radiation Oncology Treatment Summary Patient: Dudley Hutton MR#: [id number] : 1965 Age: 60 Sex: Male Dictated by: Saleem Lebron Date of Service: 11/10/2025 Referring Physician(s) : Dr. 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 ID: [id number], Energy: 6X, Dose/Fx (cGy): 300, #Fx: 10 / 10, Dose Correction (cGy): 0, Total Dose Delivered (cGy): 3,000, Start Date: 10/20/2024, End Date: 10/31/2024, Elapsed Days: 11 Course: T2-T5, 2024, Treatment Site: T SPINE 30Gy, Ref. ID: [id number], Energy: 6X, Dose/Fx (cGy): 300, #Fx: 10 / 10, Dose Correction (cGy): 0, Total Dose Delivered (cGy): 3,000, Start Date: 10/26/2025, End Date: 11/10/2025, Elapsed Days: 15 Vital Signs: Performed on 11/10/2025 9:10 AM BMI - 26.079 kg/m2 (high), Height - 69 in, Weight - 176.6 lbs, Temperature - 97.5 f, Pulse - 111 /min (high), Respiration - 18 /min, O2 Sat - 99 %, Pain - 5, Fatigue - 0 and BP - 167/ 80 mm(hg)(high/). Clinical Summary: The patient tolerated RT well. Pain scale is down to a 5 on a 10 point scale. Plan: End of treatment today. Continue on the above medication until the skin reaction resolves. Follow up in one month. Signed by: Saleem Lebron>11/10/2025 9:18:26 AM <<Signature on File>>
[2025-11-11 08:44] LABS: Hematocrit 24.8 % (37-53); Hemoglobin 7.80 g/dL (11.27-16.99); Mean Corpuscular HGB Conc 31.5 g/dL (30-55); Mean Corpuscular Hemoglobin 30.8 pg (27-33); Mean Corpuscular Volume 98.0 fl (82-101); Nucleated Red Blood Cells % 0 %; Platelet Count 96 10^3/cmm (157-399); Red Blood Count 2.53 10^6/uL (3.85-5.65); White Blood Count 3.50 10^3/uL (3.29-11.43)
[2025-11-11 09:19] LABS: Alanine Aminotransferase 6 U/L (0-41); Albumin Level 3.8 g/dL (3.5-5.2); Alkaline Phosphatase 118 U/L (40-130); Anion Gap 21.0 (5-19); Aspartate Amino Transferase 9 U/L (0-40); Blood Urea Nitrogen 21 mg/dL (6-20); Calcium 9.1 mg/dL (8.5-10.5); Carbon Dioxide 18 mmol/L (22-29); Chloride 104 mmol/L (98-107); Ferritin 201 ng/mL (30-400); Globulin 2.3 g/dL (1.3-4.6); Glucose 97 mg/dL (65-115); Iron 58 ug/dL (59-158); Osmolality Calculated 291 mOsm/kg (285-295); Potassium 4.0 mmol/L (3.5-5.1); Sodium 139 mmol/L (136-145); Thyroid Stimulating Hormone 2.17 uIU/mL (0.27-4.20); Total Iron Binding Capacity 244 mcg/dl; Total Protein 6.1 g/dL (6.6-8.7); Unsaturated Iron Binding 186 ug/dL (112-347)
--- NOTE | 2025-11-11 10:31 | XRR_ITS ---
PROCEDURE INFORMATION: Exam: XR Chest Exam date and time: 11/11/2025 10:52 AM Age: 60 years old Clinical indication: Cough; Prior surgery; Surgery date: 6+ months; Surgery type: Port, fusion x 3; HX of kidney cancer TECHNIQUE: Imaging protocol: Radiologic exam of the chest. Views: 2 views. COMPARISON: CR (CHEST, ) 07/18/2025 9:08 PM FINDINGS: Tubes, catheters and devices: Right-sided infusion port is in satisfactory location, its tip projects in the area of the superior vena cava. Lungs: Mild perihilar opacity, [id number]-hjhl-left. This could represent pulmonary venous congestion, atypical infection could also have this appearance. Numerous pulmonary nodules. This appears more pronounced from prior, new metastatic disease is suspected. Correlation with CT recommended at this time. Pleural spaces: No significant pleural fluid. No pneumothorax. Heart/Mediastinum: Unremarkable. No cardiomegaly. Bones/joints: Postsurgical changes of the spine are newly evident. This is of the upper thoracic, upper lumbar. Gastrointestinal tract: Mild gaseous distension of the bowel in the upper abdomen but improved from prior. XR/XR chest 2V* 22555 IMPRESSION: 1. Mild perihilar opacity, [id number]-[id number]-ebot-left. This could represent pulmonary venous congestion, atypical infection could also have this appearance. 2. Numerous pulmonary nodules. This appears more pronounced from prior, new metastatic disease is suspected. Correlation with CT recommended at this time.
== END 2025-11-11 14:42 | disposition home or self-care (01) ==
PROVIDERS: PCP Registered Nurse; Visit Provider Internal Medicine
DX: Z53.9 Procedure and treatment not carried out, unspecified reason (principal); C64.2 Malignant neoplasm of left kidney, except renal pelvis; R05.9 Cough, unspecified; R91.8 Other nonspecific abnormal finding of lung field; Z95.828 Presence of other vascular implants and grafts; R14.0 Abdominal distension (gaseous)
CPT/HCPCS: 36591; 71046; 77290; 77295; 77300; 77334; 77336; 77387; 77412; 80053; 82607; 82668; 82728; 82746; 83010; 83540; 83550; 83615; 84443; 85025; 85045; 96360; 96361; 96413; J7030; J7050; J9271